=== PATIENT | male | born 1950 | race Hispanic/Latino ===

== ENCOUNTER 2018-05-07 12:07 | Inpatient (IN) | payer MEDICARE ==
[2018-05-07 13:37] LABS: Basophils % (Auto) 0.2 % (0.0-1.8); Hematocrit 50.9 % (35.5-45.6); Hemoglobin 17.1 gm/dl (11.8-15.2); Lymphocytes # (Auto) 0.5 K/mm3 (1.2-5.4); Lymphocytes % (Auto) 5.2 % (13.4-35.0); Mean Corpuscular HGB Conc 34 % (32-34); Mean Corpuscular Volume 85 fl (84-94); Monocytes # (Auto) 0.5 K/mm3 (0.0-0.8); Monocytes % (Auto) 6.1 % (0.0-7.3); Red Blood Count 5.98 M/mm3 (3.65-5.03)
[2018-05-07 14:53] LABS: Platelet Count 75 K/mm3 (140-440)
[2018-05-07 14:55] LABS: BUN/Creatinine Ratio 40; Blood Urea Nitrogen 32 mg/dL (9-20); Calcium 10.2 mg/dL (8.4-10.2); Hemolysis Index 120
[2018-05-07] MEDS ORDERED: NACL 0.9% 1000 ML 1,000 ML IV ONE ×2 (19:20→20:49)
[2018-05-07] MEDS ORDERED: ZOFRAN ODT PO ONE (19:27)
[2018-05-07] MEDS ORDERED: ZOFRAN ODT ONE (19:29)
[2018-05-07 19:41] LABS: Bilirubin,Urine NEG (Negative); Blood,Urine MOD (Negative); Color,Urine Amber (Yellow); Mucus,Urine FEW /HPF; Urobilinogen,Urine < 2.0 mg/dL (<2.0)
[2018-05-07 19:43] LABS: Amphetamine Screen,Urine PRESUMPTIVE NEGATIVE; Benzodiazepines Screen,Urine PRESUMPTIVE NEGATIVE; Cannabinoid Screen,Urine PRESUMPTIVE NEGATIVE; Cocaine Screen,Urine PRESUMPTIVE NEGATIVE; Methadone Screen,Urine PRESUMPTIVE NEGATIVE; Opiate Screen,Urine PRESUMPTIVE NEGATIVE
--- NOTE | 2018-05-07 20:47 | Emergency Department Report ---
ED N/V/D HPI - General Chief complaint: Nausea/Vomiting/Diarrhea Stated complaint: DETOX Time Seen by Provider: 05/07/18 19:19 Source: patient Mode of arrival: Wheelchair Limitations: No Limitations - History of Present Illness Initial comments: Patient is here because he said he has been on morphine for several years due to his chronic back pain. He said he has 5 doctors who have prescribed morphine tablets for him over the years. He came to the ED stating he needs a shot of IV morphine and then he can go home and continue taking his morphine tablets. He complained of nausea, vomiting and diarrhea which he stated he gets whenever he needs his IV morphine shot. Patient denies abdominal pain, fever, headache, chest pain or shortness of breath. MD complaint: nausea, vomiting, diarrhea -: days(s) (6) Description of Vomiting: bilious Description of Diarrhea: green Associated Abdominal Pain: No Radiation: none Severity: moderate Pain Scale: 7 Consistency: constant Improves with: medication (IV morphine shot) Worsens with: none Associated Symptoms: cough, loss of appetite, nausea/vomiting. denies: chest pain, shortness of breath - Related Data Previous Rx's Medication Instructions Recorded Last Taken Type Bisacodyl [Dulcolax suppos] 10 mg MT QDAY PRN #15 supp.rect 09/28/15 1 Day Ago Rx ~11/17/15 Famotidine [Pepcid] 20 mg PO BID #60 tablet 09/28/15 1 Day Ago Rx ~11/17/15 Thiamine [Vitamin B-1] 100 mg PO QDAY #30 tablet 09/28/15 1 Day Ago Rx ~11/17/15 Midodrine [Proamatine] 2.5 mg PO Q8HR tablet 11/20/15 Unknown Rx risperiDONE [RisperDAL] 0.25 mg PO BID #60 tablet 11/20/15 Unknown Rx Folic Acid [Folvite] 1 mg PO QDAY #30 tablet 04/07/16 Unknown Rx Lactulose [Cephulac] 20 gm PO QDAY PRN #30 oral.liqd 04/07/16 Unknown Rx Nitrofurantoin [place]/M-Cryst 100 mg PO Q12HR #13 capsule 04/15/16 Unknown Rx [Macrobid CAP] Allergies Allergy/AdvReac Type Severity Reaction Status Date / Time ciprofloxacin [From Cipro] Allergy Dizziness Verified 08/04/13 15:02 ciprofloxacin HCl Allergy Dizziness Verified 08/04/13 15:02 [From Cipro] ED Review of Systems ROS: Stated complaint: DETOX Other details as noted in HPI Comment: All other systems reviewed and negative Constitutional: denies: chills, fever Eyes: denies: eye pain, eye discharge, vision change ENT: denies: ear pain, throat pain Respiratory: cough. denies: shortness of breath, wheezing Cardiovascular: denies: chest pain, palpitations Endocrine: no symptoms reported Gastrointestinal: nausea, vomiting, diarrhea. denies: abdominal pain, hematemesis, melena, hematochezia Genitourinary: denies: urgency, dysuria Musculoskeletal: denies: back pain, joint swelling, arthralgia Skin: denies: rash, lesions Neurological: denies: headache, weakness, paresthesias Psychiatric: denies: anxiety, depression Hematological/Lymphatic: denies: easy bleeding, easy bruising ED Past Medical Hx - Past Medical History Hx Hypertension: Yes Hx Diabetes: Yes (Borderline) Hx Liver Disease: Yes (Hep. C) Hx Asthma: Yes Hx COPD: No Hx HIV: No Additional medical history: hepatitis C. "bad circulation" chronic bilateral lower extremity wounds. unbillical hernia. inguinial hernia - Surgical History Hx Cholecystectomy: Yes Additional Surgical History: tonsillectomy - Social History Smoking Status: Never Smoker Substance Use Type: Other - Medications Home Medications: Home Medications Medication Instructions Recorded Confirmed Last Taken Type Bisacodyl [Dulcolax suppos] 10 mg MT QDAY PRN #15 supp.rect 09/28/15 04/15/16 1 Day Ago Rx ~11/17/15 Famotidine [Pepcid] 20 mg PO BID #60 tablet 09/28/15 04/15/16 1 Day Ago Rx ~11/17/15 Thiamine [Vitamin B-1] 100 mg PO QDAY #30 tablet 09/28/15 04/15/16 1 Day Ago Rx ~11/17/15 Midodrine [Proamatine] 2.5 mg PO Q8HR tablet 11/20/15 04/15/16 Unknown Rx risperiDONE [RisperDAL] 0.25 mg PO BID #60 tablet 11/20/15 04/15/16 Unknown Rx Folic Acid [Folvite] 1 mg PO QDAY #30 tablet 04/07/16 04/15/16 Unknown Rx Lactulose [Cephulac] 20 gm PO QDAY PRN #30 oral.liqd 04/07/16 04/15/16 Unknown Rx Nitrofurantoin [place]/M-Cryst 100 mg PO Q12HR #13 capsule 04/15/16 Unknown Rx [Macrobid CAP] ED Physical Exam - General Limitations: No Limitations General appearance: alert, in no apparent distress, cachectic - Head Head exam: Present: atraumatic, normocephalic - Eye Eye exam: Present: normal appearance, PERRL, EOMI Pupils: Present: normal accommodation - ENT ENT exam: Present: normal exam, mucous membranes dry - Neck Neck exam: Present: normal inspection, full ROM. Absent: tenderness, meningismus - Respiratory Respiratory exam: Present: normal lung sounds bilaterally. Absent: respiratory distress, wheezes, rales, rhonchi - Cardiovascular Cardiovascular Exam: Present: regular rate, normal rhythm, normal heart sounds. Absent: systolic murmur, diastolic murmur, rubs, gallop - GI/Abdominal GI/Abdominal exam: Present: soft, normal bowel sounds. Absent: distended, tenderness, guarding, rebound, rigid - Rectal Rectal exam: Present: deferred - Extremities Exam Extremities exam: Present: normal inspection, full ROM, normal capillary refill. Absent: tenderness - Back Exam Back exam: Present: normal inspection, full ROM. Absent: tenderness - Neurological Exam Neurological exam: Present: alert, oriented X3, CN II-XII intact - Psychiatric Psychiatric exam: Present: normal affect, normal mood - Skin Skin exam: Present: warm, dry, intact, normal color. Absent: rash ED Course Vital Signs 05/07/18 05/07/18 05/07/18 12:17 19:45 21:37 Temperature 98.8 F 98.8 F Pulse Rate 94 H 73 Respiratory 16 18 16 Rate Blood Pressure 146/59 Blood Pressure 163/74 [Right] O2 Sat by Pulse 95 98 97 Oximetry - Consultations Consultation #1: 05/08/18 00:58 I consulted the General Surgeon customer sales consultant Dr Banks, he recommend NG tube placement and admission to the hospital by the hospitalist and he will evaluate patient in the morning. Consultation #2: 05/08/18 01:00 Dr Washington to admit patient. ED Medical Decision Making - Lab Data Result diagrams: 05/07/18 13:21 05/07/18 13:21 Lab Results 05/07/18 05/07/18 05/07/18 Range/Units 13:21 13:21 13:21 WBC (4.5-11.0) K/mm3 RBC (3.65-5.03) M/mm3 Hgb (11.8-15.2) gm/dl Hct (35.5-45.6) % MCV (84-94) fl MCH (28-32) pg MCHC (32-34) % RDW (13.2-15.2) % Plt Count (140-440) K/mm3 Lymph % (Auto) (13.4-35.0) % [place] % (Auto) (0.0-7.3) % Eos % (Auto) (0.0-4.3) % Baso % (Auto) (0.0-1.8) % Lymph # (1.2-5.4) K/mm3 [place] # (0.0-0.8) K/mm3 Eos # (0.0-0.4) K/mm3 Baso # (0.0-0.1) K/mm3 Seg Neutrophils % (40.0-70.0) % Seg Neutrophils # (1.8-7.7) K/mm3 Sodium 142 (137-145) mmol/L Potassium 4.3 (3.6-5.0) mmol/L Chloride 101.0 (98-107) mmol/L Carbon Dioxide 18 L (22-30) mmol/L Anion Gap 27 mmol/L BUN 32 H (9-20) mg/dL Creatinine 0.8 (0.8-1.5) mg/dL Estimated GFR > 60 ml/min BUN/Creatinine Ratio 40 % Glucose 159 H (75-100) mg/dL Calcium 10.2 (8.4-10.2) mg/dL Urine Color (Yellow) Urine Turbidity (Clear) Urine pH (5.0-7.0) Ur Specific Seney (1.003-1.030) Urine Protein (Negative) mg/dL Urine Glucose (UA) (Negative) mg/dL Urine Ketones (Negative) mg/dL Urine Blood (Negative) Urine Nitrite (Negative) Urine Bilirubin (Negative) Urine Urobilinogen (<2.0) mg/dL Ur Leukocyte Esterase (Negative) Urine WBC (Auto) (0.0-6.0) /HPF Urine RBC (Auto) (0.0-6.0) /HPF U Epithel Cells (Auto) (0-13.0) /HPF Urine Mucus /HPF Salicylates < 0.3 L (2.8-20.0) mg/dL Urine Opiates Screen Urine Methadone Screen Acetaminophen < 5.0 L (10.0-30.0) ug/mL Ur Barbiturates Screen Ur Phencyclidine Scrn Ur Amphetamines Screen U Benzodiazepines Scrn Urine Cocaine Screen U Marijuana (THC) Screen Drugs of Abuse Note Plasma/Serum Alcohol (0-0.07) % 05/07/18 05/07/18 05/07/18 Range/Units 13:21 13:21 19:19 WBC 8.8 (4.5-11.0) K/mm3 RBC 5.98 H (3.65-5.03) M/mm3 Hgb 17.1 H (11.8-15.2) gm/dl Hct 50.9 H (35.5-45.6) % MCV 85 (84-94) fl MCH 29 (28-32) pg MCHC 34 (32-34) % RDW 14.0 (13.2-15.2) % Plt Count 75 L (140-440) K/mm3 Lymph % (Auto) 5.2 L (13.4-35.0) % [place] % (Auto) 6.1 (0.0-7.3) % Eos % (Auto) 0.0 (0.0-4.3) % Baso % (Auto) 0.2 (0.0-1.8) % Lymph # 0.5 L (1.2-5.4) K/mm3 [place] # 0.5 (0.0-0.8) K/mm3 Eos # 0.0 (0.0-0.4) K/mm3 Baso # 0.0 (0.0-0.1) K/mm3 Seg Neutrophils % 88.5 H (40.0-70.0) % Seg Neutrophils # 7.8 H (1.8-7.7) K/mm3 Sodium (137-145) mmol/L Potassium (3.6-5.0) mmol/L Chloride (98-107) mmol/L Carbon Dioxide (22-30) mmol/L Anion Gap mmol/L BUN (9-20) mg/dL Creatinine (0.8-1.5) mg/dL Estimated GFR ml/min BUN/Creatinine Ratio % Glucose (75-100) mg/dL Calcium (8.4-10.2) mg/dL Urine Color [place] (Yellow) Urine Turbidity Clear (Clear) Urine pH 5.0 (5.0-7.0) Ur Specific Seney 1.027 (1.003-1.030) Urine Protein 100 mg/dl (Negative) mg/dL Urine Glucose (UA) 50 (Negative) mg/dL Urine Ketones 20 (Negative) mg/dL Urine Blood Mod (Negative) Urine Nitrite Neg (Negative) Urine Bilirubin Neg (Negative) Urine Urobilinogen < 2.0 (<2.0) mg/dL Ur Leukocyte Esterase Neg (Negative) Urine WBC (Auto) 2.0 (0.0-6.0) /HPF Urine RBC (Auto) 4.0 (0.0-6.0) /HPF U Epithel Cells (Auto) < 1.0 (0-13.0) /HPF Urine Mucus Few /HPF Salicylates (2.8-20.0) mg/dL Urine Opiates Screen Urine Methadone Screen Acetaminophen (10.0-30.0) ug/mL Ur Barbiturates Screen Ur Phencyclidine Scrn Ur Amphetamines Screen U Benzodiazepines Scrn Urine Cocaine Screen U Marijuana (THC) Screen Drugs of Abuse Note Plasma/Serum Alcohol < 0.01 (0-0.07) % 05/07/18 Range/Units 19:19 WBC (4.5-11.0) K/mm3 RBC (3.65-5.03) M/mm3 Hgb (11.8-15.2) gm/dl Hct (35.5-45.6) % MCV (84-94) fl MCH (28-32) pg MCHC (32-34) % RDW (13.2-15.2) % Plt Count (140-440) K/mm3 Lymph % (Auto) (13.4-35.0) % [place] % (Auto) (0.0-7.3) % Eos % (Auto) (0.0-4.3) % Baso % (Auto) (0.0-1.8) % Lymph # (1.2-5.4) K/mm3 [place] # (0.0-0.8) K/mm3 Eos # (0.0-0.4) K/mm3 Baso # (0.0-0.1) K/mm3 Seg Neutrophils % (40.0-70.0) % Seg Neutrophils # (1.8-7.7) K/mm3 Sodium (137-145) mmol/L Potassium (3.6-5.0) mmol/L Chloride (98-107) mmol/L Carbon Dioxide (22-30) mmol/L Anion Gap mmol/L BUN (9-20) mg/dL Creatinine (0.8-1.5) mg/dL Estimated GFR ml/min BUN/Creatinine Ratio % Glucose (75-100) mg/dL Calcium (8.4-10.2) mg/dL Urine Color (Yellow) Urine Turbidity (Clear) Urine pH (5.0-7.0) Ur Specific Seney (1.003-1.030) Urine Protein (Negative) mg/dL Urine Glucose (UA) (Negative) mg/dL Urine Ketones (Negative) mg/dL Urine Blood (Negative) Urine Nitrite (Negative) Urine Bilirubin (Negative) Urine Urobilinogen (<2.0) mg/dL Ur Leukocyte Esterase (Negative) Urine WBC (Auto) (0.0-6.0) /HPF Urine RBC (Auto) (0.0-6.0) /HPF U Epithel Cells (Auto) (0-13.0) /HPF Urine Mucus /HPF Salicylates (2.8-20.0) mg/dL Urine Opiates Screen Presumptive negative Urine Methadone Screen Presumptive negative Acetaminophen (10.0-30.0) ug/mL Ur Barbiturates Screen Presumptive negative Ur Phencyclidine Scrn Presumptive negative Ur Amphetamines Screen Presumptive negative U Benzodiazepines Scrn Presumptive negative Urine Cocaine Screen Presumptive negative U Marijuana (THC) Screen Presumptive negative Drugs of Abuse Note Disclamer Plasma/Serum Alcohol (0-0.07) % - Radiology Data Radiology results: report reviewed, image reviewed CXR is negative. Critical Care Time: Yes Critical care time in (mins) excluding proc time.: 45 Critical care attestation.: If time is entered above; I have spent that time in minutes in the direct care of this critically ill patient, excluding procedure time. ED Disposition Clinical Impression: Nausea and vomiting in adult, Opioid withdrawal, Narcotic abuse, continuous, Dehydration, mild, Liver mass Diarrhea Qualifiers: Diarrhea type: unspecified type Qualified Code(s): R19.7 - Diarrhea, unspecified Bowel obstruction Qualifiers: Intestinal obstruction type: unspecified Intestinal obstruction extent: unspecified extent Qualified Code(s): K56.609 - Unspecified intestinal obstruction, unspecified as to partial versus complete obstruction AAA (abdominal aortic aneurysm) Qualifiers: Presence of rupture: without rupture Qualified Code(s): I71.4 - Abdominal aortic aneurysm, without rupture Disposition: 09 OP ADMIT IP TO THIS HOSP Is pt being admited?: Yes Does the pt Need Aspirin: No Condition: Stable Referrals: PRIMARY CARE, [Primary Care Provider] - 3-5 Days Time of Disposition: 01:07
[2018-05-07] MEDS ORDERED: MORPHINE IV ONE (21:21)
--- NOTE | 2018-05-07 21:25 | XRay Report ---
FINAL REPORT EXAM: XR CHEST 1V AP HISTORY: cough TECHNIQUE: AP portable view of the chest. PRIORS: None. FINDINGS: The cardiomediastinal silhouette appears normal. The lungs are clear. The bones and soft tissues are unremarkable. IMPRESSION: No evidence of acute cardiopulmonary disease.
[2018-05-07 21:35] LABS: Albumin 4.8 g/dL (3.9-5); Bilirubin,Direct 0.2 mg/dL (0-0.2)
--- NOTE | 2018-05-08 00:18 | Cat Scan Report ---
FINAL REPORT EXAM: CT ABDOMEN PELVIS W CON HISTORY: vomiting TECHNIQUE: Dynamic helical CT scan through the abdomen and pelvis during and again after intravenous injection of iodinated contrast. Images are reconstructed in the sagittal and coronal planes. Oral c ontrast was not given. PRIORS: 04/15/2016 and 09/14/2015 FINDINGS: The lung bases are clear. There are multiple dilated loops of proximal to mid small bowel with air-fluid levels. There are nond ilated loops of distal small bowel. A point of transition is not identified. Also, there is a left in guinal hernia containing a loop of nonobstructed appearing distal left/proximal sigmoid colon. There is a 3.9 cm mass in the left lobe of the liver increased in size from 2.0 cm. It enhances durin g the arterial phase and appears to wash out on the delayed phase. There is splenomegaly without sign ificant interval change. Presently the spleen measures 10.7 x 14.8 x 15.5 Cm and previously it measur ed 12.0 x 15.3 x 17.8 cm. The pancreas and adrenal glands appear normal. There are surgical clips in the gallbladder fossa. The right kidney appears normal. There a 1.3 cm cyst in the upper pole of the left kidney and a 1.5 c m exophytic cyst arising from the lower pole of the left kidney. There is a left posterior bladder diverticulum. The stomach appears grossly within normal limits. There are no abnormally dilated loops of bowel or acute inflammatory changes. There is diffuse atherosclerotic calcification of the abdominal aorta and iliac and femoral arteries. There is an infrarenal abdominal aortic aneurysm measuring 3.2 cm increased from 2.8 cm. The bones are unremarkable for age. IMPRESSION: 1. A mid to distal small bowel obstruction is suspected 2. 3.9 cm left liver mass that has increased in size since the previous CT. Additional workup to excl ude malignancy is recommended. 3. Left inguinal hernia containing a nonobstructed appearing loop of distal left/proximal sigmoid col on. 4. Infrarenal abdominal aortic aneurysm has increased from 2.8-3.2 cm. I gave a verbal report by phone to Dr. Hernandez at 12:13 a.m. eastern standard time.
[2018-05-08] MEDS ORDERED: D50W (25GM) Syringe IV PRN (02:13)
--- NOTE | 2018-05-08 02:44 | XRay Report ---
FINAL REPORT EXAM: XR ABDOMEN 1V AP HISTORY: NGT placement. COMPARISON: CT abdomen pelvis from May 07, 2018. FINDINGS: AP view of the abdomen obtained. Distal tip of the NG tube projects over the mid stomach. Excreted co ntrast within renal pelves from earlier CT of the abdomen and pelvis. IMPRESSION: Distal tip of the NG tube projects over the mid stomach.
[2018-05-08] MEDS: NACL 0.9% 1000 ML 1,000 ML IV SCH ×2 (05:01→20:08)
[2018-05-08] MEDS: FLAGYL 500 MG/100 ML 500 MG/100 ML BAG IV SCH ×3 (06:24→21:47)
--- NOTE | 2018-05-08 07:05 | Progress Note ---
Assessment and Plan Full consult dictated 67 y/o male somewhat of a poor historian. c/o chronic back pain, +N & V + diarrhea. CT abd r/o partial sbo. liver mass? Abd soft, non tender at present. surgically stable at this time keep npo on ng suction x 24 hrs. f/u abd series in am stool cults x 3 GI eval, liver mass. Selected Entries 05/08/18 04:13 Temperature 98.2 F Pulse Rate 60 Respiratory 18 Rate Blood Pressure 151/57 Laboratory Tests 05/07/18 05/07/18 05/07/18 13:21 13:21 21:05 WBC 8.8 Hgb 17.1 H Hct 50.9 H Sodium 142 Potassium 4.3 Chloride 101.0 BUN 32 H Creatinine 0.8 Total Bilirubin 1.20 Direct Bilirubin 0.2 Indirect Bilirubin 1.0 AST 40 ALT 16 Alkaline Phosphatase 65 Objective Vital Signs - 12hr 05/07/18 05/07/18 05/08/18 19:45 21:37 02:47 Temperature 98.8 F Pulse Rate 73 74 Respiratory 18 16 16 Rate Blood Pressure Blood Pressure 163/74 123/78 [Right] O2 Sat by Pulse 98 97 98 Oximetry 05/08/18 05/08/18 04:13 05:37 Temperature 98.2 F Pulse Rate 60 Respiratory 18 Rate Blood Pressure 151/57 Blood Pressure [Right] O2 Sat by Pulse 94 97 Oximetry - Labs 05/07/18 13:21 05/07/18 13:21 Diabetes panel 05/07/18 05/07/18 Range/Units 13:21 21:05 Sodium 142 (137-145) mmol/L Potassium 4.3 (3.6-5.0) mmol/L Chloride 101.0 (98-107) mmol/L Carbon Dioxide 18 L (22-30) mmol/L BUN 32 H (9-20) mg/dL Creatinine 0.8 (0.8-1.5) mg/dL Glucose 159 H (75-100) mg/dL Calcium 10.2 (8.4-10.2) mg/dL AST 40 (5-40) units/L ALT 16 (7-56) units/L Alkaline Phosphatase 65 (35-129) units/L Total Protein 8.5 H (6.3-8.2) g/dL Albumin 4.8 (3.9-5) g/dL Calcium panel 05/07/18 05/07/18 Range/Units 13:21 21:05 Calcium 10.2 (8.4-10.2) mg/dL Albumin 4.8 (3.9-5) g/dL Pituitary panel 05/07/18 Range/Units 13:21 Sodium 142 (137-145) mmol/L Potassium 4.3 (3.6-5.0) mmol/L Chloride 101.0 (98-107) mmol/L Carbon Dioxide 18 L (22-30) mmol/L BUN 32 H (9-20) mg/dL Creatinine 0.8 (0.8-1.5) mg/dL Glucose 159 H (75-100) mg/dL Calcium 10.2 (8.4-10.2) mg/dL Adrenal panel 05/07/18 05/07/18 Range/Units 13:21 21:05 Sodium 142 (137-145) mmol/L Potassium 4.3 (3.6-5.0) mmol/L Chloride 101.0 (98-107) mmol/L Carbon Dioxide 18 L (22-30) mmol/L BUN 32 H (9-20) mg/dL Creatinine 0.8 (0.8-1.5) mg/dL Glucose 159 H (75-100) mg/dL Calcium 10.2 (8.4-10.2) mg/dL Total Bilirubin 1.20 (0.1-1.2) mg/dL AST 40 (5-40) units/L ALT 16 (7-56) units/L Alkaline Phosphatase 65 (35-129) units/L Total Protein 8.5 H (6.3-8.2) g/dL Albumin 4.8 (3.9-5) g/dL
[2018-05-08] MEDS ORDERED: CHLORASEPTIC MM PRN (07:08)
--- NOTE | 2018-05-08 07:28 | History and Physical Report ---
CHIEF COMPLAINT: Nausea, vomiting, and diarrhea. HISTORY OF PRESENT ILLNESS: The patient is a 67-year-old male who said that he has been having chronic back pain for a long time and had been prescribed morphine tablets for some years for the treatment of this chronic back pain and he came to the Emergency Room requesting for a shot of morphine. The patient said that he develops nausea, vomiting, and diarrhea, which he said happens whenever he gets a shot of morphine. There was no history of abdominal pain and there was also no history of fever, chest pain, or shortness of breath. The patient was evaluated and had a CAT scan of the abdomen and pelvis done that shows a partial small bowel obstruction and based on that, the patient was presented for admission. PAST MEDICAL HISTORY: Pertinent for hypertension, diabetes mellitus, hepatitis C infection, asthma. PAST SURGICAL HISTORY: Pertinent for cholecystectomy and tonsillectomy. FAMILY HISTORY: Noncontributory. SOCIAL HISTORY: The patient does not smoke cigarette, does not drink alcohol, and does not use illicit drugs. MEDICATIONS: The patient is on Dulcolax suppository 10 mg rectally daily, famotidine 20 mg by mouth twice daily, thiamine, vitamin B 100 mg by mouth daily, midodrine 2.5 mg by mouth every 8 hours, and Risperdal 0.25 mg by mouth twice daily, folic acid 1 mg by mouth daily, lactulose 20 mg by mouth daily, and also the patient is on Macrobid 100 mg by mouth every 12 hours. ALLERGIES: THE PATIENT IS ALLERGIC TO CIPROFLOXACIN. REVIEW OF SYSTEMS: CONSTITUTIONAL: There is no fever, no chills, no diaphoresis. HEENT: There is no headache or sore throat. CARDIOVASCULAR SYSTEM: There is no chest pain or orthopnea. RESPIRATORY SYSTEM: There is no shortness of breath or cough. GASTROINTESTINAL SYSTEM: There is no abdominal pain, but there is nausea, vomiting, and diarrhea. There is no constipation. NEUROLOGICAL SYSTEM: There is no numbness, no dizziness, no altered mental status. MUSCULOSKELETAL SYSTEM: There is a chronic back pain, but no joint swelling. DERMATOLOGICAL SYSTEM: There is no skin rash or itching. GENITOURINARY SYSTEM: There is no dysuria, hematuria, or flank pain. Rest of system review is normal. PHYSICAL EXAMINATION: GENERAL: At the time of exam, the patient was found to be alert, oriented x 3, and not in acute distress. VITAL SIGNS: At the initial time of presentation showed normal temperature of 98.8 degrees Fahrenheit, pulse of 94, respirations 16, blood pressure 146/59, O2 sat of 95% on room air. HEENT: Pupils to be equal, round, reactive to light and accommodating. Extraocular muscles are intact. NECK: Supple with no JVD or carotid bruit. CARDIOVASCULAR SYSTEM: Show normal first and second heart sounds with no gallop or murmur. RESPIRATORY SYSTEM: Show good air entry on both sides of the lungs with no abnormal breath sounds. GASTROINTESTINAL SYSTEM: Show abdomen to be full, soft, nontender with no organomegaly or rigidity elicited and bowel sound is normal. NEUROLOGIC SYSTEM: Show no focal deficits. MUSCULOSKELETAL SYSTEM: Show no joint swelling or tenderness. DERMATOLOGICAL SYSTEM: Show no skin rash. GENITOURINARY SYSTEM: Showing no costovertebral angle tenderness. PERTINENT LABORATORY DATA AND IMAGING STUDIES: The patient had CT of the abdomen and pelvis with contrast done that shows a mid to distal small bowel obstruction suspected. There is finding of 3.9 cm left liver mass that has increased in size since the previous CT according to the radiologist and he says the additional workup to exclude malignancy is recommended. There is also finding of left inguinal hernia containing a nonobstructing appearing loop of distal left proximal sigmoid colon. Also, there is finding of infrarenal abdominal aortic aneurysm, which size that increased from 2.8-3.2 cm. Lab results: The patient had CBC done with normal white count, elevated hemoglobin of 17.1 and elevated hematocrit of 50.9 with a low platelet count of 75 and with CBC differential showing elevated segmented neutrophil of 88.5%. The patient's chemistry show elevated BUN of 32 with normal creatinine and normal estimated GFR of greater than 60. The patient's rest of chemistry was unremarkable except for elevated lipase level of 66. The patient's urinalysis came back unremarkable and toxicology screen was also unremarkable. DIAGNOSIS: Small bowel obstruction. PLAN OF CARE: 1. The patient will be admitted to medical floor on remote telemetry. 2. The patient will continue nasogastric sanctioning through intermittent low wall application. 3. The patient will continue surgical consult with Dr. EDWARDS initiated by the Emergency Room physician. 4. The patient will be n.p.o. and will be on IV ceftriaxone 1 gram daily. Also, the patient will be on IV metronidazole 500 mg q. 8 hours as empiric treatment for small bowel obstruction. 5. The patient will be on IV Zofran 4 mg every 8 hours as needed for nausea and vomiting and will be on IV morphine 2 mg every 4 hours as needed for pain. 6. The patient will remain n.p.o. until evaluated by the surgeon. JOB# [id number] OCN/NTS MTDD
[2018-05-08 10:06] LABS: INR 1.07 (0.87-1.13)
--- NOTE | 2018-05-08 10:22 | Gastroenterology Consultation ---
History of Present Illness - Reason for Consult Consult date: 05/08/18 liver mass - History of Present Illness This is a 67 yo male with pmh of cirrhosis 2/2 HCV s/p treatment with Harvoni complicated with h/o varices admitted for abdominal pain, nausea/vomiting and found to have SBO. GI consulted for evaluation of liver mass seen on CT abdomen. Patient previously followed in GI clinic but last seen in 03/2017 and was lost to follow up with his brother passing away. He was previously on propanolol but has ran out as well. Patient noted to have enlarging lesion in the left liver with hyperenhancement. Since admission, he had NG tube placed with improvement in abdominal pain. Past History Past Medical History: hepatitis, liver disease Social history: no significant social history Family history: no significant family history Medications and Allergies Allergies Allergy/AdvReac Type Severity Reaction Status Date / Time ciprofloxacin [From Cipro] Allergy Dizziness Verified 08/04/13 15:02 ciprofloxacin HCl Allergy Dizziness Verified 08/04/13 15:02 [From Cipro] Home Medications Medication Instructions Recorded Confirmed Last Taken Type Bisacodyl [Dulcolax suppos] 10 mg WA QDAY PRN #15 supp.rect 09/28/15 04/15/16 1 Day Ago Rx ~11/17/15 Famotidine [Pepcid] 20 mg PO BID #60 tablet 09/28/15 04/15/16 1 Day Ago Rx ~11/17/15 Thiamine [Vitamin B-1] 100 mg PO QDAY #30 tablet 09/28/15 04/15/16 1 Day Ago Rx ~11/17/15 Midodrine [Proamatine] 2.5 mg PO Q8HR tablet 11/20/15 04/15/16 Unknown Rx risperiDONE [RisperDAL] 0.25 mg PO BID #60 tablet 11/20/15 04/15/16 Unknown Rx Folic Acid [Folvite] 1 mg PO QDAY #30 tablet 04/07/16 04/15/16 Unknown Rx Lactulose [Cephulac] 20 gm PO QDAY PRN #30 oral.liqd 04/07/16 04/15/16 Unknown Rx Nitrofurantoin [place]/M-Cryst 100 mg PO Q12HR #13 capsule 04/15/16 Unknown Rx [Macrobid CAP] Active Meds: Active Medications Dextrose (D50w (25gm) Syringe) 50 ml IV PRN PRN PRN Reason: Hypoglycemia Ceftriaxone Sodium (Rocephin/Ns 1 Gm/50 Ml) 1 gm in 50 mls @ 100 mls/hr IV Q24HR DANA; Protocol Metronidazole (Flagyl 500 Mg/100 Ml) 500 mg in 100 mls @ 100 mls/hr IV Q8HR DANA; Protocol Last Admin: 05/08/18 06:24 Dose: 100 mls/hr Documented by: Sodium Chloride (Nacl 0.9% 1000 Ml) 1,000 mls @ 75 mls/hr IV DIRECT DANA Last Admin: 05/08/18 05:01 Dose: 75 mls/hr Documented by: Insulin Human Regular (Humulin R) 0 units SUB-Q Q4H DANA; Protocol Morphine Sulfate (Morphine) 2 mg IV Q4H PRN PRN Reason: Pain, Moderate (4-6) Ondansetron HCl (Zofran) 4 mg IV Q8H PRN PRN Reason: Nausea And Vomiting Phenol (Chloraseptic) 1 spray MM PRN PRN PRN Reason: Sore Throat Review of Systems - Review of Systems Constitutional: weight loss Cardiovascular: no chest pain, no edema Gastrointestinal: abdominal pain, nausea, vomiting Neurological: weakness Psychiatric: anxiety Exam - Constitutional Vital Signs: Temp Pulse Resp BP Pulse Ox 98.2 F 60 18 151/57 97 05/08/18 04:13 05/08/18 04:13 05/08/18 04:13 05/08/18 04:13 05/08/18 05:37 General appearance: no acute distress - EENT ENT: hearing intact - Neck Neck: supple - Respiratory Respiratory effort: normal Respiratory: bilateral: CTA - Cardiovascular Rhythm: regular Heart Sounds: Present: S1 & S2 - Gastrointestinal General gastrointestinal: Present: soft, non-tender, non-distended - Integumentary Integumentary: Present: clear, warm - Neurologic Neurological: alert and oriented x3 - Psychiatric Psychiatric: appropriate mood/affect - Labs CBC & Chem 7: 05/07/18 13:21 05/07/18 13:21 Lab Results: Laboratory Results - last 24 hr 05/07/18 05/07/18 05/07/18 13:21 13:21 13:21 WBC RBC Hgb Hct MCV MCH MCHC RDW Plt Count Lymph % (Auto) [place] % (Auto) Eos % (Auto) Baso % (Auto) Lymph # [place] # Eos # Baso # Seg Neutrophils % Seg Neutrophils # PT INR Sodium 142 Potassium 4.3 Chloride 101.0 Carbon Dioxide 18 L Anion Gap 27 BUN 32 H Creatinine 0.8 Estimated GFR > 60 BUN/Creatinine Ratio 40 Glucose 159 H Calcium 10.2 Total Bilirubin Direct Bilirubin Indirect Bilirubin AST ALT Alkaline Phosphatase Total Protein Albumin Albumin/Globulin Ratio Lipase Urine Color Urine Turbidity Urine pH Ur Specific [place] Urine Protein Urine Glucose (UA) Urine Ketones Urine Blood Urine Nitrite Urine Bilirubin Urine Urobilinogen Ur Leukocyte Esterase Urine WBC (Auto) Urine RBC (Auto) U Epithel Cells (Auto) Urine Mucus Salicylates < 0.3 L Urine Opiates Screen Urine Methadone Screen Acetaminophen < 5.0 L Ur Barbiturates Screen Ur Phencyclidine Scrn Ur Amphetamines Screen U Benzodiazepines Scrn Urine Cocaine Screen U Marijuana (THC) Screen Drugs of Abuse Note Plasma/Serum Alcohol 05/07/18 05/07/18 05/07/18 13:21 13:21 19:19 WBC 8.8 RBC 5.98 H Hgb 17.1 H Hct 50.9 H MCV 85 MCH 29 MCHC 34 RDW 14.0 Plt Count 75 L Lymph % (Auto) 5.2 L [place] % (Auto) 6.1 Eos % (Auto) 0.0 Baso % (Auto) 0.2 Lymph # 0.5 L [place] # 0.5 Eos # 0.0 Baso # 0.0 Seg Neutrophils % 88.5 H Seg Neutrophils # 7.8 H PT INR Sodium Potassium Chloride Carbon Dioxide Anion Gap BUN Creatinine Estimated GFR BUN/Creatinine Ratio Glucose Calcium Total Bilirubin Direct Bilirubin Indirect Bilirubin AST ALT Alkaline Phosphatase Total Protein Albumin Albumin/Globulin Ratio Lipase Urine Color [place] Urine Turbidity Clear Urine pH 5.0 Ur Specific [place] 1.027 Urine Protein 100 mg/dl Urine Glucose (UA) 50 Urine Ketones 20 Urine Blood Mod Urine Nitrite Neg Urine Bilirubin Neg Urine Urobilinogen < 2.0 Ur Leukocyte Esterase Neg Urine WBC (Auto) 2.0 Urine RBC (Auto) 4.0 U Epithel Cells (Auto) < 1.0 Urine Mucus Few Salicylates Urine Opiates Screen Urine Methadone Screen Acetaminophen Ur Barbiturates Screen Ur Phencyclidine Scrn Ur Amphetamines Screen U Benzodiazepines Scrn Urine Cocaine Screen U Marijuana (THC) Screen Drugs of Abuse Note Plasma/Serum Alcohol < 0.01 05/07/18 05/07/18 05/08/18 19:19 21:05 09:16 WBC RBC Hgb Hct MCV MCH MCHC RDW Plt Count Lymph % (Auto) [place] % (Auto) Eos % (Auto) Baso % (Auto) Lymph # [place] # Eos # Baso # Seg Neutrophils % Seg Neutrophils # PT 14.3 INR 1.07 Sodium Potassium Chloride Carbon Dioxide Anion Gap BUN Creatinine Estimated GFR BUN/Creatinine Ratio Glucose Calcium Total Bilirubin 1.20 Direct Bilirubin 0.2 Indirect Bilirubin 1.0 AST 40 ALT 16 Alkaline Phosphatase 65 Total Protein 8.5 H Albumin 4.8 Albumin/Globulin Ratio 1.3 Lipase 66 H Urine Color Urine Turbidity Urine pH Ur Specific [place] Urine Protein Urine Glucose (UA) Urine Ketones Urine Blood Urine Nitrite Urine Bilirubin Urine Urobilinogen Ur Leukocyte Esterase Urine WBC (Auto) Urine RBC (Auto) U Epithel Cells (Auto) Urine Mucus Salicylates Urine Opiates Screen Presumptive negative Urine Methadone Screen Presumptive negative Acetaminophen Ur Barbiturates Screen Presumptive negative Ur Phencyclidine Scrn Presumptive negative Ur Amphetamines Screen Presumptive negative U Benzodiazepines Scrn Presumptive negative Urine Cocaine Screen Presumptive negative U Marijuana (THC) Screen Presumptive negative Drugs of Abuse Note Disclamer Plasma/Serum Alcohol - Imaging CT Scan: report reviewed Assessment and Plan This is a 67 yo male with pmh of cirrhosis 2/2 HCV s/p treatment with Harvoni complicated with h/o varices admitted for abdominal pain, nausea/vomiting and found to have SBO. GI consulted for evaluation of liver mass seen on CT abdomen. - Patient Problems (1) Bowel obstruction Current Visit: Yes Status: Acute Qualifiers: Intestinal obstruction type: unspecified Intestinal obstruction extent: unspecified extent Qualified Code(s): K56.609 - Unspecified intestinal obstruction, unspecified as to partial versus complete obstruction Plan to address problem: Currently with NG tube to suction Surgery on board Clinically improving (2) Liver mass Current Visit: Yes Status: Acute Plan to address problem: Left liver lobe mass - concerning for HCC given h/o cirrhosis, enlarging from previous imaging in 2016, and appearance on CT abdomen. - discussed with radiology and would be better to characterize with either [address] w/wo contrast liver protocol vs MRI wo/w contrast. Will obtain additional imaging tomorrow once SBO improving. - will check AFP in the meantime. (3) Cirrhosis Current Visit: No Status: Chronic Qualifiers: Ascites presence: with ascites
[2018-05-08] MEDS: ROCEPHIN/NS 1 GM/50 ML 1 GM/50 ML BAG IV SCH (10:33)
--- NOTE | 2018-05-08 17:23 | Consultation ---
REASON FOR CONSULTATION: Rule out partial small-bowel obstruction. HISTORY OF PRESENT ILLNESS: The patient is a 67-year-old gentleman, somewhat of a poor historian. States he has a history of chronic back pain and takes narcotics. States recently he has been " also complaining of some nausea and vomiting, and some nonspecific abdominal pain. Also, complaining of diarrhea. PAST MEDICAL HISTORY: Negative. PAST SURGICAL HISTORY: " approximately 2 years ago. ALLERGIES: No known allergies. MEDICATIONS: No medications. FAMILY HISTORY: Negative. SOCIAL HISTORY: Denies any smoking or drinking, but again does take a fair amount of narcotics. PHYSICAL EXAMINATION: GENERAL: At this time revealed the patient to be awake, alert, cooperative, in no acute distress. VITAL SIGNS: Shown to be afebrile with a temperature 98.2, blood pressure is 151/57, pulse is 60, respirations of 18. ABDOMEN: Examination of the abdomen reveals no obvious midline scar that would correlate with the patient's history of " The abdomen itself is soft and nontender at present. Bowel sounds are present. LABORATORY DATA: Lab work at present includes a CBC, which shows a white count of 8.8, H and H of 17 and 50. Electrolytes are essentially within normal limits including a sodium of 142, potassium 4.3, chloride 101, BUN is 37 and creatinine 0.8 consistent with mild dehydration. Glucose is 159. LFTs are normal with a total bilirubin of 1.2, AST is 40, ALT is 16, alkaline phosphatase is 65. Lipase is minimally elevated at 66. CT scan of the abdomen was performed and findings described what is suspected to be a mild partial small-bowel obstruction. 1. 0.9 cm left liver mass is also described that states it is size from previous CT. incarcerated obstructing. ASSESSMENT AND PLAN: At this time is that of a 67-year-old gentleman with complaints of nonspecific abdominal pain and diarrhea. Clinically, no evidence of bowel obstruction, but need to monitor, but do need to monitor clinically. Recommend keep the patient n.p.o. on NG suction for 24 hours. We will repeat abdominal series in the morning. Also, obtain GI evaluation for the renee diary as well as the left lobe of the liver mass. We will obtain stool cultures x 3. We will follow with you. Thank you very much for consultation. JOB# [id number] VIRGEN/LILA
[2018-05-08] MEDS: HumuLIN R SUB-Q SCH ×2 (17:52→17:53)
--- NOTE | 2018-05-08 20:02 | Event Note ---
Date: 05/08/18 67-year-old male patient was admitted with nausea and vomiting and diarrhea Small bowel obstruction, evaluated by surgery nothing by mouth status intermittent suction NG tube, Liver mass, evaluated by GI, workup in progress Medical records reviewed, agree with the current management Plan of care is reviewed with the patient and his nurse
[2018-05-08] MEDS: MORPHINE IV PRN (21:49)
[2018-05-09] MEDS: ZOFRAN IV PRN ×2 (01:25→16:38)
[2018-05-09] MEDS: HumuLIN R SUB-Q SCH ×7 (03:35→22:05)
[2018-05-09] MEDS: FLAGYL 500 MG/100 ML 500 MG/100 ML BAG IV SCH ×3 (05:06→21:26)
[2018-05-09 05:43] LABS: BUN/Creatinine Ratio 34; Blood Urea Nitrogen 24 mg/dL (9-20); Calcium 8.7 mg/dL (8.4-10.2); Hemolysis Index 10
--- NOTE | 2018-05-09 08:46 | XRay Report ---
ABDOMINAL SERIES INDICATION: Small bowel obstruction. COMPARISON: Prior imaging over last couple of days. FINDINGS: Abdominal series, 4 radiographs, demonstrate an air-containing small bowel loop in the right hemiabdomen, dilated up to 4.1 cm. Remainder imaged small bowel and colon appears nonobstructed. No focal suspicious calcifications, pneumatosis or pneumoperitoneum. Stable cholecystectomy clips and esophagogastric tube tip along the distal stomach, projecting over L1. Accompanying chest radiograph again demonstrates normal cardiomediastinal silhouette and clear lungs. Aortic atherosclerotic calcifications. EKG leads. Demineralized bones. CONCLUSION: 1. Focal prominence/dilated small bowel loop in the right hemiabdomen identified, nonspecific and possibly an ileus versus partial small bowel obstruction in an appropriate setting. 2. Few other findings, as described. Thank you for the opportunity to participate in this patient's care.
[2018-05-09] MEDS: ROCEPHIN/NS 1 GM/50 ML 1 GM/50 ML BAG IV SCH (10:53)
--- NOTE | 2018-05-09 12:47 | Progress Note ---
Assessment and Plan Pt status quo. feeling well. still c/o mild diarrhea but "better" Abd soft non tender reviewed abd series with radiologist - essentially "wnl" stable d/c ng attempt cl liq diet. GI eval appreciated liver mass w/u in progress Selected Entries 05/09/18 05:49 Temperature 98.3 F Pulse Rate 61 Respiratory 20 Rate Blood Pressure 151/60 Laboratory Tests 05/09/18 05:02 Sodium 143 Potassium 3.5 L Chloride 105.6 Carbon Dioxide 25 D BUN 24 H Creatinine 0.7 L Objective Vital Signs - 12hr 05/09/18 05:49 Temperature 98.3 F Pulse Rate 61 Respiratory 20 Rate Blood Pressure 151/60 O2 Sat by Pulse 94 Oximetry - Labs 05/07/18 13:21 05/09/18 05:02 Diabetes panel 05/09/18 Range/Units 05:02 Sodium 143 (137-145) mmol/L Potassium 3.5 L (3.6-5.0) mmol/L Chloride 105.6 (98-107) mmol/L Carbon Dioxide 25 D (22-30) mmol/L BUN 24 H (9-20) mg/dL Creatinine 0.7 L (0.8-1.5) mg/dL Glucose 104 H (75-100) mg/dL Calcium 8.7 (8.4-10.2) mg/dL Calcium panel 05/09/18 Range/Units 05:02 Calcium 8.7 (8.4-10.2) mg/dL Pituitary panel 05/09/18 Range/Units 05:02 Sodium 143 (137-145) mmol/L Potassium 3.5 L (3.6-5.0) mmol/L Chloride 105.6 (98-107) mmol/L Carbon Dioxide 25 D (22-30) mmol/L BUN 24 H (9-20) mg/dL Creatinine 0.7 L (0.8-1.5) mg/dL Glucose 104 H (75-100) mg/dL Calcium 8.7 (8.4-10.2) mg/dL Adrenal panel 05/09/18 Range/Units 05:02 Sodium 143 (137-145) mmol/L Potassium 3.5 L (3.6-5.0) mmol/L Chloride 105.6 (98-107) mmol/L Carbon Dioxide 25 D (22-30) mmol/L BUN 24 H (9-20) mg/dL Creatinine 0.7 L (0.8-1.5) mg/dL Glucose 104 H (75-100) mg/dL Calcium 8.7 (8.4-10.2) mg/dL
[2018-05-09] MEDS: NACL 0.9% 1000 ML 1,000 ML IV SCH (13:02)
--- NOTE | 2018-05-09 14:17 | Gastroenterology Progress Note ---
Addendum entered and electronically signed by LALO LARSON MD 05/09/18 18:16: Patient seen and examined on 05/09/2017. Agree with A/P and recommendations as stated. SBO: clinically improving and repeat KUB reviewed. No further output via NG. trial of clears with NG tube removal. Liver mass: AFP pending. will order MRI wo/w contrast for further eval. Original Note: Assessment and Plan This is a 67 yo male with pmh of cirrhosis 2/2 HCV s/p treatment with Harvoni complicated with h/o varices admitted for abdominal pain, nausea/vomiting and found to have SBO. GI consulted for evaluation of liver mass seen on CT abdomen. - Patient Problems (1) Bowel obstruction Current Visit: Yes Status: Acute Qualifiers: Intestinal obstruction type: unspecified Intestinal obstruction extent: unspecified extent Qualified Code(s): K56.609 - Unspecified intestinal obstruction, unspecified as to partial versus complete obstruction Plan to address problem: KUB with focal prominence/dilated small bowel in right hemiabdomen (ileus vs p artial SBO) clinically improving surgery following with recommendations for removal of NG and trial of clears continue supportive care (2) Liver mass Current Visit: Yes Status: Acute Plan to address problem: Left liver lobe mass - concerning for HCC given h/o cirrhosis, enlarging from previous imaging in 2016, and appearance on CT abdomen. - will order MRI for further evaluation - AFP pending (3) Cirrhosis Current Visit: No Status: Chronic Qualifiers: Ascites presence: with ascites Subjective Date of service: 05/09/18 Principal diagnosis: liver mass Interval history: No acute distress. Reports some continued mild generalized abd discomfort. No N/V. Multiple BMs today with liquid brown stool. Objective - Constitutional Vitals: Temp Pulse Resp BP Pulse Ox 99.5 F 62 18 155/64 96 05/09/18 12:38 05/09/18 12:38 05/09/18 12:38 05/09/18 12:38 05/09/18 12:38 General appearance: no acute distress - Respiratory Respiratory: bilateral: CTA (anterior) - Cardiovascular Rhythm: regular Heart Sounds: Present: S1 & S2 - Gastrointestinal General gastrointestinal: Present: soft, non-tender, non-distended, hypoactive bowel sounds - Labs CBC & Chem 7: 05/07/18 13:21 05/09/18 05:02 Labs: Laboratory Results - last 24 hr 05/08/18 05/08/18 05/08/18 09:03 16:45 21:58 Sodium Potassium Chloride Carbon Dioxide Anion Gap BUN Creatinine Estimated GFR BUN/Creatinine Ratio Glucose POC Glucose 119 H 113 H 111 H Calcium 05/09/18 05/09/18 05/09/18 04:11 05:02 11:17 Sodium 143 Potassium 3.5 L Chloride 105.6 Carbon Dioxide 25 D Anion Gap 16 BUN 24 H Creatinine 0.7 L Estimated GFR > 60 BUN/Creatinine Ratio 34 Glucose 104 H POC Glucose 116 H 93 Calcium 8.7
[2018-05-09] MEDS: MORPHINE IV PRN ×2 (16:41→21:26)
--- NOTE | 2018-05-09 16:47 | Progress Note ---
Assessment and Plan Assessment and plan: --Small bowel obstruction improved; NG tube discontinued, started on clear liquids Surgery following, patient complains of mild abdominal pain --Liver mass; GI following Possible hepatocellular carcinoma[patient has history of cirrhosis liver/ GI following, MRI and AFP --History of cirrhosis liver with ascites; continue current management Supportive care --Hypokalemia; replace per protocol and monitor levels --DVT prophylaxis; Lovenox Consults and recommendations noted Possible discharge in 1-2 days state Plan of care is reviewed with the patient and his nurse History Interval history: Patient seen and examined medical records reviewed Complaints of generalized weakness, mild abdominal pain Started on clear liquids tolerating well Vital signs noted Hospitalist Physical - Constitutional Vitals: Temp Pulse Resp BP Pulse Ox 99.5 F 62 18 155/64 96 05/09/18 12:38 05/09/18 12:38 05/09/18 12:38 05/09/18 12:38 05/09/18 12:38 General appearance: Present: no acute distress, well-nourished - EENT Eyes: Present: PERRL, EOM intact - Neck Neck: Present: supple, normal ROM - Respiratory Respiratory effort: normal Respiratory: bilateral: diminished, negative: rales, rhonchi, wheezing - Cardiovascular Rhythm: regular Heart Sounds: Present: S1 & S2 - Extremities Extremities: no ischemia, pulses intact - Abdominal General gastrointestinal: soft, non-distended, normal bowel sounds - Integumentary Integumentary: Present: clear, warm - Psychiatric Psychiatric: appropriate mood/affect, cooperative - Neurologic Neurologic: moves all extremities Results - Labs CBC & Chem 7: 05/07/18 13:21 05/09/18 05:02 Labs: Laboratory Last Values WBC 8.8 K/mm3 (4.5-11.0) 05/07/18 13:21 RBC 5.98 M/mm3 (3.65-5.03) H 05/07/18 13:21 Hgb 17.1 gm/dl (11.8-15.2) H 05/07/18 13:21 Hct 50.9 % (35.5-45.6) H 05/07/18 13:21 MCV 85 fl (84-94) 05/07/18 13:21 MCH 29 pg (28-32) 05/07/18 13:21 MCHC 34 % (32-34) 05/07/18 13:21 RDW 14.0 % (13.2-15.2) 05/07/18 13:21 Plt Count 75 K/mm3 (140-440) L 05/07/18 13:21 Lymph % (Auto) 5.2 % (13.4-35.0) L 05/07/18 13:21 [place] % (Auto) 6.1 % (0.0-7.3) 05/07/18 13:21 Eos % (Auto) 0.0 % (0.0-4.3) 05/07/18 13:21 Baso % (Auto) 0.2 % (0.0-1.8) 05/07/18 13:21 Lymph # 0.5 K/mm3 (1.2-5.4) L 05/07/18 13:21 [place] # 0.5 K/mm3 (0.0-0.8) 05/07/18 13:21 Eos # 0.0 K/mm3 (0.0-0.4) 05/07/18 13:21 Baso # 0.0 K/mm3 (0.0-0.1) 05/07/18 13:21 Seg Neutrophils % 88.5 % (40.0-70.0) H 05/07/18 13:21 Seg Neutrophils # 7.8 K/mm3 (1.8-7.7) H 05/07/18 13:21 PT 14.3 Sec. (12.2-14.9) 05/08/18 09:16 INR 1.07 (0.87-1.13) 05/08/18 09:16 Sodium 143 mmol/L (137-145) 05/09/18 05:02 Potassium 3.5 mmol/L (3.6-5.0) L 05/09/18 05:02 Chloride 105.6 mmol/L (98-107) 05/09/18 05:02 Carbon Dioxide 25 mmol/L (22-30) D 05/09/18 05:02 Anion Gap 16 mmol/L 05/09/18 05:02 BUN 24 mg/dL (9-20) H 05/09/18 05:02 Creatinine 0.7 mg/dL (0.8-1.5) L 05/09/18 05:02 Estimated GFR > 60 ml/min 05/09/18 05:02 BUN/Creatinine Ratio 34 % 05/09/18 05:02 Glucose 104 mg/dL (75-100) H 05/09/18 05:02 POC Glucose 93 (70-105) 05/09/18 11:17 Calcium 8.7 mg/dL (8.4-10.2) 05/09/18 05:02 Total Bilirubin 1.20 mg/dL (0.1-1.2) 05/07/18 21:05 Direct Bilirubin 0.2 mg/dL (0-0.2) 05/07/18 21:05 Indirect Bilirubin 1.0 mg/dL 05/07/18 21:05 AST 40 units/L (5-40) 05/07/18 21:05 ALT 16 units/L (7-56) 05/07/18 21:05 Alkaline Phosphatase 65 units/L (35-129) 05/07/18 21:05 Total Protein 8.5 g/dL (6.3-8.2) H 05/07/18 21:05 Albumin 4.8 g/dL (3.9-5) 05/07/18 21:05 Albumin/Globulin Ratio 1.3 % 05/07/18 21:05 Lipase 66 units/L (13-60) H 05/07/18 21:05 Urine Color [place] (Yellow) 05/07/18 19:19 Urine Turbidity Clear (Clear) 05/07/18 19:19 Urine pH 5.0 (5.0-7.0) 05/07/18 19:19 Ur Specific [place] 1.027 (1.003-1.030) 05/07/18 19:19 Urine Protein 100 mg/dl mg/dL (Negative) 05/07/18 19:19 Urine Glucose (UA) 50 mg/dL (Negative) 05/07/18 19:19 Urine Ketones 20 mg/dL (Negative) 05/07/18 19:19 Urine Blood Mod (Negative) 05/07/18 19:19 Urine Nitrite Neg (Negative) 05/07/18 19:19 Urine Bilirubin Neg (Negative) 05/07/18 19:19 Urine Urobilinogen < 2.0 mg/dL (<2.0) 05/07/18 19:19 Ur Leukocyte Esterase Neg (Negative) 05/07/18 19:19 Urine WBC (Auto) 2.0 /HPF (0.0-6.0) 05/07/18 19:19 Urine RBC (Auto) 4.0 /HPF (0.0-6.0) 05/07/18 19:19 U Epithel Cells (Auto) < 1.0 /HPF (0-13.0) 05/07/18 19:19 Urine Mucus Few /HPF 05/07/18 19:19 Salicylates < 0.3 mg/dL (2.8-20.0) L 05/07/18 13:21 Urine Opiates Screen Presumptive negative 05/07/18 19:19 Urine Methadone Screen Presumptive negative 05/07/18 19:19 Acetaminophen < 5.0 ug/mL (10.0-30.0) L 05/07/18 13:21 Ur Barbiturates Screen Presumptive negative 05/07/18 19:19 Ur Phencyclidine Scrn Presumptive negative 05/07/18 19:19 Ur Amphetamines Screen Presumptive negative 05/07/18 19:19 U Benzodiazepines Scrn Presumptive negative 05/07/18 19:19 Urine Cocaine Screen Presumptive negative 05/07/18 19:19 U Marijuana (THC) Screen Presumptive negative 05/07/18 19:19 Drugs of Abuse Note Disclamer 05/07/18 19:19 Plasma/Serum Alcohol < 0.01 % (0-0.07) 05/07/18 13:21
[2018-05-10] MEDS: MORPHINE IV PRN ×4 (01:28→21:46)
[2018-05-10] MEDS: NACL 0.9% 1000 ML 1,000 ML IV SCH (04:17)
[2018-05-10] MEDS: FLAGYL 500 MG/100 ML 500 MG/100 ML BAG IV SCH ×3 (06:25→21:45)
[2018-05-10 07:20] LABS: Basophils % (Auto) 0.2 % (0.0-1.8); Eosinophils % (Auto) 1.1 % (0.0-4.3); Hematocrit 41.4 % (35.5-45.6); Hemoglobin 14.1 gm/dl (11.8-15.2); Lymphocytes # (Auto) 0.4 K/mm3 (1.2-5.4); Lymphocytes % (Auto) 10.1 % (13.4-35.0); Mean Corpuscular HGB Conc 34 % (32-34); Mean Corpuscular Volume 84 fl (84-94); Monocytes # (Auto) 0.3 K/mm3 (0.0-0.8); Monocytes % (Auto) 6.5 % (0.0-7.3); Red Blood Count 4.95 M/mm3 (3.65-5.03); Red Cell Distribution Width 13.4 % (13.2-15.2)
[2018-05-10] MEDS: HumuLIN R SUB-Q SCH ×3 (07:30→21:53)
[2018-05-10 07:32] LABS: BUN/Creatinine Ratio 28; Blood Urea Nitrogen 14 mg/dL (9-20); Calcium 8.7 mg/dL (8.4-10.2); Hemolysis Index 6
[2018-05-10 07:37] LABS: Platelet Count 51 K/mm3 (140-440)
--- NOTE | 2018-05-10 09:36 | Progress Note ---
Assessment and Plan Assessment and plan: --Hypokalemia; replace per protocol and monitor levels Check magnesium --Small bowel obstruction improved; NG tube discontinued, started on clear liquids Surgery following, patient complains of mild abdominal pain --Liver mass; GI following Possible hepatocellular carcinoma[patient has history of cirrhosis liver/ GI following, MRI and AFP --History of cirrhosis liver with ascites; continue current management Supportive care --History of chronic hep C; follows with GI --Thrombocytopenia; secondary to cirrhosis liver Closely monitor --Hypokalemia; replace per protocol and monitor levels --DVT prophylaxis; Lovenox Consults and recommendations noted Possible discharge in 1-2 days state Plan of care is reviewed with the patient and his nurse History Interval history: Patient seen and examined medical records reviewed No new events reported by the nursing staff Patient underwent MRI of the abdomen, pending report small bowel obstruction mild improvement tolerating clear liquids, Vital signs noted Hospitalist Physical - Constitutional Vitals: Temp Pulse Resp BP Pulse Ox 99.1 F 59 L 20 158/67 94 05/10/18 05:05 05/10/18 08:20 05/10/18 08:20 05/10/18 05:05 05/10/18 05:05 General appearance: Present: no acute distress, well-nourished - EENT Eyes: Present: PERRL, EOM intact - Neck Neck: Present: supple, normal ROM - Respiratory Respiratory effort: normal Respiratory: bilateral: diminished, negative: rales, rhonchi, wheezing - Cardiovascular Rhythm: regular Heart Sounds: Present: S1 & S2 - Extremities Extremities: no ischemia, No edema - Abdominal General gastrointestinal: soft, non-tender, non-distended, normal bowel sounds - Integumentary Integumentary: Present: clear, warm - Psychiatric Psychiatric: appropriate mood/affect, cooperative - Neurologic Neurologic: CNII-XII intact, moves all extremities Results - Labs CBC & Chem 7: 05/10/18 06:58 05/10/18 06:58 Labs: Laboratory Last Values WBC 4.0 K/mm3 (4.5-11.0) L 05/10/18 06:58 RBC 4.95 M/mm3 (3.65-5.03) 05/10/18 06:58 Hgb 14.1 gm/dl (11.8-15.2) D 05/10/18 06:58 Hct 41.4 % (35.5-45.6) D 05/10/18 06:58 MCV 84 fl (84-94) 05/10/18 06:58 MCH 28 pg (28-32) 05/10/18 06:58 MCHC 34 % (32-34) 05/10/18 06:58 RDW 13.4 % (13.2-15.2) 05/10/18 06:58 Plt Count 51 K/mm3 (140-440) L 05/10/18 06:58 Lymph % (Auto) 10.1 % (13.4-35.0) L 05/10/18 06:58 [place] % (Auto) 6.5 % (0.0-7.3) 05/10/18 06:58 Eos % (Auto) 1.1 % (0.0-4.3) 05/10/18 06:58 Baso % (Auto) 0.2 % (0.0-1.8) 05/10/18 06:58 Lymph # 0.4 K/mm3 (1.2-5.4) L 05/10/18 06:58 [place] # 0.3 K/mm3 (0.0-0.8) 05/10/18 06:58 Eos # 0.0 K/mm3 (0.0-0.4) 05/10/18 06:58 Baso # 0.0 K/mm3 (0.0-0.1) 05/10/18 06:58 Seg Neutrophils % 82.1 % (40.0-70.0) H 05/10/18 06:58 Seg Neutrophils # 3.3 K/mm3 (1.8-7.7) 05/10/18 06:58 PT 14.3 Sec. (12.2-14.9) 05/08/18 09:16 INR 1.07 (0.87-1.13) 05/08/18 09:16 Sodium 140 mmol/L (137-145) 05/10/18 06:58 Potassium 3.1 mmol/L (3.6-5.0) L 05/10/18 06:58 Chloride 103.8 mmol/L (98-107) 05/10/18 06:58 Carbon Dioxide 25 mmol/L (22-30) 05/10/18 06:58 Anion Gap 14 mmol/L 05/10/18 06:58 BUN 14 mg/dL (9-20) 05/10/18 06:58 Creatinine 0.5 mg/dL (0.8-1.5) L 05/10/18 06:58 Estimated GFR > 60 ml/min 05/10/18 06:58 BUN/Creatinine Ratio 28 % 05/10/18 06:58 Glucose 108 mg/dL (75-100) H 05/10/18 06:58 POC Glucose 94 (70-105) 05/09/18 21:20 Calcium 8.7 mg/dL (8.4-10.2) 05/10/18 06:58 Total Bilirubin 1.20 mg/dL (0.1-1.2) 05/07/18 21:05 Direct Bilirubin 0.2 mg/dL (0-0.2) 05/07/18 21:05 Indirect Bilirubin 1.0 mg/dL 05/07/18 21:05 AST 40 units/L (5-40) 05/07/18 21:05 ALT 16 units/L (7-56) 05/07/18 21:05 Alkaline Phosphatase 65 units/L (35-129) 05/07/18 21:05 Total Protein 8.5 g/dL (6.3-8.2) H 05/07/18 21:05 Albumin 4.8 g/dL (3.9-5) 05/07/18 21:05 Albumin/Globulin Ratio 1.3 % 05/07/18 21:05 Lipase 66 units/L (13-60) H 05/07/18 21:05 Urine Color [place] (Yellow) 05/07/18 19:19 Urine Turbidity Clear (Clear) 05/07/18 19:19 Urine pH 5.0 (5.0-7.0) 05/07/18 19:19 Ur Specific [place] 1.027 (1.003-1.030) 05/07/18 19:19 Urine Protein 100 mg/dl mg/dL (Negative) 05/07/18 19:19 Urine Glucose (UA) 50 mg/dL (Negative) 05/07/18 19:19 Urine Ketones 20 mg/dL (Negative) 05/07/18 19:19 Urine Blood Mod (Negative) 05/07/18 19:19 Urine Nitrite Neg (Negative) 05/07/18 19:19 Urine Bilirubin Neg (Negative) 05/07/18 19:19 Urine Urobilinogen < 2.0 mg/dL (<2.0) 05/07/18 19:19 Ur Leukocyte Esterase Neg (Negative) 05/07/18 19:19 Urine WBC (Auto) 2.0 /HPF (0.0-6.0) 05/07/18 19:19 Urine RBC (Auto) 4.0 /HPF (0.0-6.0) 05/07/18 19:19 U Epithel Cells (Auto) < 1.0 /HPF (0-13.0) 05/07/18 19:19 Urine Mucus Few /HPF 05/07/18 19:19 Salicylates < 0.3 mg/dL (2.8-20.0) L 05/07/18 13:21 Urine Opiates Screen Presumptive negative 05/07/18 19:19 Urine Methadone Screen Presumptive negative 05/07/18 19:19 Acetaminophen < 5.0 ug/mL (10.0-30.0) L 05/07/18 13:21 Ur Barbiturates Screen Presumptive negative 05/07/18 19:19 Ur Phencyclidine Scrn Presumptive negative 05/07/18 19:19 Ur Amphetamines Screen Presumptive negative 05/07/18 19:19 U Benzodiazepines Scrn Presumptive negative 05/07/18 19:19 Urine Cocaine Screen Presumptive negative 05/07/18 19:19 U Marijuana (THC) Screen Presumptive negative 05/07/18 19:19 Drugs of Abuse Note Disclamer 05/07/18 19:19 Plasma/Serum Alcohol < 0.01 % (0-0.07) 05/07/18 13:21
[2018-05-10] MEDS ORDERED: K-DUR PO ONE (10:00)
[2018-05-10] MEDS: ROCEPHIN/NS 1 GM/50 ML 1 GM/50 ML BAG IV SCH (11:57)
[2018-05-10] MEDS: KCL 10MEQ/100ML 10 MEQ/100 ML BAG IV SCH ×2 (11:58→14:13)
[2018-05-10] MEDS: ZOFRAN IV PRN ×2 (12:12→17:20)
--- NOTE | 2018-05-10 12:29 | Progress Note ---
Assessment and Plan Pt just returned from MRI of liver c/o nausea Abd soft, non tender continue on liq diet hypokalemia stable await MRI findings K correction as per med repeat BMP in am Selected Entries 05/10/18 05/10/18 05/10/18 05:05 08:20 12:12 Temperature 99.1 F Pulse Rate [ 59 L Apical] Respiratory 20 Rate Blood Pressure 158/67 Laboratory Tests 05/10/18 05/10/18 06:58 06:58 WBC 4.0 L Hgb 14.1 D Hct 41.4 D Potassium 3.1 L Objective Vital Signs - 12hr 05/10/18 05/10/18 05/10/18 05:05 08:20 12:12 Temperature 99.1 F Pulse Rate 59 L Pulse Rate [ 59 L Apical] Respiratory 20 20 20 Rate Blood Pressure 158/67 O2 Sat by Pulse 94 Oximetry - Labs 05/10/18 06:58 05/10/18 06:58 Diabetes panel 05/10/18 Range/Units 06:58 Sodium 140 (137-145) mmol/L Potassium 3.1 L (3.6-5.0) mmol/L Chloride 103.8 (98-107) mmol/L Carbon Dioxide 25 (22-30) mmol/L BUN 14 (9-20) mg/dL Creatinine 0.5 L (0.8-1.5) mg/dL Glucose 108 H (75-100) mg/dL Calcium 8.7 (8.4-10.2) mg/dL Calcium panel 05/10/18 Range/Units 06:58 Calcium 8.7 (8.4-10.2) mg/dL Pituitary panel 05/10/18 Range/Units 06:58 Sodium 140 (137-145) mmol/L Potassium 3.1 L (3.6-5.0) mmol/L Chloride 103.8 (98-107) mmol/L Carbon Dioxide 25 (22-30) mmol/L BUN 14 (9-20) mg/dL Creatinine 0.5 L (0.8-1.5) mg/dL Glucose 108 H (75-100) mg/dL Calcium 8.7 (8.4-10.2) mg/dL Adrenal panel 05/10/18 Range/Units 06:58 Sodium 140 (137-145) mmol/L Potassium 3.1 L (3.6-5.0) mmol/L Chloride 103.8 (98-107) mmol/L Carbon Dioxide 25 (22-30) mmol/L BUN 14 (9-20) mg/dL Creatinine 0.5 L (0.8-1.5) mg/dL Glucose 108 H (75-100) mg/dL Calcium 8.7 (8.4-10.2) mg/dL
--- NOTE | 2018-05-10 14:41 | Gastroenterology Progress Note ---
Addendum entered and electronically signed by LALO LARSON MD 05/10/18 18:33: Patient seen and examined. Agree with A/P and recommendations as stated. Continues to have nausea/vomiting post MRI. Awaiting MRI read. Original Note: Assessment and Plan This is a 67 yo male with pmh of cirrhosis 2/2 HCV s/p treatment with Harvoni complicated with h/o varices admitted for abdominal pain, nausea/vomiting and found to have SBO. GI consulted for evaluation of liver mass seen on CT abdomen. - Patient Problems (1) Bowel obstruction Current Visit: Yes Status: Acute Qualifiers: Intestinal obstruction type: unspecified Intestinal obstruction extent: unspecified extent Qualified Code(s): K56.609 - Unspecified intestinal obstruction, unspecified as to partial versus complete obstruction Plan to address problem: ileus vs partial SBO further management per surgery (2) Liver mass Current Visit: Yes Status: Acute Plan to address problem: Left liver lobe mass - concerning for HCC given h/o cirrhosis, enlarging from previous imaging in 2016, and appearance on CT abdomen. -AFP pending -MRI completed today with results pending -oncology consult based on above (3) Cirrhosis Current Visit: No Status: Chronic Qualifiers: Ascites presence: with ascites Subjective Date of service: 05/10/18 Principal diagnosis: liver mass Interval history: No acute distress. Reports some continued mild generalized abd discomfort and nausea with 1 episode of vomiting so far today. Objective - Constitutional Vitals: Temp Pulse Resp BP Pulse Ox 98.1 F 60 18 149/67 95 05/10/18 12:58 05/10/18 12:58 05/10/18 12:58 05/10/18 12:58 05/10/18 12:58 General appearance: no acute distress - Respiratory Respiratory: bilateral: CTA - Cardiovascular Rhythm: regular Heart Sounds: Present: S1 & S2 - Gastrointestinal General gastrointestinal: Present: soft, non-distended, hypoactive bowel sounds - Labs CBC & Chem 7: 05/10/18 06:58 05/10/18 06:58 Labs: Laboratory Results - last 24 hr 05/09/18 05/09/18 05/10/18 18:17 21:20 06:58 WBC 4.0 L RBC 4.95 Hgb 14.1 D Hct 41.4 D MCV 84 MCH 28 MCHC 34 RDW 13.4 Plt Count 51 L Lymph % (Auto) 10.1 L [place] % (Auto) 6.5 Eos % (Auto) 1.1 Baso % (Auto) 0.2 Lymph # 0.4 L [place] # 0.3 Eos # 0.0 Baso # 0.0 Seg Neutrophils % 82.1 H Seg Neutrophils # 3.3 Sodium Potassium Chloride Carbon Dioxide Anion Gap BUN Creatinine Estimated GFR BUN/Creatinine Ratio Glucose POC Glucose 108 H 94 Calcium Magnesium 05/10/18 05/10/18 05/10/18 06:58 06:58 12:31 WBC RBC Hgb Hct MCV MCH MCHC RDW Plt Count Lymph % (Auto) [place] % (Auto) Eos % (Auto) Baso % (Auto) Lymph # [place] # Eos # Baso # Seg Neutrophils % Seg Neutrophils # Sodium 140 Potassium 3.1 L Chloride 103.8 Carbon Dioxide 25 Anion Gap 14 BUN 14 Creatinine 0.5 L Estimated GFR > 60 BUN/Creatinine Ratio 28 Glucose 108 H POC Glucose 106 H Calcium 8.7 Magnesium 2.10
[2018-05-10] MEDS ORDERED: BENADRYL IV ONE (20:50)
[2018-05-10] MEDS ORDERED: AMBIEN PO ONE (21:00)
[2018-05-10] MEDS: REGLAN IV PRN (21:46)
--- NOTE | 2018-05-10 23:47 | Magnetic Resonance Report ---
FINAL REPORT PROCEDURE: MR ABDOMEN WO/W CON TECHNIQUE: Magnetic resonance imaging of the abdomen was performed using standard pulse sequences wi thout contrast material, followed by the IV injection paramagnetic contrast and additional sequences. HISTORY: liver massinpatient COMPARISON: CT 05/07/2018, CT 04/15/2016. FINDINGS: Liver parenchyma: There is a mass in the left lobe of the liver measuring 4 centimeters in diameter. This demonstrates an enhancing capsule and heterogeneous internal enhancement. Lesion has enlarged si nce 2016. Appearance is atypical for hemangioma. Malignancy cannot be excluded. The liver is otherwis e prominent and heterogeneous in signal intensity. Underlying cirrhosis not excluded. Biliary system: There has been a cholecystectomy. The bile ducts are normal in caliber. Pancreas: Normal. Kidneys/Adrenal glands: Normal. Spleen: The spleen is enlarged. There is no discrete mass. Aorta/Lymph nodes: Normal. There are varices around the esophagus and stomach and in the splenic hilum indicating portal venous hypertension. The portal vein is patent. IMPRESSION: There is a mass in the left lobe of the liver measuring 4 centimeters in diameter. This demonstrates an enhancing capsule and heterogeneous internal enhancement. Lesion has enlarged since 2016. Appearan ce is atypical for hemangioma. Malignancy cannot be excluded. The liver is otherwise prominent and he terogeneous in signal intensity. Underlying cirrhosis not excluded. There has been a cholecystectomy. The bile ducts are normal in caliber. The spleen is enlarged. There is no discrete mass. There are varices around the esophagus and stomach and in the splenic hilum indicating portal venous hypertension. The portal vein is patent.
[2018-05-11] MEDS: NACL 0.9% 1000 ML 1,000 ML IV SCH (04:06)
[2018-05-11] MEDS: MORPHINE IV PRN (04:06)
[2018-05-11] MEDS: ZOFRAN IV PRN (04:06)
[2018-05-11] MEDS: APRESOLINE IV PRN (04:47)
[2018-05-11] MEDS: FLAGYL 500 MG/100 ML 500 MG/100 ML BAG IV SCH ×2 (05:05→17:47)
[2018-05-11 06:19] LABS: Basophils % (Auto) 0.4 % (0.0-1.8); Eosinophils % (Auto) 0.8 % (0.0-4.3); Hematocrit 44.1 % (35.5-45.6); Hemoglobin 15.1 gm/dl (11.8-15.2); Lymphocytes # (Auto) 0.4 K/mm3 (1.2-5.4); Lymphocytes % (Auto) 7.5 % (13.4-35.0); Mean Corpuscular HGB Conc 34 % (32-34); Mean Corpuscular Volume 83 fl (84-94); Monocytes # (Auto) 0.2 K/mm3 (0.0-0.8); Monocytes % (Auto) 4.4 % (0.0-7.3); Red Blood Count 5.32 M/mm3 (3.65-5.03); Red Cell Distribution Width 13.7 % (13.2-15.2)
[2018-05-11 06:22] LABS: Platelet Count 52 K/mm3 (140-440)
[2018-05-11 06:36] LABS: Alanine Aminotransferase 17 units/L (7-56); BUN/Creatinine Ratio 22; Blood Urea Nitrogen 11 mg/dL (9-20); Calcium 8.8 mg/dL (8.4-10.2); Hemolysis Index 6
[2018-05-11] MEDS: HumuLIN R SUB-Q SCH ×3 (07:30→16:30)
--- NOTE | 2018-05-11 08:59 | Progress Note ---
Assessment and Plan Assessment and plan: --Hypokalemia; replace per protocol and monitor levels Check magnesium --Small bowel obstruction improved; NG tube discontinued, started on clear liquids Surgery following, patient complains of mild abdominal pain --Liver mass; GI following Possible hepatocellular carcinoma[patient has history of cirrhosis liver/ GI following, MRI and AFP --History of cirrhosis liver with ascites; continue current management Supportive care --History of chronic hep C; follows with GI --Thrombocytopenia; secondary to cirrhosis liver Closely monitor --Hypokalemia; replace per protocol and monitor levels --DVT prophylaxis; Lovenox Consults and recommendations noted Possible discharge in 1-2 days state History Interval history: Patient seen and examined medical records reviewed Patient continues to have abdominal pain, tolerating clear liquids GI scheduled for MRI abdomen Alert awake Oriented Vital signs noted Hospitalist Physical - Constitutional Vitals: Temp Pulse Resp BP Pulse Ox 99.7 F H 71 18 152/70 94 05/11/18 05:03 05/11/18 06:27 05/11/18 05:03 05/11/18 06:27 05/11/18 05:03 General appearance: Present: no acute distress, well-nourished - EENT Eyes: Present: PERRL, EOM intact - Neck Neck: Present: supple, normal ROM - Respiratory Respiratory effort: normal Respiratory: bilateral: diminished, negative: rales, rhonchi, wheezing - Cardiovascular Rhythm: regular Heart Sounds: Present: S1 & S2 - Extremities Extremities: no ischemia Extremity abnormal: edema - Abdominal General gastrointestinal: soft, non-tender, non-distended, normal bowel sounds - Integumentary Integumentary: Present: clear, warm - Psychiatric Psychiatric: appropriate mood/affect, cooperative - Neurologic Neurologic: CNII-XII intact, moves all extremities Results - Labs CBC & Chem 7: 05/11/18 05:19 05/11/18 05:19 Labs: Laboratory Last Values WBC 5.1 K/mm3 (4.5-11.0) 05/11/18 05:19 RBC 5.32 M/mm3 (3.65-5.03) H 05/11/18 05:19 Hgb 15.1 gm/dl (11.8-15.2) 05/11/18 05:19 Hct 44.1 % (35.5-45.6) 05/11/18 05:19 MCV 83 fl (84-94) L 05/11/18 05:19 MCH 28 pg (28-32) 05/11/18 05:19 MCHC 34 % (32-34) 05/11/18 05:19 RDW 13.7 % (13.2-15.2) 05/11/18 05:19 Plt Count 52 K/mm3 (140-440) L 05/11/18 05:19 Lymph % (Auto) 7.5 % (13.4-35.0) L 05/11/18 05:19 [place] % (Auto) 4.4 % (0.0-7.3) 05/11/18 05:19 Eos % (Auto) 0.8 % (0.0-4.3) 05/11/18 05:19 Baso % (Auto) 0.4 % (0.0-1.8) 05/11/18 05:19 Lymph # 0.4 K/mm3 (1.2-5.4) L 05/11/18 05:19 [place] # 0.2 K/mm3 (0.0-0.8) 05/11/18 05:19 Eos # 0.0 K/mm3 (0.0-0.4) 05/11/18 05:19 Baso # 0.0 K/mm3 (0.0-0.1) 05/11/18 05:19 Seg Neutrophils % 86.9 % (40.0-70.0) H 05/11/18 05:19 Seg Neutrophils # 4.4 K/mm3 (1.8-7.7) 05/11/18 05:19 PT 14.3 Sec. (12.2-14.9) 05/08/18 09:16 INR 1.07 (0.87-1.13) 05/08/18 09:16 Sodium 135 mmol/L (137-145) L 05/11/18 05:19 Potassium 3.3 mmol/L (3.6-5.0) L 05/11/18 05:19 Chloride 98.6 mmol/L (98-107) 05/11/18 05:19 Carbon Dioxide 23 mmol/L (22-30) 05/11/18 05:19 Anion Gap 17 mmol/L 05/11/18 05:19 BUN 11 mg/dL (9-20) 05/11/18 05:19 Creatinine 0.5 mg/dL (0.8-1.5) L 05/11/18 05:19 Estimated GFR > 60 ml/min 05/11/18 05:19 BUN/Creatinine Ratio 22 % 05/11/18 05:19 Glucose 109 mg/dL (75-100) H 05/11/18 05:19 POC Glucose 106 (70-105) H 05/11/18 07:53 Calcium 8.8 mg/dL (8.4-10.2) 05/11/18 05:19 Magnesium 2.10 mg/dL (1.7-2.3) 05/11/18 05:19 Total Bilirubin 1.30 mg/dL (0.1-1.2) H 05/11/18 05:19 Direct Bilirubin 0.2 mg/dL (0-0.2) 05/07/18 21:05 Indirect Bilirubin 1.0 mg/dL 05/07/18 21:05 AST 26 units/L (5-40) 05/11/18 05:19 ALT 17 units/L (7-56) 05/11/18 05:19 Alkaline Phosphatase 53 units/L (35-129) 05/11/18 05:19 Total Protein 6.2 g/dL (6.3-8.2) L D 05/11/18 05:19 Albumin 4.0 g/dL (3.9-5) 05/11/18 05:19 Albumin/Globulin Ratio 1.8 % 05/11/18 05:19 Lipase 66 units/L (13-60) H 05/07/18 21:05 Tumor Marker AFP See scanned result 05/08/18 09:21 Urine Color [place] (Yellow) 05/07/18 19:19 Urine Turbidity Clear (Clear) 05/07/18 19:19 Urine pH 5.0 (5.0-7.0) 05/07/18 19:19 Ur Specific [place] 1.027 (1.003-1.030) 05/07/18 19:19 Urine Protein 100 mg/dl mg/dL (Negative) 05/07/18 19:19 Urine Glucose (UA) 50 mg/dL (Negative) 05/07/18 19:19 Urine Ketones 20 mg/dL (Negative) 05/07/18 19:19 Urine Blood Mod (Negative) 05/07/18 19:19 Urine Nitrite Neg (Negative) 05/07/18 19:19 Urine Bilirubin Neg (Negative) 05/07/18 19:19 Urine Urobilinogen < 2.0 mg/dL (<2.0) 05/07/18 19:19 Ur Leukocyte Esterase Neg (Negative) 05/07/18 19:19 Urine WBC (Auto) 2.0 /HPF (0.0-6.0) 05/07/18 19:19 Urine RBC (Auto) 4.0 /HPF (0.0-6.0) 05/07/18 19:19 U Epithel Cells (Auto) < 1.0 /HPF (0-13.0) 05/07/18 19:19 Urine Mucus Few /HPF 05/07/18 19:19 Salicylates < 0.3 mg/dL (2.8-20.0) L 05/07/18 13:21 Urine Opiates Screen Presumptive negative 05/07/18 19:19 Urine Methadone Screen Presumptive negative 05/07/18 19:19 Acetaminophen < 5.0 ug/mL (10.0-30.0) L 05/07/18 13:21 Ur Barbiturates Screen Presumptive negative 05/07/18 19:19 Ur Phencyclidine Scrn Presumptive negative 05/07/18 19:19 Ur Amphetamines Screen Presumptive negative 05/07/18 19:19 U Benzodiazepines Scrn Presumptive negative 05/07/18 19:19 Urine Cocaine Screen Presumptive negative 05/07/18 19:19 U Marijuana (THC) Screen Presumptive negative 05/07/18 19:19 Drugs of Abuse Note Disclamer 05/07/18 19:19 Plasma/Serum Alcohol < 0.01 % (0-0.07) 05/07/18 13:21
[2018-05-11] MEDS ORDERED: K-DUR PO ONE (09:30)
[2018-05-11] MEDS: ROCEPHIN/NS 1 GM/50 ML 1 GM/50 ML BAG IV SCH (09:53)
[2018-05-11] MEDS: REGLAN IV PRN (09:53)
--- NOTE | 2018-05-11 10:26 | Gastroenterology Progress Note ---
Addendum entered and electronically signed by LALO LARSON MD 05/11/18 17:09: Patient seen and examined on 05/11/2018. Agree with A/P and recommendations as stated. MRI with left liver mass about 4 cm and enlarged since 2016. concerning for HCC. Oncology consulted. Will need outpatient follow up. SBO resolving. Advance diet and further management per surgery. Will sign off. Please call with questions. Original Note: Assessment and Plan This is a 67 yo male with pmh of cirrhosis 2/2 HCV s/p treatment with Harvoni complicated with h/o varices admitted for abdominal pain, nausea/vomiting and found to have SBO. GI consulted for evaluation of liver mass seen on CT abdomen. - Patient Problems (1) Bowel obstruction Current Visit: Yes Status: Acute Qualifiers: Intestinal obstruction type: unspecified Intestinal obstruction extent: unspecified extent Qualified Code(s): K56.609 - Unspecified intestinal obstruction, unspecified as to partial versus complete obstruction Plan to address problem: ileus vs partial SBO further management per surgery (2) Liver mass Current Visit: Yes Status: Acute Plan to address problem: Left liver lobe mass - concerning for HCC given h/o cirrhosis, enlarging from previous imaging in 2016, and appearance on CT abdomen. -AFP pending -MRI yesterday confirmed mass in the left lobe of the liver (4cm; enlarged since 2016) which is atypical for hemangioma with malignancy unable to be excluded -recommend oncology consult -further management per oncology an as outpatient -will sign off, please call if needed (3) Cirrhosis Current Visit: No Status: Chronic Qualifiers: Ascites presence: with ascites Subjective Date of service: 05/11/18 Principal diagnosis: liver mass Interval history: No acute distress. Objective - Constitutional Vitals: Temp Pulse Resp BP Pulse Ox 99.7 F H 71 18 152/70 94 05/11/18 05:03 05/11/18 06:27 05/11/18 05:03 05/11/18 06:27 05/11/18 05:03 General appearance: no acute distress - Respiratory Respiratory: bilateral: CTA - Cardiovascular Rhythm: regular Heart Sounds: Present: S1 & S2 - Gastrointestinal General gastrointestinal: Present: soft, non-distended, normal bowel sounds - Labs CBC & Chem 7: 05/11/18 05:19 05/11/18 05:19 Labs: Laboratory Results - last 24 hr 05/08/18 05/10/18 05/10/18 09:21 06:58 12:31 WBC RBC Hgb Hct MCV MCH MCHC RDW Plt Count Lymph % (Auto) [place] % (Auto) Eos % (Auto) Baso % (Auto) Lymph # [place] # Eos # Baso # Seg Neutrophils % Seg Neutrophils # Sodium Potassium Chloride Carbon Dioxide Anion Gap BUN Creatinine Estimated GFR BUN/Creatinine Ratio Glucose POC Glucose 106 H Calcium Magnesium 2.10 Total Bilirubin AST ALT Alkaline Phosphatase Total Protein Albumin Albumin/Globulin Ratio Tumor Marker AFP See scanned result 05/10/18 05/10/18 05/11/18 16:35 21:51 05:19 WBC 5.1 RBC 5.32 H Hgb 15.1 Hct 44.1 MCV 83 L MCH 28 MCHC 34 RDW 13.7 Plt Count 52 L Lymph % (Auto) 7.5 L [place] % (Auto) 4.4 Eos % (Auto) 0.8 Baso % (Auto) 0.4 Lymph # 0.4 L [place] # 0.2 Eos # 0.0 Baso # 0.0 Seg Neutrophils % 86.9 H Seg Neutrophils # 4.4 Sodium Potassium Chloride Carbon Dioxide Anion Gap BUN Creatinine Estimated GFR BUN/Creatinine Ratio Glucose POC Glucose 87 113 H Calcium Magnesium Total Bilirubin AST ALT Alkaline Phosphatase Total Protein Albumin Albumin/Globulin Ratio Tumor Marker AFP 05/11/18 05/11/18 05:19 07:53 WBC RBC Hgb Hct MCV MCH MCHC RDW Plt Count Lymph % (Auto) [place] % (Auto) Eos % (Auto) Baso % (Auto) Lymph # [place] # Eos # Baso # Seg Neutrophils % Seg Neutrophils # Sodium 135 L Potassium 3.3 L Ch[place] 98.6 Carbon Dioxide 23 Anion Gap 17 BUN 11 Creatinine 0.5 L Estimated GFR > 60 BUN/Creatinine Ratio 22 Glucose 109 H POC Glucose 106 H Calcium 8.8 Magnesium 2.10 Total Bilirubin 1.30 H AST 26 ALT 17 Alkaline Phosphatase 53 Total Protein 6.2 L D Albumin 4.0 Albumin/Globulin Ratio 1.8 Tumor Marker AFP
--- NOTE | 2018-05-11 12:28 | Progress Note ---
Assessment and Plan Pt status quo. still c/o nausea. vomited once yesterday. but "wants more food?" Abd slighly full but not distended. non tender. ascitis? surgcially stable GI consult appreciated onc consult recommended will obtain SBFT today. advance diet as mary if study wnl Selected Entries 05/11/18 05/11/18 05:03 06:27 Temperature 99.7 F H Pulse Rate 71 Respiratory 18 Rate Blood Pressure 152/70 [Right] Laboratory Tests 05/11/18 05/11/18 05:19 05:19 WBC 5.1 Hgb 15.1 Hct 44.1 Sodium 135 L Potassium 3.3 L [place] 98.6 Carbon Dioxide 23 BUN 11 Creatinine 0.5 L Objective Vital Signs - 12hr 05/11/18 05/11/18 05/11/18 04:47 05:03 06:27 Temperature 99.7 F H Pulse Rate 64 77 71 Respiratory 18 Rate Blood Pressure 162/68 138/56 Blood Pressure 152/70 [Right] O2 Sat by Pulse 94 Oximetry - Labs 05/11/18 05:19 05/11/18 05:19 Diabetes panel 05/11/18 Range/Units 05:19 Sodium 135 L (137-145) mmol/L Potassium 3.3 L (3.6-5.0) mmol/L Chloride 98.6 (98-107) mmol/L Carbon Dioxide 23 (22-30) mmol/L BUN 11 (9-20) mg/dL Creatinine 0.5 L (0.8-1.5) mg/dL Glucose 109 H (75-100) mg/dL Calcium 8.8 (8.4-10.2) mg/dL AST 26 (5-40) units/L ALT 17 (7-56) units/L Alkaline Phosphatase 53 (35-129) units/L Total Protein 6.2 L D (6.3-8.2) g/dL Albumin 4.0 (3.9-5) g/dL Calcium panel 05/11/18 Range/Units 05:19 Calcium 8.8 (8.4-10.2) mg/dL Albumin 4.0 (3.9-5) g/dL Pituitary panel 05/11/18 Range/Units 05:19 Sodium 135 L (137-145) mmol/L Potassium 3.3 L (3.6-5.0) mmol/L Chloride 98.6 (98-107) mmol/L Carbon Dioxide 23 (22-30) mmol/L BUN 11 (9-20) mg/dL Creatinine 0.5 L (0.8-1.5) mg/dL Glucose 109 H (75-100) mg/dL Calcium 8.8 (8.4-10.2) mg/dL Adrenal panel 05/11/18 Range/Units 05:19 Sodium 135 L (137-145) mmol/L Potassium 3.3 L (3.6-5.0) mmol/L Chloride 98.6 (98-107) mmol/L Carbon Dioxide 23 (22-30) mmol/L BUN 11 (9-20) mg/dL Creatinine 0.5 L (0.8-1.5) mg/dL Glucose 109 H (75-100) mg/dL Calcium 8.8 (8.4-10.2) mg/dL Total Bilirubin 1.30 H (0.1-1.2) mg/dL AST 26 (5-40) units/L ALT 17 (7-56) units/L Alkaline Phosphatase 53 (35-129) units/L Total Protein 6.2 L D (6.3-8.2) g/dL Albumin 4.0 (3.9-5) g/dL
--- NOTE | 2018-05-11 18:17 | Progress Note ---
Assessment and Plan Assessment and plan: --Hypokalemia; replace per protocol and monitor levels Check magnesium --Small bowel obstruction slightly improved NG tube discontinued, started on clear liquids Surgery following, patient complains of mild abdominal pain --Liver mass; chronic hepatitis C/cirrhosis liver Possible hepatocellular carcinoma[patient has history of cirrhosis liver/ MRI abdomen; 4 cm left lobe of the liver mass, enhancing capsule, lesion enlarged since 2016, possible atypical hemangioma, malignancy cannot be excluded, Oncology consult --History of cirrhosis liver with ascites; continue current management Supportive care --Thrombocytopenia; secondary to cirrhosis liver Closely monitor --DVT prophylaxis; Lovenox Consults and recommendations noted Possible discharge in 1-2 days state Plan of care is reviewed with the patient and his nurse History Interval history: Patient seen and examined medical records reviewed. Feels slightly better normal complaints MRI of the abdomen findings reviewed Patient is alert awake oriented 3 Vital signs noted Hospitalist Physical - Constitutional Vitals: Temp Pulse Resp BP Pulse Ox 99.7 F H 71 18 152/70 94 05/11/18 05:03 05/11/18 06:27 05/11/18 05:03 05/11/18 06:27 05/11/18 05:03 General appearance: Present: no acute distress, well-nourished - EENT Eyes: Present: PERRL, EOM intact - Neck Neck: Present: supple, normal ROM - Respiratory Respiratory effort: normal Respiratory: bilateral: diminished, negative: rales, rhonchi, wheezing - Cardiovascular Rhythm: regular Heart Sounds: Present: S1 & S2 - Extremities Extremities: no ischemia, No edema - Abdominal General gastrointestinal: soft, non-tender, non-distended, normal bowel sounds - Integumentary Integumentary: Present: clear, warm - Psychiatric Psychiatric: appropriate mood/affect, cooperative - Neurologic Neurologic: CNII-XII intact, moves all extremities Results - Labs CBC & Chem 7: 05/11/18 05:19 05/11/18 05:19 Labs: Laboratory Last Values WBC 5.1 K/mm3 (4.5-11.0) 05/11/18 05:19 RBC 5.32 M/mm3 (3.65-5.03) H 05/11/18 05:19 Hgb 15.1 gm/dl (11.8-15.2) 05/11/18 05:19 Hct 44.1 % (35.5-45.6) 05/11/18 05:19 MCV 83 fl (84-94) L 05/11/18 05:19 MCH 28 pg (28-32) 05/11/18 05:19 MCHC 34 % (32-34) 05/11/18 05:19 RDW 13.7 % (13.2-15.2) 05/11/18 05:19 Plt Count 52 K/mm3 (140-440) L 05/11/18 05:19 Lymph % (Auto) 7.5 % (13.4-35.0) L 05/11/18 05:19 [place] % (Auto) 4.4 % (0.0-7.3) 05/11/18 05:19 Eos % (Auto) 0.8 % (0.0-4.3) 05/11/18 05:19 Baso % (Auto) 0.4 % (0.0-1.8) 05/11/18 05:19 Lymph # 0.4 K/mm3 (1.2-5.4) L 05/11/18 05:19 [place] # 0.2 K/mm3 (0.0-0.8) 05/11/18 05:19 Eos # 0.0 K/mm3 (0.0-0.4) 05/11/18 05:19 Baso # 0.0 K/mm3 (0.0-0.1) 05/11/18 05:19 Seg Neutrophils % 86.9 % (40.0-70.0) H 05/11/18 05:19 Seg Neutrophils # 4.4 K/mm3 (1.8-7.7) 05/11/18 05:19 PT 14.3 Sec. (12.2-14.9) 05/08/18 09:16 INR 1.07 (0.87-1.13) 05/08/18 09:16 Sodium 135 mmol/L (137-145) L 05/11/18 05:19 Potassium 3.3 mmol/L (3.6-5.0) L 05/11/18 05:19 Chloride 98.6 mmol/L (98-107) 05/11/18 05:19 Carbon Dioxide 23 mmol/L (22-30) 05/11/18 05:19 Anion Gap 17 mmol/L 05/11/18 05:19 BUN 11 mg/dL (9-20) 05/11/18 05:19 Creatinine 0.5 mg/dL (0.8-1.5) L 05/11/18 05:19 Estimated GFR > 60 ml/min 05/11/18 05:19 BUN/Creatinine Ratio 22 % 05/11/18 05:19 Glucose 109 mg/dL (75-100) H 05/11/18 05:19 POC Glucose 110 (70-105) H 05/11/18 17:05 Calcium 8.8 mg/dL (8.4-10.2) 05/11/18 05:19 Magnesium 2.10 mg/dL (1.7-2.3) 05/11/18 05:19 Total Bilirubin 1.30 mg/dL (0.1-1.2) H 05/11/18 05:19 Direct Bilirubin 0.2 mg/dL (0-0.2) 05/07/18 21:05 Indirect Bilirubin 1.0 mg/dL 05/07/18 21:05 AST 26 units/L (5-40) 05/11/18 05:19 ALT 17 units/L (7-56) 05/11/18 05:19 Alkaline Phosphatase 53 units/L (35-129) 05/11/18 05:19 Total Protein 6.2 g/dL (6.3-8.2) L D 05/11/18 05:19 Albumin 4.0 g/dL (3.9-5) 05/11/18 05:19 Albumin/Globulin Ratio 1.8 % 05/11/18 05:19 Lipase 66 units/L (13-60) H 05/07/18 21:05 Tumor Marker AFP See scanned result 05/08/18 09:21 Urine Color [place] (Yellow) 05/07/18 19:19 Urine Turbidity Clear (Clear) 05/07/18 19:19 Urine pH 5.0 (5.0-7.0) 05/07/18 19:19 Ur Specific [place] 1.027 (1.003-1.030) 05/07/18 19:19 Urine Protein 100 mg/dl mg/dL (Negative) 05/07/18 19:19 Urine Glucose (UA) 50 mg/dL (Negative) 05/07/18 19:19 Urine Ketones 20 mg/dL (Negative) 05/07/18 19:19 Urine Blood Mod (Negative) 05/07/18 19:19 Urine Nitrite Neg (Negative) 05/07/18 19:19 Urine Bilirubin Neg (Negative) 05/07/18 19:19 Urine Urobilinogen < 2.0 mg/dL (<2.0) 05/07/18 19:19 Ur Leukocyte Esterase Neg (Negative) 05/07/18 19:19 Urine WBC (Auto) 2.0 /HPF (0.0-6.0) 05/07/18 19:19 Urine RBC (Auto) 4.0 /HPF (0.0-6.0) 05/07/18 19:19 U Epithel Cells (Auto) < 1.0 /HPF (0-13.0) 05/07/18 19:19 Urine Mucus Few /HPF 05/07/18 19:19 Salicylates < 0.3 mg/dL (2.8-20.0) L 05/07/18 13:21 Urine Opiates Screen Presumptive negative 05/07/18 19:19 Urine Methadone Screen Presumptive negative 05/07/18 19:19 Acetaminophen < 5.0 ug/mL (10.0-30.0) L 05/07/18 13:21 Ur Barbiturates Screen Presumptive negative 05/07/18 19:19 Ur Phencyclidine Scrn Presumptive negative 05/07/18 19:19 Ur Amphetamines Screen Presumptive negative 05/07/18 19:19 U Benzodiazepines Scrn Presumptive negative 05/07/18 19:19 Urine Cocaine Screen Presumptive negative 05/07/18 19:19 U Marijuana (THC) Screen Presumptive negative 05/07/18 19:19 Drugs of Abuse Note Disclamer 05/07/18 19:19 Plasma/Serum Alcohol < 0.01 % (0-0.07) 05/07/18 13:21
--- NOTE | 2018-05-11 22:10 | Event Note ---
Date: 05/11/18 [id number]
[2018-05-12] MEDS ORDERED: BENADRYL IV NR ×2 (00:15→23:43)
[2018-05-12] MEDS: FLAGYL 500 MG/100 ML 500 MG/100 ML BAG IV SCH ×4 (00:35→22:04)
[2018-05-12] MEDS: ZOFRAN IV PRN (00:36)
[2018-05-12] MEDS: MORPHINE IV PRN ×3 (00:36→22:18)
--- NOTE | 2018-05-12 07:23 | Hem/Onc Progress Note ---
Assessment and Plan 1. Liver lesion in a patient with history of hepatitis C and cirrhosis. Clinically, this may be hepatocellular cancer. Alpha fetoprotein has been ordered. Most of the time, radiologically, they are able to make the diagnosis, but not at this time. 2. Thrombocytopenia secondary to liver disease. 3. Small-bowel obstruction. 4. Splenomegaly is present on CT. 5. For hepatitis C, he has undergone Harvoni-based treatment. 6. CEA and follow the alpha fetoprotein. Liver biopsy will help. radiology has seen pt - plan for bx ? monday - Patient Problems (1) Liver mass Current Visit: Yes Status: Acute Subjective Date of service: 05/12/18 Principal diagnosis: liver lesion Interval history: pt eating Objective - Constitutional Vitals: Last Vital Signs Temp 98.7 F 05/12/18 05:13 Pulse 72 05/12/18 05:13 Resp 18 05/12/18 05:13 BP 144/64 05/12/18 05:13 Pulse Ox 95 05/12/18 05:13 Pain Intensity (0-10): denies any pain General appearance: no acute distress Performance status: 3-limited selfcare - EENT Eyes: EOM intact ENT: clear oral mucosa Lymph node exam: negative cervical - Neck Neck: normal ROM - Respiratory Respiratory effort: Positive: normal Respiratory: bilateral: CTA - Cardiovascular Heart Sounds: Present: S1 & S2 Extremities: No edema - Gastrointestinal General gastrointestinal: Present: soft Rectal Exam: deferred - Genitourinary Male genitourinary: Present: deferred - Integumentary Integumentary: warm - Musculoskeletal Musculoskeletal: strength equal bilaterally - Neurologic Neurologic: moves all extremities - Labs Lab Results: Laboratory Results - last 24 hr 05/08/18 05/11/18 05/11/18 09:21 07:53 11:36 POC Glucose 106 H 104 Tumor Marker AFP See scanned result 05/11/18 05/11/18 17:05 22:32 POC Glucose 110 H 90 Tumor Marker AFP Medications & Allergies - Medications Allergies/Adverse Reactions: Allergies ciprofloxacin [From Cipro] Allergy (Verified 08/04/13 15:02) Dizziness ciprofloxacin HCl [From Cipro] Allergy (Verified 08/04/13 15:02) Dizziness Home Medications: Home Medications Medication Instructions Recorded Confirmed Last Taken Type Bisacodyl [Dulcolax suppos] 10 mg [place] QDAY PRN #15 supp.rect 09/28/15 04/15/16 1 Day Ago Rx ~11/17/15 Famotidine [Pepcid] 20 mg PO BID #60 tablet 09/28/15 04/15/16 1 Day Ago Rx ~11/17/15 Thiamine [Vitamin B-1] 100 mg PO QDAY #30 tablet 09/28/15 04/15/16 1 Day Ago Rx ~11/17/15 Midodrine [Proamatine] 2.5 mg PO Q8HR tablet 11/20/15 04/15/16 Unknown Rx risperiDONE [RisperDAL] 0.25 mg PO BID #60 tablet 11/20/15 04/15/16 Unknown Rx Folic Acid [Folvite] 1 mg PO QDAY #30 tablet 04/07/16 04/15/16 Unknown Rx Lactulose [Cephulac] 20 gm PO QDAY PRN #30 oral.liqd 04/07/16 04/15/16 Unknown Rx Nitrofurantoin [place]/M-Cryst 100 mg PO Q12HR #13 capsule 04/15/16 Unknown Rx [Macrobid CAP] Active Medications: Generic Name Dose Route Start Last Admin Trade Name Freq PRN Reason Stop Dose Admin Hydralazine HCl 10 mg 05/11/18 04:24 05/11/18 04:47 Apresoline IV 10 mg Q4H PRN Administration Hypertension Ceftriaxone Sodium 1 gm in 50 mls @ 100 mls/hr 05/08/18 10:00 05/11/18 09:53 Rocephin/Ns 1 Gm/50 Ml IV 100 mls/hr Q24HR DANA Administration Protocol Metronidazole 500 mg in 100 mls @ 100 mls/hr 05/08/18 06:00 05/12/18 05:46 Flagyl 500 Mg/100 Ml IV 100 mls/hr Q8HR DANA Administration Protocol Sodium Chloride 1,000 mls @ 75 mls/hr 05/08/18 03:00 05/11/18 04:06 Nacl 0.9% 1000 Ml IV 75 mls/hr DIRECT DANA Administration Insulin Human Regular 0 units 05/09/18 22:00 05/12/18 00:00 Humulin R SUB-Q Not Given ACHS DANA Protocol Metoclopramide HCl 10 mg 05/10/18 20:50 05/11/18 09:53 Reglan IV 10 mg Q6H PRN Administration Nausea And Vomiting Morphine Sulfate 2 mg 05/08/18 05:01 05/12/18 00:36 Morphine IV 2 mg Q4H PRN Administration Pain, Moderate (4-6) Ondansetron HCl 4 mg 05/10/18 20:53 05/12/18 00:36 Zofran IV 4 mg Q3HR PRN Administration Nausea And Vomiting Phenol 1 spray 05/08/18 07:08 Chloraseptic MM PRN PRN Sore Throat
--- NOTE | 2018-05-12 08:30 | Consultation ---
Referred by Dr. Vanessa Wheatley. REASON FOR CONSULTATION: Liver lesion, history of small bowel obstruction. HISTORY OF PRESENT ILLNESS: I saw the patient, a 67-year-old male, who came to the hospital because of nausea, vomiting, and diarrhea. He has past medical history of back pain for a few years for which he has been on pain medication. The patient says he has a history of cirrhosis and hepatitis C. During this admission, the patient underwent CT abdomen and pelvis, which showed a liver lesion and partial small-bowel obstruction. The patient was seen by the surgical team and Gastroenterology team. MRI of the liver was also done. However, radiologically, this is not being diagnosed. I have been asked to evaluate the patient. At this time, he is on diet restriction. No headache, no visual disturbances. No ear discharge, no chest pain. Has history of abdominal discomfort, back pain, nausea and vomiting. No hematemesis, no hematochezia, no fever. PAST MEDICAL HISTORY: Hypertension, diabetes, hepatitis C, asthma, cirrhosis. PAST SURGICAL HISTORY: Cholecystectomy and tonsillectomy. FAMILY HISTORY: Noncontributory. SOCIAL HISTORY: No history of tobacco usage. HOME MEDICATIONS: Include vitamin supplement, midodrine, Risperdal, folic acid, lactulose, and Pepcid. ALLERGIES: CIPRO. PHYSICAL EXAMINATION: VITAL SIGNS: Temperature 98, pulse 67, respirations 19, BP 144/65. HEENT: No pallor, no icterus. NECK: No neck lymph nodes. HEART: S1, S2. LUNGS: Clear to auscultation. ABDOMEN: Soft. EXTREMITIES: No calf tenderness. NEUROLOGIC: Alert, awake, oriented. LABORATORY DATA: White cell 5, hemoglobin 15, MCV 83, platelet 52. Potassium 3.3, creatinine 0.5, bilirubin 1.3. RADIOLOGY: CT abdomen and MRI abdomen were done. MRI shows mass in the left lobe of liver, 4 cm in diameter. Has enlarged since 2016. Malignancy cannot be excluded. Underlying cirrhosis not excluded. ASSESSMENT AND PLAN: 1. Liver lesion in a patient with history of hepatitis C and cirrhosis. Clinically, this may be hepatocellular cancer. Alpha fetoprotein has been ordered. Most of the time, radiologically, they are able to make the diagnosis, but not at this time. The question arises if we need to biopsy, which probably is prudent. 2. Thrombocytopenia secondary to liver disease. 3. Small-bowel obstruction. 4. Splenomegaly is present on CT. 5. For hepatitis C, he has undergone Harvoni-based treatment. 6. I will do CEA and follow the alpha fetoprotein. Liver biopsy will help. JOB# [id number] NM/NTS
[2018-05-12] MEDS: HumuLIN R SUB-Q SCH ×5 (08:43→22:03)
--- NOTE | 2018-05-12 09:28 | Fluoroscopy Report ---
FINAL REPORT EXAM: [place] SMALL BOWEL SERIES HISTORY: ABD PAIN, NAUSEA POSS sbo TECHNIQUE: 17 views of the abdomen. PRIORS: None currently available. FINDINGS: Bowel gas appearance is nonspecific and non-distended. There is no pneumoperitoneum. There is no air fluid level. There is no obstructive pattern. Contrast present within the stomach. Normal gastric emptying time. Contrast within the small bowel loops appear grossly unremarkable. No obvious filling defects. Normal small bowel transit time. Contrast within the large bowel loops appear grossly unremarkable. No obvious filling defects. There are no suspicious calcifications overlying the renal shadows. IMPRESSION: Nonspecific nonobstructive bowel gas pattern.
--- NOTE | 2018-05-12 09:45 | Progress Note ---
Assessment and Plan Pt feeling well today. hungry Abd soft Onc eval appreciated. liver biopsy recommended SBFT - wnl no evidence of obstruction surgically stable begin GI soft diet IR consult for liver biopsy Selected Entries 05/12/18 05:13 Temperature 98.7 F Pulse Rate 72 Respiratory 18 Rate Blood Pressure 144/64 Laboratory Tests 05/08/18 05/11/18 05/11/18 09:16 05:19 05:19 WBC 5.1 Hgb 15.1 Hct 44.1 PT 14.3 INR 1.07 Total Bilirubin 1.30 H AST 26 ALT 17 Alkaline Phosphatase 53 Objective Vital Signs - 12hr 05/11/18 05/12/18 05/12/18 22:00 00:07 05:13 Temperature 98.5 F 98.7 F Pulse Rate 72 72 Respiratory 16 20 18 Rate Blood Pressure 163/70 144/64 O2 Sat by Pulse 92 95 Oximetry - Labs 05/11/18 05:19 05/11/18 05:19
--- NOTE | 2018-05-12 09:59 | Consultation ---
History of Present Illness - Reason for Consult Consult date: 05/12/18 hepatic mass - History of Present Illness Patient with a history of hepatitis C and cirrhosis status Harvony treatment. He has been under the care of Dr. Uri Cavanaugh for GI. His initial presentation was for abdominal pain he was placed on bowel rest. His diet has slowly been restarted and advanced to clear liquid diet as of today. A CT scan was performed on admission followed by an MRI which demonstrates the enlargement of an atypical appearing mass in the left lobe of the liver. It now measures approximately 4 cm in diameter and is well circumscribed. Tumor markers have not yet returned. Patient complains of being hungry and weak. Additionally, the patient complains of diarrhea. Past History Past Medical History: hepatitis, liver disease Social history: no significant social history Family history: no significant family history Medications and Allergies Allergies Allergy/AdvReac Type Severity Reaction Status Date / Time ciprofloxacin [From Cipro] Allergy Dizziness Verified 08/04/13 15:02 ciprofloxacin HCl Allergy Dizziness Verified 08/04/13 15:02 [From Cipro] Home Medications Medication Instructions Recorded Confirmed Last Taken Type Bisacodyl [Dulcolax suppos] 10 mg [place] QDAY PRN #15 supp.rect 09/28/15 04/15/16 1 Day Ago Rx ~11/17/15 Famotidine [Pepcid] 20 mg PO BID #60 tablet 09/28/15 04/15/16 1 Day Ago Rx ~11/17/15 Thiamine [Vitamin B-1] 100 mg PO QDAY #30 tablet 09/28/15 04/15/16 1 Day Ago Rx ~11/17/15 Midodrine [Proamatine] 2.5 mg PO Q8HR tablet 11/20/15 04/15/16 Unknown Rx risperiDONE [RisperDAL] 0.25 mg PO BID #60 tablet 11/20/15 04/15/16 Unknown Rx Folic Acid [Folvite] 1 mg PO QDAY #30 tablet 04/07/16 04/15/16 Unknown Rx Lactulose [Cephulac] 20 gm PO QDAY PRN #30 oral.liqd 04/07/16 04/15/16 Unknown Rx Nitrofurantoin [place]/M-Cryst 100 mg PO Q12HR #13 capsule 04/15/16 Unknown Rx [Macrobid CAP] Active Meds: Active Medications Hydralazine HCl (Apresoline) 10 mg IV Q4H PRN PRN Reason: Hypertension Last Admin: 05/11/18 04:47 Dose: 10 mg Documented by: Ceftriaxone Sodium (Rocephin/Ns 1 Gm/50 Ml) 1 gm in 50 mls @ 100 mls/hr IV Q24HR DANA; Protocol Last Admin: 05/11/18 09:53 Dose: 100 mls/hr Documented by: Metronidazole (Flagyl 500 Mg/100 Ml) 500 mg in 100 mls @ 100 mls/hr IV Q8HR DANA; Protocol Last Admin: 05/12/18 05:46 Dose: 100 mls/hr Documented by: Sodium Chloride (Nacl 0.9% 1000 Ml) 1,000 mls @ 75 mls/hr IV DIRECT DANA Last Admin: 05/11/18 04:06 Dose: 75 mls/hr Documented by: Insulin Human Regular (Humulin R) 0 units SUB-Q ACHS DANA; Protocol Last Admin: 05/12/18 08:43 Dose: Not Given Documented by: Metoclopramide HCl (Reglan) 10 mg IV Q6H PRN PRN Reason: Nausea And Vomiting Last Admin: 05/11/18 09:53 Dose: 10 mg Documented by: Morphine Sulfate (Morphine) 2 mg IV Q4H PRN PRN Reason: Pain, Moderate (4-6) Last Admin: 05/12/18 00:36 Dose: 2 mg Documented by: Ondansetron HCl (Zofran) 4 mg IV Q3HR PRN PRN Reason: Nausea And Vomiting Last Admin: 05/12/18 00:36 Dose: 4 mg Documented by: Phenol (Chloraseptic) 1 spray MM PRN PRN PRN Reason: Sore Throat Review of Systems All systems: negative Exam - Constitutional Vitals: Temp Pulse Resp BP Pulse Ox 98.7 F 72 18 144/64 95 05/12/18 05:13 05/12/18 05:13 05/12/18 05:13 05/12/18 05:13 05/12/18 05:13 General appearance: Present: no acute distress - EENT Eyes: Present: EOM intact ENT: hearing intact - Neck Neck: Present: supple, normal ROM - Respiratory Respiratory effort: normal - Abdominal General gastrointestinal: Present: soft Male genitourinary: Present: deferred - Rectal Rectal Exam: deferred - Psychiatric Psychiatric: appropriate mood/affect, cooperative Results - Labs CBC & Chem 7: 05/11/18 05:19 05/11/18 05:19 Labs: Abnormal lab results 05/11/18 Range/Units 17:05 POC Glucose 110 H (70-105) - Imaging and Cardiology CT scan - abdomen: image reviewed MRI - abdomen: image reviewed Assessment and Plan Patient with an atypical appearing mass in the left lobe of the liver. He can undergo biopsy with either interventional or diagnostic radiology on Monday schedule permitting. The patient complains of hunger, his diet is being advanced per primary.
[2018-05-12] MEDS: ROCEPHIN/NS 1 GM/50 ML 1 GM/50 ML BAG IV SCH (11:14)
[2018-05-12] MEDS: NACL 0.9% 1000 ML 1,000 ML IV SCH (14:24)
--- NOTE | 2018-05-12 16:19 | Progress Note ---
Assessment and Plan Assessment and plan: --Liver mass; chronic hepatitis C/cirrhosis liver Possible hepatocellular carcinoma, MRI abdomen; 4 cm left lobe of the liver mass, enhancing capsule, lesion enlarged since 2016,possible atypical hemangioma, malignancy cannot be excluded, Oncology and IR evaluation and recommendations noted and appreciated --Hypokalemia; replace per protocol and monitor levels,Check magnesium --Small bowel obstruction slightly improved NG tube discontinued, started on clear liquids Surgery following, patient complains of mild abdominal pain --History of cirrhosis liver with ascites; continue current management Supportive care, GI following --Thrombocytopenia; secondary to cirrhosis liver, no evidence of bleeding --DVT prophylaxis; Lovenox Consults and recommendations noted Follow biopsy on Monday Plan of care reviewed with the patient and his nurse History Interval history: Patient seen and examined medical records reviewed No new events reported by the nursing IR evaluated the patient for possible liver biopsy on Monday Patient has no new complaints Vital signs noted Hospitalist Physical - Constitutional Vitals: Temp Pulse Resp BP Pulse Ox 97.9 F 74 20 152/66 96 05/12/18 12:46 05/12/18 12:46 05/12/18 12:46 05/12/18 12:46 05/12/18 12:46 General appearance: Present: no acute distress, well-nourished - EENT Eyes: Present: PERRL, EOM intact - Neck Neck: Present: supple, normal ROM - Respiratory Respiratory effort: normal Respiratory: bilateral: diminished, negative: rales, rhonchi, wheezing - Cardiovascular Rhythm: regular Heart Sounds: Present: S1 & S2 - Extremities Extremities: no ischemia, No edema - Abdominal General gastrointestinal: soft, non-tender, non-distended, normal bowel sounds - Integumentary Integumentary: Present: clear, warm - Psychiatric Psychiatric: appropriate mood/affect, cooperative - Neurologic Neurologic: CNII-XII intact, moves all extremities Results - Labs CBC & Chem 7: 05/11/18 05:19 05/11/18 05:19 Labs: Laboratory Last Values WBC 5.1 K/mm3 (4.5-11.0) 05/11/18 05:19 RBC 5.32 M/mm3 (3.65-5.03) H 05/11/18 05:19 Hgb 15.1 gm/dl (11.8-15.2) 05/11/18 05:19 Hct 44.1 % (35.5-45.6) 05/11/18 05:19 MCV 83 fl (84-94) L 05/11/18 05:19 MCH 28 pg (28-32) 05/11/18 05:19 MCHC 34 % (32-34) 05/11/18 05:19 RDW 13.7 % (13.2-15.2) 05/11/18 05:19 Plt Count 52 K/mm3 (140-440) L 05/11/18 05:19 Lymph % (Auto) 7.5 % (13.4-35.0) L 05/11/18 05:19 [place] % (Auto) 4.4 % (0.0-7.3) 05/11/18 05:19 Eos % (Auto) 0.8 % (0.0-4.3) 05/11/18 05:19 Baso % (Auto) 0.4 % (0.0-1.8) 05/11/18 05:19 Lymph # 0.4 K/mm3 (1.2-5.4) L 05/11/18 05:19 [place] # 0.2 K/mm3 (0.0-0.8) 05/11/18 05:19 Eos # 0.0 K/mm3 (0.0-0.4) 05/11/18 05:19 Baso # 0.0 K/mm3 (0.0-0.1) 05/11/18 05:19 Seg Neutrophils % 86.9 % (40.0-70.0) H 05/11/18 05:19 Seg Neutrophils # 4.4 K/mm3 (1.8-7.7) 05/11/18 05:19 PT 14.3 Sec. (12.2-14.9) 05/08/18 09:16 INR 1.07 (0.87-1.13) 05/08/18 09:16 Sodium 135 mmol/L (137-145) L 05/11/18 05:19 Potassium 3.3 mmol/L (3.6-5.0) L 05/11/18 05:19 Chloride 98.6 mmol/L (98-107) 05/11/18 05:19 Carbon Dioxide 23 mmol/L (22-30) 05/11/18 05:19 Anion Gap 17 mmol/L 05/11/18 05:19 BUN 11 mg/dL (9-20) 05/11/18 05:19 Creatinine 0.5 mg/dL (0.8-1.5) L 05/11/18 05:19 Estimated GFR > 60 ml/min 05/11/18 05:19 BUN/Creatinine Ratio 22 % 05/11/18 05:19 Glucose 109 mg/dL (75-100) H 05/11/18 05:19 POC Glucose 103 (70-105) 05/12/18 12:51 Calcium 8.8 mg/dL (8.4-10.2) 05/11/18 05:19 Magnesium 2.10 mg/dL (1.7-2.3) 05/11/18 05:19 Total Bilirubin 1.30 mg/dL (0.1-1.2) H 05/11/18 05:19 Direct Bilirubin 0.2 mg/dL (0-0.2) 05/07/18 21:05 Indirect Bilirubin 1.0 mg/dL 05/07/18 21:05 AST 26 units/L (5-40) 05/11/18 05:19 ALT 17 units/L (7-56) 05/11/18 05:19 Alkaline Phosphatase 53 units/L (35-129) 05/11/18 05:19 Total Protein 6.2 g/dL (6.3-8.2) L D 05/11/18 05:19 Albumin 4.0 g/dL (3.9-5) 05/11/18 05:19 Albumin/Globulin Ratio 1.8 % 05/11/18 05:19 Lipase 66 units/L (13-60) H 05/07/18 21:05 Tumor Marker AFP See scanned result 05/08/18 09:21 Urine Color [place] (Yellow) 05/07/18 19:19 Urine Turbidity Clear (Clear) 05/07/18 19:19 Urine pH 5.0 (5.0-7.0) 05/07/18 19:19 Ur Specific [place] 1.027 (1.003-1.030) 05/07/18 19:19 Urine Protein 100 mg/dl mg/dL (Negative) 05/07/18 19:19 Urine Glucose (UA) 50 mg/dL (Negative) 05/07/18 19:19 Urine Ketones 20 mg/dL (Negative) 05/07/18 19:19 Urine Blood Mod (Negative) 05/07/18 19:19 Urine Nitrite Neg (Negative) 05/07/18 19:19 Urine Bilirubin Neg (Negative) 05/07/18 19:19 Urine Urobilinogen < 2.0 mg/dL (<2.0) 05/07/18 19:19 Ur Leukocyte Esterase Neg (Negative) 05/07/18 19:19 Urine WBC (Auto) 2.0 /HPF (0.0-6.0) 05/07/18 19:19 Urine RBC (Auto) 4.0 /HPF (0.0-6.0) 05/07/18 19:19 U Epithel Cells (Auto) < 1.0 /HPF (0-13.0) 05/07/18 19:19 Urine Mucus Few /HPF 05/07/18 19:19 Salicylates < 0.3 mg/dL (2.8-20.0) L 05/07/18 13:21 Urine Opiates Screen Presumptive negative 05/07/18 19:19 Urine Methadone Screen Presumptive negative 05/07/18 19:19 Acetaminophen < 5.0 ug/mL (10.0-30.0) L 05/07/18 13:21 Ur Barbiturates Screen Presumptive negative 05/07/18 19:19 Ur Phencyclidine Scrn Presumptive negative 05/07/18 19:19 Ur Amphetamines Screen Presumptive negative 05/07/18 19:19 U Benzodiazepines Scrn Presumptive negative 05/07/18 19:19 Urine Cocaine Screen Presumptive negative 05/07/18 19:19 U Marijuana (THC) Screen Presumptive negative 05/07/18 19:19 Drugs of Abuse Note Disclamer 05/07/18 19:19 Plasma/Serum Alcohol < 0.01 % (0-0.07) 05/07/18 13:21
[2018-05-12] MEDS: REGLAN IV PRN (22:17)
[2018-05-13] MEDS: NACL 0.9% 1000 ML 1,000 ML IV SCH ×2 (06:09→21:11)
[2018-05-13] MEDS: FLAGYL 500 MG/100 ML 500 MG/100 ML BAG IV SCH ×3 (06:10→21:11)
[2018-05-13 07:16] LABS: Basophils % (Auto) 0.3 % (0.0-1.8); Eosinophils # (Auto) 0.2 K/mm3 (0.0-0.4); Hematocrit 44.3 % (35.5-45.6); Hemoglobin 15.1 gm/dl (11.8-15.2); Lymphocytes # (Auto) 0.4 K/mm3 (1.2-5.4); Lymphocytes % (Auto) 7.2 % (13.4-35.0); Mean Corpuscular HGB Conc 34 % (32-34); Mean Corpuscular Volume 83 fl (84-94); Monocytes # (Auto) 0.4 K/mm3 (0.0-0.8); Monocytes % (Auto) 6.2 % (0.0-7.3); Red Blood Count 5.32 M/mm3 (3.65-5.03); Red Cell Distribution Width 13.6 % (13.2-15.2)
[2018-05-13 07:19] LABS: Alanine Aminotransferase 14 units/L (7-56); Albumin 3.6 g/dL (3.9-5); BUN/Creatinine Ratio 22; Blood Urea Nitrogen 13 mg/dL (9-20); Calcium 8.5 mg/dL (8.4-10.2); Hemolysis Index 2
[2018-05-13 07:29] LABS: Platelet Count 60 K/mm3 (140-440)
[2018-05-13] MEDS: HumuLIN R SUB-Q SCH ×3 (07:54→16:27)
[2018-05-13] MEDS: ROCEPHIN/NS 1 GM/50 ML 1 GM/50 ML BAG IV SCH (09:56)
[2018-05-13] MEDS ORDERED: K-DUR PO ONE (10:33)
--- NOTE | 2018-05-13 10:41 | Progress Note ---
Assessment and Plan Pt feeling much better. mary diet Abd soft stable for liver biopsy in am Selected Entries 05/13/18 05:57 Temperature 97.8 F Pulse Rate 74 Respiratory 20 Rate Blood Pressure 140/57 Laboratory Tests 05/13/18 05/13/18 06:40 06:40 WBC 6.0 Hgb 15.1 Hct 44.3 Potassium 3.0 L Objective Vital Signs - 12hr 05/13/18 05:57 Temperature 97.8 F Pulse Rate 74 Respiratory 20 Rate Blood Pressure 140/57 O2 Sat by Pulse 94 Oximetry - Labs 05/13/18 06:40 05/13/18 06:40 Diabetes panel 05/13/18 Range/Units 06:40 Sodium 139 (137-145) mmol/L Potassium 3.0 L (3.6-5.0) mmol/L Chloride 100.0 (98-107) mmol/L Carbon Dioxide 26 (22-30) mmol/L BUN 13 (9-20) mg/dL Creatinine 0.6 L (0.8-1.5) mg/dL Glucose 108 H (75-100) mg/dL Calcium 8.5 (8.4-10.2) mg/dL AST 17 (5-40) units/L ALT 14 (7-56) units/L Alkaline Phosphatase 54 (35-129) units/L Total Protein 6.3 (6.3-8.2) g/dL Albumin 3.6 L (3.9-5) g/dL Calcium panel 05/13/18 Range/Units 06:40 Calcium 8.5 (8.4-10.2) mg/dL Albumin 3.6 L (3.9-5) g/dL Pituitary panel 05/13/18 Range/Units 06:40 Sodium 139 (137-145) mmol/L Potassium 3.0 L (3.6-5.0) mmol/L Chloride 100.0 (98-107) mmol/L Carbon Dioxide 26 (22-30) mmol/L BUN 13 (9-20) mg/dL Creatinine 0.6 L (0.8-1.5) mg/dL Glucose 108 H (75-100) mg/dL Calcium 8.5 (8.4-10.2) mg/dL Adrenal panel 05/13/18 Range/Units 06:40 Sodium 139 (137-145) mmol/L Potassium 3.0 L (3.6-5.0) mmol/L Chloride 100.0 (98-107) mmol/L Carbon Dioxide 26 (22-30) mmol/L BUN 13 (9-20) mg/dL Creatinine 0.6 L (0.8-1.5) mg/dL Glucose 108 H (75-100) mg/dL Calcium 8.5 (8.4-10.2) mg/dL Total Bilirubin 0.90 (0.1-1.2) mg/dL AST 17 (5-40) units/L ALT 14 (7-56) units/L Alkaline Phosphatase 54 (35-129) units/L Total Protein 6.3 (6.3-8.2) g/dL Albumin 3.6 L (3.9-5) g/dL
--- NOTE | 2018-05-13 12:43 | Progress Note ---
Assessment and Plan Assessment and plan: --Liver mass; chronic hepatitis C/cirrhosis liver Possible hepatocellular carcinoma, MRI abdomen; 4 cm left lobe of the liver mass, enhancing capsule, lesion enlarged since 2016,possible atypical hemangioma, malignancy cannot be excluded, Oncology and IR evaluation and recommendations noted and appreciated Possible liver biopsy tomorrow --Hypokalemia; replace per protocol and monitor levels,Check magnesium --Small bowel obstruction slightly improved NG tube discontinued, started on clear liquids Surgery following, patient complains of mild abdominal pain --History of cirrhosis liver with ascites; continue current management Supportive care, GI following --Thrombocytopenia; secondary to cirrhosis liver, no evidence of bleeding --DVT prophylaxis; Lovenox Consults and recommendations noted Follow biopsy tomorrow, possible discharge in 1-2 days if stable Plan of care reviewed with the patient and his nurse History Interval history: Patient seen and examined medical records reviewed Complaints of generalized weakness Vital signs noted Alert awake oriented 3 not in acute distress Hospitalist Physical - Constitutional Vitals: Temp Pulse Resp BP Pulse Ox 97.8 F 74 20 140/57 94 05/13/18 05:57 05/13/18 05:57 05/13/18 05:57 05/13/18 05:57 05/13/18 05:57 General appearance: Present: no acute distress, well-nourished - EENT Eyes: Present: PERRL, EOM intact - Respiratory Respiratory effort: normal Respiratory: bilateral: diminished, negative: rales, rhonchi, wheezing - Cardiovascular Rhythm: regular Heart Sounds: Present: S1 & S2 - Extremities Extremities: no ischemia, No edema - Abdominal General gastrointestinal: soft, non-tender, non-distended, normal bowel sounds - Integumentary Integumentary: Present: clear, warm - Psychiatric Psychiatric: appropriate mood/affect, cooperative - Neurologic Neurologic: CNII-XII intact, moves all extremities Results - Labs CBC & Chem 7: 05/13/18 06:40 05/13/18 06:40 Labs: Laboratory Last Values WBC 6.0 K/mm3 (4.5-11.0) 05/13/18 06:40 RBC 5.32 M/mm3 (3.65-5.03) H 05/13/18 06:40 Hgb 15.1 gm/dl (11.8-15.2) 05/13/18 06:40 Hct 44.3 % (35.5-45.6) 05/13/18 06:40 MCV 83 fl (84-94) L 05/13/18 06:40 MCH 28 pg (28-32) 05/13/18 06:40 MCHC 34 % (32-34) 05/13/18 06:40 RDW 13.6 % (13.2-15.2) 05/13/18 06:40 Plt Count 60 K/mm3 (140-440) L 05/13/18 06:40 Lymph % (Auto) 7.2 % (13.4-35.0) L 05/13/18 06:40 [place] % (Auto) 6.2 % (0.0-7.3) 05/13/18 06:40 Eos % (Auto) 3.0 % (0.0-4.3) 05/13/18 06:40 Baso % (Auto) 0.3 % (0.0-1.8) 05/13/18 06:40 Lymph # 0.4 K/mm3 (1.2-5.4) L 05/13/18 06:40 [place] # 0.4 K/mm3 (0.0-0.8) 05/13/18 06:40 Eos # 0.2 K/mm3 (0.0-0.4) 05/13/18 06:40 Baso # 0.0 K/mm3 (0.0-0.1) 05/13/18 06:40 Seg Neutrophils % 83.3 % (40.0-70.0) H 05/13/18 06:40 Seg Neutrophils # 5.0 K/mm3 (1.8-7.7) 05/13/18 06:40 PT 14.3 Sec. (12.2-14.9) 05/08/18 09:16 INR 1.07 (0.87-1.13) 05/08/18 09:16 Sodium 139 mmol/L (137-145) 05/13/18 06:40 Potassium 3.0 mmol/L (3.6-5.0) L 05/13/18 06:40 Chloride 100.0 mmol/L (98-107) 05/13/18 06:40 Carbon Dioxide 26 mmol/L (22-30) 05/13/18 06:40 Anion Gap 16 mmol/L 05/13/18 06:40 BUN 13 mg/dL (9-20) 05/13/18 06:40 Creatinine 0.6 mg/dL (0.8-1.5) L 05/13/18 06:40 Estimated GFR > 60 ml/min 05/13/18 06:40 BUN/Creatinine Ratio 22 % 05/13/18 06:40 Glucose 108 mg/dL (75-100) H 05/13/18 06:40 POC Glucose 102 (70-105) 05/13/18 11:29 Calcium 8.5 mg/dL (8.4-10.2) 05/13/18 06:40 Magnesium 2.10 mg/dL (1.7-2.3) 05/11/18 05:19 Total Bilirubin 0.90 mg/dL (0.1-1.2) 05/13/18 06:40 Direct Bilirubin 0.2 mg/dL (0-0.2) 05/07/18 21:05 Indirect Bilirubin 1.0 mg/dL 05/07/18 21:05 AST 17 units/L (5-40) 05/13/18 06:40 ALT 14 units/L (7-56) 05/13/18 06:40 Alkaline Phosphatase 54 units/L (35-129) 05/13/18 06:40 Total Protein 6.3 g/dL (6.3-8.2) 05/13/18 06:40 Albumin 3.6 g/dL (3.9-5) L 05/13/18 06:40 Albumin/Globulin Ratio 1.3 % 05/13/18 06:40 Lipase 66 units/L (13-60) H 05/07/18 21:05 Tumor Marker AFP See scanned result 05/08/18 09:21 Urine Color [place] (Yellow) 05/07/18 19:19 Urine Turbidity Clear (Clear) 05/07/18 19:19 Urine pH 5.0 (5.0-7.0) 05/07/18 19:19 Ur Specific [place] 1.027 (1.003-1.030) 05/07/18 19:19 Urine Protein 100 mg/dl mg/dL (Negative) 05/07/18 19:19 Urine Glucose (UA) 50 mg/dL (Negative) 05/07/18 19:19 Urine Ketones 20 mg/dL (Negative) 05/07/18 19:19 Urine Blood Mod (Negative) 05/07/18 19:19 Urine Nitrite Neg (Negative) 05/07/18 19:19 Urine Bilirubin Neg (Negative) 05/07/18 19:19 Urine Urobilinogen < 2.0 mg/dL (<2.0) 05/07/18 19:19 Ur Leukocyte Esterase Neg (Negative) 05/07/18 19:19 Urine WBC (Auto) 2.0 /HPF (0.0-6.0) 05/07/18 19:19 Urine RBC (Auto) 4.0 /HPF (0.0-6.0) 05/07/18 19:19 U Epithel Cells (Auto) < 1.0 /HPF (0-13.0) 05/07/18 19:19 Urine Mucus Few /HPF 05/07/18 19:19 Salicylates < 0.3 mg/dL (2.8-20.0) L 05/07/18 13:21 Urine Opiates Screen Presumptive negative 05/07/18 19:19 Urine Methadone Screen Presumptive negative 05/07/18 19:19 Acetaminophen < 5.0 ug/mL (10.0-30.0) L 05/07/18 13:21 Ur Barbiturates Screen Presumptive negative 05/07/18 19:19 Ur Phencyclidine Scrn Presumptive negative 05/07/18 19:19 Ur Amphetamines Screen Presumptive negative 05/07/18 19:19 U Benzodiazepines Scrn Presumptive negative 05/07/18 19:19 Urine Cocaine Screen Presumptive negative 05/07/18 19:19 U Marijuana (THC) Screen Presumptive negative 05/07/18 19:19 Drugs of Abuse Note Disclamer 05/07/18 19:19 Plasma/Serum Alcohol < 0.01 % (0-0.07) 05/07/18 13:21
[2018-05-13] MEDS: MORPHINE IV PRN (21:18)
--- NOTE | 2018-05-14 08:05 | Hem/Onc Progress Note ---
Assessment and Plan 1. Liver lesion in a patient with history of hepatitis C and cirrhosis. Clinically, this may be hepatocellular cancer. Alpha fetoprotein has been ordered. Most of the time, radiologically, they are able to make the diagnosis, but not at this time. 2. Thrombocytopenia secondary to liver disease. 3. Small-bowel obstruction. 4. Splenomegaly is present on CT. 5. For hepatitis C, he has undergone Harvoni-based treatment. 6. CEA and follow the alpha fetoprotein. Liver biopsy will help. radiology has seen pt - plan for bx ? monday05/14/2018 - dr Wheatley called to say tumor vascular - low plt - bx postponed with plan to have same at [place] or tertiary center d/w dr Lovett - GI AFP not hgih - Patient Problems (1) Liver mass Current Visit: Yes Status: Acute Subjective Date of service: 05/14/18 Principal diagnosis: liver mass Interval history: due liver bx Objective - Constitutional Vitals: Last Vital Signs Temp 98.6 F 05/14/18 06:00 Pulse 68 05/14/18 06:00 Resp 18 05/14/18 06:00 BP 149/69 05/14/18 06:00 Pulse Ox 94 05/14/18 06:00 Pain Intensity (0-10): denies any pain General appearance: no acute distress Performance status: 3-limited selfcare - EENT Eyes: EOM intact ENT: clear oral mucosa Lymph node exam: negative cervical, negative supraclavicular - Neck Neck: normal ROM - Respiratory Respiratory effort: Positive: normal Respiratory: negative: CTA - Cardiovascular Heart Sounds: Present: S1 & S2 Extremities: No edema - Gastrointestinal General gastrointestinal: Present: soft, non-tender Rectal Exam: deferred - Genitourinary Male genitourinary: Present: deferred - Integumentary Integumentary: warm - Musculoskeletal Musculoskeletal: generalized weakness - Neurologic Neurologic: moves all extremities - Labs Lab Results: Laboratory Results - last 24 hr 05/13/18 05/13/18 05/13/18 11:29 16:10 21:48 POC Glucose 102 94 109 H Medications & Allergies - Medications Allergies/Adverse Reactions: Allergies ciprofloxacin [From Cipro] Allergy (Verified 08/04/13 15:02) Dizziness ciprofloxacin HCl [From Cipro] Allergy (Verified 08/04/13 15:02) Dizziness Home Medications: Home Medications Medication Instructions Recorded Confirmed Last Taken Type Bisacodyl [Dulcolax suppos] 10 mg [place] QDAY PRN #15 supp.rect 09/28/15 04/15/16 1 Day Ago Rx ~11/17/15 Famotidine [Pepcid] 20 mg PO BID #60 tablet 09/28/15 04/15/16 1 Day Ago Rx ~11/17/15 Thiamine [Vitamin B-1] 100 mg PO QDAY #30 tablet 09/28/15 04/15/16 1 Day Ago Rx ~11/17/15 Midodrine [Proamatine] 2.5 mg PO Q8HR tablet 11/20/15 04/15/16 Unknown Rx risperiDONE [RisperDAL] 0.25 mg PO BID #60 tablet 11/20/15 04/15/16 Unknown Rx Folic Acid [Folvite] 1 mg PO QDAY #30 tablet 04/07/16 04/15/16 Unknown Rx Lactulose [Cephulac] 20 gm PO QDAY PRN #30 oral.liqd 04/07/16 04/15/16 Unknown Rx Nitrofurantoin [place]/M-[place] 100 mg PO Q12HR #13 capsule 04/15/16 Unknown Rx [Macrobid CAP] Active Medications: Generic Name Dose Route Start Last Admin Trade Name Freq PRN Reason Stop Dose Admin Hydralazine HCl 10 mg 05/11/18 04:24 05/11/18 04:47 Apresoline IV 10 mg Q4H PRN Administration Hypertension Ceftriaxone Sodium 1 gm in 50 mls @ 100 mls/hr 05/08/18 10:00 05/13/18 09:56 Rocephin/Ns 1 Gm/50 Ml IV 100 mls/hr Q24HR DANA Administration Protocol Sodium Chloride 1,000 mls @ 75 mls/hr 05/08/18 03:00 05/13/18 21:11 Nacl 0.9% 1000 Ml IV 75 mls/hr DIRECT DANA Administration Insulin Human Regular 0 units 05/09/18 22:00 05/13/18 16:27 Humulin R SUB-Q Not Given ACHS DANA Protocol Metoclopramide HCl 10 mg 05/10/18 20:50 05/12/18 22:17 Reglan IV 10 mg Q6H PRN Administration Nausea And Vomiting Morphine Sulfate 2 mg 05/08/18 05:01 05/13/18 21:18 Morphine IV 2 mg Q4H PRN Administration Pain, Moderate (4-6) Ondansetron HCl 4 mg 05/10/18 20:53 05/12/18 00:36 Zofran IV 4 mg Q3HR PRN Administration Nausea And Vomiting Phenol 1 spray 05/08/18 07:08 Chloraseptic MM PRN PRN Sore Throat Potassium Chloride 20 meq 05/14/18 10:00 K-Dur PO QDAY DANA
[2018-05-14] MEDS: HumuLIN R SUB-Q SCH ×3 (08:25→21:39)
--- NOTE | 2018-05-14 09:45 | Progress Note ---
Assessment and Plan Assessment and plan: --Liver mass; chronic hepatitis C/cirrhosis liver; liver biopsy today Possible hepatocellular carcinoma, MRI abdomen; 4 cm left lobe of the liver mass, enhancing capsule, lesion enlarged since 2016,possible atypical hemangioma, malignancy cannot be excluded, Liver biopsy canceled as patient has thrombocytopenia and increased risk of bleeding --Hypokalemia; replace per protocol and monitor levels,Check magnesium --Small bowel obstruction improved Advance diet as tolerated, Surgery following, --History of cirrhosis liver with ascites; continue current management Supportive care, GI following --Thrombocytopenia; secondary to cirrhosis liver, no evidence of bleeding --DVT prophylaxis; Lovenox Consults and recommendations noted Discussed the case with GI, oncology, and surgeon Possible discharge home in 1-2 days if stable History Interval history: Patient seen and examined medical records reviewed No new events reported by nursing staff Scheduled liver biopsy was canceled because of thrombocytopenia And risk of bleeding Patient feels better no new complaints Vital signs noted Hospitalist Physical - Constitutional Vitals: Temp Pulse Resp BP Pulse Ox 98.6 F 68 18 149/69 94 05/14/18 06:00 05/14/18 06:00 05/14/18 06:00 05/14/18 06:00 05/14/18 06:00 General appearance: Present: no acute distress, well-nourished - EENT Eyes: Present: PERRL, EOM intact - Neck Neck: Present: supple, normal ROM - Respiratory Respiratory effort: normal Respiratory: bilateral: diminished, negative: rales, rhonchi, wheezing - Cardiovascular Rhythm: regular Heart Sounds: Present: S1 & S2 - Extremities Extremities: no ischemia, No edema - Abdominal General gastrointestinal: soft, non-tender, non-distended, normal bowel sounds - Integumentary Integumentary: Present: clear, warm - Psychiatric Psychiatric: appropriate mood/affect, cooperative - Neurologic Neurologic: CNII-XII intact, moves all extremities Results - Labs CBC & Chem 7: 05/13/18 06:40 05/14/18 10:33 Labs: Laboratory Last Values WBC 6.0 K/mm3 (4.5-11.0) 05/13/18 06:40 RBC 5.32 M/mm3 (3.65-5.03) H 05/13/18 06:40 Hgb 15.1 gm/dl (11.8-15.2) 05/13/18 06:40 Hct 44.3 % (35.5-45.6) 05/13/18 06:40 MCV 83 fl (84-94) L 05/13/18 06:40 MCH 28 pg (28-32) 05/13/18 06:40 MCHC 34 % (32-34) 05/13/18 06:40 RDW 13.6 % (13.2-15.2) 05/13/18 06:40 Plt Count 60 K/mm3 (140-440) L 05/13/18 06:40 Lymph % (Auto) 7.2 % (13.4-35.0) L 05/13/18 06:40 [place] % (Auto) 6.2 % (0.0-7.3) 05/13/18 06:40 Eos % (Auto) 3.0 % (0.0-4.3) 05/13/18 06:40 Baso % (Auto) 0.3 % (0.0-1.8) 05/13/18 06:40 Lymph # 0.4 K/mm3 (1.2-5.4) L 05/13/18 06:40 [place] # 0.4 K/mm3 (0.0-0.8) 05/13/18 06:40 Eos # 0.2 K/mm3 (0.0-0.4) 05/13/18 06:40 Baso # 0.0 K/mm3 (0.0-0.1) 05/13/18 06:40 Seg Neutrophils % 83.3 % (40.0-70.0) H 05/13/18 06:40 Seg Neutrophils # 5.0 K/mm3 (1.8-7.7) 05/13/18 06:40 PT 14.3 Sec. (12.2-14.9) 05/08/18 09:16 INR 1.07 (0.87-1.13) 05/08/18 09:16 Sodium 139 mmol/L (137-145) 05/13/18 06:40 Potassium 3.0 mmol/L (3.6-5.0) L 05/13/18 06:40 Chloride 100.0 mmol/L (98-107) 05/13/18 06:40 Carbon Dioxide 26 mmol/L (22-30) 05/13/18 06:40 Anion Gap 16 mmol/L 05/13/18 06:40 BUN 13 mg/dL (9-20) 05/13/18 06:40 Creatinine 0.6 mg/dL (0.8-1.5) L 05/13/18 06:40 Estimated GFR > 60 ml/min 05/13/18 06:40 BUN/Creatinine Ratio 22 % 05/13/18 06:40 Glucose 108 mg/dL (75-100) H 05/13/18 06:40 POC Glucose 98 (70-105) 05/14/18 07:52 Calcium 8.5 mg/dL (8.4-10.2) 05/13/18 06:40 Magnesium 2.10 mg/dL (1.7-2.3) 05/11/18 05:19 Total Bilirubin 0.90 mg/dL (0.1-1.2) 05/13/18 06:40 Direct Bilirubin 0.2 mg/dL (0-0.2) 05/07/18 21:05 Indirect Bilirubin 1.0 mg/dL 05/07/18 21:05 AST 17 units/L (5-40) 05/13/18 06:40 ALT 14 units/L (7-56) 05/13/18 06:40 Alkaline Phosphatase 54 units/L (35-129) 05/13/18 06:40 Total Protein 6.3 g/dL (6.3-8.2) 05/13/18 06:40 Albumin 3.6 g/dL (3.9-5) L 05/13/18 06:40 Albumin/Globulin Ratio 1.3 % 05/13/18 06:40 Lipase 66 units/L (13-60) H 05/07/18 21:05 Tumor Marker AFP See scanned result 05/08/18 09:21 Urine Color [place] (Yellow) 05/07/18 19:19 Urine Turbidity Clear (Clear) 05/07/18 19:19 Urine pH 5.0 (5.0-7.0) 05/07/18 19:19 Ur Specific [place] 1.027 (1.003-1.030) 05/07/18 19:19 Urine Protein 100 mg/dl mg/dL (Negative) 05/07/18 19:19 Urine Glucose (UA) 50 mg/dL (Negative) 05/07/18 19:19 Urine Ketones 20 mg/dL (Negative) 05/07/18 19:19 Urine Blood Mod (Negative) 05/07/18 19:19 Urine Nitrite Neg (Negative) 05/07/18 19:19 Urine Bilirubin Neg (Negative) 05/07/18 19:19 Urine Urobilinogen < 2.0 mg/dL (<2.0) 05/07/18 19:19 Ur Leukocyte Esterase Neg (Negative) 05/07/18 19:19 Urine WBC (Auto) 2.0 /HPF (0.0-6.0) 05/07/18 19:19 Urine RBC (Auto) 4.0 /HPF (0.0-6.0) 05/07/18 19:19 U Epithel Cells (Auto) < 1.0 /HPF (0-13.0) 05/07/18 19:19 Urine Mucus Few /HPF 05/07/18 19:19 Salicylates < 0.3 mg/dL (2.8-20.0) L 05/07/18 13:21 Urine Opiates Screen Presumptive negative 05/07/18 19:19 Urine Methadone Screen Presumptive negative 05/07/18 19:19 Acetaminophen < 5.0 ug/mL (10.0-30.0) L 05/07/18 13:21 Ur Barbiturates Screen Presumptive negative 05/07/18 19:19 Ur Phencyclidine Scrn Presumptive negative 05/07/18 19:19 Ur Amphetamines Screen Presumptive negative 05/07/18 19:19 U Benzodiazepines Scrn Presumptive negative 05/07/18 19:19 Urine Cocaine Screen Presumptive negative 05/07/18 19:19 U Marijuana (THC) Screen Presumptive negative 05/07/18 19:19 Drugs of Abuse Note Disclamer 05/07/18 19:19 Plasma/Serum Alcohol < 0.01 % (0-0.07) 05/07/18 13:21
--- NOTE | 2018-05-14 11:05 | Progress Note ---
Assessment and Plan Pt status quo. Reviewed films with Dr. Briggs (radiologist). pt has low plt ct thus would need to delay liver biopsy. also pt has cirrhosis and varices. tumor also noted to be quite vascular. Thus high risk for post biopsy bleeding and other complications. Pt mary diet. abd soft and surgically stable would recommend to consider to transfer or refer to [facility] where they can do the biopsy in an institution that is prepared to proceed with major hepatic surg if necessary. Discussed with PCP. Objective Vital Signs - 12hr 05/13/18 05/14/18 23:17 06:00 Temperature 98.5 F 98.6 F Pulse Rate 75 68 Respiratory 18 18 Rate Blood Pressure 135/72 149/69 O2 Sat by Pulse 96 94 Oximetry - Labs 05/13/18 06:40 05/13/18 06:40
[2018-05-14] MEDS ORDERED: K-DUR PO ONE (12:00)
[2018-05-14] MEDS: NACL 0.9% 1000 ML 1,000 ML IV SCH (12:49)
[2018-05-14] MEDS: K-DUR PO SCH (12:51)
[2018-05-14] MEDS ORDERED: LOMOTIL PO ONE (14:40)
[2018-05-14] MEDS: MORPHINE IV PRN ×2 (17:33→23:15)
[2018-05-15] MEDS: NACL 0.9% 1000 ML 1,000 ML IV SCH (02:46)
[2018-05-15] MEDS: APRESOLINE IV PRN (05:39)
[2018-05-15 06:13] LABS: Basophils % (Auto) 0.9 % (0.0-1.8); Eosinophils # (Auto) 0.3 K/mm3 (0.0-0.4); Eosinophils % (Auto) 6.3 % (0.0-4.3); Lymphocytes # (Auto) 0.5 K/mm3 (1.2-5.4); Lymphocytes % (Auto) 11.3 % (13.4-35.0); Mean Corpuscular HGB Conc 35 % (32-34); Mean Corpuscular Volume 82 fl (84-94); Monocytes # (Auto) 0.4 K/mm3 (0.0-0.8); Monocytes % (Auto) 8.1 % (0.0-7.3); Red Blood Count 4.86 M/mm3 (3.65-5.03); Red Cell Distribution Width 13.6 % (13.2-15.2)
[2018-05-15 06:24] LABS: Platelet Count 61 K/mm3 (140-440)
[2018-05-15 06:49] LABS: Alanine Aminotransferase 13 units/L (7-56); Albumin 3.3 g/dL (3.9-5); BUN/Creatinine Ratio 22; Blood Urea Nitrogen 11 mg/dL (9-20); Calcium 8.5 mg/dL (8.4-10.2); Hemolysis Index 5
--- NOTE | 2018-05-15 07:58 | Hem/Onc Progress Note ---
Assessment and Plan 1. Liver lesion in a patient with history of hepatitis C and cirrhosis. Clinically, this may be hepatocellular cancer. Alpha fetoprotein has been ordered. Most of the time, radiologically, they are able to make the diagnosis, but not at this time. 2. Thrombocytopenia secondary to liver disease. 3. Small-bowel obstruction. 4. Splenomegaly is present on CT. 5. For hepatitis C, he has undergone Harvoni-based treatment. 6. CEA and follow the alpha fetoprotein. Liver biopsy will help. radiology has seen pt - plan for bx ? monday05/14/2018 - dr Wheatley called to say tumor vascular - low plt - bx postponed with plan to have same at [place] or tertiary center d/w dr Lovett - GI AFP not hgih bx not done due to low plt - Patient Problems (1) Liver mass Status: Acute Subjective Date of service: 05/15/18 Principal diagnosis: liver lesion Interval history: bx not done Objective - Constitutional Vitals: Last Vital Signs Temp 97.9 F 05/15/18 05:29 Pulse 69 05/15/18 05:29 Resp 20 05/15/18 05:29 BP 169/68 05/15/18 05:39 Pulse Ox 95 05/15/18 05:29 Pain Intensity (0-10): denies any pain General appearance: no acute distress Performance status: 3-limited selfcare - EENT Eyes: EOM intact ENT: clear oral mucosa Lymph node exam: negative cervical - Neck Neck: normal ROM - Respiratory Respiratory effort: Positive: normal Respiratory: bilateral: CTA - Cardiovascular Heart Sounds: Present: S1 & S2 Extremities: No edema - Gastrointestinal General gastrointestinal: Present: soft, non-tender Rectal Exam: deferred - Genitourinary Male genitourinary: Present: deferred - Integumentary Integumentary: warm - Musculoskeletal Musculoskeletal: strength equal bilaterally - Neurologic Neurologic: moves all extremities - Labs Lab Results: Laboratory Results - last 24 hr 05/14/18 05/14/18 05/14/18 07:52 10:33 13:07 WBC RBC Hgb Hct MCV MCH MCHC RDW Plt Count Lymph % (Auto) [place] % (Auto) Eos % (Auto) Baso % (Auto) Lymph # [place] # Eos # Baso # Seg Neutrophils % Seg Neutrophils # Sodium Potassium 3.2 L Chloride Carbon Dioxide Anion Gap BUN Creatinine Estimated GFR BUN/Creatinine Ratio Glucose POC Glucose 98 96 Calcium Magnesium 2.00 Total Bilirubin AST ALT Alkaline Phosphatase Total Protein Albumin Albumin/Globulin Ratio 05/14/18 05/14/18 05/15/18 16:38 21:34 04:56 WBC 4.4 L RBC 4.86 Hgb 14.0 Hct 40.0 MCV 82 L MCH 29 MCHC 35 H RDW 13.6 Plt Count 61 L Lymph % (Auto) 11.3 L [place] % (Auto) 8.1 H Eos % (Auto) 6.3 H Baso % (Auto) 0.9 Lymph # 0.5 L [place] # 0.4 Eos # 0.3 Baso # 0.0 Seg Neutrophils % 73.4 H Seg Neutrophils # 3.3 Sodium Potassium Chloride Carbon Dioxide Anion Gap BUN Creatinine Estimated GFR BUN/Creatinine Ratio Glucose POC Glucose 119 H 97 Calcium Magnesium Total Bilirubin AST ALT Alkaline Phosphatase Total Protein Albumin Albumin/Globulin Ratio 05/15/18 04:56 WBC RBC Hgb Hct MCV MCH MCHC RDW Plt Count Lymph % (Auto) [place] % (Auto) Eos % (Auto) Baso % (Auto) Lymph # [place] # Eos # Baso # Seg Neutrophils % Seg Neutrophils # Sodium 136 L Potassium 3.1 L Chloride 101.8 Carbon Dioxide 24 Anion Gap 13 BUN 11 Creatinine 0.5 L Estimated GFR > 60 BUN/Creatinine Ratio 22 Glucose 94 POC Glucose Calcium 8.5 Magnesium Total Bilirubin 0.60 AST 18 ALT 13 Alkaline Phosphatase 47 Total Protein 5.6 L Albumin 3.3 L Albumin/Globulin Ratio 1.4 Medications & Allergies - Medications Allergies/Adverse Reactions: Allergies ciprofloxacin [From Cipro] Allergy (Verified 08/04/13 15:02) Dizziness ciprofloxacin HCl [From Cipro] Allergy (Verified 08/04/13 15:02) Dizziness Home Medications: Home Medications Medication Instructions Recorded Confirmed Last Taken Type RX: Bisacodyl [Dulcolax suppos] 10 mg [place] QDAY PRN #15 supp.rect 09/28/15 04/15/16 1 Day Ago Rx ~11/17/15 RX: Thiamine [Vitamin B-1] 100 mg PO QDAY #30 tablet 09/28/15 04/15/16 1 Day Ago Rx ~11/17/15 RX: Midodrine [Proamatine] 2.5 mg PO Q8HR tablet 11/20/15 04/15/16 Unknown Rx RX: risperiDONE [RisperDAL] 0.25 mg PO BID #60 tablet 11/20/15 04/15/16 Unknown Rx RX: Folic Acid [Folvite] 1 mg PO QDAY #30 tablet 04/07/16 04/15/16 Unknown Rx RX: Lactulose [Cephulac] 20 gm PO QDAY PRN #30 oral.liqd 04/07/16 04/15/16 Unknown Rx Loperamide [Imodium] 2 mg PO Q2HR PRN #30 capsule 05/15/18 Unknown Rx RX: Famotidine [Pepcid] 20 mg PO BID #60 tablet 05/15/18 Unknown Rx RX: Potassium Chloride 20 meq PO QDAY #10 packet 05/15/18 Unknown Rx Active Medications: Generic Name Dose Route Start Last Admin Trade Name Freq PRN Reason Stop Dose Admin Hydralazine HCl 10 mg 05/11/18 04:24 05/15/18 05:39 Apresoline IV 10 mg Q4H PRN Administration Hypertension Sodium Chloride 1,000 mls @ 75 mls/hr 05/08/18 03:00 05/15/18 02:46 Nacl 0.9% 1000 Ml IV 75 mls/hr DIRECT DANA Administration Insulin Human Regular 0 units 05/09/18 22:00 05/14/18 21:39 Humulin R SUB-Q Not Given ACHS DANA Protocol Metoclopramide HCl 10 mg 05/10/18 20:50 05/12/18 22:17 Reglan IV 10 mg Q6H PRN Administration Nausea And Vomiting Morphine Sulfate 2 mg 05/08/18 05:01 05/14/18 23:15 Morphine IV 2 mg Q4H PRN Administration Pain, Moderate (4-6) Ondansetron HCl 4 mg 05/10/18 20:53 05/12/18 00:36 Zofran IV 4 mg Q3HR PRN Administration Nausea And Vomiting Phenol 1 spray 05/08/18 07:08 Chloraseptic MM PRN PRN Sore Throat Potassium Chloride 20 meq 05/14/18 10:00 05/14/18 12:51 K-Dur PO 20 meq QDAY DANA Administration
[2018-05-15] MEDS: HumuLIN R SUB-Q SCH ×2 (08:30→12:29)
[2018-05-15 11:34] VITALS: BP 136/55
[2018-05-15] MEDS: K-DUR PO SCH (11:46)
[2018-05-15] MEDS ORDERED: K-DUR PO ONE (12:00)
[2018-05-15] MEDS ORDERED: LOMOTIL PO PRN (12:26)
--- NOTE | 2018-05-15 13:07 | Progress Note ---
Assessment and Plan Pt status quo but does c/o diarrhea. mary diet Abd soft surgically stable diarrhea hypokalemia rec stool cults when d/c'ed, needs to f/u with PCP or GI for continued w/u of diarrhea as well as arrangements for liver biposy as per GI or onc correction of low K Selected Entries 05/14/18 05/15/18 06:00 11:27 Temperature 98.6 F 98.2 F Pulse Rate 68 83 Respiratory 18 16 Rate Blood Pressure 149/69 136/55 Laboratory Tests 05/13/18 05/13/18 05/15/18 06:40 06:40 04:56 WBC 6.0 4.4 L Hgb 15.1 14.0 Hct 44.3 40.0 Plt Count 60 L Potassium 3.0 L 05/15/18 04:56 WBC Hgb Hct Plt Count Potassium 3.1 L Objective Vital Signs - 12hr 05/15/18 05/15/18 05/15/18 05:29 05:39 11:27 Temperature 97.9 F 98.2 F Pulse Rate 69 83 Respiratory 20 16 Rate Blood Pressure 169/68 169/68 136/55 O2 Sat by Pulse 95 96 Oximetry - Labs 05/15/18 04:56 05/15/18 04:56 Diabetes panel 05/15/18 Range/Units 04:56 Sodium 136 L (137-145) mmol/L Potassium 3.1 L (3.6-5.0) mmol/L Chloride 101.8 (98-107) mmol/L Carbon Dioxide 24 (22-30) mmol/L BUN 11 (9-20) mg/dL Creatinine 0.5 L (0.8-1.5) mg/dL Glucose 94 (75-100) mg/dL Calcium 8.5 (8.4-10.2) mg/dL AST 18 (5-40) units/L ALT 13 (7-56) units/L Alkaline Phosphatase 47 (35-129) units/L Total Protein 5.6 L (6.3-8.2) g/dL Albumin 3.3 L (3.9-5) g/dL Calcium panel 05/15/18 Range/Units 04:56 Calcium 8.5 (8.4-10.2) mg/dL Albumin 3.3 L (3.9-5) g/dL Pituitary panel 05/15/18 Range/Units 04:56 Sodium 136 L (137-145) mmol/L Potassium 3.1 L (3.6-5.0) mmol/L Chloride 101.8 (98-107) mmol/L Carbon Dioxide 24 (22-30) mmol/L BUN 11 (9-20) mg/dL Creatinine 0.5 L (0.8-1.5) mg/dL Glucose 94 (75-100) mg/dL Calcium 8.5 (8.4-10.2) mg/dL Adrenal panel 05/15/18 Range/Units 04:56 Sodium 136 L (137-145) mmol/L Potassium 3.1 L (3.6-5.0) mmol/L Chloride 101.8 (98-107) mmol/L Carbon Dioxide 24 (22-30) mmol/L BUN 11 (9-20) mg/dL Creatinine 0.5 L (0.8-1.5) mg/dL Glucose 94 (75-100) mg/dL Calcium 8.5 (8.4-10.2) mg/dL Total Bilirubin 0.60 (0.1-1.2) mg/dL AST 18 (5-40) units/L ALT 13 (7-56) units/L Alkaline Phosphatase 47 (35-129) units/L Total Protein 5.6 L (6.3-8.2) g/dL Albumin 3.3 L (3.9-5) g/dL
--- NOTE | 2018-05-15 14:09 | Discharge Summary ---
Providers - Providers Date of Admission: 05/08/18 01:08 Date of discharge: 05/15/18 Attending physician: MIRELLA SYLVESTER 05/08/18 01:00 Consult to Physician [CONS] Routine Comment: Dr. Hernandez spoke with Dr. Banks @ 0034 Consulting Provider: PAMELLA BANKS Physician Instructions: Reason For Exam: Bowel obstruction. 05/08/18 07:05 Consult to Physician [CONS] Routine Comment: Consulting Provider: SUREKHA BARNES Physician Instructions: Reason For Exam: 1-liver mass. 2- diarrhea 05/11/18 Consult to Physician [CONS] Routine Comment: Consulting Provider: BASILIO GONZALEZ Physician Instructions: Reason For Exam: Liver mass/possible HCC 05/12/18 09:14 Consult to Physician [CONS] Routine Comment: Consulting Provider: CHLOE COKER Physician Instructions: Reason For Exam: possible liver biopsy 05/15/18 11:55 Physical Therapy Evaluation and Treat [CONS] Routine Comment: unsteady gait Reason For Exam: weakness Primary care physician: [employer] Hospitalization Reason for admission: Abdominal pain/small bowel obstruction/liver mass Condition: Stable Pertinent studies: MRI abdomen; 4 cm left lobe of the liver mass, enhancing capsule, lesion enlarged since 2015,possible atypical hemangioma, malignancy cannot be excluded, Liver biopsy canceled as patient has thrombocytopenia and increased risk of bleeding. 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 Liver mass was seen on abd CT and GI was consulted for evaluation of liver mass seen on CT abdomen. , Oncology was consulted to evaluate and manage possible HCC [hepato cellular carcinoma],advisred Biopsy,however unable to , do due to severe thrombocytopenia and blleding risk and advised to follow acid regenerator at a tertiary center. Patient will be discharged and GI will refer to acid regenerator for further evaln and management. Patient is stable at discharge: Discharge Diagnosis: --Liver mass; chronic hepatitis C/cirrhosis liver; liver biopsy today Possible hepatocellular carcinoma, MRI abdomen; 4 cm left lobe of the liver mass, enhancing capsule, lesion enlarged since 2015,possible atypical hemangioma, malignancy cannot be excluded, Liver biopsy canceled as patient has thrombocytopenia and increased risk of bleeding. Advised to see acid regenerator in a tertiary center for further evaluation and possible biopsy --Hypokalemia; corrected --Small bowel obstruction improved Advance diet as tolerated, Surgery following, --History of cirrhosis liver with ascites; continue current management Supportive care, GI following --Thrombocytopenia; secondary to cirrhosis liver, no evidence of bleeding Disposition: DC/TX-06 HOME UNDER HOME [facility] Time spent for discharge: 32 min Core Measure Documentation - Palliative Care Palliative Care/ Comfort Measures: Not Applicable - Core Measures Any of the following diagnoses?: none Exam - Constitutional Vitals: Temp Pulse Resp BP Pulse Ox 98.2 F 83 16 136/55 96 05/15/18 11:27 05/15/18 11:27 05/15/18 11:27 05/15/18 11:27 05/15/18 11:27 General appearance: Present: no acute distress, well-nourished - EENT Eyes: Present: PERRL, EOM intact - Neck Neck: Present: supple, normal ROM - Respiratory Respiratory effort: normal Respiratory: bilateral: diminished, negative: rales, rhonchi, wheezing - Cardiovascular Rhythm: regular Heart Sounds: Present: S1 & S2 - Extremities Extremities: no ischemia, No edema - Abdominal General gastrointestinal: Present: soft, non-tender, non-distended, normal bowel sounds - Integumentary Integumentary: Present: clear, warm - Musculoskeletal Musculoskeletal: generalized weakness - Psychiatric Psychiatric: appropriate mood/affect, cooperative - Neurologic Neurologic: CNII-XII intact, moves all extremities Plan Activity: advance as tolerated, fall precautions Diet: advance as tolerated, other (mechanical soft diet) Special Instructions: physical therapy Additional Instructions: Patient needs to go to tertiary care center [facility] or [place]. for Possible liver biopsy as per GI and oncology Follow up with: SOFIA MASSEY MD [Staff Physician] - 3 Days BASILIO GONZALEZ MD [Staff Physician] - 7 Days PRIMARY MD JUMANA [Primary Care Provider] - 3-5 Days PAMELLA BANKS MD [Staff Physician] - 7 Days Prescriptions: Famotidine [Pepcid] 20 mg PO BID #60 tablet Loperamide [Imodium] 2 mg PO Q2HR PRN #30 capsule PRN Reason: Diarrhea Potassium Chloride 20 meq PO QDAY #10 packet
== END 2018-05-15 17:29 | disposition home health service (06) | DRG 389 ==
LOC: ED 12:07 → 3A 05-08 01:08
PROVIDERS: ADMIT Internal Medicine; ATTEND Internal Medicine
PROC: 0D9670Z Drainage of Stomach with Drainage Device, Via Natural or Artificial Opening (ICD-10-PCS; principal; 2018-05-08)
DX: K56.600 Partial intestinal obstruction, unspecified as to cause (principal); R18.8 Other ascites; F11.23 Opioid dependence with withdrawal; I71.4 Abdominal aortic aneurysm, without rupture; R19.7 Diarrhea, unspecified; K74.60 Unspecified cirrhosis of liver; E87.6 Hypokalemia; G89.29 Other chronic pain; M54.9 Dorsalgia, unspecified; D69.59 Other secondary thrombocytopenia; R16.2 Hepatomegaly with splenomegaly, not elsewhere classified; B18.2 Chronic viral hepatitis C; R16.1 Splenomegaly, not elsewhere classified; J45.909 Unspecified asthma, uncomplicated; E11.9 Type 2 diabetes mellitus without complications; T40.2X5A Adverse effect of other opioids, initial encounter; Z90.49 Acquired absence of other specified parts of digestive tract; Z88.1 Allergy status to other antibiotic agents; Z90.89 Acquired absence of other organs; Y92.89 Other specified places as the place of occurrence of the external cause; Z79.84 Long term (current) use of oral hypoglycemic drugs
CPT/HCPCS: 36415; 71045; 74018; 74022; 74177; 74183; 74250; 80048; 80053; 80076; 80307; 80320; 81001; 82106; 82378; 82962; 83690; 83735; 84132; 85025; 85610; 87045; 96361; 96365; 96366; 96375; 99291; G0378; A9577; G0480; J0360; J0696; J1200; J2270; J2405; J2765; J3480; J7030; Q0162; Q9967

== ENCOUNTER 2020-02-10 20:44 | Inpatient (IN) | payer MEDICARE ==
[2020-02-10] MEDS ORDERED: SODIUM CHLORIDE 0.9% 1000 ML 1,000 ML IV ONE (20:59)
[2020-02-10] MEDS ORDERED: ONDANSETRON 4 MG/2 ML INJ IV ONE (21:00)
--- NOTE | 2020-02-10 21:04 | Emergency Department Report ---
HPI - General Time Seen by Provider: 02/10/20 20:49 - HPI HPI: This is a 69-year-old male presents to the emergency department from home via EMS with the complaint of nausea, vomiting, abdominal pain and some intermittent decreased responsiveness. EMS says that one of the patient's neighbors went to check on him, found the door to be open, and found him appearing unresponsive on the couch. There was some vomit/emesis around him it appeared very yellow, like bile. Initially when the fire track arrived, prior to EMS, the patient was unresponsive. However he was more responsive by the time EMS. At the time of my examination the patient is ill-appearing, fatigued, but is easily arousable. He admits to generalized abdominal pain, nausea and vomiting since this morning. He has a past medical history of hepatitis C, diabetes, seizure disorder, CHF, previous opiate abuse, portal hypertension, esophageal varices. No known aggravating or alleviating factors. Patient did not take anything, nor receive anything, for his symptoms prior to arrival today. No recent travel or sick contacts at home. ED Past Medical Hx - Past Medical History Hx Hypertension: Yes Hx Diabetes: Yes Hx Liver Disease: Yes Hx Asthma: Yes Hx COPD: No Hx HIV: No Additional medical history: hepatitis C. "bad circulation" chronic bilateral lower extremity wounds. unbillical hernia. inguinial hernia - Surgical History Hx Cholecystectomy: Yes Additional Surgical History: tonsillectomy - Social History Smoking Status: Never Smoker - Medications Home Medications: Home Medications Medication Instructions Recorded Confirmed Last Taken Type Thiamine [Vitamin B-1] 100 mg PO QDAY #30 tablet 09/28/15 04/15/16 1 Day Ago Rx ~11/17/15 bisacodyL [Dulcolax suppos] 10 mg MT QDAY PRN #15 supp.rect 09/28/15 04/15/16 1 Day Ago Rx ~11/17/15 Midodrine [Proamatine] 2.5 mg PO Q8HR tablet 11/20/15 04/15/16 Unknown Rx risperiDONE [RisperDAL] 0.25 mg PO BID #60 tablet 11/20/15 04/15/16 Unknown Rx Folic Acid [Folvite] 1 mg PO QDAY #30 tablet 04/07/16 04/15/16 Unknown Rx Lactulose [Cephulac] 20 gm PO QDAY PRN #30 oral.liqd 04/07/16 04/15/16 Unknown Rx Famotidine [Pepcid] 20 mg PO BID #60 tablet 05/15/18 Unknown Rx Loperamide [Imodium] 2 mg PO Q2HR PRN #30 capsule 05/15/18 Unknown Rx Potassium Chloride 20 meq PO QDAY #10 packet 05/15/18 Unknown Rx ED Review of Systems ROS: Stated complaint: WEAKNESS,N/V Other details as noted in HPI Comment: All other systems reviewed and negative Constitutional: weakness. denies: chills, fever Eyes: denies: eye pain, vision change ENT: denies: ear pain, throat pain Respiratory: denies: cough, shortness of breath Cardiovascular: denies: chest pain, palpitations Gastrointestinal: abdominal pain, nausea, vomiting Genitourinary: denies: dysuria, discharge Musculoskeletal: denies: back pain, arthralgia Skin: denies: rash, lesions Neurological: denies: headache, numbness Physical Exam - Physical Exam Physical Exam: GENERAL: Patient is ill-appearing. He appears malnourished and disheveled.. HENT: Normocephalic. Atraumatic. Patient has moist mucous membranes. EYES: Extraocular motions are intact. Pupils equal reactive to light bilaterally. NECK: Supple. Trachea is midline. CHEST/LUNGS: Clear to auscultation. There is no respiratory distress noted. HEART/CARDIOVASCULAR: Regular. There is no tachycardia. There is no murmur. ABDOMEN: Abdomen is soft. Generalized abdominal tenderness to palpation. No guarding. Patient has normal bowel sounds. There is no abdominal distention. SKIN: Skin is warm and dry. NEURO: The patient is very sleepy but is arousable to verbal and tactile stimuli. He will go right back to sleep if not continuously stimulated. Follows some commands. Withdraws from painful stimuli. MUSCULOSKELETAL: There is no tenderness or deformity. ED Medical Decision Making - Lab Data Result diagrams: 02/10/20 21:07 02/10/20 21:07 - EKG Data -: EKG Interpreted by Me EKG shows normal: sinus rhythm (PACs), axis, intervals, QRS complexes, ST-T waves Rate: normal - EKG Data When compared to previous EKG there are: previous EKG unavailable Interpretation: normal EKG - Radiology Data Radiology results: report reviewed, image reviewed interpreted by me: Abdominal x-ray shows nonspecific nonobstructive bowel gas NONENHANCED CT SCAN OF THE HEAD: INDICATION / CLINICAL INFORMATION: 69 years Male; Altered Mental Status. TECHNIQUE: Routine CT head without contrast. All CT scans at this location are performed using CT dose reduction for ALARA by means of automated exposure control. COMPARISON: CT scan from 04/15/2016 FINDINGS: BRAIN / INTRACRANIAL CONTENTS: No acute hemorrhage, mass effect, midline shift, hydrocephalus, or acute, large territorial infarct. No chronic infarct or focal atrophy. Mild cortical involution. Periventricular low attenuation areas due to chronic small vessel disease; chronic ischemic changes are seen in the right corpus stratum. Generalized increased attenuation is seen in the [place]. I do not see any other CT/x-ray examination done with intravenous contrast. recent cardiac catheterization ORBITS: No significant abnormality of visualized orbits. SINUSES / MASTOIDS: No significant abnormality of the visualized paranasal sinuses or mastoid air cells. ADDITIONAL FINDINGS: None. IMPRESSION: No acute focal parenchymal lesion in the brain - Medical Decision Making This patient presents to the emergency department after he was found altered and/or unresponsive, surrounded by some vomitus. Patient is very sleepy but he is easily arousable. Once awake he is AAO x3 but he is slow to respond and still does appear confused. Also, the patient will go right back to sleep if not continuously stimulated. CT scan of the head without contrast does not show any bleed, shift, mass, ischemia, or any other acute process. Patient had complained of some abdominal discomfort, so an x-ray of the abdomen was completed that shows some nonspecific nonobstructive bowel gas. Vital signs are mostly unremarkable except for signs of dehydration with 80 ketones in the urine. There is also thrombocytopenia, mild elevation in his bilirubin, and a urine drug screen positive for marijuana and opiates. Patient was given some IV analgesia, IV antiemetics, IV fluid resuscitation, and a dose of antihypertensive medication. The patient will be admitted to the hospital for further evaluation and treatment was accepted for admission by the hospitalist, Dr. [place]. Critical Care Time: No Critical care attestation.: If time is entered above; I have spent that time in minutes in the direct care of this critically ill patient, excluding procedure time. ED Disposition Clinical Impression: Hypertensive urgency, Dehydration, Physical deconditioning, Cachexia, Thrombocytopenia Altered mental status Qualifiers: Altered mental status type: unspecified Qualified Code(s): R41.82 - Altered mental status, unspecified Disposition: DC-09 OP ADMIT IP TO THIS HOSP Is pt being admited?: Yes Condition: Poor Time of Disposition: 00:59
[2020-02-10 21:41] LABS: Hematocrit 53.5 % (35.5-45.6); Hemoglobin 17.8 gm/dl (11.8-15.2); INR 1.12 (0.87-1.13); Mean Corpuscular HGB Conc 33 % (32-34); Mean Corpuscular Volume 89 fl (84-94); Red Blood Count 6.02 M/mm3 (3.65-5.03); Red Cell Distribution Width 14.2 % (13.2-15.2)
[2020-02-10 21:43] LABS: Platelet Count 72 K/mm3 (140-440)
[2020-02-10 21:51] LABS: Alanine Aminotransferase 8 units/L (7-56); BUN/Creatinine Ratio 18; Blood Urea Nitrogen 14 mg/dL (9-20); Calcium 10.5 mg/dL (8.4-10.2); Hemolysis Index 81
--- NOTE | 2020-02-10 21:57 | XRay Report ---
ABDOMEN 3 VIEW(S) INDICATION / CLINICAL INFORMATION: Abdominal pain; altered mental status with nausea and vomiting and weakness. COMPARISON: Small bowel series 05/11/2018 FINDINGS: TUBES / LINES: None. BOWEL GAS PATTERN: No significant abnormality. FREE AIR / EXTRALUMINAL GAS: None seen. ADDITIONAL FINDINGS: No significant additional findings. CHEST: Visualized chest shows no significant abnormality. IMPRESSION: 1. No significant abnormality. Signer Name: Demetrio Martinez MD Signed: 02/10/2020 9:52 PM Workstation Name: [id number]
--- NOTE | 2020-02-10 22:22 | Cat Scan Report ---
NONENHANCED CT SCAN OF THE HEAD: INDICATION / CLINICAL INFORMATION: 69 years Male; Altered Mental Status. TECHNIQUE: Routine CT head without contrast. All CT scans at this location are performed using CT dos e reduction for ALARA by means of automated exposure control. COMPARISON: CT scan from 04/15/2016 FINDINGS: BRAIN / INTRACRANIAL CONTENTS: No acute hemorrhage, mass effect, midline shift, hydrocephalus, or acu te, large territorial infarct. No chronic infarct or focal atrophy. Mild cortical involution. Periven tricular low attenuation areas due to chronic small vessel disease; chronic ischemic changes are seen in the right corpus stratum. Generalized increased attenuation is seen in the [place]. I do not see any other CT/x-ray ex amination done with intravenous contrast. recent cardiac catheterization ORBITS: No significant abnormality of visualized orbits. SINUSES / MASTOIDS: No significant abnormality of the visualized paranasal sinuses or mastoid air kevin ls. ADDITIONAL FINDINGS: None. IMPRESSION: No acute focal parenchymal lesion in the brain Signer Name: Sharyn Clayton MD Signed: 02/10/2020 10:18 PM Workstation Name: [id number]
[2020-02-10 22:24] LABS: Basophils % (Manual) 0 % (0.0-1.8); Eosinophils % (Manual) 0 % (0.0-4.3); RBC Morphology Normal; Total Cells Counted 100
[2020-02-10 22:44] LABS: Amphetamine Screen,Urine PRESUMPTIVE NEGATIVE; Benzodiazepines Screen,Urine PRESUMPTIVE NEGATIVE; Cannabinoid Screen,Urine PRESUMPTIVE POSITIVE; Cocaine Screen,Urine PRESUMPTIVE NEGATIVE; Methadone Screen,Urine PRESUMPTIVE NEGATIVE; Opiate Screen,Urine PRESUMPTIVE POSITIVE
[2020-02-10 22:50] LABS: Bilirubin,Urine NEG (Negative); Blood,Urine MOD (Negative); Color,Urine Yellow (Yellow); Mucus,Urine FEW /HPF; Urobilinogen,Urine < 2.0 mg/dL (<2.0)
[2020-02-10] MEDS ORDERED: KETOROLAC 30 MG/1 ML INJ IV ONE (23:06)
[2020-02-11] MEDS ORDERED: cloNIDine 0.1 MG TAB PO ONE (00:13)
[2020-02-11] MEDS ORDERED: ACETAMINOPHEN 325 MG TAB PO PRN (02:24)
[2020-02-11] MEDS ORDERED: ONDANSETRON 4 MG/2 ML INJ IV PRN (02:25)
[2020-02-11] MEDS ORDERED: DEXTROSE 50% IN WATER (25GM) 50 ML SYRINGE IV PRN (02:35)
[2020-02-11] MEDS: HEPARIN 5,000 UNIT/1 ML VIAL SUB-Q SCH ×3 (05:49→21:50)
--- NOTE | 2020-02-11 07:19 | History and Physical Report ---
History of Present Illness Date of examination: 02/11/20 Date of admission: 02/11/20 00:59 Chief complaint: Chief complaint is change in mental status and unresponsiveness History of present illness: History of presenting illness, patient is a 69-year-old male found in his house to be unresponsive initially later on EMS was called and patient was subse quently found to be confused looking unkept and was brought to the emergency room. There was history of nausea vomiting but no history of fever or chills and no history of shortness of breath or chest pain Past History Past Medical History: diabetes, heart failure, hepatitis, seizures, other (INGUINAL HERNIA) Past Surgical History: cholecystectomy, tonsillectomy Social history: smoking Medications and Allergies Allergies Allergy/AdvReac Type Severity Reaction Status Date / Time ciprofloxacin [From Cipro] Allergy Dizziness Verified 08/04/13 15:02 ciprofloxacin HCl Allergy Dizziness Verified 08/04/13 15:02 [From Cipro] Home Medications Medication Instructions Recorded Confirmed Last Taken Type Thiamine [Vitamin B-1] 100 mg PO QDAY #30 tablet 09/28/15 04/15/16 1 Day Ago Rx ~11/17/15 bisacodyL [Dulcolax suppos] 10 mg NE QDAY PRN #15 supp.rect 09/28/15 04/15/16 1 Day Ago Rx ~11/17/15 Midodrine [Proamatine] 2.5 mg PO Q8HR tablet 11/20/15 04/15/16 Unknown Rx risperiDONE [RisperDAL] 0.25 mg PO BID #60 tablet 11/20/15 04/15/16 Unknown Rx Folic Acid [Folvite] 1 mg PO QDAY #30 tablet 04/07/16 04/15/16 Unknown Rx Lactulose [Cephulac] 20 gm PO QDAY PRN #30 oral.liqd 04/07/16 04/15/16 Unknown Rx Famotidine [Pepcid] 20 mg PO BID #60 tablet 05/15/18 Unknown Rx Loperamide [Imodium] 2 mg PO Q2HR PRN #30 capsule 05/15/18 Unknown Rx Potassium Chloride 20 meq PO QDAY #10 packet 05/15/18 Unknown Rx Active Meds: Active Medications Acetaminophen (Tylenol) 650 mg PO Q4H PRN PRN Reason: Fever >101 Dextrose (D50w (25gm) Syringe) 50 ml IV Q30MIN PRN; Protocol PRN Reason: Hypoglycemia Heparin Sodium (Porcine) (Heparin) 5,000 unit SUB-Q Q12HR DANA Last Admin: 02/11/20 05:49 Dose: 5,000 unit Documented by: Sodium Chloride (Nacl 0.9% 1000 Ml) 1,000 mls @ 75 mls/hr IV DIRECT DANA Insulin Human Regular (Humulin R) 0 unit SUB-Q AC DANA; Protocol Insulin Human Regular (Humulin R) 0 unit SUB-Q QHS DANA; Protocol Ondansetron HCl (Zofran) 4 mg IV Q8H PRN PRN Reason: Nausea And Vomiting Review of Systems Constitutional: weakness, malaise, no weight loss, no weight gain, no fever, no chills, no sweats Eyes: bilateral: other (NO BILATERAL EYE SYMPTOMS) Ears, nose, mouth and throat: no ear pain, no ear discharge, no tinnitis, no dysphagia, no sore throat, no headache, no vertigo Cardiovascular: no chest pain, no palpitations, no rapid/irregular heart beat, no lightheadedness, no shortness of breath Respiratory: no cough, no excessive sputum, no hemoptysis, no shortness of breath, no congestion, no wheezing, no pleurisy Gastrointestinal: nausea, vomiting, no abdominal pain, no diarrhea, no constipation, no change in bowel habits, no hematemesis, no melena, no hematochezia, no loss of appetite Genitourinary Male: no dysuria, no hematuria, no flank pain, no nocturia Rectal: no pain Musculoskeletal: no neck stiffness, no neck pain, no low back pain, no morning stiffness Integumentary: no rash, no pruritis, no redness, no sores, no wounds, no jaundice, no boils, no bullae, no lesions, no darkening of skin, no depigmentation, no acne, no brittle nails, no striae, no hirsutism Neurological: weakness, no paralysis, no tingling, no seizures, no syncope, no vertigo, no headaches, no convulsions Psychiatric: no anxiety, no memory loss, no change in sleep habits, no sleep disturbances, no insomnia, no hypersomnia, no change in libido, no suicidal ideation, no hopelessness Endocrine: no cold intolerance, no heat intolerance, no polyphagia, no excessive thirst, no polydipsia, no polyuria, no nocturia, no proptosis, no thyroid mass, no palpatations Hematologic/Lymphatic: no easy bruising, no easy bleeding Exam - Constitutional Vitals: Temp Pulse Resp BP Pulse Ox 100 F H 64 16 148/69 98 02/10/20 23:05 02/11/20 02:15 02/11/20 02:15 02/11/20 02:15 02/11/20 02:15 General appearance: Present: no acute distress - EENT Eyes: Present: PERRL, EOM intact. Absent: scleral icterus ENT: hearing intact, clear oral mucosa - Neck Neck: Present: supple, normal ROM - Respiratory Respiratory effort: normal - Cardiovascular Rhythm: regular Heart Sounds: Present: S1 & S2. Absent: gallop, systolic murmur, diastolic murmur, click - Extremities Extremities: no ischemia, No edema Peripheral Pulses: within normal limits - Abdominal General gastrointestinal: Present: soft, non-tender. Absent: tender, non- distended, distended, rigid, hepatomegaly, splenomegaly, mass Localized gastrointestinal: tender: suprapubic Male genitourinary: Present: deferred - Rectal Rectal Exam: deferred - Integumentary Integumentary: Present: clear, warm, dry. Absent: jaundice, rash - Musculoskeletal Musculoskeletal: generalized weakness HEART Score - HEART Score Age: > 65 Risk factors: 1-2 risk factors Troponin: Troponin T < 0.010 ng/mL (0.00-0.029) 02/10/20 21:07 Troponin: < normal limit - Critical Actions Critical Actions: 0-3 pts:0.9-1.7%risk of adverse cardiac event.Candidate for discharge Results - Labs CBC & Chem 7: 02/10/20 21:07 02/10/20 21:07 Labs: Laboratory Last Values WBC 8.4 K/mm3 (4.5-11.0) 02/10/20 21:07 RBC 6.02 M/mm3 (3.65-5.03) H 02/10/20 21:07 Hgb 17.8 gm/dl (11.8-15.2) H 02/10/20 21:07 Hct 53.5 % (35.5-45.6) H 02/10/20 21:07 MCV 89 fl (84-94) 02/10/20 21:07 MCH 30 pg (28-32) 02/10/20 21:07 MCHC 33 % (32-34) 02/10/20 21:07 RDW 14.2 % (13.2-15.2) 02/10/20 21:07 Plt Count 72 K/mm3 (140-440) L 02/10/20 21:07 Lymph % (Auto) Spindraw Operator 02/10/20 21:07 [place] % (Auto) Spindraw Operator 02/10/20 21:07 Eos % (Auto) Spindraw Operator 02/10/20 21:07 Baso % (Auto) Spindraw Operator 02/10/20 21:07 Lymph # (Auto) Spindraw Operator 02/10/20 21:07 [place] # (Auto) Spindraw Operator 02/10/20 21:07 Eos # (Auto) Spindraw Operator 02/10/20 21:07 Baso # (Auto) Spindraw Operator 02/10/20 21:07 Add Manual Diff Complete 02/10/20 21:07 Total Counted 100 02/10/20 21:07 Seg Neutrophils % Spindraw Operator 02/10/20 21:07 Seg Neuts % (Manual) 91.0 % (40.0-70.0) H 02/10/20 21:07 Band Neutrophils % 0 % 02/10/20 21:07 Lymphocytes % (Manual) 5.0 % (13.4-35.0) L 02/10/20 21:07 Reactive Lymphs % (Man) 0 % 02/10/20 21:07 Monocytes % (Manual) 4.0 % (0.0-7.3) 02/10/20 21:07 Eosinophils % (Manual) 0 % (0.0-4.3) 02/10/20 21:07 Basophils % (Manual) 0 % (0.0-1.8) 02/10/20 21:07 Metamyelocytes % 0 % 02/10/20 21:07 Myelocytes % 0 % 02/10/20 21:07 Promyelocytes % 0 % 02/10/20 21:07 Blast Cells % 0 % 02/10/20 21:07 Nucleated RBC % Not Reportable 02/10/20 21:07 Seg Neutrophils # Spindraw Operator 02/10/20 21:07 Seg Neutrophils # Man 7.6 K/mm3 (1.8-7.7) 02/10/20 21:07 Band Neutrophils # 0.0 K/mm3 02/10/20 21:07 Lymphocytes # (Manual) 0.4 K/mm3 (1.2-5.4) L 02/10/20 21:07 Abs React Lymphs (Man) 0.0 K/mm3 02/10/20 21:07 Monocytes # (Manual) 0.3 K/mm3 (0.0-0.8) 02/10/20 21:07 Eosinophils # (Manual) 0.0 K/mm3 (0.0-0.4) 02/10/20 21:07 Basophils # (Manual) 0.0 K/mm3 (0.0-0.1) 02/10/20 21:07 Metamyelocytes # 0.0 K/mm3 02/10/20 21:07 Myelocytes # 0.0 K/mm3 02/10/20 21:07 Promyelocytes # 0.0 K/mm3 02/10/20 21:07 Blast Cells # 0.0 K/mm3 02/10/20 21:07 WBC Morphology Not Reportable 02/10/20 21:07 Hypersegmented Neuts Not Reportable 02/10/20 21:07 Hyposegmented Neuts Not Reportable 02/10/20 21:07 Hypogranular Neuts Not Reportable 02/10/20 21:07 Smudge Cells Not Reportable 02/10/20 21:07 Toxic Granulation Not Reportable 02/10/20 21:07 Toxic Vacuolation Not Reportable 02/10/20 21:07 Dohle Bodies Not Reportable 02/10/20 21:07 Pelger-Huet Anomaly Not Reportable 02/10/20 21:07 Jennifer Rods Not Reportable 02/10/20 21:07 Platelet Estimate Not Reportable 02/10/20 21:07 Clumped Platelets Not Reportable 02/10/20 21:07 Plt Clumps, EDTA Not Reportable 02/10/20 21:07 Large Platelets Not Reportable 02/10/20 21:07 Giant Platelets Not Reportable 02/10/20 21:07 Platelet Satelliting Not Reportable 02/10/20 21:07 Plt Morphology Comment Not Reportable 02/10/20 21:07 RBC Morphology Normal 02/10/20 21:07 Dimorphic RBCs Not Reportable 02/10/20 21:07 Polychromasia Not Reportable 02/10/20 21:07 Hypochromasia Not Reportable 02/10/20 21:07 Poikilocytosis Not Reportable 02/10/20 21:07 Anisocytosis Not Reportable 02/10/20 21:07 Microcytosis Not Reportable 02/10/20 21:07 Macrocytosis Not Reportable 02/10/20 21:07 Spherocytes Not Reportable 02/10/20 21:07 Pappenheimer Bodies Not Reportable 02/10/20 21:07 Sickle Cells Not Reportable 02/10/20 21:07 Target Cells Not Reportable 02/10/20 21:07 Tear Drop Cells Not Reportable 02/10/20 21:07 Ovalocytes Not Reportable 02/10/20 21:07 Helmet Cells Not Reportable 02/10/20 21:07 Lambert-Iantha Bodies Not Reportable 02/10/20 21:07 Holland Rings Not Reportable 02/10/20 21:07 Kristy Cells Not Reportable 02/10/20 21:07 Bite Cells Not Reportable 02/10/20 21:07 Crenated Cell Not Reportable 02/10/20 21:07 Elliptocytes Not Reportable 02/10/20 21:07 Acanthocytes (Spur) Not Reportable 02/10/20 21:07 Rouleaux Not Reportable 02/10/20 21:07 Hemoglobin C Crystals Not Reportable 02/10/20 21:07 Schistocytes Not Reportable 02/10/20 21:07 Malaria parasites Not Reportable 02/10/20 21:07 Edu Bodies Not Reportable 02/10/20 21:07 Hem Pathologist Commnt No 02/10/20 21:07 PT 14.6 Sec. (12.2-14.9) 02/10/20 21:07 INR 1.12 (0.87-1.13) 02/10/20 21:07 Sodium 142 mmol/L (137-145) 02/10/20 21:07 Potassium 3.8 mmol/L (3.6-5.0) 02/10/20 21:07 Chloride 101.0 mmol/L (98-107) 02/10/20 21:07 Carbon Dioxide 19 mmol/L (22-30) L 02/10/20 21:07 Anion Gap 26 mmol/L 02/10/20 21:07 BUN 14 mg/dL (9-20) 02/10/20 21:07 Creatinine 0.8 mg/dL (0.8-1.3) 02/10/20 21:07 Estimated GFR > 60 ml/min 02/10/20 21:07 BUN/Creatinine Ratio 18 % 02/10/20 21:07 Glucose 155 mg/dL (75-100) H 02/10/20 21:07 Calcium 10.5 mg/dL (8.4-10.2) H 02/10/20 21:07 Total Bilirubin 1.50 mg/dL (0.1-1.2) H 02/10/20 21:07 AST 25 units/L (5-40) 02/10/20 21:07 ALT 8 units/L (7-56) 02/10/20 21:07 Alkaline Phosphatase 58 units/L (35-129) 02/10/20 21:07 Ammonia 18.0 umol/L (25-60) L 02/10/20 21:07 Total Creatine Kinase 65 units/L (55-170) 02/10/20 21:07 Troponin T < 0.010 ng/mL (0.00-0.029) 02/10/20 21:07 Total Protein 8.9 g/dL (6.3-8.2) H 02/10/20 21:07 Albumin 5.0 g/dL (3.9-5) 02/10/20 21:07 Albumin/Globulin Ratio 1.3 % 02/10/20 21:07 Lipase 67 units/L (13-60) H 02/10/20 21:17 TSH 0.742 mlU/mL (0.270-4.200) 02/10/20 21:07 Urine Color Yellow (Yellow) 02/10/20 21:44 Urine Turbidity Clear (Clear) 02/10/20 21:44 Urine pH 6.0 (5.0-7.0) 02/10/20 21:44 Ur Specific [place] 1.020 (1.003-1.030) 02/10/20 21:44 Urine Protein 100 mg/dl mg/dL (Negative) 02/10/20 21:44 Urine Glucose (UA) 50 mg/dL (Negative) 02/10/20 21:44 Urine Ketones 80 mg/dL (Negative) 02/10/20 21:44 Urine Blood Mod (Negative) 02/10/20 21:44 Urine Nitrite Neg (Negative) 02/10/20 21:44 Urine Bilirubin Neg (Negative) 02/10/20 21:44 Urine Urobilinogen < 2.0 mg/dL (<2.0) 02/10/20 21:44 Ur Leukocyte Esterase Neg (Negative) 02/10/20 21:44 Urine WBC (Auto) 1.0 /HPF (0.0-6.0) 02/10/20 21:44 Urine RBC (Auto) 13.0 /HPF (0.0-6.0) 02/10/20 21:44 U Epithel Cells (Auto) < 1.0 /HPF (0-13.0) 02/10/20 21:44 Urine Mucus Few /HPF 02/10/20 21:44 Urine Opiates Screen Presumptive positive 02/10/20 21:44 Urine Methadone Screen Presumptive negative 02/10/20 21:44 Ur Barbiturates Screen Presumptive negative 02/10/20 21:44 Ur Phencyclidine Scrn Presumptive negative 02/10/20 21:44 Ur Amphetamines Screen Presumptive negative 02/10/20 21:44 U Benzodiazepines Scrn Presumptive negative 02/10/20 21:44 Urine Cocaine Screen Presumptive negative 02/10/20 21:44 U Marijuana (THC) Screen Presumptive positive 02/10/20 21:44 Drugs of Abuse Note Disclamer 02/10/20 21:44 Plasma/Serum Alcohol < 0.01 % (0-0.07) 02/10/20 21:07 Aquino/IV: IV Catheter Type [Left Forearm Peripheral IV ] Assessment and Plan - Patient Problems (1) Altered mental status, unspecified Current Visit: Yes Status: Acute Qualifiers: Altered mental status type: unspecified Qualified Code(s): R41.82 - Altered mental status, unspecified Plan to address problem: OXYGEN BY NASAL CANNULA (2) Dehydration Current Visit: Yes Status: Acute Plan to address problem: 1. I.V NORMAL SALINE
[2020-02-11] MEDS: INSULIN REGULAR, HUMAN 100 UNIT/ML 3ML VIAL SUB-Q SCH ×3 (07:30→16:14)
--- NOTE | 2020-02-11 14:50 | Event Note ---
Date: 02/11/20 69-year-old male found in his house to be unresponsive initially later on EMS was called and patient was subsequently found to be confused looking unkept and was brought to the emergency room. He is alert and awake and c/o generalized weaknedd cont supportive care, follow PT eval
[2020-02-11] MEDS ORDERED: INSULIN REGULAR, HUMAN 100 UNIT/ML 3ML VIAL SUB-Q SCH (22:00)
[2020-02-12] MEDS: INSULIN REGULAR, HUMAN 100 UNIT/ML 3ML VIAL SUB-Q SCH ×3 (08:33→17:59)
[2020-02-12] MEDS: HEPARIN 5,000 UNIT/1 ML VIAL SUB-Q SCH (10:29)
--- NOTE | 2020-02-12 17:24 | Progress Note ---
Assessment and Plan 69-year-old male found in his house to be unresponsive initially later on EMS was called and patient was subsequently found to be confused looking unkept and was brought to the emergency room. He is alert and awake and c/o generalized weakness. cont supportive care, follow PT eval. Syncope vs seizure - CT head unremarkable - follow 2d echo, orthostatic vitals - start AED - keppra, order EEG, neuro eval Acute metabolic encephalopathy vs post ictal stage - cont supportive care, follow clinically diabetes, cont SSI Congestive heart failure, appears compensated - EF unknown, 2d echo ordered hepatitis, follow LFT Seizure disorder, - not on AED at home - start on keppra DVT Px, on heparin Subjective Date of service: 02/12/20 Interval history: Patient seen and examined c/o generalized weakness refused PT eval today Objective - Exam Narrative Exam: General appearance: Present: no acute distress - EENT Eyes: Present: PERRL, EOM intact. Absent: scleral icterus ENT: hearing intact, clear oral mucosa - Neck Neck: Present: supple, normal ROM - Respiratory Respiratory effort: normal - Cardiovascular Rhythm: regular Heart Sounds: Present: S1 & S2. Absent: gallop, systolic murmur, diastolic murmur, click - Extremities Extremities: no ischemia, No edema Peripheral Pulses: within normal limits - Abdominal General gastrointestinal: Present: soft, non-tender. Absent: tender, non- distended, distended, rigid, hepatomegaly, splenomegaly, mass Localized gastrointestinal: tender: suprapubic Male genitourinary: Present: deferred - Rectal Rectal Exam: deferred - Integumentary Integumentary: Present: clear, warm, dry. Absent: jaundice, rash - Musculoskeletal Musculoskeletal: generalized weakness - Labs CBC & Chem 7: 02/10/20 21:07 02/10/20 21:07 HEART Score - HEART Score Age: > 65 Risk factors: 1-2 risk factors Troponin: Troponin T < 0.010 ng/mL (0.00-0.029) 02/10/20 21:07 Troponin: < normal limit - Critical Actions Critical Actions: 0-3 pts:0.9-1.7%risk of adverse cardiac event.Candidate for discharge
[2020-02-12] MEDS: FOLIC ACID 1 MG TAB PO SCH (18:10)
[2020-02-12] MEDS: SODIUM CHLORIDE 0.9% 1000 ML 1,000 ML IV SCH (18:11)
[2020-02-12] MEDS: THIAMINE 100 MG TAB PO SCH (18:11)
[2020-02-12] MEDS: risperiDONE 0.25 MG TAB PO SCH (21:27)
[2020-02-12] MEDS: FAMOTIDINE 20 MG TAB PO SCH (21:27)
[2020-02-13] MEDS: HEPARIN 5,000 UNIT/1 ML VIAL SUB-Q SCH ×3 (00:08→21:34)
[2020-02-13] MEDS: INSULIN REGULAR, HUMAN 100 UNIT/ML 3ML VIAL SUB-Q SCH ×3 (08:12→17:55)
[2020-02-13] MEDS: FAMOTIDINE 20 MG TAB PO SCH ×2 (09:24→21:35)
[2020-02-13] MEDS: FOLIC ACID 1 MG TAB PO SCH (09:24)
[2020-02-13] MEDS: THIAMINE 100 MG TAB PO SCH (09:24)
[2020-02-13] MEDS: levETIRAcetam 500 MG TAB PO SCH ×2 (09:25→21:35)
[2020-02-13] MEDS: risperiDONE 0.25 MG TAB PO SCH ×2 (09:25→21:36)
[2020-02-13 12:20] LABS: Albumin 3.9 g/dL (3.9-5); Bilirubin,Direct 0.5 mg/dL (0-0.2)
--- NOTE | 2020-02-13 15:03 | Consultation ---
History of Present Illness Consult date: 02/13/20 Requesting physician: LUISA SHELBY Reason for Consult: syncope and encephalopathy Chief complaint: I got weak and passed out. History of present illness: 69 yo male with seizure d/o, dm, chf, hepatitis who presents with an epsiode of loss of consciousness w/ confusion afterwards. Patient denies a hx of seizures. Notes that he feels fine right now. Past History Past Medical History: diabetes, heart failure, hepatitis, seizures, other (INGUINAL HERNIA) Past Surgical History: cholecystectomy, tonsillectomy Social history: smoking Medications and Allergies Allergies Allergy/AdvReac Type Severity Reaction Status Date / Time ciprofloxacin [From Cipro] Allergy Dizziness Verified 08/04/13 15:02 ciprofloxacin HCl Allergy Dizziness Verified 08/04/13 15:02 [From Cipro] Home Medications Medication Instructions Recorded Confirmed Last Taken Type Thiamine [Vitamin B-1] 100 mg PO QDAY #30 tablet 09/28/15 02/11/20 1 Day Ago Rx ~11/17/15 bisacodyL [Dulcolax suppos] 10 mg SC QDAY PRN #15 supp.rect 09/28/15 02/11/20 1 Day Ago Rx ~11/17/15 Midodrine [Proamatine] 2.5 mg PO Q8HR tablet 11/20/15 02/11/20 Unknown Rx risperiDONE [RisperDAL] 0.25 mg PO BID #60 tablet 11/20/15 02/11/20 Unknown Rx Folic Acid [Folvite] 1 mg PO QDAY #30 tablet 04/07/16 02/11/20 Unknown Rx Lactulose [Cephulac] 20 gm PO QDAY PRN #30 oral.liqd 04/07/16 02/11/20 Unknown Rx Famotidine [Pepcid] 20 mg PO BID #60 tablet 05/15/18 02/11/20 Unknown Rx Loperamide [Imodium] 2 mg PO Q2HR PRN #30 capsule 05/15/18 02/11/20 Unknown Rx Potassium Chloride 20 meq PO QDAY #10 packet 05/15/18 02/11/20 Unknown Rx Active Meds: Active Medications Acetaminophen (Tylenol) 650 mg PO Q4H PRN PRN Reason: Fever >101 Dextrose (D50w (25gm) Syringe) 50 ml IV Q30MIN PRN; Protocol PRN Reason: Hypoglycemia Famotidine (Pepcid) 20 mg PO BID [facility] Last Admin: 02/13/20 09:24 Dose: 20 mg Documented by: Folic Acid (Folvite) 1 mg PO QDAY [facility] Last Admin: 02/13/20 09:24 Dose: 1 mg Documented by: Heparin Sodium (Porcine) (Heparin) 5,000 unit SUB-Q Q12HR [facility] Last Admin: 02/13/20 09:25 Dose: 5,000 unit Documented by: Sodium Chloride (Nacl 0.9% 1000 Ml) 1,000 mls @ 75 mls/hr IV DIRECT [facility] Last Admin: 02/12/20 18:11 Dose: 75 mls/hr Documented by: Insulin Human Regular (Humulin R) 0 unit SUB-Q AC [facility]; Protocol Last Admin: 02/13/20 12:18 Dose: Not Given Documented by: Levetiracetam (Keppra) 500 mg PO BID [facility] Last Admin: 02/13/20 09:25 Dose: 500 mg Documented by: Ondansetron HCl (Zofran) 4 mg IV Q8H PRN PRN Reason: Nausea And Vomiting Risperidone (Risperdal) 0.25 mg PO BID [facility] Last Admin: 02/13/20 09:25 Dose: 0.25 mg Documented by: Thiamine HCl (Vitamin B-1) 100 mg PO QDAY [facility] Last Admin: 02/13/20 09:24 Dose: 100 mg Documented by: Review of Systems ROS unobtainable: due to endotracheal tube All systems: negative (except as per HPI;) Physical Examination - Vital Signs Vital Signs: Vital Signs Pulse Resp Pulse Ox 64 14 100 02/10/20 21:17 02/10/20 21:17 02/10/20 21:17 - Additional Exam Additional Exam: Gen: nad, well-nourished; Head: normocephalic; Eyes: no gaze deviation; no ptosis; ENT: normal vocalization; CVS: warm and well-perfused; Pulm: no respiratory distress;; GI: non-distended, protuberant; Ext: no cyanosis or edema at distal extremities; Skin: no acute rash or hives at distal extremities; Heme: no pathologic ecchymosis at distal extremities; Neuro: alert, oriented to name, age, year, not month, not hospital, mild dysarthria, no aphasia, +psychomotor slowing; CN 2 - PERRL, visual gutierrez intact, CN 3, 4, 6 - EOMI, CN 5 - facial sensation decreased on the right to light touch, CN 7 - facial movement symmetric, CN 8 - hearing grossly intact, CN 9, 10 - uvula midline, CN 11 - shrug symmetric, CN 12 - tongue midline; Motor - at least 4/5 in all exts except RLE 4-/5; Sensory - light touch symmetric, Cerebellar - fnf /hts intact except right hts deficit, Gait - deferred secondary to fall risk; NIHSS (1a.) Level of Consciousness:0 (1b.) LOC Questions:1 (1c.) LOC Commands:0 (2.) Best Gaze:0 (3.) Visual:0 (4.) Facial Palsy:0 (5a.) Motor Arm, Left:0 (5b.) Motor Arm, Right:0 (6a.) Motor Leg, Left: (6b.) Motor Leg, Right:0 (7.) Limb Ataxia:1 (8.) Sensory:0 (9.) Best Language:0 (10.) Dysarthria:1 (11.) Extinction and Inattention:1 NIHSS Total Score: 4 Results - Laboratory Findings CBC and BMP: 02/10/20 21:07 02/10/20 21:07 Abnormal Lab Findings: Abnormal Labs 02/10/20 02/10/20 02/10/20 21:07 21:07 21:07 RBC 6.02 H Hgb 17.8 H Hct 53.5 H Plt Count 72 L Seg Neuts % (Manual) 91.0 H Lymphocytes % (Manual) 5.0 L Lymphocytes # (Manual) 0.4 L Carbon Dioxide 19 L Glucose 155 H POC Glucose Calcium 10.5 H Total Bilirubin 1.50 H Direct Bilirubin Ammonia 18.0 L Total Protein 8.9 H Lipase 02/10/20 02/11/20 02/11/20 21:17 08:14 11:37 RBC Hgb Hct Plt Count Seg Neuts % (Manual) Lymphocytes % (Manual) Lymphocytes # (Manual) Carbon Dioxide Glucose POC Glucose 121 H 107 H Calcium Total Bilirubin Direct Bilirubin Ammonia Total Protein Lipase 67 H 02/12/20 02/13/20 11:57 11:36 RBC Hgb Hct Plt Count Seg Neuts % (Manual) Lymphocytes % (Manual) Lymphocytes # (Manual) Carbon Dioxide Glucose POC Glucose 111 H Calcium Total Bilirubin 2.30 H Direct Bilirubin 0.5 H Ammonia Total Protein Lipase Assessment and Plan 69 yo male with seizure d/o, dm, chf, hepatitis who presents with an epsiode of loss of consciousness w/ confusion afterwards. 1. Seizure d/o - recommend mri brain w/ wo contrast. EEG pending. Keppra 500 mg po bid. 2. Right Hemiparesis - MRI Brain w/ wo contrast; aspirin 81 mg po qday; further studies if MRI is positive for infarction; pt/ot evaluation/monitoring. 3. Follow-up with a neurologist in one month. No driving x 6 months, no swimming/bathing/babysitting/monitoring alone, no operation of heavy machinery, no supervisory position, until cleared by a neurologist. Patient acknowledges understanding of these restrictions prior to discharge from the hospital. If MRI/EEG are unremarkable, the patient is cleared by Neurology. Moises Ramos MD Neurology
--- NOTE | 2020-02-13 22:36 | Progress Note ---
Assessment and Plan Acute encephalopathy Multifactorial, secondary to opiates/THC and possible seizures --Syncope vs seizure polysubstance abuse --Patient counseled about THC is using opiate use -- echo cardiogram Estimated ejection fraction is 50 to 55% Mild trace mitral regurgitation Global left ventricular systolic function at the lower limits of normal --Right Hemiparesis - MRI Brain w/ wo contrast; aspirin 81 mg po qday; further studies if MRI is positive for infarction; pt/ot evaluation/monitoring. --Acute metabolic encephalopathy vs post ictal stage - cont supportive care, follow clinically diabetes, cont SSI Congestive heart failure, appears compensated -Ejection fraction 50 to 55% On the lower limits of the normal --hepatitis, follow LFT Seizure disorder, - not on AED at home - started on keppra --EEG pending --MRI pending - CT head unremarkable - follow 2d echo, orthostatic vitals - start AED - keppra, order EEG, neuro eval --Follow-up with a neurologist in one month. No driving x 6 months, no swimming/bathing/babysitting/monitoring alone, no operation of heavy machinery, no supervisory position, until cleared by a neurologist. Patient acknowledges understanding of these restrictions prior to discharge from the hospital. If MRI/EEG are unremarkable, the patient is cleared by Neurology. DVT Px, on heparin 2029 Subjective Date of service: 02/13/20 Principal diagnosis: Acute encephalopathy Interval history: Subjective Date of service: 02/13/20 Interval history: Patient seen and examined c/o generalized weakness refused PT eval today 69-year-old male found in his house to be unresponsive initially later on EMS was called and patient was subsequently found to be confused looking unkept and was brought to the emergency room. He is alert and awake and c/o generalized weakness. cont supportive care, follow PT eval. Objective - Constitutional Vitals: Vital Signs - 12hr 02/13/20 02/13/20 11:19 17:14 Temperature 98.9 F 99.4 F Pulse Rate 91 H 92 H Respiratory 22 18 Rate Blood Pressure 137/93 170/91 O2 Sat by Pulse 96 95 Oximetry General appearance: Present: no acute distress, well-nourished - EENT Eyes: PERRL, EOM intact ENT: hearing intact, clear oral mucosa Ears: bilateral: normal - Neck Neck: supple, normal ROM - Respiratory Respiratory effort: normal Respiratory: bilateral: CTA - Breasts Breasts: normal - Cardiovascular Rhythm: regular Heart Sounds: Present: S1 & S2. Absent: gallop, rub Extremities: pulses intact, No edema, normal color, Full ROM - Gastrointestinal General gastrointestinal: Present: soft, non-tender, non-distended, normal bowel sounds - Genitourinary Male genitourinary: normal - Integumentary Integumentary: clear, warm, dry - Musculoskeletal Musculoskeletal: 1, strength equal bilaterally - Neurologic Neurologic: moves all extremities - Psychiatric Psychiatric: memory intact, appropriate mood/affect, intact judgment & insight - Labs CBC & Chem 7: 02/10/20 21:07 02/10/20 21:07 Labs: Abnormal lab results 02/13/20 Range/Units 11:36 Total Bilirubin 2.30 H (0.1-1.2) mg/dL Direct Bilirubin 0.5 H (0-0.2) mg/dL HEART Score - HEART Score Age: > 65 Risk factors: 1-2 risk factors Troponin: Troponin T < 0.010 ng/mL (0.00-0.029) 02/10/20 21:07 Troponin: < normal limit - Critical Actions Critical Actions: 0-3 pts:0.9-1.7%risk of adverse cardiac event.Candidate for discharge
[2020-02-14] MEDS: FOLIC ACID 1 MG TAB PO SCH (11:16)
[2020-02-14] MEDS: HEPARIN 5,000 UNIT/1 ML VIAL SUB-Q SCH ×2 (11:17→21:31)
[2020-02-14] MEDS: THIAMINE 100 MG TAB PO SCH (11:18)
[2020-02-14] MEDS: FAMOTIDINE 20 MG TAB PO SCH ×2 (11:18→21:34)
[2020-02-14] MEDS: levETIRAcetam 500 MG TAB PO SCH ×2 (11:18→21:31)
[2020-02-14] MEDS: risperiDONE 0.25 MG TAB PO SCH ×2 (11:18→21:31)
[2020-02-14] MEDS: INSULIN REGULAR, HUMAN 100 UNIT/ML 3ML VIAL SUB-Q SCH ×3 (11:24→17:14)
--- NOTE | 2020-02-14 11:57 | Magnetic Resonance Report ---
NONENHANCED MR SCAN OF THE BRAIN: INDICATION / CLINICAL INFORMATION: Seizures, syncope. TECHNIQUE: Multiplanar, multisequence MR images of the brain obtained. COMPARISON: CT scan of the head from 02/10/2020 FINDINGS: BRAIN / INTRACRANIAL CONTENTS: No acute ischemia, acute hemorrhage, mass effect, midline shift, or hy drocephalus. No chronic infarct or encephalomalacia. Mild to moderate cortical involution; mild to m oderate volume loss in the hippocampi; confluent periventricular and deep hemispheric white matter le sions (Fazekas 2) CRANIOCERVICAL JUNCTION: No significant abnormality. VASCULAR FLOW-VOIDS: No significant abnormality. ORBITS: No significant abnormality of visualized orbits. SINUSES / MASTOIDS: No significant abnormality of visualized sinuses and mastoid air cells. ADDITIONAL FINDINGS: None. IMPRESSION: 1. No acute focal parenchymal lesion in the brain Signer Name: Sharyn Clayton MD Signed: 02/14/2020 11:53 AM Workstation Name: [id number]
--- NOTE | 2020-02-14 18:14 | Discharge Summary ---
Providers - Providers Date of Admission: 02/13/20 08:00 Date of discharge: 02/14/20 Attending physician: DEMIAN CONNER 02/11/20 11:50 Physical Therapy Evaluation and Treat [CONS] Routine Comment: Reason For Exam: placement 02/12/20 14:37 Consult to Case Management [CONS] Routine Services Needed at Discharge: Other Notified:: cm notified Additional Physician Instructions: placement 02/13/20 05:38 Consult to Physician [CONS] Routine Comment: Consulting Provider: TAMMY ORTEGA Physician Instructions: Reason For Exam: AMS with syncope 02/13/20 10:55 Occupational Therapy Evaluate and Treat [CONS] Routine Comment: Reason For Exam: ADL's Primary care physician: PETROGRAPHER Hospitalization Condition: Fair Pertinent studies: MRI head unremarkable. No acute event no stroke. CT scan head unremarkable. Hospital course: 69-year-old male found in his house to be unresponsive initially later on EMS was called and patient was subsequently found to be confused looking unkept and was brought to the emergency room. He is alert and awake and c/o generalized weakness. cont supportive care, follow PT eval. Syncope vs seizure - CT head unremarkable MRI unremarkable. - follow 2d echo stable normal ejection fraction., orthostatic vitals patient was ruled out for orthostatics. - start AED - keppra, order EEG, neuro eval follow-up with neuro as outpatient. No driving no swimming no heavy machinery. Acute metabolic encephalopathy vs post ictal stage - cont supportive care, most likely secondary to postictal has resolved. diabetes, cont SSI Congestive heart failure, appears compensated - EF unknown, 2d echo ordered hepatitis, follow LFT Seizure disorder, - not on AED at home - start on keppra discharged home with Keppra. Disposition: DC-01 TO HOME OR SELFCARE - Discharge Diagnoses (1) Altered mental status, unspecified Status: Acute Qualifiers: Altered mental status type: unspecified Qualified Code(s): R41.82 - Altered mental status, unspecified (2) Hypertensive urgency Status: Acute (3) Seizure disorder Status: Acute Comment: Continue Keppra follow-up with neurology outpatient. MRI negative head CT negative. Most likely etiology seizure. Core Measure Documentation - Palliative Care Palliative Care/ Comfort Measures: Not Applicable - Core Measures Any of the following diagnoses?: none Exam - Constitutional Vitals: Temp Pulse Resp BP Pulse Ox 98.6 F 87 18 143/86 96 02/14/20 04:23 02/14/20 04:23 02/14/20 04:23 02/14/20 04:23 02/14/20 04:23 General appearance: Present: no acute distress, well-nourished - EENT Eyes: Present: PERRL ENT: hearing intact, clear oral mucosa - Neck Neck: Present: supple, normal ROM - Respiratory Respiratory effort: normal Respiratory: bilateral: CTA - Cardiovascular Heart Sounds: Present: S1 & S2. Absent: rub, click - Extremities Extremities: pulses symmetrical, No edema Peripheral Pulses: within normal limits - Abdominal General gastrointestinal: Present: soft, non-tender, non-distended, normal bowel sounds Male genitourinary: Present: normal - Integumentary Integumentary: Present: clear, warm, dry - Musculoskeletal Musculoskeletal: gait normal, strength equal bilaterally - Psychiatric Psychiatric: appropriate mood/affect, intact judgment & insight - Neurologic Neurologic: CNII-XII intact, moves all extremities Plan Activity: fall precautions Weight Bearing Status: Weight Bear as Tolerated Diet: low salt Special Instructions: physical therapy, home health RN Follow up with: PRIMARY CARE, [Primary Care Provider] - 7 Days Prescriptions: Folic Acid [Folvite] 1 mg PO QDAY #30 tablet levETIRAcetam [Keppra TAB] 500 mg PO BID #60 tablet risperiDONE [RisperDAL] 0.25 mg PO BID #60 tablet Thiamine [Vitamin B-1] 100 mg PO QDAY #30 tablet
[2020-02-15] MEDS: SODIUM CHLORIDE 0.9% 1000 ML 1,000 ML IV SCH (05:13)
[2020-02-15] MEDS: INSULIN REGULAR, HUMAN 100 UNIT/ML 3ML VIAL SUB-Q SCH ×3 (08:26→18:00)
[2020-02-15] MEDS: THIAMINE 100 MG TAB PO SCH (10:23)
[2020-02-15] MEDS: levETIRAcetam 500 MG TAB PO SCH ×2 (10:23→22:13)
[2020-02-15] MEDS: FOLIC ACID 1 MG TAB PO SCH (10:23)
[2020-02-15] MEDS: risperiDONE 0.25 MG TAB PO SCH ×2 (10:23→22:13)
[2020-02-15] MEDS: HEPARIN 5,000 UNIT/1 ML VIAL SUB-Q SCH ×2 (10:23→22:13)
[2020-02-15] MEDS: FAMOTIDINE 20 MG TAB PO SCH ×2 (10:23→22:13)
--- NOTE | 2020-02-15 16:05 | Progress Note ---
Assessment and Plan - Patient Problems (1) Altered mental status, unspecified Current Visit: Yes Status: Acute Qualifiers: Altered mental status type: unspecified Qualified Code(s): R41.82 - Altered mental status, unspecified Plan to address problem: Patient has underlying minimal cognitive impairment. Has seizure disorder now stable MRI unremarkable. Patient started on Keppra. (2) Hypertensive urgency Current Visit: Yes Status: Acute Plan to address problem: Patient is normotensive despite no medications. We will remove this from the diagnosis. (3) Seizure disorder Current Visit: Yes Status: Acute Plan to address problem: Patient no further seizure activity continue antielliptic medication Keppra. Subjective Date of service: 02/15/20 Principal diagnosis: Acute encephalopathy Interval history: Patient not discharged yesterday secondary to family wishes for jail facility. Physical therapy also suggests jail facility. Patient awaiting placement. Objective - Constitutional Vitals: Vital Signs - 12hr 02/15/20 02/15/20 06:54 11:33 Temperature 98.0 F 98.1 F Pulse Rate 83 77 Respiratory 18 20 Rate Blood Pressure 130/80 131/77 O2 Sat by Pulse 97 97 Oximetry General appearance: Present: no acute distress, well-nourished - EENT Eyes: PERRL, EOM intact ENT: hearing intact, clear oral mucosa Ears: bilateral: normal - Neck Neck: supple, normal ROM - Respiratory Respiratory effort: normal Respiratory: bilateral: CTA - Breasts Breasts: normal - Cardiovascular Rhythm: regular Heart Sounds: Present: S1 & S2. Absent: gallop, rub Extremities: pulses intact, No edema, normal color, Full ROM - Gastrointestinal General gastrointestinal: Present: soft, non-tender, non-distended, normal bowel sounds - Genitourinary Male genitourinary: normal - Integumentary Integumentary: clear, warm, dry - Musculoskeletal Musculoskeletal: 1, strength equal bilaterally - Neurologic Neurologic: moves all extremities - Psychiatric Psychiatric: memory intact, appropriate mood/affect, intact judgment & insight - Labs CBC & Chem 7: 02/10/20 21:07 02/10/20 21:07 Labs: Abnormal lab results 02/14/20 Range/Units 16:39 POC Glucose 106 H (70-105) mg/dL HEART Score - HEART Score Age: > 65 Risk factors: 1-2 risk factors Troponin: Troponin T < 0.010 ng/mL (0.00-0.029) 02/10/20 21:07 Troponin: < normal limit - Critical Actions Critical Actions: 0-3 pts:0.9-1.7%risk of adverse cardiac event.Candidate for discharge
[2020-02-16] MEDS: SODIUM CHLORIDE 0.9% 1000 ML 1,000 ML IV SCH ×2 (06:43→21:55)
[2020-02-16] MEDS: INSULIN REGULAR, HUMAN 100 UNIT/ML 3ML VIAL SUB-Q SCH ×3 (09:31→18:52)
[2020-02-16] MEDS: THIAMINE 100 MG TAB PO SCH (09:47)
[2020-02-16] MEDS: risperiDONE 0.25 MG TAB PO SCH ×2 (09:47→21:56)
[2020-02-16] MEDS: FAMOTIDINE 20 MG TAB PO SCH ×2 (09:47→21:56)
[2020-02-16] MEDS: levETIRAcetam 500 MG TAB PO SCH ×2 (09:47→21:56)
[2020-02-16] MEDS: FOLIC ACID 1 MG TAB PO SCH (09:47)
[2020-02-16] MEDS: HEPARIN 5,000 UNIT/1 ML VIAL SUB-Q SCH ×2 (09:47→21:57)
--- NOTE | 2020-02-16 12:03 | Progress Note ---
Assessment and Plan - Patient Problems (1) Altered mental status, unspecified Current Visit: Yes Status: Acute Qualifiers: Altered mental status type: unspecified Qualified Code(s): R41.82 - Altered mental status, unspecified Plan to address problem: Patient has underlying minimal cognitive impairment. Has seizure disorder now stable MRI unremarkable. Patient started on Keppra. (2) Hypertensive urgency Current Visit: Yes Status: Acute Plan to address problem: Patient is normotensive despite no medications. Patient optimal control on current medication. 5 mg amlodipine. (3) Seizure disorder Current Visit: Yes Status: Acute Plan to address problem: Patient no further seizure activity continue antielliptic medication Keppra. Subjective Date of service: 02/15/20 Principal diagnosis: Acute encephalopathy Interval history: Patient not discharged yesterday secondary to family wishes for senior living facility. Physical therapy also suggests senior living facility. Patient awaiting placement. Hospital course complicated by diarrhea. Patient remains baseline Objective - Constitutional Vitals: Vital Signs - 12hr 02/16/20 04:56 Temperature 98.2 F Pulse Rate 69 Respiratory 18 Rate Blood Pressure 154/76 O2 Sat by Pulse 96 Oximetry General appearance: Present: no acute distress, well-nourished - EENT Eyes: PERRL, EOM intact ENT: hearing intact, clear oral mucosa Ears: bilateral: normal - Neck Neck: supple, normal ROM - Respiratory Respiratory effort: normal Respiratory: bilateral: CTA - Breasts Breasts: normal - Cardiovascular Rhythm: regular Heart Sounds: Present: S1 & S2. Absent: gallop, rub Extremities: pulses intact, No edema, normal color, Full ROM - Gastrointestinal General gastrointestinal: Present: soft, non-tender, non-distended, normal bowel sounds - Genitourinary Male genitourinary: normal - Integumentary Integumentary: clear, warm, dry - Musculoskeletal Musculoskeletal: 1, strength equal bilaterally - Neurologic Neurologic: moves all extremities - Psychiatric Psychiatric: memory intact, appropriate mood/affect, intact judgment & insight - Labs CBC & Chem 7: 02/10/20 21:07 02/10/20 21:07 HEART Score - HEART Score Age: > 65 Risk factors: 1-2 risk factors Troponin: Troponin T < 0.010 ng/mL (0.00-0.029) 02/10/20 21:07 Troponin: < normal limit - Critical Actions Critical Actions: 0-3 pts:0.9-1.7%risk of adverse cardiac event.Candidate for discharge
--- NOTE | 2020-02-16 14:38 | Progress Note ---
Assessment and Plan - Patient Problems (1) Altered mental status, unspecified Current Visit: Yes Status: Acute Qualifiers: Altered mental status type: unspecified Qualified Code(s): R41.82 - Altered mental status, unspecified Plan to address problem: Patient has underlying minimal cognitive impairment. Has seizure disorder now stable MRI unremarkable. Patient started on Keppra. (2) Hypertensive urgency Current Visit: Yes Status: Acute Plan to address problem: Patient is normotensive despite no medications. Patient optimal control on current medication. 5 mg amlodipine. (3) Seizure disorder Current Visit: Yes Status: Acute Plan to address problem: Patient no further seizure activity continue antielliptic medication Keppra. (4) Diarrhea Current Visit: Yes Status: Acute Plan to address problem: Patient with loose stool. Await culture data. Treat with Lomotil. (5) Physical deconditioning Current Visit: Yes Status: Chronic Plan to address problem: [facility]. Subjective Date of service: 02/16/20 Principal diagnosis: Acute encephalopathy Interval history: 69-year-old male found in his house to be unresponsive initially later on EMS was called and patient was subsequently found to be confused looking unkept and was brought to the emergency room. He is alert and awake and c/o generalized weakness. cont supportive care, follow PT eval. Syncope vs seizure - CT head unremarkable MRI unremarkable. - follow 2d echo stable normal ejection fraction., orthostatic vitals patient was ruled out for orthostatics. - start AED - keppra, order EEG, neuro eval follow-up with neuro as outpatient. No driving no swimming no heavy machinery. Acute metabolic encephalopathy vs post ictal stage - cont supportive care, most likely secondary to postictal has resolved. diabetes, cont SSI Congestive heart failure, appears compensated - EF unknown, 2d echo ordered hepatitis, follow LFT Seizure disorder, - not on AED at home - start on keppra discharged home with Keppra. 02/15/2020-patient is scheduled be discharged. However family wants patient to go to [facility] facility and physical therapy recommended penitentiary facility. Awaiting placement. 02/16/2020 patient hospital course complicated by 2 episodes of diarrhea with loose stool. Stool specimens obtained. To rule out C. difficile stool culture as well. Otherwise no new concerns. Still awaiting placement. Objective - Constitutional Vitals: Vital Signs - 12hr 02/16/20 04:56 Temperature 98.2 F Pulse Rate 69 Respiratory 18 Rate Blood Pressure 154/76 O2 Sat by Pulse 96 Oximetry General appearance: Present: no acute distress, well-nourished - EENT Eyes: PERRL, EOM intact ENT: hearing intact, clear oral mucosa Ears: bilateral: normal - Neck Neck: supple, normal ROM - Respiratory Respiratory effort: normal Respiratory: bilateral: CTA - Breasts Breasts: normal - Cardiovascular Rhythm: regular Heart Sounds: Present: S1 & S2. Absent: gallop, rub Extremities: pulses intact, No edema, normal color, Full ROM - Gastrointestinal General gastrointestinal: Present: soft, non-tender, non-distended, normal bowel sounds - Genitourinary Male genitourinary: normal - Integumentary Integumentary: clear, warm, dry - Musculoskeletal Musculoskeletal: 1, strength equal bilaterally - Neurologic Neurologic: moves all extremities - Psychiatric Psychiatric: memory intact, appropriate mood/affect, intact judgment & insight - Labs CBC & Chem 7: 02/10/20 21:07 02/10/20 21:07 HEART Score - HEART Score Age: > 65 Risk factors: 1-2 risk factors Troponin: Troponin T < 0.010 ng/mL (0.00-0.029) 02/10/20 21:07 Troponin: < normal limit - Critical Actions Critical Actions: 0-3 pts:0.9-1.7%risk of adverse cardiac event.Candidate for discharge
[2020-02-16] MEDS ORDERED: LOPERAMIDE 2 MG CAP PO PRN (14:42)
[2020-02-16] MEDS ORDERED: amLODIPine 5 MG TAB PO ONE (14:42)
--- NOTE | 2020-02-17 07:45 | Progress Note ---
Assessment and Plan - Patient Problems (1) Altered mental status, unspecified Current Visit: Yes Status: Acute Qualifiers: Altered mental status type: unspecified Qualified Code(s): R41.82 - Altered mental status, unspecified Plan to address problem: Patient has underlying minimal cognitive impairment. Underlying encephalopathy exacerbated by seizure disorder. Appears back at baseline now. MRI head unremarkable. (2) Hypertensive urgency Current Visit: Yes Status: Acute Plan to address problem: Hypertensive emergency has resolved. Patient remains suboptimally controlled. Will advance present oral antihypertensives. Amlodipine 5 mg 1 tab p.o. daily. (3) Seizure disorder Current Visit: Yes Status: Acute Plan to address problem: Patient no further seizure activity continue antielliptic medication Keppra. Continue Keppra. (4) Chronic diastolic heart failure Current Visit: Yes Status: Acute Plan to address problem: No further evidence of volume overload. And afterload reducing diuretic if necessary. (5) Diarrhea Current Visit: Yes Status: Acute Plan to address problem: Patient with loose stool. Await culture data. Treat with Lomotil. (6) Hypokalemia Current Visit: Yes Status: Acute Plan to address problem: Correct with 20 mEq of KCl IV and also 30 mg p.o. Subjective Date of service: 02/17/20 Principal diagnosis: Acute encephalopathy Interval history: No more episodes of diarrhea over the p.m. C. difficile studies are pending. Awaiting placement. No new events overnight hospital course complicated by hypokalemia Objective - Constitutional Vitals: Vital Signs - 12hr 02/16/20 02/16/20 21:21 22:00 Temperature 98.8 F Pulse Rate 74 74 Respiratory 20 Rate Blood Pressure 159/71 159/71 O2 Sat by Pulse 95 95 Oximetry General appearance: Present: no acute distress, well-nourished - EENT Eyes: PERRL, EOM intact ENT: hearing intact, clear oral mucosa Ears: bilateral: normal - Neck Neck: supple, normal ROM - Respiratory Respiratory effort: normal Respiratory: bilateral: CTA - Breasts Breasts: normal - Cardiovascular Rhythm: regular Heart Sounds: Present: S1 & S2. Absent: gallop, rub Extremities: pulses intact, No edema, normal color, Full ROM - Gastrointestinal General gastrointestinal: Present: soft, non-tender, non-distended, normal bowel sounds - Genitourinary Male genitourinary: normal - Integumentary Integumentary: clear, warm, dry - Musculoskeletal Musculoskeletal: 1, strength equal bilaterally - Neurologic Neurologic: moves all extremities - Psychiatric Psychiatric: memory intact, other (Poor insight minimal cognitive impairment.) - Labs CBC & Chem 7: 02/17/20 07:43 02/17/20 07:51 HEART Score - HEART Score Age: > 65 Risk factors: 1-2 risk factors Troponin: Troponin T < 0.010 ng/mL (0.00-0.029) 02/10/20 21:07 Troponin: < normal limit - Critical Actions Critical Actions: 0-3 pts:0.9-1.7%risk of adverse cardiac event.Candidate for discharge
[2020-02-17 09:05] LABS: Basophils % (Auto) 0.5 % (0.0-1.8); Eosinophils # (Auto) 0.1 K/mm3 (0.0-0.4); Eosinophils % (Auto) 3.3 % (0.0-4.3); Hematocrit 39.1 % (35.5-45.6); Hemoglobin 13.7 gm/dl (11.8-15.2); Lymphocytes # (Auto) 0.2 K/mm3 (1.2-5.4); Lymphocytes % (Auto) 9.3 % (13.4-35.0); Mean Corpuscular HGB Conc 35 % (32-34); Mean Corpuscular Volume 83 fl (84-94); Monocytes # (Auto) 0.2 K/mm3 (0.0-0.8); Monocytes % (Auto) 6.5 % (0.0-7.3); Red Cell Distribution Width 13.2 % (13.2-15.2)
[2020-02-17 09:18] LABS: Platelet Count 42 K/mm3 (140-440)
[2020-02-17] MEDS: risperiDONE 0.25 MG TAB PO SCH ×2 (09:30→21:16)
[2020-02-17] MEDS: levETIRAcetam 500 MG TAB PO SCH ×2 (09:30→21:15)
[2020-02-17] MEDS: THIAMINE 100 MG TAB PO SCH (09:30)
[2020-02-17] MEDS: FOLIC ACID 1 MG TAB PO SCH (09:30)
[2020-02-17] MEDS: FAMOTIDINE 20 MG TAB PO SCH ×2 (09:30→21:15)
[2020-02-17] MEDS: INSULIN REGULAR, HUMAN 100 UNIT/ML 3ML VIAL SUB-Q SCH ×2 (09:31→14:03)
[2020-02-17] MEDS: HEPARIN 5,000 UNIT/1 ML VIAL SUB-Q SCH ×2 (09:32→21:15)
[2020-02-17 09:38] LABS: Alanine Aminotransferase 27 units/L (7-56); Albumin 3.5 g/dL (3.9-5); Blood Urea Nitrogen 6 mg/dL (9-20); Calcium 8.7 mg/dL (8.4-10.2); Hemolysis Index 6
[2020-02-17 09:39] LABS: BUN/Creatinine Ratio 10
[2020-02-17] MEDS ORDERED: POTASSIUM CHLORIDE ER 20 MEQ TAB PO NR (10:15)
[2020-02-17] MEDS: POTASSIUM CHLORIDE 10 MEQ 10 MEQ/100 ML BAG IV SCH ×2 (12:30→13:18)
[2020-02-17] MEDS: SODIUM CHLORIDE 0.9% 1000 ML 1,000 ML IV SCH (14:06)
[2020-02-18] MEDS ORDERED: FOLIC ACID 1 MG TAB ONE (01:16)
[2020-02-18] MEDS ORDERED: SODIUM CHLORIDE 0.9% 1000 ML IV SOLN ONE ×2 (01:16→17:30)
[2020-02-18] MEDS ORDERED: amLODIPine 5 MG TAB ONE (01:16)
[2020-02-18] MEDS ORDERED: HEPARIN 5,000 UNIT/1 ML VIAL ONE (01:16)
[2020-02-18] MEDS ORDERED: THIAMINE 100 MG TAB ONE (01:16)
[2020-02-18] MEDS ORDERED: FAMOTIDINE 20 MG TAB ONE (01:16)
[2020-02-18] MEDS ORDERED: risperiDONE 0.25 MG TAB ONE (01:16)
[2020-02-18] MEDS ORDERED: levETIRAcetam 500 MG TAB PO ONE (01:16)
[2020-02-18] MEDS: SODIUM CHLORIDE 0.9% 1000 ML 1,000 ML IV SCH (18:59)
[2020-02-18] MEDS: INSULIN REGULAR, HUMAN 100 UNIT/ML 3ML VIAL SUB-Q SCH ×2 (19:00→19:01)
[2020-02-18] MEDS: amLODIPine 5 MG TAB PO SCH (19:02)
[2020-02-18] MEDS: FOLIC ACID 1 MG TAB PO SCH (19:02)
[2020-02-18] MEDS: levETIRAcetam 500 MG TAB PO SCH ×2 (19:02→21:28)
[2020-02-18] MEDS: HEPARIN 5,000 UNIT/1 ML VIAL SUB-Q SCH ×2 (19:02→21:28)
[2020-02-18] MEDS: FAMOTIDINE 20 MG TAB PO SCH ×2 (19:03→21:28)
[2020-02-18] MEDS: risperiDONE 0.25 MG TAB PO SCH ×2 (19:03→21:28)
[2020-02-18] MEDS: THIAMINE 100 MG TAB PO SCH (19:03)
[2020-02-19 07:28] LABS: Blood Urea Nitrogen 8 mg/dL (9-20); Hemolysis Index 28
[2020-02-19 07:53] LABS: BUN/Creatinine Ratio 13
[2020-02-19 08:11] LABS: Hematocrit 39.9 % (35.5-45.6); Hemoglobin 13.8 gm/dl (11.8-15.2); Mean Corpuscular HGB Conc 35 % (32-34); Mean Corpuscular Volume 84 fl (84-94); Red Blood Count 4.75 M/mm3 (3.65-5.03); Red Cell Distribution Width 13.2 % (13.2-15.2)
[2020-02-19 08:12] LABS: Platelet Count 52 K/mm3 (140-440)
[2020-02-19] MEDS: POTASSIUM CHLORIDE 10 MEQ 10 MEQ/100 ML BAG IV SCH ×4 (09:30→19:31)
[2020-02-19] MEDS: FAMOTIDINE 20 MG TAB PO SCH ×2 (09:30→21:53)
[2020-02-19] MEDS: THIAMINE 100 MG TAB PO SCH (09:30)
[2020-02-19] MEDS: FOLIC ACID 1 MG TAB PO SCH (09:30)
[2020-02-19] MEDS: levETIRAcetam 500 MG TAB PO SCH ×2 (09:30→21:53)
[2020-02-19] MEDS: risperiDONE 0.25 MG TAB PO SCH ×2 (09:30→21:54)
[2020-02-19] MEDS: HEPARIN 5,000 UNIT/1 ML VIAL SUB-Q SCH ×2 (09:31→21:54)
--- NOTE | 2020-02-19 10:21 | Progress Note ---
Assessment and Plan Assessment and plan: Patient Problems (1) Altered mental status, unspecified Current Visit: Yes Status: Acute Qualifiers: Altered mental status type: unspecified Qualified Code(s): R41.82 - Altered mental status, unspecified Plan to address problem: Patient has underlying minimal cognitive impairment. Underlying encephalopathy exacerbated by seizure disorder. Appears back at baseline now. MRI head unremarkable. (2) Hypertensive urgency Current Visit: Yes Status: Acute Plan to address problem: Hypertensive emergency has resolved. Patient remains suboptimally controlled. Will advance present oral antihypertensives. Amlodipine 5 mg 1 tab p.o. daily. (3) Seizure disorder Current Visit: Yes Status: Acute Plan to address problem: Patient no further seizure activity continue antielliptic medication Keppra. Continue Keppra. (4) Chronic diastolic heart failure Current Visit: Yes Status: Acute Plan to address problem: No further evidence of volume overload. And afterload reducing diuretic if necessary. (5) Diarrhea Current Visit: Yes Status: Acute Plan to address problem: Patient with loose stool. Await culture data. Treat with Lomotil. (6) Hypokalemia Current Visit: Yes Status: Acute Plan to address problem: Correct with 20 mEq of KCl IV and also 30 mg p.o. (7) advance placement. History Interval history: Patient seen and examined in no acute distress. Discussed with the nurse that is assigned to him today talking about [place] and not quite which of [facility]. Still lethargic. Hospitalist Physical - Physical exam Narrative exam: General appearance: Present: no acute distress, well-nourished - EENT Eyes: PERRL, EOM intact ENT: hearing intact, clear oral mucosa Ears: bilateral: normal - Neck Neck: supple, normal ROM - Respiratory Respiratory effort: normal Respiratory: bilateral: CTA - Breasts Breasts: normal - Cardiovascular Rhythm: regular Heart Sounds: Present: S1 & S2. Absent: gallop, rub Extremities: pulses intact, No edema, normal color, Full ROM - Gastrointestinal General gastrointestinal: Present: soft, non-tender, non-distended, normal bowel sounds - Genitourinary Male genitourinary: normal - Integumentary Integumentary: clear, warm, dry - Musculoskeletal Musculoskeletal: 1, strength equal bilaterally, chronic venous changes bilateral lower extremity - Neurologic Neurologic: moves all extremities - Psychiatric Psychiatric: memory intact, other (Poor insight minimal cognitive impairment.) - Constitutional Vitals: Temp Pulse Resp BP Pulse Ox 99.5 F 79 20 138/78 97 02/19/20 00:31 02/19/20 00:31 02/19/20 00:31 02/19/20 00:31 02/19/20 00:31 General appearance: Present: no acute distress, well-nourished HEART Score - HEART Score Age: > 65 Risk factors: 1-2 risk factors Troponin: Troponin T < 0.010 ng/mL (0.00-0.029) 02/10/20 21:07 Troponin: < normal limit - Critical Actions Critical Actions: 0-3 pts:0.9-1.7%risk of adverse cardiac event.Candidate for discharge Results - Labs CBC & Chem 7: 02/19/20 06:20 02/19/20 06:20 Labs: Laboratory Last Values WBC 2.8 K/mm3 (4.5-11.0) L 02/19/20 06:20 RBC 4.75 M/mm3 (3.65-5.03) 02/19/20 06:20 Hgb 13.8 gm/dl (11.8-15.2) 02/19/20 06:20 Hct 39.9 % (35.5-45.6) 02/19/20 06:20 MCV 84 fl (84-94) 02/19/20 06:20 MCH 29 pg (28-32) 02/19/20 06:20 MCHC 35 % (32-34) H 02/19/20 06:20 RDW 13.2 % (13.2-15.2) 02/19/20 06:20 Plt Count 52 K/mm3 (140-440) L 02/19/20 06:20 Lymph % (Auto) 9.3 % (13.4-35.0) L 02/17/20 07:43 [place] % (Auto) 6.5 % (0.0-7.3) 02/17/20 07:43 Eos % (Auto) 3.3 % (0.0-4.3) 02/17/20 07:43 Baso % (Auto) 0.5 % (0.0-1.8) 02/17/20 07:43 Lymph # (Auto) 0.2 K/mm3 (1.2-5.4) L 02/17/20 07:43 [place] # (Auto) 0.2 K/mm3 (0.0-0.8) 02/17/20 07:43 Eos # (Auto) 0.1 K/mm3 (0.0-0.4) 02/17/20 07:43 Baso # (Auto) 0.0 K/mm3 (0.0-0.1) 02/17/20 07:43 Add Manual Diff Complete 02/10/20 21:07 Total Counted 100 02/10/20 21:07 Seg Neutrophils % 80.4 % (40.0-70.0) H 02/17/20 07:43 Seg Neuts % (Manual) 91.0 % (40.0-70.0) H 02/10/20 21:07 Band Neutrophils % 0 % 02/10/20 21:07 Lymphocytes % (Manual) 5.0 % (13.4-35.0) L 02/10/20 21:07 Reactive Lymphs % (Man) 0 % 02/10/20 21:07 Monocytes % (Manual) 4.0 % (0.0-7.3) 02/10/20 21:07 Eosinophils % (Manual) 0 % (0.0-4.3) 02/10/20 21:07 Basophils % (Manual) 0 % (0.0-1.8) 02/10/20 21:07 Metamyelocytes % 0 % 02/10/20 21:07 Myelocytes % 0 % 02/10/20 21:07 Promyelocytes % 0 % 02/10/20 21:07 Blast Cells % 0 % 02/10/20 21:07 Nucleated RBC % Not Reportable 02/10/20 21:07 Seg Neutrophils # 2.1 K/mm3 (1.8-7.7) 02/17/20 07:43 Seg Neutrophils # Man 7.6 K/mm3 (1.8-7.7) 02/10/20 21:07 Band Neutrophils # 0.0 K/mm3 02/10/20 21:07 Lymphocytes # (Manual) 0.4 K/mm3 (1.2-5.4) L 02/10/20 21:07 Abs React Lymphs (Man) 0.0 K/mm3 02/10/20 21:07 Monocytes # (Manual) 0.3 K/mm3 (0.0-0.8) 02/10/20 21:07 Eosinophils # (Manual) 0.0 K/mm3 (0.0-0.4) 02/10/20 21:07 Basophils # (Manual) 0.0 K/mm3 (0.0-0.1) 02/10/20 21:07 Metamyelocytes # 0.0 K/mm3 02/10/20 21:07 Myelocytes # 0.0 K/mm3 02/10/20 21:07 Promyelocytes # 0.0 K/mm3 02/10/20 21:07 Blast Cells # 0.0 K/mm3 02/10/20 21:07 WBC Morphology Not Reportable 02/10/20 21:07 Hypersegmented Neuts Not Reportable 02/10/20 21:07 Hyposegmented Neuts Not Reportable 02/10/20 21:07 Hypogranular Neuts Not Reportable 02/10/20 21:07 Smudge Cells Not Reportable 02/10/20 21:07 Toxic Granulation Not Reportable 02/10/20 21:07 Toxic Vacuolation Not Reportable 02/10/20 21:07 Dohle Bodies Not Reportable 02/10/20 21:07 Pelger-Huet Anomaly Not Reportable 02/10/20 21:07 Jennifer Rods Not Reportable 02/10/20 21:07 Platelet Estimate Not Reportable 02/10/20 21:07 Clumped Platelets Not Reportable 02/10/20 21:07 Plt Clumps, EDTA Not Reportable 02/10/20 21:07 Large Platelets Not Reportable 02/10/20 21:07 Giant Platelets Not Reportable 02/10/20 21:07 Platelet Satelliting Not Reportable 02/10/20 21:07 Plt Morphology Comment Not Reportable 02/10/20 21:07 RBC Morphology Normal 02/10/20 21:07 Dimorphic RBCs Not Reportable 02/10/20 21:07 Polychromasia Not Reportable 02/10/20 21:07 Hypochromasia Not Reportable 02/10/20 21:07 Poikilocytosis Not Reportable 02/10/20 21:07 Anisocytosis Not Reportable 02/10/20 21:07 Microcytosis Not Reportable 02/10/20 21:07 Macrocytosis Not Reportable 02/10/20 21:07 Spherocytes Not Reportable 02/10/20 21:07 Pappenheimer Bodies Not Reportable 02/10/20 21:07 Sickle Cells Not Reportable 02/10/20 21:07 Target Cells Not Reportable 02/10/20 21:07 Tear Drop Cells Not Reportable 02/10/20 21:07 Ovalocytes Not Reportable 02/10/20 21:07 Helmet Cells Not Reportable 02/10/20 21:07 [place] Bodies Not Reportable 02/10/20 21:07 [place] Rings Not Reportable 02/10/20 21:07 Kristy Cells Not Reportable 02/10/20 21:07 Bite Cells Not Reportable 02/10/20 21:07 Crenated Cell Not Reportable 02/10/20 21:07 Elliptocytes Not Reportable 02/10/20 21:07 Acanthocytes (Spur) Not Reportable 02/10/20 21:07 Rouleaux Not Reportable 02/10/20 21:07 Hemoglobin C Crystals Not Reportable 02/10/20 21:07 Schistocytes Not Reportable 02/10/20 21:07 Malaria parasites Not Reportable 02/10/20 21:07 Edu Bodies Not Reportable 02/10/20 21:07 Hem Pathologist Commnt No 02/10/20 21:07 PT 14.6 Sec. (12.2-14.9) 02/10/20 21:07 INR 1.12 (0.87-1.13) 02/10/20 21:07 Sodium 142 mmol/L (137-145) 02/19/20 06:20 Potassium 2.5 mmol/L (3.6-5.0) L* 02/19/20 06:20 Chloride 100.8 mmol/L (98-107) 02/19/20 06:20 Carbon Dioxide 29 mmol/L (22-30) 02/19/20 06:20 Anion Gap 15 mmol/L 02/19/20 06:20 BUN 8 mg/dL (9-20) L 02/19/20 06:20 Creatinine 0.6 mg/dL (0.8-1.3) L 02/19/20 06:20 Estimated GFR > 60 ml/min 02/19/20 06:20 BUN/Creatinine Ratio 13 % 02/19/20 06:20 Glucose 106 mg/dL (75-100) H 02/19/20 06:20 POC Glucose 92 mg/dL (70-105) 02/19/20 08:21 Calcium 9.0 mg/dL (8.4-10.2) 02/19/20 06:20 Magnesium 2.00 mg/dL (1.7-2.3) 02/19/20 07:54 Total Bilirubin 1.00 mg/dL (0.1-1.2) 02/17/20 07:51 Direct Bilirubin 0.5 mg/dL (0-0.2) H 02/13/20 11:36 Indirect Bilirubin 1.8 mg/dL 02/13/20 11:36 AST 26 units/L (5-40) 02/17/20 07:51 ALT 27 units/L (7-56) 02/17/20 07:51 Alkaline Phosphatase 47 units/L (35-129) 02/17/20 07:51 Ammonia 18.0 umol/L (25-60) L 02/10/20 21:07 Total Creatine Kinase 65 units/L (55-170) 02/10/20 21:07 Troponin T < 0.010 ng/mL (0.00-0.029) 02/10/20 21:07 Total Protein 5.8 g/dL (6.3-8.2) L 02/17/20 07:51 Albumin 3.5 g/dL (3.9-5) L 02/17/20 07:51 Albumin/Globulin Ratio 1.5 % 02/17/20 07:51 Lipase 67 units/L (13-60) H 02/10/20 21:17 TSH 0.742 mlU/mL (0.270-4.200) 02/10/20 21:07 Urine Color Yellow (Yellow) 02/10/20 21:44 Urine Turbidity Clear (Clear) 02/10/20 21:44 Urine pH 6.0 (5.0-7.0) 02/10/20 21:44 Ur Specific [place] 1.020 (1.003-1.030) 02/10/20 21:44 Urine Protein 100 mg/dl mg/dL (Negative) 02/10/20 21:44 Urine Glucose (UA) 50 mg/dL (Negative) 02/10/20 21:44 Urine Ketones 80 mg/dL (Negative) 02/10/20 21:44 Urine Blood Mod (Negative) 02/10/20 21:44 Urine Nitrite Neg (Negative) 02/10/20 21:44 Urine Bilirubin Neg (Negative) 02/10/20 21:44 Urine Urobilinogen < 2.0 mg/dL (<2.0) 02/10/20 21:44 Ur Leukocyte Esterase Neg (Negative) 02/10/20 21:44 Urine WBC (Auto) 1.0 /HPF (0.0-6.0) 02/10/20 21:44 Urine RBC (Auto) 13.0 /HPF (0.0-6.0) 02/10/20 21:44 U Epithel Cells (Auto) < 1.0 /HPF (0-13.0) 02/10/20 21:44 Urine Mucus Few /HPF 02/10/20 21:44 Urine Opiates Screen Presumptive positive 02/10/20 21:44 Urine Methadone Screen Presumptive negative 02/10/20 21:44 Ur Barbiturates Screen Presumptive negative 02/10/20 21:44 Ur Phencyclidine Scrn Presumptive negative 02/10/20 21:44 Ur Amphetamines Screen Presumptive negative 02/10/20 21:44 U Benzodiazepines Scrn Presumptive negative 02/10/20 21:44 Urine Cocaine Screen Presumptive negative 02/10/20 21:44 U Marijuana (THC) Screen Presumptive positive 02/10/20 21:44 Drugs of Abuse Note Disclamer 02/10/20 21:44 Plasma/Serum Alcohol < 0.01 % (0-0.07) 02/10/20 21:07 C. difficile Tox (PCR) Negative (Negative) 02/15/20 15:30 - Diagnostic Impressions Diagnostic Impressions: Echocardiogram 02/13/20 05:42 Transthoracic Echocardiogram Indication: Syncope BP: 172/93 HR: 96 Conclusions *The study quality is technically difficult. *Global left ventricular systolic function is at the lower limits of normal. *The estimated ejection fraction is 50-55%. *There is trace of mitral regurgitation. *There is trace tricuspid regurgitation. Findings Procedure Info: The study quality is technically difficult. The study is technically limited due to poor acoustic windows. Left Ventricle: The left ventricular chamber size is normal. There is no left ventricular hypertrophy. Global left ventricular systolic function is at the lower limits of normal. The estimated ejection fraction is 50-55%. Left Atrium: The left atrial chamber size is normal. Right Ventricle: The right ventricular cavity size is normal. Right Atrium: The right atrial cavity size is normal. Aortic Valve: The aortic valve leaflets are mildly thickened. There is no evidence of aortic regurgitation. There is no evidence of aortic stenosis. Mitral Valve: The mitral valve leaflets are mildly thickened. There is trace of mitral regurgitation. There is no evidence of mitral stenosis. Tricuspid Valve: There is trace tricuspid regurgitation. No pulmonary hypertension is noted. Pulmonic Valve: There is trace pulmonic regurgitation. Pericardium: There is no pericardial effusion. Aorta: There is no dilatation of the aortic root. Venous: The inferior vena cava appears normal in size. Measurements Chambers 2D Name Value Normal Range IVSd (2D) 1.06 cm (0.6 - 1.1) LVPWd (2D) 1.02 cm (0.6 - 1.1) LVIDd (2D) 4.11 cm (3.7 - 5.6) LVIDs (2D) 3.26 cm (2 - 3.8) LV FS (2D) 20.59 % - EF Teichholz (2D) 42.45 % - Ao root diameter (2D) 2.94 cm (2 - 3.7) Volumes/Mass Name Value Normal Range LA ESV SP 4CH (A/L) 35.28 ml - LA ESV SP 2CH (A/L) 33.37 ml - LA ESV BP (A/L) 34.49 ml - LA ESV BP (A/L) index 18.85 ml/m2 - LA ESV SP 4CH (MOD) 31.93 ml - LA ESV SP 2CH (MOD) 33.24 ml - LA ESV BP (MOD) 32.65 ml - LA ESV BP (MOD) index 17.84 ml/m2 - Diastolic/Systolic Function Name Value Normal Range MV E-wave Vmax 0.44 m/sec - MV deceleration time 211.42 msec - MV A-wave Vmax 0.69 m/sec - MV E:A ratio 0.64 ratio - Aortic Valve Name Value Normal Range AV Vmax 1.15 m/sec - AV VTI 18.8 cm - AV peak gradient 5.32 mmHg - AV mean gradient 3.34 mmHg - LVOT diameter 2.19 cm - LVOT Vmax 0.77 m/sec - LVOT VTI 14.15 cm - LVOT peak gradient 2.36 mmHg - LVOT mean gradient 1.52 mmHg - SV LVOT 53.37 ml - KATERIN (continuity Vmax) 2.51 cm2 - KATERIN (continuity VTI) 2.84 cm2 - [place]/IV: Voiding Method Urinal IV Catheter Type [Left Hand] Peripheral IV IV Catheter Type [Left Forearm Peripheral IV ] Active Medications - Current Medications Current Medications: Generic Name Dose Route Start Last Admin Trade Name Freq PRN Reason Stop Dose Admin Acetaminophen 650 mg 02/11/20 02:24 02/13/20 21:38 Tylenol PO 650 mg Q4H PRN Administration Fever >101 Amlodipine Besylate 5 mg 02/17/20 17:00 02/18/20 19:02 Amlodipine PO Not Given QDAY DANA Dextrose 50 ml 02/11/20 02:35 D50w (25gm) Syringe IV Q30MIN PRN Hypoglycemia Protocol Famotidine 20 mg 02/12/20 22:00 02/19/20 09:30 Pepcid PO 20 mg BID DANA Administration Folic Acid 1 mg 02/12/20 15:00 02/19/20 09:30 Folvite PO 1 mg QDAY DANA Administration Heparin Sodium (Porcine) 5,000 unit 02/11/20 02:30 02/19/20 09:31 Heparin SUB-Q 5,000 unit Q12HR DANA Administration Sodium Chloride 1,000 mls @ 75 mls/hr 02/11/20 02:30 02/18/20 18:59 Nacl 0.9% 1000 Ml IV 75 mls/hr DIRECT DANA Administration Potassium Chloride 10 meq in 100 mls @ 100 mls/hr 02/19/20 09:00 02/19/20 09:30 Kcl 10meq/100ml IV 02/19/20 12:59 100 mls/hr Q1H DANA Administration Insulin Human Regular 0 unit 02/11/20 07:30 02/18/20 19:01 Humulin R SUB-Q Not Given AC DANA Protocol Levetiracetam 500 mg 02/13/20 10:00 02/19/20 09:30 Keppra PO 500 mg BID DANA Administration Loperamide HCl 2 mg 02/16/20 14:42 Imodium PO Q2H PRN Diarrhea Ondansetron HCl 4 mg 02/11/20 02:25 02/17/20 02:04 Zofran IV 4 mg Q8H PRN Administration Nausea And Vomiting Risperidone 0.25 mg 02/12/20 22:00 02/19/20 09:30 Risperdal PO 0.25 mg BID DANA Administration Thiamine HCl 100 mg 02/12/20 15:00 02/19/20 09:30 Vitamin B-1 PO 100 mg QDAY DANA Administration Nutrition/Malnutrition Assess - Dietary Evaluation Nutrition/Malnutrition Findings: Nutrition Notes Start: 02/11/20 14:34 Freq: Status: Active Protocol: Document 02/17/20 13:41 LM (Rec: 02/17/20 14:00 LM [email or web address]) Nutrition Notes Initial or Follow up Reassessment Current Diagnosis Diabetes,Heart Failure Other Pertinent Diagnosis AMS Current Diet Consistent Carb/Cardiac Labs/Tests K 2.2 BUN 6 Cr 0.6 Pertinent Medications Zofran Height 5 ft 8 in Weight 72.2 kg [place] Body Weight (kg) 70.00 BMI 24.2 Weight change and time frame Incorrect wt in chart. Used previous wt for correction. Weight Status Appropriate Subjective/Other Information RN stated pt is eating 25-50% of meals and is drinking Glucerna. RN unsure if pt is drinking all 3 Glucerna shakes . Percent of energy/protein needs met: 53%/55% Burn Absent Trauma Absent Current % PO Fair (50-74%) Minimum of two criteria Yes Body Fat Depletion Mild depletion (non-severe) Muscle Mass Mild Depletion (non-severe) #2 Nutrition Diagnosis Inadequate oral intake Diagnosis Progress(for reassessment Continues documentation) #1 Nutrition Diagnosis Malnutrition Diagnosis Progress(for reassessment Continues documentation) Is patient on ventilator? No Is Patient Ambulatory and/or Out of Bed Yes REE-([facility]-ambulatory/OOB) [ [id number] [id number]] Calculation Used for Recommendations [facility] Additional Notes Pro: 80-100 g Pro/day (1.25-1. 5 g/kg) Fluids: 1 ml/kcal Nutrition Intervention Change Diet Order: Continue Consistent CHO/ Cardiac Nutrition Support: Chocolate Glucerna TID Kcal 660 Protein (gm) 30 Goal #1 Meet 75% of total energy and protein needs via PO and ONS Follow-Up By: 02/19/20 Additional Comments F/U for PO/ONS intakes
--- NOTE | 2020-02-19 10:32 | Progress Note ---
Assessment and Plan Assessment and plan: 69-year-old male found in his house to be unresponsive initially later on EMS was called and patient was subsequently found to be confused looking unkept and was brought to the emergency room. He is alert and awake and c/o generalized weakness. cont supportive care, follow PT eval. Work-up so far in the hospital has been negative except for encephalopathy. EEG was negative for seizure disorder at this time. Due to significant debility placement is recommended. Patient has had recurrent hypokalemia which is being replaced. No edema is noted will hold off on fluids at this time. As he has been adequately hydrated. He is unable to care for himself at home unable to go home if acute rehab is rejected SNF should be considered. (1) Altered mental status, unspecified Current Visit: Yes Status: Acute Qualifiers: Altered mental status type: unspecified Qualified Code(s): R41.82 - Altered mental status, unspecified Plan to address problem: Patient has underlying minimal cognitive impairment. Underlying encephalopathy exacerbated by seizure disorder. Appears back at baseline now. MRI head unremarkable. (2) Hypertensive urgency Current Visit: Yes Status: Acute Plan to address problem: Hypertensive emergency has resolved. Patient remains suboptimally controlled. Will advance present oral antihypertensives. Amlodipine 5 mg 1 tab p.o. daily. (3) Seizure disorder Current Visit: Yes Status: Acute Plan to address problem: Patient no further seizure activity continue antielliptic medication Keppra. Continue Keppra. (4) Chronic diastolic heart failure Current Visit: Yes Status: Acute Plan to address problem: No further evidence of volume overload. And afterload reducing diuretic if necessary. (5) Diarrhea Current Visit: Yes Status: Acute Plan to address problem: Patient with loose stool. Await culture data. Treat with Lomotil. (6) Hypokalemia Current Visit: Yes Status: Acute Plan to address problem: Correct with 20 mEq of KCl IV and also 30 mg p.o. (7) advance placement. History Interval history: Patient seen and examined in no acute distress. Complains of penile pain Hospitalist Physical - Physical exam Narrative exam: General appearance: Present: no acute distress, well-nourished - EENT Eyes: PERRL, EOM intact ENT: hearing intact, clear oral mucosa Ears: bilateral: normal - Neck Neck: supple, normal ROM - Respiratory Respiratory effort: normal Respiratory: bilateral: CTA - Breasts Breasts: normal - Cardiovascular Rhythm: regular Heart Sounds: Present: S1 & S2. Absent: gallop, rub Extremities: pulses intact, No edema, normal color, Full ROM - Gastrointestinal General gastrointestinal: Present: soft, non-tender, non-distended, normal bowel sounds - Genitourinary Male genitourinary: normal - Integumentary Integumentary: clear, warm, dry - Musculoskeletal Musculoskeletal: 1, strength equal bilaterally, chronic venous changes bilateral lower extremity - Neurologic Neurologic: moves all extremities - Psychiatric Psychiatric: memory intact, other (Poor insight minimal cognitive impairment.) - Constitutional Vitals: Temp Pulse Resp BP Pulse Ox 99.5 F 79 20 138/78 97 02/19/20 00:31 02/19/20 00:31 02/19/20 00:31 02/19/20 00:31 02/19/20 00:31 General appearance: Present: no acute distress, well-nourished HEART Score - HEART Score Age: > 65 Risk factors: 1-2 risk factors Troponin: Troponin T < 0.010 ng/mL (0.00-0.029) 02/10/20 21:07 Troponin: < normal limit - Critical Actions Critical Actions: 0-3 pts:0.9-1.7%risk of adverse cardiac event.Candidate for discharge Results - Labs CBC & Chem 7: 02/19/20 06:20 02/19/20 06:20 Labs: Laboratory Last Values WBC 2.8 K/mm3 (4.5-11.0) L 02/19/20 06:20 RBC 4.75 M/mm3 (3.65-5.03) 02/19/20 06:20 Hgb 13.8 gm/dl (11.8-15.2) 02/19/20 06:20 Hct 39.9 % (35.5-45.6) 02/19/20 06:20 MCV 84 fl (84-94) 02/19/20 06:20 MCH 29 pg (28-32) 02/19/20 06:20 MCHC 35 % (32-34) H 02/19/20 06:20 RDW 13.2 % (13.2-15.2) 02/19/20 06:20 Plt Count 52 K/mm3 (140-440) L 02/19/20 06:20 Lymph % (Auto) 9.3 % (13.4-35.0) L 02/17/20 07:43 Moore % (Auto) 6.5 % (0.0-7.3) 02/17/20 07:43 Eos % (Auto) 3.3 % (0.0-4.3) 02/17/20 07:43 Baso % (Auto) 0.5 % (0.0-1.8) 02/17/20 07:43 Lymph # (Auto) 0.2 K/mm3 (1.2-5.4) L 02/17/20 07:43 Moore # (Auto) 0.2 K/mm3 (0.0-0.8) 02/17/20 07:43 Eos # (Auto) 0.1 K/mm3 (0.0-0.4) 02/17/20 07:43 Baso # (Auto) 0.0 K/mm3 (0.0-0.1) 02/17/20 07:43 Add Manual Diff Complete 02/10/20 21:07 Total Counted 100 02/10/20 21:07 Seg Neutrophils % 80.4 % (40.0-70.0) H 02/17/20 07:43 Seg Neuts % (Manual) 91.0 % (40.0-70.0) H 02/10/20 21:07 Band Neutrophils % 0 % 02/10/20 21:07 Lymphocytes % (Manual) 5.0 % (13.4-35.0) L 02/10/20 21:07 Reactive Lymphs % (Man) 0 % 02/10/20 21:07 Monocytes % (Manual) 4.0 % (0.0-7.3) 02/10/20 21:07 Eosinophils % (Manual) 0 % (0.0-4.3) 02/10/20 21:07 Basophils % (Manual) 0 % (0.0-1.8) 02/10/20 21:07 Metamyelocytes % 0 % 02/10/20 21:07 Myelocytes % 0 % 02/10/20 21:07 Promyelocytes % 0 % 02/10/20 21:07 Blast Cells % 0 % 02/10/20 21:07 Nucleated RBC % Not Reportable 02/10/20 21:07 Seg Neutrophils # 2.1 K/mm3 (1.8-7.7) 02/17/20 07:43 Seg Neutrophils # Man 7.6 K/mm3 (1.8-7.7) 02/10/20 21:07 Band Neutrophils # 0.0 K/mm3 02/10/20 21:07 Lymphocytes # (Manual) 0.4 K/mm3 (1.2-5.4) L 02/10/20 21:07 Abs React Lymphs (Man) 0.0 K/mm3 02/10/20 21:07 Monocytes # (Manual) 0.3 K/mm3 (0.0-0.8) 02/10/20 21:07 Eosinophils # (Manual) 0.0 K/mm3 (0.0-0.4) 02/10/20 21:07 Basophils # (Manual) 0.0 K/mm3 (0.0-0.1) 02/10/20 21:07 Metamyelocytes # 0.0 K/mm3 02/10/20 21:07 Myelocytes # 0.0 K/mm3 02/10/20 21:07 Promyelocytes # 0.0 K/mm3 02/10/20 21:07 Blast Cells # 0.0 K/mm3 02/10/20 21:07 WBC Morphology Not Reportable 02/10/20 21:07 Hypersegmented Neuts Not Reportable 02/10/20 21:07 Hyposegmented Neuts Not Reportable 02/10/20 21:07 Hypogranular Neuts Not Reportable 02/10/20 21:07 Smudge Cells Not Reportable 02/10/20 21:07 Toxic Granulation Not Reportable 02/10/20 21:07 Toxic Vacuolation Not Reportable 02/10/20 21:07 Dohle Bodies Not Reportable 02/10/20 21:07 Pelger-Huet Anomaly Not Reportable 02/10/20 21:07 Jennifer Rods Not Reportable 02/10/20 21:07 Platelet Estimate Not Reportable 02/10/20 21:07 Clumped Platelets Not Reportable 02/10/20 21:07 Plt Clumps, EDTA Not Reportable 02/10/20 21:07 Large Platelets Not Reportable 02/10/20 21:07 Giant Platelets Not Reportable 02/10/20 21:07 Platelet Satelliting Not Reportable 02/10/20 21:07 Plt Morphology Comment Not Reportable 02/10/20 21:07 RBC Morphology Normal 02/10/20 21:07 Dimorphic RBCs Not Reportable 02/10/20 21:07 Polychromasia Not Reportable 02/10/20 21:07 Hypochromasia Not Reportable 02/10/20 21:07 Poikilocytosis Not Reportable 02/10/20 21:07 Anisocytosis Not Reportable 02/10/20 21:07 Microcytosis Not Reportable 02/10/20 21:07 Macrocytosis Not Reportable 02/10/20 21:07 Spherocytes Not Reportable 02/10/20 21:07 Pappenheimer Bodies Not Reportable 02/10/20 21:07 Sickle Cells Not Reportable 02/10/20 21:07 Target Cells Not Reportable 02/10/20 21:07 Tear Drop Cells Not Reportable 02/10/20 21:07 Ovalocytes Not Reportable 02/10/20 21:07 Helmet Cells Not Reportable 02/10/20 21:07 Lambert-Col[place]dale Bodies Not Reportable 02/10/20 21:07 Converse Rings Not Reportable 02/10/20 21:07 Kristy Cells Not Reportable 02/10/20 21:07 Bite Cells Not Reportable 02/10/20 21:07 Crenated Cell Not Reportable 02/10/20 21:07 Elliptocytes Not Reportable 02/10/20 21:07 Acanthocytes (Spur) Not Reportable 02/10/20 21:07 Rouleaux Not Reportable 02/10/20 21:07 Hemoglobin C Crystals Not Reportable 02/10/20 21:07 Schistocytes Not Reportable 02/10/20 21:07 Malaria parasites Not Reportable 02/10/20 21:07 Edu Bodies Not Reportable 02/10/20 21:07 Hem Pathologist Commnt No 02/10/20 21:07 PT 14.6 Sec. (12.2-14.9) 02/10/20 21:07 INR 1.12 (0.87-1.13) 02/10/20 21:07 Sodium 142 mmol/L (137-145) 02/19/20 06:20 Potassium 2.5 mmol/L (3.6-5.0) L* 02/19/20 06:20 Chloride 100.8 mmol/L (98-107) 02/19/20 06:20 Carbon Dioxide 29 mmol/L (22-30) 02/19/20 06:20 Anion Gap 15 mmol/L 02/19/20 06:20 BUN 8 mg/dL (9-20) L 02/19/20 06:20 Creatinine 0.6 mg/dL (0.8-1.3) L 02/19/20 06:20 Estimated GFR > 60 ml/min 02/19/20 06:20 BUN/Creatinine Ratio 13 % 02/19/20 06:20 Glucose 106 mg/dL (75-100) H 02/19/20 06:20 POC Glucose 92 mg/dL (70-105) 02/19/20 08:21 Calcium 9.0 mg/dL (8.4-10.2) 02/19/20 06:20 Magnesium 2.00 mg/dL (1.7-2.3) 02/19/20 07:54 Total Bilirubin 1.00 mg/dL (0.1-1.2) 02/17/20 07:51 Direct Bilirubin 0.5 mg/dL (0-0.2) H 02/13/20 11:36 Indirect Bilirubin 1.8 mg/dL 02/13/20 11:36 AST 26 units/L (5-40) 02/17/20 07:51 ALT 27 units/L (7-56) 02/17/20 07:51 Alkaline Phosphatase 47 units/L (35-129) 02/17/20 07:51 Ammonia 18.0 umol/L (25-60) L 02/10/20 21:07 Total Creatine Kinase 65 units/L (55-170) 02/10/20 21:07 Troponin T < 0.010 ng/mL (0.00-0.029) 02/10/20 21:07 Total Protein 5.8 g/dL (6.3-8.2) L 02/17/20 07:51 Albumin 3.5 g/dL (3.9-5) L 02/17/20 07:51 Albumin/Globulin Ratio 1.5 % 02/17/20 07:51 Lipase 67 units/L (13-60) H 02/10/20 21:17 TSH 0.742 mlU/mL (0.270-4.200) 02/10/20 21:07 Urine Color Yellow (Yellow) 02/10/20 21:44 Urine Turbidity Clear (Clear) 02/10/20 21:44 Urine pH 6.0 (5.0-7.0) 02/10/20 21:44 Ur Specific [place] 1.020 (1.003-1.030) 02/10/20 21:44 Urine Protein 100 mg/dl mg/dL (Negative) 02/10/20 21:44 Urine Glucose (UA) 50 mg/dL (Negative) 02/10/20 21:44 Urine Ketones 80 mg/dL (Negative) 02/10/20 21:44 Urine Blood Mod (Negative) 02/10/20 21:44 Urine Nitrite Neg (Negative) 02/10/20 21:44 Urine Bilirubin Neg (Negative) 02/10/20 21:44 Urine Urobilinogen < 2.0 mg/dL (<2.0) 02/10/20 21:44 Ur Leukocyte Esterase Neg (Negative) 02/10/20 21:44 Urine WBC (Auto) 1.0 /HPF (0.0-6.0) 02/10/20 21:44 Urine RBC (Auto) 13.0 /HPF (0.0-6.0) 02/10/20 21:44 U Epithel Cells (Auto) < 1.0 /HPF (0-13.0) 02/10/20 21:44 Urine Mucus Few /HPF 02/10/20 21:44 Urine Opiates Screen Presumptive positive 02/10/20 21:44 Urine Methadone Screen Presumptive negative 02/10/20 21:44 Ur Barbiturates Screen Presumptive negative 02/10/20 21:44 Ur Phencyclidine Scrn Presumptive negative 02/10/20 21:44 Ur Amphetamines Screen Presumptive negative 02/10/20 21:44 U Benzodiazepines Scrn Presumptive negative 02/10/20 21:44 Urine Cocaine Screen Presumptive negative 02/10/20 21:44 U Marijuana (THC) Screen Presumptive positive 02/10/20 21:44 Drugs of Abuse Note Disclamer 02/10/20 21:44 Plasma/Serum Alcohol < 0.01 % (0-0.07) 02/10/20 21:07 C. difficile Tox (PCR) Negative (Negative) 02/15/20 15:30 - Diagnostic Impressions Diagnostic Impressions: Echocardiogram 02/13/20 05:42 Transthoracic Echocardiogram Indication: Syncope BP: 172/93 HR: 96 Conclusions *The study quality is technically difficult. *Global left ventricular systolic function is at the lower limits of normal. *The estimated ejection fraction is 50-55%. *There is trace of mitral regurgitation. *There is trace tricuspid regurgitation. Findings Procedure Info: The study quality is technically difficult. The study is technically limited due to poor acoustic windows. Left Ventricle: The left ventricular chamber size is normal. There is no left ventricular hypertrophy. Global left ventricular systolic function is at the lower limits of normal. The estimated ejection fraction is 50-55%. Left Atrium: The left atrial chamber size is normal. Right Ventricle: The right ventricular cavity size is normal. Right Atrium: The right atrial cavity size is normal. Aortic Valve: The aortic valve leaflets are mildly thickened. There is no evidence of aortic regurgitation. There is no evidence of aortic stenosis. Mitral Valve: The mitral valve leaflets are mildly thickened. There is trace of mitral regurgitation. There is no evidence of mitral stenosis. Tricuspid Valve: There is trace tricuspid regurgitation. No pulmonary hypertension is noted. Pulmonic Valve: There is trace pulmonic regurgitation. Pericardium: There is no pericardial effusion. Aorta: There is no dilatation of the aortic root. Venous: The inferior vena cava appears normal in size. Measurements Chambers 2D Name Value Normal Range IVSd (2D) 1.06 cm (0.6 - 1.1) LVPWd (2D) 1.02 cm (0.6 - 1.1) LVIDd (2D) 4.11 cm (3.7 - 5.6) LVIDs (2D) 3.26 cm (2 - 3.8) LV FS (2D) 20.59 % - EF Teichholz (2D) 42.45 % - Ao root diameter (2D) 2.94 cm (2 - 3.7) Volumes/Mass Name Value Normal Range LA ESV SP 4CH (A/L) 35.28 ml - LA ESV SP 2CH (A/L) 33.37 ml - LA ESV BP (A/L) 34.49 ml - LA ESV BP (A/L) index 18.85 ml/m2 - LA ESV SP 4CH (MOD) 31.93 ml - LA ESV SP 2CH (MOD) 33.24 ml - LA ESV BP (MOD) 32.65 ml - LA ESV BP (MOD) index 17.84 ml/m2 - Diastolic/Systolic Function Name Value Normal Range MV E-wave Vmax 0.44 m/sec - MV deceleration time 211.42 msec - MV A-wave Vmax 0.69 m/sec - MV E:A ratio 0.64 ratio - Aortic Valve Name Value Normal Range AV Vmax 1.15 m/sec - AV VTI 18.8 cm - AV peak gradient 5.32 mmHg - AV mean gradient 3.34 mmHg - LVOT diameter 2.19 cm - LVOT Vmax 0.77 m/sec - LVOT VTI 14.15 cm - LVOT peak gradient 2.36 mmHg - LVOT mean gradient 1.52 mmHg - SV LVOT 53.37 ml - KATERIN (continuity Vmax) 2.51 cm2 - KATERIN (continuity VTI) 2.84 cm2 - Aquino/IV: Voiding Method Urinal IV Catheter Type [Left Hand] Peripheral IV IV Catheter Type [Left Forearm Peripheral IV ] Active Medications - Current Medications Current Medications: Generic Name Dose Route Start Last Admin Trade Name Freq PRN Reason Stop Dose Admin Acetaminophen 650 mg 02/11/20 02:24 02/13/20 21:38 Tylenol PO 650 mg Q4H PRN Administration Fever >101 Amlodipine Besylate 5 mg 02/17/20 17:00 02/18/20 19:02 Amlodipine PO Not Given QDAY DANA Dextrose 50 ml 02/11/20 02:35 D50w (25gm) Syringe IV Q30MIN PRN Hypoglycemia Protocol Famotidine 20 mg 02/12/20 22:00 02/19/20 09:30 Pepcid PO 20 mg BID DANA Administration Folic Acid 1 mg 02/12/20 15:00 02/19/20 09:30 Folvite PO 1 mg QDAY DANA Administration Heparin Sodium (Porcine) 5,000 unit 02/11/20 02:30 02/19/20 09:31 Heparin SUB-Q 5,000 unit Q12HR DANA Administration Potassium Chloride 10 meq in 100 mls @ 100 mls/hr 02/19/20 09:00 02/19/20 09:30 Kcl 10meq/100ml IV 02/19/20 12:59 100 mls/hr Q1H DANA Administration Insulin Human Regular 0 unit 02/11/20 07:30 02/18/20 19:01 Humulin R SUB-Q Not Given AC [facility] Protocol Levetiracetam 500 mg 02/13/20 10:00 02/19/20 09:30 Keppra PO 500 mg BID DANA Administration Loperamide HCl 2 mg 02/16/20 14:42 Imodium PO Q2H PRN Diarrhea Nystatin 1 applic 02/19/20 11:00 Mycostatin TP BID DANA Ondansetron HCl 4 mg 02/11/20 02:25 02/17/20 02:04 Zofran IV 4 mg Q8H PRN Administration Nausea And Vomiting Risperidone 0.25 mg 02/12/20 22:00 02/19/20 09:30 Risperdal PO 0.25 mg BID DANA Administration Thiamine HCl 100 mg 02/12/20 15:00 02/19/20 09:30 Vitamin B-1 PO 100 mg QDAY DANA Administration Nutrition/Malnutrition Assess - Dietary Evaluation Nutrition/Malnutrition Findings: Nutrition Notes Start: 02/11/20 14:34 Freq: Status: Active Protocol: Document 02/17/20 13:41 LM (Rec: 02/17/20 14:00 LM [id number]) Nutrition Notes Initial or Follow up Reassessment Current Diagnosis Diabetes,Heart Failure Other Pertinent Diagnosis AMS Current Diet Consistent Carb/Cardiac Labs/Tests K 2.2 BUN 6 Cr 0.6 Pertinent Medications Zofran Height 5 ft 8 in Weight 72.2 kg [place] Body Weight (kg) 70.00 BMI 24.2 Weight change and time frame Incorrect wt in chart. Used previous wt for correction. Weight Status Appropriate Subjective/Other Information RN stated pt is eating 25-50% of meals and is drinking Glucerna. RN unsure if pt is drinking all 3 Glucerna shakes . Percent of energy/protein needs met: 53%/55% Burn Absent Trauma Absent Current % PO Fair (50-74%) Minimum of two criteria Yes Body Fat Depletion Mild depletion (non-severe) Muscle Mass Mild Depletion (non-severe) #2 Nutrition Diagnosis Inadequate oral intake Diagnosis Progress(for reassessment Continues documentation) #1 Nutrition Diagnosis Malnutrition Diagnosis Progress(for reassessment Continues documentation) Is patient on ventilator? No Is Patient Ambulatory and/or Out of Bed Yes REE-(Bee-St. Jeor-ambulatory/OOB) [ [id number] [id number]] Calculation Used for Recommendations [facility] Additional Notes Pro: 80-100 g Pro/day (1.25-1. 5 g/kg) Fluids: 1 ml/kcal Nutrition Intervention Change Diet Order: Continue Consistent CHO/ Cardiac Nutrition Support: Chocolate Glucerna TID Kcal 660 Protein (gm) 30 Goal #1 Meet 75% of total energy and protein needs via PO and ONS Follow-Up By: 02/19/20 Additional Comments F/U for PO/ONS intakes
[2020-02-19] MEDS: INSULIN REGULAR, HUMAN 100 UNIT/ML 3ML VIAL SUB-Q SCH ×2 (11:50→12:32)
[2020-02-19] MEDS: NYSTATIN CREAM 15 GM TUBE TP SCH ×2 (12:09→21:55)
[2020-02-20] MEDS: INSULIN REGULAR, HUMAN 100 UNIT/ML 3ML VIAL SUB-Q SCH ×3 (07:57→17:12)
[2020-02-20] MEDS: THIAMINE 100 MG TAB PO SCH (09:27)
[2020-02-20] MEDS: levETIRAcetam 500 MG TAB PO SCH ×2 (09:27→21:21)
[2020-02-20] MEDS: FOLIC ACID 1 MG TAB PO SCH (09:27)
[2020-02-20] MEDS: FAMOTIDINE 20 MG TAB PO SCH ×2 (09:27→21:21)
[2020-02-20] MEDS: risperiDONE 0.25 MG TAB PO SCH ×2 (09:27→21:21)
[2020-02-20] MEDS: HEPARIN 5,000 UNIT/1 ML VIAL SUB-Q SCH ×2 (09:27→21:21)
[2020-02-20] MEDS: amLODIPine 5 MG TAB PO SCH (09:28)
[2020-02-20] MEDS: NYSTATIN CREAM 15 GM TUBE TP SCH ×2 (09:28→21:30)
[2020-02-20] MEDS: POTASSIUM CHLORIDE 10 MEQ 10 MEQ/100 ML BAG IV SCH ×4 (13:54→17:07)
--- NOTE | 2020-02-20 17:03 | Progress Note ---
Assessment and Plan Assessment and plan: 69-year-old male found in his house to be unresponsive initially later on EMS was called and patient was subsequently found to be confused looking unkept and was brought to the emergency room. He is alert and awake and c/o generalized weakness. cont supportive care, follow PT eval. Work-up so far in the hospital has been negative except for encephalopathy. EEG was negative for seizure disorder at this time. Due to significant debility placement is recommended. Patient has had recurrent hypokalemia which is being replaced. No edema is noted will hold off on fluids at this time. As he has been adequately hydrated. He is unable to care for himself at home unable to go home if acute rehab is rejected SNF should be considered. 02/19: Continue current placement, awaiting placement. Replace Potassoum and recheck Magnesium (1)Acute metabolic Encephalopathy Current Visit: Yes Status: Acute Qualifiers: Altered mental status type: unspecified Qualified Code(s): R41.82 - Altered mental status, unspecified Plan to address problem: Patient has underlying minimal cognitive impairment. Underlying encephalopathy exacerbated by seizure disorder. Appears back at baseline now. MRI head unremarkable. (2) Hypertensive urgency Current Visit: Yes Status: Acute Plan to address problem: Hypertensive emergency has resolved. Patient remains suboptimally controlled. Will advance present oral antihypertensives. Amlodipine 5 mg 1 tab p.o. daily. (3) Seizure disorder Current Visit: Yes Status: Acute Plan to address problem: Patient no further seizure activity continue antielliptic medication Keppra. Continue Keppra. (4) Chronic diastolic heart failure Current Visit: Yes Status: Acute Plan to address problem: No further evidence of volume overload. And afterload reducing diuretic if necessary. (5) Diarrhea Current Visit: Yes Status: Acute Plan to address problem: Patient with loose stool. Await culture data. Treat with Lomotil. (6) Hypokalemia Current Visit: Yes Status: Acute Plan to address problem: Correct with 20 mEq of KCl IV and also 30 mg p.o. (7) advance placement. History Interval history: Patient seen and examined in no acute distress. ambulated with Nurse today, no new complaints Hospitalist Physical - Physical exam Narrative exam: General appearance: Present: no acute distress, well-nourished - EENT Eyes: PERRL, EOM intact ENT: hearing intact, clear oral mucosa Ears: bilateral: normal - Neck Neck: supple, normal ROM - Respiratory Respiratory effort: normal Respiratory: bilateral: CTA - Breasts Breasts: normal - Cardiovascular Rhythm: regular Heart Sounds: Present: S1 & S2. Absent: gallop, rub Extremities: pulses intact, No edema, normal color, Full ROM - Gastrointestinal General gastrointestinal: Present: soft, non-tender, non-distended, normal bowel sounds - Genitourinary Male genitourinary: normal - Integumentary Integumentary: clear, warm, dry - Musculoskeletal Musculoskeletal: 1, strength equal bilaterally, chronic venous changes bilateral lower extremity - Neurologic Neurologic: moves all extremities - Psychiatric Psychiatric: memory intact, other (Poor insight minimal cognitive impairment.) - Constitutional Vitals: Temp Pulse Resp BP Pulse Ox 99.1 F 100 H 18 142/100 96 02/20/20 16:29 02/20/20 16:29 02/20/20 16:29 02/20/20 16:29 02/20/20 16:29 General appearance: Present: no acute distress, well-nourished HEART Score - HEART Score Age: > 65 Risk factors: 1-2 risk factors Troponin: Troponin T < 0.010 ng/mL (0.00-0.029) 02/10/20 21:07 Troponin: < normal limit - Critical Actions Critical Actions: 0-3 pts:0.9-1.7%risk of adverse cardiac event.Candidate for discharge Results - Labs CBC & Chem 7: 02/19/20 06:20 02/20/20 09:29 Labs: Laboratory Last Values WBC 2.8 K/mm3 (4.5-11.0) L 02/19/20 06:20 RBC 4.75 M/mm3 (3.65-5.03) 02/19/20 06:20 Hgb 13.8 gm/dl (11.8-15.2) 02/19/20 06:20 Hct 39.9 % (35.5-45.6) 02/19/20 06:20 MCV 84 fl (84-94) 02/19/20 06:20 MCH 29 pg (28-32) 02/19/20 06:20 MCHC 35 % (32-34) H 02/19/20 06:20 RDW 13.2 % (13.2-15.2) 02/19/20 06:20 Plt Count 52 K/mm3 (140-440) L 02/19/20 06:20 Lymph % (Auto) 9.3 % (13.4-35.0) L 02/17/20 07:43 [place] % (Auto) 6.5 % (0.0-7.3) 02/17/20 07:43 Eos % (Auto) 3.3 % (0.0-4.3) 02/17/20 07:43 Baso % (Auto) 0.5 % (0.0-1.8) 02/17/20 07:43 Lymph # (Auto) 0.2 K/mm3 (1.2-5.4) L 02/17/20 07:43 [place] # (Auto) 0.2 K/mm3 (0.0-0.8) 02/17/20 07:43 Eos # (Auto) 0.1 K/mm3 (0.0-0.4) 02/17/20 07:43 Baso # (Auto) 0.0 K/mm3 (0.0-0.1) 02/17/20 07:43 Add Manual Diff Complete 02/10/20 21:07 Total Counted 100 02/10/20 21:07 Seg Neutrophils % 80.4 % (40.0-70.0) H 02/17/20 07:43 Seg Neuts % (Manual) 91.0 % (40.0-70.0) H 02/10/20 21:07 Band Neutrophils % 0 % 02/10/20 21:07 Lymphocytes % (Manual) 5.0 % (13.4-35.0) L 02/10/20 21:07 Reactive Lymphs % (Man) 0 % 02/10/20 21:07 Monocytes % (Manual) 4.0 % (0.0-7.3) 02/10/20 21:07 Eosinophils % (Manual) 0 % (0.0-4.3) 02/10/20 21:07 Basophils % (Manual) 0 % (0.0-1.8) 02/10/20 21:07 Metamyelocytes % 0 % 02/10/20 21:07 Myelocytes % 0 % 02/10/20 21:07 Promyelocytes % 0 % 02/10/20 21:07 Blast Cells % 0 % 02/10/20 21:07 Nucleated RBC % Not Reportable 02/10/20 21:07 Seg Neutrophils # 2.1 K/mm3 (1.8-7.7) 02/17/20 07:43 Seg Neutrophils # Man 7.6 K/mm3 (1.8-7.7) 02/10/20 21:07 Band Neutrophils # 0.0 K/mm3 02/10/20 21:07 Lymphocytes # (Manual) 0.4 K/mm3 (1.2-5.4) L 02/10/20 21:07 Abs React Lymphs (Man) 0.0 K/mm3 02/10/20 21:07 Monocytes # (Manual) 0.3 K/mm3 (0.0-0.8) 02/10/20 21:07 Eosinophils # (Manual) 0.0 K/mm3 (0.0-0.4) 02/10/20 21:07 Basophils # (Manual) 0.0 K/mm3 (0.0-0.1) 02/10/20 21:07 Metamyelocytes # 0.0 K/mm3 02/10/20 21:07 Myelocytes # 0.0 K/mm3 02/10/20 21:07 Promyelocytes # 0.0 K/mm3 02/10/20 21:07 Blast Cells # 0.0 K/mm3 02/10/20 21:07 WBC Morphology Not Reportable 02/10/20 21:07 Hypersegmented Neuts Not Reportable 02/10/20 21:07 Hyposegmented Neuts Not Reportable 02/10/20 21:07 Hypogranular Neuts Not Reportable 02/10/20 21:07 Smudge Cells Not Reportable 02/10/20 21:07 Toxic Granulation Not Reportable 02/10/20 21:07 Toxic Vacuolation Not Reportable 02/10/20 21:07 Dohle Bodies Not Reportable 02/10/20 21:07 Pelger-Huet Anomaly Not Reportable 02/10/20 21:07 Jennifer Rods Not Reportable 02/10/20 21:07 Platelet Estimate Not Reportable 02/10/20 21:07 Clumped Platelets Not Reportable 02/10/20 21:07 Plt Clumps, EDTA Not Reportable 02/10/20 21:07 Large Platelets Not Reportable 02/10/20 21:07 Giant Platelets Not Reportable 02/10/20 21:07 Platelet Satelliting Not Reportable 02/10/20 21:07 Plt Morphology Comment Not Reportable 02/10/20 21:07 RBC Morphology Normal 02/10/20 21:07 Dimorphic RBCs Not Reportable 02/10/20 21:07 Polychromasia Not Reportable 02/10/20 21:07 Hypochromasia Not Reportable 02/10/20 21:07 Poikilocytosis Not Reportable 02/10/20 21:07 Anisocytosis Not Reportable 02/10/20 21:07 Microcytosis Not Reportable 02/10/20 21:07 Macrocytosis Not Reportable 02/10/20 21:07 Spherocytes Not Reportable 02/10/20 21:07 Pappenheimer Bodies Not Reportable 02/10/20 21:07 Sickle Cells Not Reportable 02/10/20 21:07 Target Cells Not Reportable 02/10/20 21:07 Tear Drop Cells Not Reportable 02/10/20 21:07 Ovalocytes Not Reportable 02/10/20 21:07 Helmet Cells Not Reportable 02/10/20 21:07 [place] Bodies Not Reportable 02/10/20 21:07 [place] Rings Not Reportable 02/10/20 21:07 [place] Cells Not Reportable 02/10/20 21:07 Bite Cells Not Reportable 02/10/20 21:07 Crenated Cell Not Reportable 02/10/20 21:07 Elliptocytes Not Reportable 02/10/20 21:07 Acanthocytes (Spur) Not Reportable 02/10/20 21:07 Rouleaux Not Reportable 02/10/20 21:07 Hemoglobin C Crystals Not Reportable 02/10/20 21:07 Schistocytes Not Reportable 02/10/20 21:07 Malaria parasites Not Reportable 02/10/20 21:07 Edu Bodies Not Reportable 02/10/20 21:07 Hem Pathologist Commnt No 02/10/20 21:07 PT 14.6 Sec. (12.2-14.9) 02/10/20 21:07 INR 1.12 (0.87-1.13) 02/10/20 21:07 Sodium 142 mmol/L (137-145) 02/19/20 06:20 Potassium 2.7 mmol/L (3.6-5.0) L* 02/20/20 09:29 Chloride 100.8 mmol/L (98-107) 02/19/20 06:20 Carbon Dioxide 29 mmol/L (22-30) 02/19/20 06:20 Anion Gap 15 mmol/L 02/19/20 06:20 BUN 8 mg/dL (9-20) L 02/19/20 06:20 Creatinine 0.6 mg/dL (0.8-1.3) L 02/19/20 06:20 Estimated GFR > 60 ml/min 02/19/20 06:20 BUN/Creatinine Ratio 13 % 02/19/20 06:20 Glucose 106 mg/dL (75-100) H 02/19/20 06:20 POC Glucose 109 mg/dL (70-105) H 02/20/20 11:15 Calcium 9.0 mg/dL (8.4-10.2) 02/19/20 06:20 Magnesium 2.00 mg/dL (1.7-2.3) 02/19/20 07:54 Total Bilirubin 1.00 mg/dL (0.1-1.2) 02/17/20 07:51 Direct Bilirubin 0.5 mg/dL (0-0.2) H 02/13/20 11:36 Indirect Bilirubin 1.8 mg/dL 02/13/20 11:36 AST 26 units/L (5-40) 02/17/20 07:51 ALT 27 units/L (7-56) 02/17/20 07:51 Alkaline Phosphatase 47 units/L (35-129) 02/17/20 07:51 Ammonia 18.0 umol/L (25-60) L 02/10/20 21:07 Total Creatine Kinase 65 units/L (55-170) 02/10/20 21:07 Troponin T < 0.010 ng/mL (0.00-0.029) 02/10/20 21:07 Total Protein 5.8 g/dL (6.3-8.2) L 02/17/20 07:51 Albumin 3.5 g/dL (3.9-5) L 02/17/20 07:51 Albumin/Globulin Ratio 1.5 % 02/17/20 07:51 Lipase 67 units/L (13-60) H 02/10/20 21:17 TSH 0.742 mlU/mL (0.270-4.200) 02/10/20 21:07 Urine Color Yellow (Yellow) 02/10/20 21:44 Urine Turbidity Clear (Clear) 02/10/20 21:44 Urine pH 6.0 (5.0-7.0) 02/10/20 21:44 Ur Specific [place] 1.020 (1.003-1.030) 02/10/20 21:44 Urine Protein 100 mg/dl mg/dL (Negative) 02/10/20 21:44 Urine Glucose (UA) 50 mg/dL (Negative) 02/10/20 21:44 Urine Ketones 80 mg/dL (Negative) 02/10/20 21:44 Urine Blood Mod (Negative) 02/10/20 21:44 Urine Nitrite Neg (Negative) 02/10/20 21:44 Urine Bilirubin Neg (Negative) 02/10/20 21:44 Urine Urobilinogen < 2.0 mg/dL (<2.0) 02/10/20 21:44 Ur Leukocyte Esterase Neg (Negative) 02/10/20 21:44 Urine WBC (Auto) 1.0 /HPF (0.0-6.0) 02/10/20 21:44 Urine RBC (Auto) 13.0 /HPF (0.0-6.0) 02/10/20 21:44 U Epithel Cells (Auto) < 1.0 /HPF (0-13.0) 02/10/20 21:44 Urine Mucus Few /HPF 02/10/20 21:44 Urine Opiates Screen Presumptive positive 02/10/20 21:44 Urine Methadone Screen Presumptive negative 02/10/20 21:44 Ur Barbiturates Screen Presumptive negative 02/10/20 21:44 Ur Phencyclidine Scrn Presumptive negative 02/10/20 21:44 Ur Amphetamines Screen Presumptive negative 02/10/20 21:44 U Benzodiazepines Scrn Presumptive negative 02/10/20 21:44 Urine Cocaine Screen Presumptive negative 02/10/20 21:44 U Marijuana (THC) Screen Presumptive positive 02/10/20 21:44 Drugs of Abuse Note Disclamer 02/10/20 21:44 Plasma/Serum Alcohol < 0.01 % (0-0.07) 02/10/20 21:07 C. difficile Tox (PCR) Negative (Negative) 02/15/20 15:30 - Diagnostic Impressions Diagnostic Impressions: Echocardiogram 02/13/20 05:42 Transthoracic Echocardiogram Indication: Syncope BP: 172/93 HR: 96 Conclusions *The study quality is technically difficult. *Global left ventricular systolic function is at the lower limits of normal. *The estimated ejection fraction is 50-55%. *There is trace of mitral regurgitation. *There is trace tricuspid regurgitation. Findings Procedure Info: The study quality is technically difficult. The study is technically limited due to poor acoustic windows. Left Ventricle: The left ventricular chamber size is normal. There is no left ventricular hypertrophy. Global left ventricular systolic function is at the lower limits of normal. The estimated ejection fraction is 50-55%. Left Atrium: The left atrial chamber size is normal. Right Ventricle: The right ventricular cavity size is normal. Right Atrium: The right atrial cavity size is normal. Aortic Valve: The aortic valve leaflets are mildly thickened. There is no evidence of aortic regurgitation. There is no evidence of aortic stenosis. Mitral Valve: The mitral valve leaflets are mildly thickened. There is trace of mitral regurgitation. There is no evidence of mitral stenosis. Tricuspid Valve: There is trace tricuspid regurgitation. No pulmonary hypertension is noted. Pulmonic Valve: There is trace pulmonic regurgitation. Pericardium: There is no pericardial effusion. Aorta: There is no dilatation of the aortic root. Venous: The inferior vena cava appears normal in size. Measurements Chambers 2D Name Value Normal Range IVSd (2D) 1.06 cm (0.6 - 1.1) LVPWd (2D) 1.02 cm (0.6 - 1.1) LVIDd (2D) 4.11 cm (3.7 - 5.6) LVIDs (2D) 3.26 cm (2 - 3.8) LV FS (2D) 20.59 % - EF Teichholz (2D) 42.45 % - Ao root diameter (2D) 2.94 cm (2 - 3.7) Volumes/Mass Name Value Normal Range LA ESV SP 4CH (A/L) 35.28 ml - LA ESV SP 2CH (A/L) 33.37 ml - LA ESV BP (A/L) 34.49 ml - LA ESV BP (A/L) index 18.85 ml/m2 - LA ESV SP 4CH (MOD) 31.93 ml - LA ESV SP 2CH (MOD) 33.24 ml - LA ESV BP (MOD) 32.65 ml - LA ESV BP (MOD) index 17.84 ml/m2 - Diastolic/Systolic Function Name Value Normal Range MV E-wave Vmax 0.44 m/sec - MV deceleration time 211.42 msec - MV A-wave Vmax 0.69 m/sec - MV E:A ratio 0.64 ratio - Aortic Valve Name Value Normal Range AV Vmax 1.15 m/sec - AV VTI 18.8 cm - AV peak gradient 5.32 mmHg - AV mean gradient 3.34 mmHg - LVOT diameter 2.19 cm - LVOT Vmax 0.77 m/sec - LVOT VTI 14.15 cm - LVOT peak gradient 2.36 mmHg - LVOT mean gradient 1.52 mmHg - SV LVOT 53.37 ml - KATERIN (continuity Vmax) 2.51 cm2 - KATERIN (continuity VTI) 2.84 cm2 - Aquino/IV: Voiding Method Urinal IV Catheter Type [Right Peripheral IV Forearm] IV Catheter Type [Left Hand] Peripheral IV IV Catheter Type [Left Forearm Peripheral IV ] Active Medications - Current Medications Current Medications: Generic Name Dose Route Start Last Admin Trade Name Freq PRN Reason Stop Dose Admin Acetaminophen 650 mg 02/11/20 02:24 02/13/20 21:38 Tylenol PO 650 mg Q4H PRN Administration Fever >101 Amlodipine Besylate 5 mg 02/17/20 17:00 02/20/20 09:28 Amlodipine PO 5 mg QDAY DANA Administration Dextrose 50 ml 02/11/20 02:35 D50w (25gm) Syringe IV Q30MIN PRN Hypoglycemia Protocol Famotidine 20 mg 02/12/20 22:00 02/20/20 09:27 Pepcid PO 20 mg BID DANA Administration Folic Acid 1 mg 02/12/20 15:00 02/20/20 09:27 Folvite PO 1 mg QDAY DANA Administration Heparin Sodium (Porcine) 5,000 unit 02/11/20 02:30 02/20/20 09:27 Heparin SUB-Q 5,000 unit Q12HR DANA Administration Insulin Human Regular 0 unit 02/11/20 07:30 02/20/20 11:49 Humulin R SUB-Q Not Given AC [facility] Protocol Levetiracetam 500 mg 02/13/20 10:00 02/20/20 09:27 Keppra PO 500 mg BID DANA Administration Loperamide HCl 2 mg 02/16/20 14:42 Imodium PO Q2H PRN Diarrhea Nystatin 1 applic 02/19/20 12:00 02/20/20 09:28 Mycostatin TP 1 applic BID DANA Administration Ondansetron HCl 4 mg 02/11/20 02:25 02/17/20 02:04 Zofran IV 4 mg Q8H PRN Administration Nausea And Vomiting Risperidone 0.25 mg 02/12/20 22:00 02/20/20 09:27 Risperdal PO 0.25 mg BID DANA Administration Thiamine HCl 100 mg 02/12/20 15:00 02/20/20 09:27 Vitamin B-1 PO 100 mg QDAY DANA Administration Nutrition/Malnutrition Assess - Dietary Evaluation Nutrition/Malnutrition Findings: Nutrition Notes Start: 02/11/20 14:34 Freq: Status: Active Protocol: Document 02/19/20 12:42 TADEO (Rec: 02/19/20 12:49 TADEO [id number]) Co-Sign 02/19/20 12:42 LM Nutrition Notes Initial or Follow up Reassessment Current Diagnosis Diabetes,Heart Failure Other Pertinent Diagnosis AMS Current Diet Consistent Carb/Cardiac Labs/Tests K 2.5 BUN 8 Cr 0.6 Pertinent Medications 1/2NS 100ml/hr Height 5 ft 8 in Weight 72.2 kg [place] Body Weight (kg) 70.00 BMI 24.2 Weight Status Appropriate Subjective/Other Information F/u intakes. Per RN, pt ate 50 % of breakfast and is unsure about ONS intakes. Will try burgers and sandwiches. Recommended Vitamin A levels be checked due to scaly skin on lower extremities. Percent of energy/protein needs met: 52%/54% (without ONS) Burn Absent Trauma Absent GI Symptoms None Current % PO Fair (50-74%) Minimum of two criteria Yes Body Fat Depletion Mild depletion (non-severe) Muscle Mass Mild Depletion (non-severe) #2 Nutrition Diagnosis Inadequate oral intake As Evidenced by Signs and Symptoms pt consuming 50% meals Diagnosis Progress(for reassessment Continues documentation) #1 Nutrition Diagnosis Malnutrition Diagnosis Progress(for reassessment Continues documentation) Is patient on ventilator? No Is Patient Ambulatory and/or Out of Bed Yes REE-([facility]-ambulatory/OOB) [ [id number] [id number]] Calculation Used for Recommendations [facility] Additional Notes Pro: 80-100 g Pro/day (1.25-1. 5 g/kg) Fluids: 1 ml/kcal Nutrition Intervention Change Diet Order: Continue Consistent CHO/ Cardiac Add Supplement/Snack (indicate name/kcal Chocolate Glucerna TID /protein ) Provides kCal: 660 Provides Protein (gm) 30 Goal #1 Meet 75% of total energy and protein needs via PO and ONS Anticipated Discharge Needs: Cardiac/Consistent Carb. ONS PRN Follow-Up By: 02/21/20 Additional Comments F/U for PO/ONS intakes
[2020-02-21 06:18] LABS: Hematocrit 38.8 % (35.5-45.6); Hemoglobin 13.4 gm/dl (11.8-15.2); Mean Corpuscular HGB Conc 35 % (32-34); Mean Corpuscular Volume 85 fl (84-94); Red Blood Count 4.57 M/mm3 (3.65-5.03); Red Cell Distribution Width 13.2 % (13.2-15.2)
[2020-02-21 06:19] LABS: Platelet Count 54 K/mm3 (140-440)
[2020-02-21 06:40] LABS: Blood Urea Nitrogen 9 mg/dL (9-20); Calcium 9.2 mg/dL (8.4-10.2); Hemolysis Index 7
[2020-02-21 06:41] LABS: BUN/Creatinine Ratio 15
[2020-02-21] MEDS ORDERED: POTASSIUM CHLORIDE 10 MEQ 10 MEQ/100 ML BAG IV SCH (08:00)
[2020-02-21] MEDS ORDERED: POTASSIUM CHLORIDE ER 20 MEQ TAB PO ONE (08:00)
[2020-02-21] MEDS ORDERED: POTASSIUM CHLORIDE ER 20 MEQ TAB PO NR ×3 (08:00→10:00)
[2020-02-21] MEDS: INSULIN REGULAR, HUMAN 100 UNIT/ML 3ML VIAL SUB-Q SCH ×2 (10:27→11:58)
[2020-02-21] MEDS: levETIRAcetam 500 MG TAB PO SCH ×2 (10:28→21:59)
[2020-02-21] MEDS: HEPARIN 5,000 UNIT/1 ML VIAL SUB-Q SCH ×2 (10:28→21:59)
[2020-02-21] MEDS: amLODIPine 5 MG TAB PO SCH (10:28)
[2020-02-21] MEDS: FAMOTIDINE 20 MG TAB PO SCH ×2 (10:28→21:59)
[2020-02-21] MEDS: POTASSIUM CHLORIDE 10 MEQ 10 MEQ/100 ML BAG IV SCH ×2 (10:29→11:58)
[2020-02-21] MEDS: THIAMINE 100 MG TAB PO SCH (10:29)
[2020-02-21] MEDS: FOLIC ACID 1 MG TAB PO SCH (10:29)
[2020-02-21] MEDS: risperiDONE 0.25 MG TAB PO SCH ×2 (10:29→21:59)
[2020-02-21] MEDS: NYSTATIN CREAM 15 GM TUBE TP SCH ×2 (10:29→21:59)
--- NOTE | 2020-02-21 13:14 | Discharge Summary ---
Providers - Providers Date of Admission: 02/13/20 08:00 Attending physician: CORINA VELASQUEZ MD 02/11/20 11:50 Physical Therapy Evaluation and Treat [CONS] Routine Comment: Reason For Exam: placement 02/12/20 14:37 Consult to Case Management [CONS] Routine Services Needed at Discharge: Other Notified:: cm notified Additional Physician Instructions: placement 02/13/20 05:38 Consult to Physician [CONS] Routine Comment: Consulting Provider: TAMMY ORTEGA Physician Instructions: Reason For Exam: AMS with syncope 02/13/20 10:55 Occupational Therapy Evaluate and Treat [CONS] Routine Comment: Reason For Exam: ADL's 02/16/20 19:10 Consult to Wound/ET Nurse [CONS] Routine Reason For Exam: wound eval Primary care physician: [employer] Hospitalization Reason for admission: Diarrhea Condition: Fair Hospital course: 69-year-old male found in his house to be unresponsive initially later on EMS was called and patient was subsequently found to be confused looking unkept and was brought to the emergency room. He is alert and awake and c/o generalized weakness. cont supportive care, follow PT eval. Work-up so far in the hospital has been negative except for encephalopathy. EEG was negative for seizure disorder at this time. Due to significant debility placement is recommended. Patient has had recurrent hypokalemia which is being replaced. No edema is noted will hold off on fluids at this time. As he has been adequately hydrated. He is unable to care for himself at home unable to go home if acute rehab is rejected SNF should be considered. 02/19: Continue current placement, awaiting placement. Replace Potassoum and recheck Magnesium 02/20: Patient was adamant about being discharged home, he refused to go to SNF despite against all advise. Patient understands that he has high risk of fall. He will also be discharged on Potassium supplementation and I have advised need to have recheck on MondayFeb. He also refused physical therapy and Occupational Therapy at home health (1)Acute metabolic Encephalopathy Current Visit: Yes Status: Acute Qualifiers: Altered mental status type: unspecified Qualified Code(s): R41.82 - Altered mental status, unspecified Plan to address problem: Patient has underlying minimal cognitive impairment. Underlying encephalopathy exacerbated by seizure disorder. Appears back at baseline now. MRI head unremarkable. (2) Hypertensive urgency Current Visit: Yes Status: Acute Plan to address problem: Hypertensive emergency has resolved. Patient remains suboptimally controlled. Will advance present oral antihypertensives. Amlodipine 5 mg 1 tab p.o. daily. (3) Seizure disorder Current Visit: Yes Status: Acute Plan to address problem: Patient no further seizure activity continue antielliptic medication Keppra. Continue Keppra. (4) Chronic diastolic heart failure Current Visit: Yes Status: Acute Plan to address problem: No further evidence of volume overload. And afterload reducing diuretic if necessary. (5) Diarrhea Current Visit: Yes Status: Acute Plan to address problem: Patient with loose stool. Await culture data. Treat with Lomotil. (6) Hypokalemia Current Visit: Yes Status: Acute Plan to address problem: Correct with 20 mEq of KCl IV and also 30 mg p.o. (7) advance placement. Disposition: DC- TO HOME OR SELFCARE Time spent for discharge: 35 mins Core Measure Documentation - Palliative Care Palliative Care/ Comfort Measures: Not Applicable - Core Measures Any of the following diagnoses?: none Exam - Physical Exam Narrative exam: General appearance: Present: no acute distress, well-nourished - EENT Eyes: PERRL, EOM intact ENT: hearing intact, clear oral mucosa Ears: bilateral: normal - Neck Neck: supple, normal ROM - Respiratory Respiratory effort: normal Respiratory: bilateral: CTA - Breasts Breasts: normal - Cardiovascular Rhythm: regular Heart Sounds: Present: S1 & S2. Absent: gallop, rub Extremities: pulses intact, No edema, normal color, Full ROM - Gastrointestinal General gastrointestinal: Present: soft, non-tender, non-distended, normal bowel sounds - Genitourinary Male genitourinary: normal - Integumentary Integumentary: clear, warm, dry - Musculoskeletal Musculoskeletal: 1, strength equal bilaterally, chronic venous changes bilateral lower extremity - Neurologic Neurologic: moves all extremities - Psychiatric Psychiatric: memory intact, other (Poor insight minimal cognitive impairment.) - Constitutional Vitals: Temp Pulse Resp BP Pulse Ox 98.2 F 105 H 18 152/87 95 02/20/20 21:20 02/20/20 21:20 02/20/20 21:20 02/20/20 21:20 02/20/20 21:20 Plan Activity: advance as tolerated, no driving until cleared by PCP, fall precautions Diet: low fat Special Instructions: record daily BP diary, physical therapy, occupational therapy Follow up with: PRIMARY CARE,MD [Primary Care Provider] - 7 Days Prescriptions: amLODIPine 5 mg PO QDAY #30 tablet Folic Acid [Folvite] 1 mg PO QDAY #30 tablet levETIRAcetam [Keppra TAB] 500 mg PO BID #60 tablet Nystatin Cream [Mycostatin Cream] 1 applic TP BID #1 tube Potassium Chloride 20 meq PO QDAY #30 packet risperiDONE [RisperDAL] 0.25 mg PO BID #60 tablet Thiamine [Vitamin B-1] 100 mg PO QDAY #30 tablet
[2020-02-22] MEDS: INSULIN REGULAR, HUMAN 100 UNIT/ML 3ML VIAL SUB-Q SCH ×2 (08:21→16:59)
[2020-02-22] MEDS: levETIRAcetam 500 MG TAB PO SCH (09:10)
[2020-02-22] MEDS: FAMOTIDINE 20 MG TAB PO SCH (09:10)
[2020-02-22] MEDS: risperiDONE 0.25 MG TAB PO SCH (09:11)
[2020-02-22] MEDS: amLODIPine 5 MG TAB PO SCH ×2 (09:11→16:59)
[2020-02-22] MEDS: THIAMINE 100 MG TAB PO SCH (09:11)
[2020-02-22] MEDS: HEPARIN 5,000 UNIT/1 ML VIAL SUB-Q SCH (09:12)
[2020-02-22] MEDS: FOLIC ACID 1 MG TAB PO SCH (09:12)
--- NOTE | 2020-02-22 13:11 | Progress Note ---
Assessment and Plan Assessment and plan: 69-year-old male found in his house to be unresponsive initially later on EMS was called and patient was subsequently found to be confused looking unkept and was brought to the emergency room. He is alert and awake and c/o generalized weakness. cont supportive care, follow PT eval. Work-up so far in the hospital has been negative except for encephalopathy. EEG was negative for seizure disorder at this time. Due to significant debility placement is recommended. Patient has had recurrent hypokalemia which is being replaced. No edema is noted will hold off on fluids at this time. As he has been adequately hydrated. He is unable to care for himself at home unable to go home if acute rehab is rejected SNF should be considered. 02/19: Continue current placement, awaiting placement. Replace Potassoum and recheck Magnesium 02/21: Patient was discharged yesterday but unable to get to his house this is now more of a social issue awaiting to find friend. We will continue to replace electrolytes and monitor closely. (1)Acute metabolic Encephalopathy Current Visit: Yes Status: Acute Qualifiers: Altered mental status type: unspecified Qualified Code(s): R41.82 - Altered mental status, unspecified Plan to address problem: Patient has underlying minimal cognitive impairment. Underlying encephalopathy exacerbated by seizure disorder. Appears back at baseline now. MRI head unremarkable. (2) Hypertensive urgency Current Visit: Yes Status: Acute Plan to address problem: Hypertensive emergency has resolved. Patient remains suboptimally controlled. Will advance present oral antihypertensives. Amlodipine 5 mg 1 tab p.o. daily. (3) Seizure disorder Current Visit: Yes Status: Acute Plan to address problem: Patient no further seizure activity continue antielliptic medication Keppra. Continue Keppra. (4) Chronic diastolic heart failure Current Visit: Yes Status: Acute Plan to address problem: No further evidence of volume overload. And afterload reducing diuretic if necessary. (5) Diarrhea Current Visit: Yes Status: Acute Plan to address problem: Patient with loose stool. Await culture data. Treat with Lomotil. (6) Hypokalemia Current Visit: Yes Status: Acute Plan to address problem: Correct with 20 mEq of KCl IV and also 30 mg p.o. (7) advance placement. History Interval history: Patient seen and examined in no acute distress. ambulated with Nurse today, no new complaints. Unfortunately we have not been able to locate the patient's friend. Hospitalist Physical - Physical exam Narrative exam: General appearance: Present: no acute distress, well-nourished - EENT Eyes: PERRL, EOM intact ENT: hearing intact, clear oral mucosa Ears: bilateral: normal - Neck Neck: supple, normal ROM - Respiratory Respiratory effort: normal Respiratory: bilateral: CTA - Breasts Breasts: normal - Cardiovascular Rhythm: regular Heart Sounds: Present: S1 & S2. Absent: gallop, rub Extremities: pulses intact, No edema, normal color, Full ROM - Gastrointestinal General gastrointestinal: Present: soft, non-tender, non-distended, normal bowel sounds - Genitourinary Male genitourinary: normal - Integumentary Integumentary: clear, warm, dry - Musculoskeletal Musculoskeletal: 1, strength equal bilaterally, chronic venous changes bilateral lower extremity - Neurologic Neurologic: moves all extremities - Psychiatric Psychiatric: memory intact, other (Poor insight minimal cognitive impairment.) - Constitutional Vitals: Temp Pulse Resp BP Pulse Ox 97.7 F 100 H 18 151/91 94 02/22/20 04:41 02/22/20 09:11 02/22/20 04:41 02/22/20 09:11 02/22/20 04:41 General appearance: Present: no acute distress, well-nourished HEART Score - HEART Score Age: > 65 Risk factors: 1-2 risk factors Troponin: Troponin T < 0.010 ng/mL (0.00-0.029) 02/10/20 21:07 Troponin: < normal limit - Critical Actions Critical Actions: 0-3 pts:0.9-1.7%risk of adverse cardiac event.Candidate for discharge Results - Labs CBC & Chem 7: 02/21/20 04:45 02/21/20 17:00 Labs: Laboratory Last Values WBC 2.7 K/mm3 (4.5-11.0) L 02/21/20 04:45 RBC 4.57 M/mm3 (3.65-5.03) 02/21/20 04:45 Hgb 13.4 gm/dl (11.8-15.2) 02/21/20 04:45 Hct 38.8 % (35.5-45.6) 02/21/20 04:45 MCV 85 fl (84-94) 02/21/20 04:45 MCH 29 pg (28-32) 02/21/20 04:45 MCHC 35 % (32-34) H 02/21/20 04:45 RDW 13.2 % (13.2-15.2) 02/21/20 04:45 Plt Count 54 K/mm3 (140-440) L 02/21/20 04:45 Lymph % (Auto) 9.3 % (13.4-35.0) L 02/17/20 07:43 [place] % (Auto) 6.5 % (0.0-7.3) 02/17/20 07:43 Eos % (Auto) 3.3 % (0.0-4.3) 02/17/20 07:43 Baso % (Auto) 0.5 % (0.0-1.8) 02/17/20 07:43 Lymph # (Auto) 0.2 K/mm3 (1.2-5.4) L 02/17/20 07:43 [place] # (Auto) 0.2 K/mm3 (0.0-0.8) 02/17/20 07:43 Eos # (Auto) 0.1 K/mm3 (0.0-0.4) 02/17/20 07:43 Baso # (Auto) 0.0 K/mm3 (0.0-0.1) 02/17/20 07:43 Add Manual Diff Complete 02/10/20 21:07 Total Counted 100 02/10/20 21:07 Seg Neutrophils % 80.4 % (40.0-70.0) H 02/17/20 07:43 Seg Neuts % (Manual) 91.0 % (40.0-70.0) H 02/10/20 21:07 Band Neutrophils % 0 % 02/10/20 21:07 Lymphocytes % (Manual) 5.0 % (13.4-35.0) L 02/10/20 21:07 Reactive Lymphs % (Man) 0 % 02/10/20 21:07 Monocytes % (Manual) 4.0 % (0.0-7.3) 02/10/20 21:07 Eosinophils % (Manual) 0 % (0.0-4.3) 02/10/20 21:07 Basophils % (Manual) 0 % (0.0-1.8) 02/10/20 21:07 Metamyelocytes % 0 % 02/10/20 21:07 Myelocytes % 0 % 02/10/20 21:07 Promyelocytes % 0 % 02/10/20 21:07 Blast Cells % 0 % 02/10/20 21:07 Nucleated RBC % Not Reportable 02/10/20 21:07 Seg Neutrophils # 2.1 K/mm3 (1.8-7.7) 02/17/20 07:43 Seg Neutrophils # Man 7.6 K/mm3 (1.8-7.7) 02/10/20 21:07 Band Neutrophils # 0.0 K/mm3 02/10/20 21:07 Lymphocytes # (Manual) 0.4 K/mm3 (1.2-5.4) L 02/10/20 21:07 Abs React Lymphs (Man) 0.0 K/mm3 02/10/20 21:07 Monocytes # (Manual) 0.3 K/mm3 (0.0-0.8) 02/10/20 21:07 Eosinophils # (Manual) 0.0 K/mm3 (0.0-0.4) 02/10/20 21:07 Basophils # (Manual) 0.0 K/mm3 (0.0-0.1) 02/10/20 21:07 Metamyelocytes # 0.0 K/mm3 02/10/20 21:07 Myelocytes # 0.0 K/mm3 02/10/20 21:07 Promyelocytes # 0.0 K/mm3 02/10/20 21:07 Blast Cells # 0.0 K/mm3 02/10/20 21:07 WBC Morphology Not Reportable 02/10/20 21:07 Hypersegmented Neuts Not Reportable 02/10/20 21:07 Hyposegmented Neuts Not Reportable 02/10/20 21:07 Hypogranular Neuts Not Reportable 02/10/20 21:07 Smudge Cells Not Reportable 02/10/20 21:07 Toxic Granulation Not Reportable 02/10/20 21:07 Toxic Vacuolation Not Reportable 02/10/20 21:07 Dohle Bodies Not Reportable 02/10/20 21:07 Pelger-Huet Anomaly Not Reportable 02/10/20 21:07 Jennifer Rods Not Reportable 02/10/20 21:07 Platelet Estimate Not Reportable 02/10/20 21:07 Clumped Platelets Not Reportable 02/10/20 21:07 Plt Clumps, EDTA Not Reportable 02/10/20 21:07 Large Platelets Not Reportable 02/10/20 21:07 Giant Platelets Not Reportable 02/10/20 21:07 Platelet Satelliting Not Reportable 02/10/20 21:07 Plt Morphology Comment Not Reportable 02/10/20 21:07 RBC Morphology Normal 02/10/20 21:07 Dimorphic RBCs Not Reportable 02/10/20 21:07 Polychromasia Not Reportable 02/10/20 21:07 Hypochromasia Not Reportable 02/10/20 21:07 Poikilocytosis Not Reportable 02/10/20 21:07 Anisocytosis Not Reportable 02/10/20 21:07 Microcytosis Not Reportable 02/10/20 21:07 Macrocytosis Not Reportable 02/10/20 21:07 Spherocytes Not Reportable 02/10/20 21:07 Pappenheimer Bodies Not Reportable 02/10/20 21:07 Sickle Cells Not Reportable 02/10/20 21:07 Target Cells Not Reportable 02/10/20 21:07 Tear Drop Cells Not Reportable 02/10/20 21:07 Ovalocytes Not Reportable 02/10/20 21:07 Helmet Cells Not Reportable 02/10/20 21:07 Lambert-Mcrae-Helena Bodies Not Reportable 02/10/20 21:07 Crowder Rings Not Reportable 02/10/20 21:07 Kristy Cells Not Reportable 02/10/20 21:07 Bite Cells Not Reportable 02/10/20 21:07 Crenated Cell Not Reportable 02/10/20 21:07 Elliptocytes Not Reportable 02/10/20 21:07 Acanthocytes (Spur) Not Reportable 02/10/20 21:07 Rouleaux Not Reportable 02/10/20 21:07 Hemoglobin C Crystals Not Reportable 02/10/20 21:07 Schistocytes Not Reportable 02/10/20 21:07 Malaria parasites Not Reportable 02/10/20 21:07 Edu Bodies Not Reportable 02/10/20 21:07 Hem Pathologist Commnt No 02/10/20 21:07 PT 14.6 Sec. (12.2-14.9) 02/10/20 21:07 INR 1.12 (0.87-1.13) 02/10/20 21:07 Sodium 142 mmol/L (137-145) 02/21/20 04:45 Potassium 3.7 mmol/L (3.6-5.0) D 02/21/20 17:00 Chloride 101.9 mmol/L (98-107) 02/21/20 04:45 Carbon Dioxide 27 mmol/L (22-30) 02/21/20 04:45 Anion Gap 16 mmol/L 02/21/20 04:45 BUN 9 mg/dL (9-20) 02/21/20 04:45 Creatinine 0.6 mg/dL (0.8-1.3) L 02/21/20 04:45 Estimated GFR > 60 ml/min 02/21/20 04:45 BUN/Creatinine Ratio 15 % 02/21/20 04:45 Glucose 95 mg/dL (75-100) 02/21/20 04:45 POC Glucose 84 mg/dL (70-105) 02/22/20 12:30 Calcium 9.2 mg/dL (8.4-10.2) 02/21/20 04:45 Magnesium 1.90 mg/dL (1.7-2.3) 02/20/20 19:04 Total Bilirubin 1.00 mg/dL (0.1-1.2) 02/17/20 07:51 Direct Bilirubin 0.5 mg/dL (0-0.2) H 02/13/20 11:36 Indirect Bilirubin 1.8 mg/dL 02/13/20 11:36 AST 26 units/L (5-40) 02/17/20 07:51 ALT 27 units/L (7-56) 02/17/20 07:51 Alkaline Phosphatase 47 units/L (35-129) 02/17/20 07:51 Ammonia 18.0 umol/L (25-60) L 02/10/20 21:07 Total Creatine Kinase 65 units/L (55-170) 02/10/20 21:07 Troponin T < 0.010 ng/mL (0.00-0.029) 02/10/20 21:07 Total Protein 5.8 g/dL (6.3-8.2) L 02/17/20 07:51 Albumin 3.5 g/dL (3.9-5) L 02/17/20 07:51 Albumin/Globulin Ratio 1.5 % 02/17/20 07:51 Lipase 67 units/L (13-60) H 02/10/20 21:17 TSH 0.742 mlU/mL (0.270-4.200) 02/10/20 21:07 Urine Color Yellow (Yellow) 02/10/20 21:44 Urine Turbidity Clear (Clear) 02/10/20 21:44 Urine pH 6.0 (5.0-7.0) 02/10/20 21:44 Ur Specific [place] 1.020 (1.003-1.030) 02/10/20 21:44 Urine Protein 100 mg/dl mg/dL (Negative) 02/10/20 21:44 Urine Glucose (UA) 50 mg/dL (Negative) 02/10/20 21:44 Urine Ketones 80 mg/dL (Negative) 02/10/20 21:44 Urine Blood Mod (Negative) 02/10/20 21:44 Urine Nitrite Neg (Negative) 02/10/20 21:44 Urine Bilirubin Neg (Negative) 02/10/20 21:44 Urine Urobilinogen < 2.0 mg/dL (<2.0) 02/10/20 21:44 Ur Leukocyte Esterase Neg (Negative) 02/10/20 21:44 Urine WBC (Auto) 1.0 /HPF (0.0-6.0) 02/10/20 21:44 Urine RBC (Auto) 13.0 /HPF (0.0-6.0) 02/10/20 21:44 U Epithel Cells (Auto) < 1.0 /HPF (0-13.0) 02/10/20 21:44 Urine Mucus Few /HPF 02/10/20 21:44 Urine Opiates Screen Presumptive positive 02/10/20 21:44 Urine Methadone Screen Presumptive negative 02/10/20 21:44 Ur Barbiturates Screen Presumptive negative 02/10/20 21:44 Ur Phencyclidine Scrn Presumptive negative 02/10/20 21:44 Ur Amphetamines Screen Presumptive negative 02/10/20 21:44 U Benzodiazepines Scrn Presumptive negative 02/10/20 21:44 Urine Cocaine Screen Presumptive negative 02/10/20 21:44 U Marijuana (THC) Screen Presumptive positive 02/10/20 21:44 Drugs of Abuse Note Disclamer 02/10/20 21:44 Plasma/Serum Alcohol < 0.01 % (0-0.07) 02/10/20 21:07 C. difficile Tox (PCR) Negative (Negative) 02/15/20 15:30 - Diagnostic Impressions Diagnostic Impressions: Echocardiogram 02/13/20 05:42 Transthoracic Echocardiogram Indication: Syncope BP: 172/93 HR: 96 Conclusions *The study quality is technically difficult. *Global left ventricular systolic function is at the lower limits of normal. *The estimated ejection fraction is 50-55%. *There is trace of mitral regurgitation. *There is trace tricuspid regurgitation. Findings Procedure Info: The study quality is technically difficult. The study is technically limited due to poor acoustic windows. Left Ventricle: The left ventricular chamber size is normal. There is no left ventricular hypertrophy. Global left ventricular systolic function is at the lower limits of normal. The estimated ejection fraction is 50-55%. Left Atrium: The left atrial chamber size is normal. Right Ventricle: The right ventricular cavity size is normal. Right Atrium: The right atrial cavity size is normal. Aortic Valve: The aortic valve leaflets are mildly thickened. There is no evidence of aortic regurgitation. There is no evidence of aortic stenosis. Mitral Valve: The mitral valve leaflets are mildly thickened. There is trace of mitral regurgitation. There is no evidence of mitral stenosis. Tricuspid Valve: There is trace tricuspid regurgitation. No pulmonary hypertension is noted. Pulmonic Valve: There is trace pulmonic regurgitation. Pericardium: There is no pericardial effusion. Aorta: There is no dilatation of the aortic root. Venous: The inferior vena cava appears normal in size. Measurements Chambers 2D Name Value Normal Range IVSd (2D) 1.06 cm (0.6 - 1.1) LVPWd (2D) 1.02 cm (0.6 - 1.1) LVIDd (2D) 4.11 cm (3.7 - 5.6) LVIDs (2D) 3.26 cm (2 - 3.8) LV FS (2D) 20.59 % - EF Teichholz (2D) 42.45 % - Ao root diameter (2D) 2.94 cm (2 - 3.7) Volumes/Mass Name Value Normal Range LA ESV SP 4CH (A/L) 35.28 ml - LA ESV SP 2CH (A/L) 33.37 ml - LA ESV BP (A/L) 34.49 ml - LA ESV BP (A/L) index 18.85 ml/m2 - LA ESV SP 4CH (MOD) 31.93 ml - LA ESV SP 2CH (MOD) 33.24 ml - LA ESV BP (MOD) 32.65 ml - LA ESV BP (MOD) index 17.84 ml/m2 - Diastolic/Systolic Function Name Value Normal Range MV E-wave Vmax 0.44 m/sec - MV deceleration time 211.42 msec - MV A-wave Vmax 0.69 m/sec - MV E:A ratio 0.64 ratio - Aortic Valve Name Value Normal Range AV Vmax 1.15 m/sec - AV VTI 18.8 cm - AV peak gradient 5.32 mmHg - AV mean gradient 3.34 mmHg - LVOT diameter 2.19 cm - LVOT Vmax 0.77 m/sec - LVOT VTI 14.15 cm - LVOT peak gradient 2.36 mmHg - LVOT mean gradient 1.52 mmHg - SV LVOT 53.37 ml - KATERIN (continuity Vmax) 2.51 cm2 - KATERIN (continuity VTI) 2.84 cm2 - Aquino/IV: Voiding Method Indwelling Catheter IV Catheter Type [Right Peripheral IV Forearm] IV Catheter Type [Left Hand] Peripheral IV IV Catheter Type [Left Forearm Peripheral IV ] Active Medications - Current Medications Current Medications: Generic Name Dose Route Start Last Admin Trade Name Hemanthq PRN Reason Stop Dose Admin Acetaminophen 650 mg 02/11/20 02:24 02/13/20 21:38 Tylenol PO 650 mg Q4H PRN Administration Fever >101 Amlodipine Besylate 5 mg 02/17/20 17:00 02/22/20 09:11 Amlodipine PO 5 mg QDAY DANA Administration Dextrose 50 ml 02/11/20 02:35 D50w (25gm) Syringe IV Q30MIN PRN Hypoglycemia Protocol Famotidine 20 mg 02/12/20 22:00 02/22/20 09:10 Pepcid PO 20 mg BID DANA Administration Folic Acid 1 mg 02/12/20 15:00 02/22/20 09:12 Folvite PO 1 mg QDAY DANA Administration Heparin Sodium (Porcine) 5,000 unit 02/11/20 02:30 02/22/20 09:12 Heparin SUB-Q 5,000 unit Q12HR DANA Administration Insulin Human Regular 0 unit 02/11/20 07:30 02/22/20 08:21 Humulin R SUB-Q Not Given [facility] Protocol Levetiracetam 500 mg 02/13/20 10:00 02/22/20 09:10 Keppra PO 500 mg BID DANA Administration Loperamide HCl 2 mg 02/16/20 14:42 Imodium PO Q2H PRN Diarrhea Nystatin 1 applic 02/19/20 12:00 02/21/20 21:59 Mycostatin TP 1 applic BID DANA Administration Ondansetron HCl 4 mg 02/11/20 02:25 02/17/20 02:04 Zofran IV 4 mg Q8H PRN Administration Nausea And Vomiting Potassium Chloride 40 meq 02/22/20 14:00 K-Dur PO 02/22/20 16:00 ONCE DANA Risperidone 0.25 mg 02/12/20 22:00 02/22/20 09:11 Risperdal PO 0.25 mg BID DANA Administration Thiamine HCl 100 mg 02/12/20 15:00 02/22/20 09:11 Vitamin B-1 PO 100 mg QDAY DANA Administration Nutrition/Malnutrition Assess - Dietary Evaluation Nutrition/Malnutrition Findings: Nutrition Notes Start: 02/11/20 14:34 Freq: Status: Active Protocol: Document 02/21/20 13:58 AL (Rec: 02/21/20 14:04 AL [email or web address]) Co-Sign 02/21/20 13:58 LP Nutrition Notes Initial or Follow up Reassessment Current Diagnosis Diabetes,Heart Failure Other Pertinent Diagnosis AMS Current Diet Consistent Carb/Cardiac Labs/Tests K 2.8 Cr 0.6 Pertinent Medications Reviewed Height 5 ft 8 in Weight 69.8 kg [place] Body Weight (kg) 70.00 BMI 23.3 Weight Status Appropriate Subjective/Other Information Pt reports "I don't eat much. About half." Pt also denies wanting to try any ONS. RD noticed 3 unopened Chocolate Glucernas on tray. Percent of energy/protein needs met: 52%/54% (without ONS) Burn Absent Trauma Absent Current % PO Fair (50-74%) Minimum of two criteria Yes Body Fat Depletion Mild depletion (non-severe) Muscle Mass Mild Depletion (non-severe) #2 Nutrition Diagnosis Inadequate oral intake Diagnosis Progress(for reassessment Continues documentation) #1 Nutrition Diagnosis Malnutrition Diagnosis Progress(for reassessment Continues documentation) Is patient on ventilator? No Is Patient Ambulatory and/or Out of Bed Yes REE-([facility]-ambulatory/OOB) [ [id number] [id number]] Calculation Used for Recommendations [facility] Additional Notes Pro: 80-100 g Pro/day (1.25-1. 5 g/kg) Fluids: 1 ml/kcal Nutrition Intervention Change Diet Order: Continue Consistent CHO/ Cardiac Add Supplement/Snack (indicate name/kcal D/C Chocolate Glucerna TID /protein ) Goal #1 Meet 75% of total energy and protein needs via PO Anticipated Discharge Needs: Cardiac/Consistent Carb. ONS PRN Follow-Up By: 02/25/20 Additional Comments F/U for PO/ONS intakes
[2020-02-22 13:59] VITALS: BP 138/85
[2020-02-22] MEDS ORDERED: POTASSIUM CHLORIDE ER 20 MEQ TAB PO SCH (14:00)
[2020-02-22] MEDS: NYSTATIN CREAM 15 GM TUBE TP SCH (16:59)
== END 2020-02-22 17:11 | disposition home or self-care (01) | DRG 101 ==
LOC: ED 20:44 → 3A 02-11 00:59 → OBSVTOIN 02-13 08:00
PROVIDERS: ADMIT Internal Medicine; ATTEND Internal Medicine
DX: G40.909 Epilepsy, unspecified, not intractable, without status epilepticus (principal); E44.1 Mild protein-calorie malnutrition; I50.32 Chronic diastolic (congestive) heart failure; I69.351 Hemiplegia and hemiparesis following cerebral infarction affecting right dominant side; I16.0 Hypertensive urgency; D69.6 Thrombocytopenia, unspecified; E86.0 Dehydration; E87.6 Hypokalemia; E11.9 Type 2 diabetes mellitus without complications; R19.7 Diarrhea, unspecified; Z90.49 Acquired absence of other specified parts of digestive tract; Z88.1 Allergy status to other antibiotic agents; F17.200 Nicotine dependence, unspecified, uncomplicated; Z79.82 Long term (current) use of aspirin; F11.10 Opioid abuse, uncomplicated; F19.10 Other psychoactive substance abuse, uncomplicated; Z68.23 Body mass index [BMI] 23.0-23.9, adult
CPT/HCPCS: 36415; 70450; 70551; 74019; 80048; 80053; 80076; 80307; 80320; 81001; 82140; 82550; 82962; 83690; 83735; 84132; 84443; 84484; 85007; 85025; 85027; 85610; 87324; 87493; 93005; 93306; 95819; 96361; 96374; 96375; G0378; G0480; J1644; J1885; J2405; J3480; J7030

== ENCOUNTER 2020-03-26 15:07 | Emergency (ER) | payer MEDICARE ==
--- NOTE | 2020-03-26 15:25 | Event Note ---
Date: 03/26/20 The patient was evaluated in the emergency department for symptoms described in the history of present illness. He/she was evaluated in the context of the global COVID-19 pandemic, which necessitated consideration that the patient might be at risk for infection with the virus that causes COVID-19. Institutional protocols and algorithms that pertain to the evaluation of patients at risk for COVID-19 are in a state of rapid change based on information released by regulatory bodies including the CDC and federal and state organizations. These policies and algorithms were followed during the patient's care in the emergency department. Please note that these policies, procedures and recommendations changed on a rapid basis. Patient is a 69-year-old gentleman. He was discharged from this hospital earlier on today. He was sent to the emergency room by his receiving facility because of a complaint of fall. Patient is awake, protecting his airway, and moving 4 extremities. He had laboratory studies performed earlier on today which were fairly unremarkable with the exception of a glucose of 70. EMS reports vital signs were unremarkable. Place patient on fall precautions, obtain CT scan of the brain, cervical spine, x-ray of the chest, pelvis. Check Accu-Chek.
--- NOTE | 2020-03-26 16:38 | XRay Report ---
PELVIS 2 VIEW(S) INDICATION / CLINICAL INFORMATION: fall weakness COMPARISON: None available. FINDINGS: BONES / JOINT(S): No acute fracture or subluxation. Mild bilateral hip arthrosis. Moderate spondylosi s of the lumbar spine. SOFT TISSUES: Vascular calcifications. ADDITIONAL FINDINGS: Cholecystectomy clips. Signer Name: Rosas Castillo MD Signed: 03/26/2020 4:34 PM Workstation Name: [id number]
--- NOTE | 2020-03-26 16:39 | XRay Report ---
CHEST 1 VIEW INDICATION / CLINICAL INFORMATION: fall weakness. COMPARISON: 03/03/2020 FINDINGS: SUPPORT DEVICES: None. HEART / MEDIASTINUM: Stable. LUNGS / PLEURA: Persistent coarsened interstitial lung markings are likely chronic. No acute infiltra soledad or pleural effusion. No pneumothorax. ADDITIONAL FINDINGS: No significant additional findings. IMPRESSION: 1. No acute findings. No significant interval change since 03/03/2020. Signer Name: Rosas Castillo MD Signed: 03/26/2020 4:35 PM Workstation Name: [id number]
[2020-03-26 17:52] VITALS: BP 138/73
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
--- NOTE | 2020-03-26 18:10 | Cat Scan Report ---
CT HEAD WITHOUT CONTRAST INDICATION / CLINICAL INFORMATION: fall closed head injury. TECHNIQUE: All CT scans at this location are performed using CT dose reduction for ALARA by means of automated e xposure control. COMPARISON: Head CT 03/03/2020 and MRI brain 02/14/2020. FINDINGS: HEMORRHAGE: No evidence of intracranial hemorrhage or extra-axial fluid collection. EXTRA-AXIAL SPACES: Cortical sulci and sylvian fissures are enlarged reflecting a degree of parenchym al volume loss which is greater than expected for the patient's age of 69 years. Basilar cisterns hav e an unremarkable appearance. VENTRICULAR SYSTEM: The third and lateral ventricles are enlarged reflecting presence of age related parenchymal volume loss. CEREBRAL PARENCHYMA: Extensive periventricular and deep white matter lucency is observed. This is pro bably secondary to advanced microvascular ischemic change. There is no indication of recent infarctio n. Several remote small deep infarctions are identified in the gangliocapsular regions bilaterally. T hese are better demonstrated on recent MRI brain 02/14/2020. MIDLINE SHIFT OR HERNIATION: There is no mass effect. CEREBELLUM / BRAINSTEM: Brainstem has an unremarkable appearance. Age related cerebellar atrophy is n oted. MIDLINE STRUCTURES:Pituitary gland has an unremarkable appearance. No abnormalities are seen in the p ineal region. INTRACRANIAL VESSELS:Calcified atherosclerotic plaque is present along the course of the cavernous se gments of both internal carotid arteries. Similar findings are seen at the distal vertebral arteries. ORBITS: Bilateral enophthalmos is noted. Visualized portions of the orbits have an otherwise unremark able appearance. SOFT TISSUES of HEAD: No significant abnormality. CALVARIUM: Evaluation of bone windows reveals no abnormalities. PARANASAL SINUSES / MASTOID AIR CELLS: Paranasal sinuses are free from inflammatory mucosal disease. Mastoid air cells are normally pneumatized. IMPRESSION: 1. Moderate parenchymal volume loss and extensive microvascular ischemic changes are greater than exp ected for age 69 years. 2. No acute intracranial abnormality. Findings are stable in comparison to head CT 03/03/2020 and MRI brain 02/14/2020. Signer Name: Subhash Ruvalcaba MD Signed: 03/26/2020 6:06 PM Workstation Name: [id number]
--- NOTE | 2020-03-26 18:14 | Cat Scan Report ---
CT CERVICAL SPINE WITHOUT CONTRAST INDICATION / CLINICAL INFORMATION: Patient fell sustaining neck and head injuries. TECHNIQUE: Axial CT images were obtained through the cervical spine. Sagittal and coronal reformatted images wer e produced. All CT scans at this location are performed using CT dose reduction for ALARA by means of automated exposure control. COMPARISON: None available. FINDINGS: ALIGNMENT: Normal alignment is maintained throughout cervical region. There is no indication of traum atic subluxation. VERTEBRAE: No indication of fracture. DISC SPACES: Loss of disc height is noted at the C4-5 and C5-6 levels. DEGENERATIVE CHANGES: Prominent posterior osteophyte formation is noted at inferior endplate C4 and s uperior endplate C5. This is associated with moderate central canal stenosis. Bilateral uncovertebral arthropathy is present at multiple levels contributing to mild/moderate neuroforaminal narrowing at multiple levels. CRANIOCERVICAL JUNCTION:No significant abnormality. SPINAL CANAL: Moderate central canal stenosis at C4-5. Central spinal canal is otherwise normally verónica ntained. PARASPINAL SOFT TISSUES: No significant abnormality. ADDITIONAL FINDINGS: None. LUNG APICES: No significant abnormality of visualized lungs. IMPRESSION: 1. Moderate central canal stenosis C4-5 secondary to prominent posterior osteophyte formation. 2. No indication of fracture or traumatic subluxation. Signer Name: Subhash Ruvalcaba MD Signed: 03/26/2020 6:10 PM Workstation Name: [email or web address]
== END 2020-03-26 19:21 | disposition home or self-care (01) ==
LOC: ED 15:07
DX: S09.90XA Unspecified injury of head, initial encounter (principal); I50.9 Heart failure, unspecified; I11.0 Hypertensive heart disease with heart failure; E11.9 Type 2 diabetes mellitus without complications; J45.909 Unspecified asthma, uncomplicated; Z90.89 Acquired absence of other organs; Z90.49 Acquired absence of other specified parts of digestive tract; Z79.899 Other long term (current) drug therapy; Z88.8 Allergy status to other drugs, medicaments and biological substances; W01.0XXA Fall on same level from slipping, tripping and stumbling without subsequent striking against object, initial encounter; Y93.89 Activity, other specified; Y92.89 Other specified places as the place of occurrence of the external cause; Y99.8 Other external cause status
CPT/HCPCS: 70450; 71045; 72125; 72170

== ENCOUNTER 2020-05-26 14:11 | Emergency (ER) | payer MEDICARE ==
--- NOTE | 2020-05-26 14:23 | Event Note ---
ED Screening Note ED Screening Note: Patient presents for generalized abdominal pain Has intermittent nausea, vomiting, diarrhea Patient is from [place] Denies constipation Denies hematochezia, hematemesis, melena pt has multiple medical problems This initial assessment/diagnostic orders/clinical plan/treatment(s) is/are subject to change based on patients health status, clinical progression and re- assessment by fellow clinical providers in the ED. Further treatment and workup at subsequent clinical providers discretion. Patient/guardian urged not to elope from the ED as their condition may be serious if not clinically assessed and managed. Initial orders include: labs, UA, XR
[2020-05-26 15:08] LABS: Basophils % (Auto) 1.1 % (0.0-1.8); Eosinophils # (Auto) 0.1 K/mm3 (0.0-0.4); Eosinophils % (Auto) 3.5 % (0.0-4.3); Hematocrit 40.9 % (35.5-45.6); Hemoglobin 13.8 gm/dl (11.8-15.2); Lymphocytes # (Auto) 0.5 K/mm3 (1.2-5.4); Lymphocytes % (Auto) 13.1 % (13.4-35.0); Mean Corpuscular HGB Conc 34 % (32-34); Mean Corpuscular Volume 91 fl (84-94); Monocytes # (Auto) 0.2 K/mm3 (0.0-0.8); Monocytes % (Auto) 5.8 % (0.0-7.3); Red Blood Count 4.48 M/mm3 (3.65-5.03); Red Cell Distribution Width 14.7 % (13.2-15.2)
[2020-05-26 15:18] LABS: Platelet Count 69 K/mm3 (140-440)
--- NOTE | 2020-05-26 15:19 | XRay Report ---
ABDOMEN 2 VIEW(S) INDICATION / CLINICAL INFORMATION: abd pain. COMPARISON: 02/10/2020 FINDINGS: TUBES / LINES: None. BOWEL GAS PATTERN: No significant abnormality. FREE AIR / EXTRALUMINAL GAS: None seen. ADDITIONAL FINDINGS: Cholecystectomy changes IMPRESSION: No significant abnormality. Signer Name: Easton Briggs Jr, MD Signed: 05/26/2020 3:14 PM Workstation Name: [id number]
[2020-05-26 15:25] LABS: Alanine Aminotransferase 13 units/L (7-56); Albumin 4.2 g/dL (3.9-5); BUN/Creatinine Ratio 14; Blood Urea Nitrogen 13 mg/dL (9-20); Calcium 9.1 mg/dL (8.4-10.2); Hemolysis Index 29
[2020-05-26 17:24] LABS: Bilirubin,Urine NEG (Negative); Blood,Urine NEG (Negative); Color,Urine Yellow (Yellow); Mucus,Urine FEW /HPF; Protein,Urine <15 mg/dL mg/dL (Negative); RBC,Urine < 1.0 /HPF (0.0-6.0); Urobilinogen,Urine < 2.0 mg/dL (<2.0)
--- NOTE | 2020-05-26 18:40 | Emergency Department Report ---
ED Abdominal Pain HPI - General Chief Complaint: Abdominal Pain Stated Complaint: ABD PAIN Time Seen by Provider: 05/26/20 14:21 Source: patient, EMS Mode of arrival: Wheelchair Limitations: No Limitations - History of Present Illness Initial Comments: 69-year-old male, history of hep C, diabetes, paroxysmal A. fib, seizure disorder, presents to ED with abdominal pain. Patient states pain is located in diffuse abdomen. He states he has been having this abdominal pain for over 1 year. Patient reports concurrent chronic diarrhea. He denies any fever, hematuria, urinary frequency, dysuria. Patient reports occasional vomiting after eating. 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 Patient states GI does not know what is causing his abdominal pain. Patient states at some point he was prescribed p.o. morphine, but states he weaned himself off approximately 3 months ago. MD Complaint: abdominal pain -: year(s) (1) Location: diffuse Radiation: none Migration to: no migration Severity: moderate Quality: cramping, burning Consistency: intermittent Improves With: nothing Worsens With: nothing Associated Symptoms: nausea, vomiting, diarrhea. denies: fever, constipation, dysuria, hematemesis, melena, hematuria - Related Data Previous Rx's Medication Instructions Recorded Last Taken Type Aspirin EC [Ecotrin] 325 mg PO QDAY #30 tablet 04/22/20 Unknown Rx AtorvaSTATin [Lipitor] 40 mg PO QHS #30 tablet 04/22/20 Unknown Rx Folic Acid 1 mg PO DAILY #30 tablet 05/08/20 Unknown Rx Thiamine [Vitamin B-1] 100 mg PO QDAY #30 tablet 05/08/20 Unknown Rx Famotidine [Pepcid] 20 mg PO BID #30 tablet 05/15/20 Unknown Rx Metoprolol [Lopressor TAB] 12.5 mg PO BID #60 tablet 05/15/20 Unknown Rx levETIRAcetam [Keppra TAB] 500 mg PO BID #60 tablet 05/15/20 Unknown Rx Dicyclomine [Bentyl] 20 mg PO QID PRN #20 tablet 05/26/20 Unknown Rx Ondansetron [Zofran Odt] 4 mg PO Q8HR PRN #20 tab.rapdis 05/26/20 Unknown Rx Allergies Allergy/AdvReac Type Severity Reaction Status Date / Time ciprofloxacin [From Cipro] Allergy Dizziness Verified 05/26/20 14:15 ciprofloxacin HCl Allergy Dizziness Verified 05/26/20 14:15 [From Cipro] ED Review of Systems ROS: Stated complaint: ABD PAIN Other details as noted in HPI Comment: All other systems reviewed and negative Constitutional: denies: chills, fever Gastrointestinal: abdominal pain, vomiting, diarrhea. denies: constipation, hematemesis, melena, hematochezia Genitourinary: denies: dysuria, frequency, hematuria ED Past Medical Hx - Past Medical History Hx Hypertension: Yes Hx Heart Attack/AMI: No Hx Congestive Heart Failure: Yes Hx Diabetes: Yes Hx Deep Vein Thrombosis: No Hx Pulmonary Embolism: No Hx Liver Disease: No Hx Renal Disease: No Hx Sickle Cell Disease: No Hx Arthritis: No Hx Seizures: No Hx Kidney Stones: No Hx Asthma: Yes Hx COPD: No Hx Tuberculosis: No Hx Dementia: No Hx HIV: No Additional medical history: hepatitis C. "bad circulation" chronic bilateral lower extremity wounds. unbillical hernia. inguinial hernia - Surgical History Hx Coronary Stent: No Hx Pacemaker: No Hx Internal Defibrillator: No Hx Cholecystectomy: Yes Additional Surgical History: tonsillectomy - Social History Smoking Status: Never Smoker Substance Use Type: None - Medications Home Medications: Home Medications Medication Instructions Recorded Confirmed Last Taken Type Aspirin EC [Ecotrin] 325 mg PO QDAY #30 tablet 04/22/20 Unknown Rx AtorvaSTATin [Lipitor] 40 mg PO QHS #30 tablet 04/22/20 Unknown Rx Folic Acid 1 mg PO DAILY #30 tablet 05/08/20 Unknown Rx Thiamine [Vitamin B-1] 100 mg PO QDAY #30 tablet 05/08/20 Unknown Rx Famotidine [Pepcid] 20 mg PO BID #30 tablet 05/15/20 Unknown Rx Metoprolol [Lopressor TAB] 12.5 mg PO BID #60 tablet 05/15/20 Unknown Rx levETIRAcetam [Keppra TAB] 500 mg PO BID #60 tablet 05/15/20 Unknown Rx Dicyclomine [Bentyl] 20 mg PO QID PRN #20 tablet 05/26/20 Unknown Rx Ondansetron [Zofran Odt] 4 mg PO Q8HR PRN #20 tab.rapdis 05/26/20 Unknown Rx ED Physical Exam - General Limitations: No Limitations General appearance: alert, in no apparent distress - Head Head exam: Present: atraumatic, normocephalic - Eye Eye exam: Present: normal appearance, EOMI - ENT ENT exam: Present: mucous membranes moist - Neck Neck exam: Present: normal inspection - Respiratory Respiratory exam: Present: normal lung sounds bilaterally. Absent: respiratory distress - Cardiovascular Cardiovascular Exam: Present: regular rate, normal rhythm - GI/Abdominal GI/Abdominal exam: Present: soft, tenderness (mild diffuse). Absent: distended - Extremities Exam Extremities exam: Present: normal inspection - Neurological Exam Neurological exam: Present: alert, oriented X3 - Psychiatric Psychiatric exam: Present: normal affect, normal mood - Skin Skin exam: Present: warm, dry, intact, normal color ED Course Vital Signs 05/26/20 05/26/20 14:20 18:56 Temperature 97.5 F L Pulse Rate 64 64 Respiratory 18 22 Rate Blood Pressure 108/64 Blood Pressure 150/79 [Left] O2 Sat by Pulse 97 98 Oximetry ED Medical Decision Making - Lab Data Result diagrams: 05/26/20 14:57 05/26/20 14:57 - Radiology Data Radiology results: report reviewed, image reviewed - Medical Decision Making Patient presents to ED with complaint of abdominal pain x1 year. He also r eports some chronic diarrhea as well. Labs unremarkable. CT scan shows no acute findings. Patient advised to follow-up with GI on an outpatient basis. Patient will be discharged at this time, return precautions given. - Differential Diagnosis Bowel obstruction, diverticulitis, gastritis Critical care attestation.: If time is entered above; I have spent that time in minutes in the direct care of this critically ill patient, excluding procedure time. ED Disposition Clinical Impression: Abdominal pain Disposition: DC-01 TO HOME OR SELFCARE Is pt being admited?: No Condition: Stable Instructions: Abdominal Pain, Adult, [id number] Prescriptions: Dicyclomine [Bentyl] 20 mg PO QID PRN #20 tablet PRN Reason: abdominal pain Ondansetron [Zofran Odt] 4 mg PO Q8HR PRN #20 tab.rapdis PRN Reason: Vomiting Referrals: PRIMARY CARE,MD [Primary Care Provider] - 3-5 Days [facility] [Provider Group] - 3-5 Days Time of Disposition: 18:48
--- NOTE | 2020-05-26 18:41 | Cat Scan Report ---
CT abdomen pelvis wo con INDICATION: abd pain. COMPARISON: MRI abdomen 05/10/2018, CT abdomen 05/07/2018, CT abdomen 04/20/2020. TECHNIQUE: Abdominal and pelvic CT exam performed. All CT scans at this location are performed using CT dose reduction for ALARA by means of automated exposure control. FINDINGS: CT ABDOMEN and PELVIS: Lung Bases: No significant abnormality. Liver: Hypoattenuating known large left hepatic lesion is similar to prior exam. Biliary: Gallbladder is surgically absent. Spleen: Spleen is significantly enlarged which is unchanged. Pancreas: No significant abnormality. Adrenals: No significant abnormality. Kidneys: No significant abnormality. Lymphatics: No lymphadenopathy. Vasculature: Atherosclerotic but nonaneurysmal abdominal aorta. Bowel: Moderate sized left inguinal hernia containing the sigmoid colon. No proximal obstruction. Pelvis: 2.5 cm left bladder diverticulum. 1. Osseous Structures: No aggressive osseous lesion. Additional Findings: Remote left ninth healed rib fracture. IMPRESSION: 1. No acute abnormality of the abdomen or pelvis. 2. Unchanged large left hepatic lesion. 3. Unchanged splenomegaly. 4. Unchanged large bowel containing moderate-sized left inguinal hernia without complicating features . Signer Name: Michael Choudhury MD Signed: 05/26/2020 6:37 PM Workstation Name: [id number]
[2020-05-26] MEDS ORDERED: ALUM-MAG HYDROXIDE-SIMETHICONE 200-200-20MG/5ML ORAL LIQD 30 ML PO ONE (18:47)
[2020-05-26] MEDS ORDERED: LIDOCAINE VISCOUS 2% 15 ML ORAL LIQD PO ONE (18:47)
[2020-05-26 18:57] VITALS: BP 150/79
== END 2020-05-26 19:12 | disposition home or self-care (01) ==
LOC: ED 14:11
DX: R10.84 Generalized abdominal pain (principal); R11.2 Nausea with vomiting, unspecified; R19.7 Diarrhea, unspecified; I50.9 Heart failure, unspecified; I11.0 Hypertensive heart disease with heart failure; E11.9 Type 2 diabetes mellitus without complications; J45.909 Unspecified asthma, uncomplicated; Z90.49 Acquired absence of other specified parts of digestive tract; Z90.89 Acquired absence of other organs; Z79.899 Other long term (current) drug therapy; Z88.1 Allergy status to other antibiotic agents
CPT/HCPCS: 36415; 74019; 74176; 80053; 81001; 83690; 85025

== ENCOUNTER 2020-08-06 02:29 | Emergency (ER) | payer MEDICARE ==
[2020-08-06 03:14] LABS: Basophils % (Auto) 0.7 % (0.0-1.8); Eosinophils # (Auto) 0.3 K/mm3 (0.0-0.4); Eosinophils % (Auto) 5.2 % (0.0-4.3); Hematocrit 41.1 % (35.5-45.6); Hemoglobin 13.7 gm/dl (11.8-15.2); Lymphocytes # (Auto) 0.8 K/mm3 (1.2-5.4); Lymphocytes % (Auto) 16.4 % (13.4-35.0); Mean Corpuscular HGB Conc 33 % (32-34); Mean Corpuscular Volume 89 fl (84-94); Monocytes # (Auto) 0.3 K/mm3 (0.0-0.8); Monocytes % (Auto) 6.7 % (0.0-7.3); Red Blood Count 4.65 M/mm3 (3.65-5.03); Red Cell Distribution Width 14.1 % (13.2-15.2)
[2020-08-06 03:29] LABS: Platelet Count 88 K/mm3 (140-440)
[2020-08-06 03:34] LABS: Alanine Aminotransferase 16 units/L (7-56); Albumin 4.3 g/dL (3.9-5); BUN/Creatinine Ratio 22; Blood Urea Nitrogen 24 mg/dL (9-20); Calcium 9.3 mg/dL (8.4-10.2); Hemolysis Index 8
--- NOTE | 2020-08-06 08:52 | Emergency Department Report ---
HPI - General Chief Complaint: Nausea/Vomiting/Diarrhea Time Seen by Provider: 08/06/20 08:18 - HPI HPI: Room 3 The patient is a 70-year-old male present with a chief complaint of abdominal pain and diarrhea. The patient states for several months he has had diarrhea. The patient states when he eats food it "goes straight through" and he has diarrhea. Patient states his symptoms worsen today. Patient complains of diffuse abdominal pain which he states he has had for years. Patient denies any recent antibiotic use. Patient admits to nausea and vomiting in addition to the diarrhea ED Past Medical Hx - Past Medical History Previous Medical History?: Yes Hx Hypertension: Yes Hx Congestive Heart Failure: Yes Hx Diabetes: Yes Hx Asthma: Yes Additional medical history: hepatitis C. "bad circulation" chronic bilateral lower extremity wounds. unbillical hernia. inguinial hernia - Surgical History Past Surgical History?: Yes Hx Cholecystectomy: Yes Additional Surgical History: tonsillectomy - Family History Family history: no significant - Social History Smoking Status: Never Smoker Substance Use Type: None (Denies illicit drug use) - Medications Home Medications: Home Medications Medication Instructions Recorded Confirmed Last Taken Type Aspirin EC [Ecotrin] 325 mg PO QDAY #30 tablet 04/22/20 Unknown Rx AtorvaSTATin [Lipitor] 40 mg PO QHS #30 tablet 04/22/20 Unknown Rx Folic Acid 1 mg PO DAILY #30 tablet 05/08/20 Unknown Rx Thiamine [Vitamin B-1] 100 mg PO QDAY #30 tablet 05/08/20 Unknown Rx Famotidine [Pepcid] 20 mg PO BID #30 tablet 05/15/20 Unknown Rx Metoprolol [Lopressor TAB] 12.5 mg PO BID #60 tablet 05/15/20 Unknown Rx levETIRAcetam [Keppra TAB] 500 mg PO BID #60 tablet 05/15/20 Unknown Rx Dicyclomine [Bentyl] 20 mg PO QID PRN #20 tablet 05/26/20 Unknown Rx Ondansetron [Zofran Odt] 4 mg PO Q8HR PRN #20 tab.rapdis 05/26/20 Unknown Rx Diphenoxylate/Atropine [Lomotil] 2 tab PO QID PRN #20 tablet 08/06/20 Unknown Rx HYDROcodone/APAP 5-325 [Sanders 1 - 2 each PO Q6HR PRN #10 tablet 08/06/20 Unknown Rx 5/325] metroNIDAZOLE [Flagyl] 500 mg PO Q8HR #21 tablet 08/06/20 Unknown Rx ED Review of Systems ROS: Stated complaint: DIARHEA Other details as noted in HPI Constitutional: no symptoms reported Eyes: denies: eye pain ENT: denies: throat pain Respiratory: no symptoms reported Endocrine: no symptoms reported Gastrointestinal: abdominal pain, nausea, vomiting, diarrhea Musculoskeletal: denies: back pain Neurological: denies: headache Physical Exam - Physical Exam Vital Signs: Vital Signs 08/06/20 02:37 Temperature 97.5 F L Pulse Rate 61 Respiratory 18 Rate Blood Pressure 133/103 O2 Sat by Pulse 100 Oximetry ED Course Vital Signs 08/06/20 02:37 Temperature 97.5 F L Pulse Rate 61 Respiratory 18 Rate Blood Pressure 133/103 O2 Sat by Pulse 100 Oximetry ED Medical Decision Making - Lab Data Result diagrams: 08/06/20 02:56 08/06/20 02:56 Laboratory Tests 08/06/20 08/06/20 08/06/20 02:56 02:56 Unknown WBC 4.9 RBC 4.65 Hgb 13.7 Hct 41.1 MCV 89 MCH 29 MCHC 33 RDW 14.1 Plt Count 88 L Lymph % (Auto) 16.4 [place] % (Auto) 6.7 Eos % (Auto) 5.2 H Baso % (Auto) 0.7 Lymph # (Auto) 0.8 L [place] # (Auto) 0.3 Eos # (Auto) 0.3 Baso # (Auto) 0.0 Seg Neutrophils % 71.0 H Seg Neutrophils # 3.5 Sodium 142 Potassium 4.3 Chloride 104.8 Carbon Dioxide 28 Anion Gap 14 BUN 24 H Creatinine 1.1 Estimated GFR > 60 BUN/Creatinine Ratio 22 Glucose 85 Calcium 9.3 Total Bilirubin 0.60 AST 23 ALT 16 Alkaline Phosphatase 74 Total Protein 6.9 Albumin 4.3 Albumin/Globulin Ratio 1.7 Lipase 38 Urine Color Yellow Urine Turbidity Clear Urine pH 5.0 Ur Specific [place] 1.021 Urine Protein <15 mg/dl Urine Glucose (UA) Neg Urine Ketones Neg Urine Blood Neg Urine Nitrite Neg Urine Bilirubin Neg Urine Urobilinogen < 2.0 Ur Leukocyte Esterase Neg Urine WBC (Auto) 1.0 Urine RBC (Auto) 1.0 Urine Mucus Few - Radiology Data Radiology results: report reviewed (CT abdomen pelvis), image reviewed (CT abdomen pelvis) [facility] [address] [place] [address] Cat Scan Report Signed Patient: NATHANIEL CASTANEDA MR#: [id number] : 1950 Acct:[id number] Age/Sex: 70 / M ADM Date: 08/06/20 Loc: ED Attending Dr: Ordering Physician: NEETU JEFF MD Date of Service: 08/06/20 Procedure(s): CT abdomen pelvis w con Accession Number(s): [id number] cc: NEETU JEFF MD CT ABDOMEN AND PELVIS WITH CONTRAST INDICATION / CLINICAL INFORMATION: MAIN. TECHNIQUE: Axial CT images were obtained through the abdomen and pelvis after IV contrast. All CT scans at this location are performed using CT dose reduction for ALARA by means of automated exposure control. COMPARISON: CT abdomen pelvis dated 05/26/2020. FINDINGS: LOWER CHEST: No significant abnormality. Coronary artery calcifications are present LIVER: Complex lesion involving left lower liver again noted with heterogeneous enhancement measuring 4.5 x 4.1 cm GALLBLADDER: Removed. BILE DUCTS: No significant abnormality. PANCREAS: No significant abnormality. SPLEEN: Persistent splenomegaly ADRENALS: No significant abnormality. RIGHT KIDNEY and URETER: No significant abnormality. LEFT KIDNEY and URETER: No significant abnormality. STOMACH and SMALL BOWEL: Extensive gastric and esophageal varices are present. COLON: Left inguinal hernia with gastrointestinal contents present.. APPENDIX: No significant abnormality. PERITONEUM: No free fluid. No free air. No fluid collection. LYMPH NODES: No significant adenopathy. AORTA and ARTERIES: Calcified atherosclerotic plaque abdominal aorta with ectatic changes IVC and VEINS: No significant abnormality. URINARY BLADDER: No significant abnormality. REPRODUCTIVE ORGANS: No significant abnormality. ADDITIONAL FINDINGS: None. SKELETAL SYSTEM: No significant abnormality. IMPRESSION: 1. Persistent hepatic lesion most consistent with cavernous hemangioma unchanged from previous exam 2. Extensive gastric and esophageal varices 3. Splenomegaly 4. Left inguinal hernia with herniation of colon 5. Ectatic abdominal aorta Signer Name: Ramon Fernandez MD Signed: 08/06/2020 10:08 AM Workstation Name: [id number] Transcribed By: WG Dictated By: Ramon Fernandez MD Electronically Authenticated By: Ramon Fernandez MD Signed Date/Time: 08/06/20 1008 DD/ [id number] TD/TT: Print Cancel - Differential Diagnosis Enteritis, colitis, obstruction Critical care attestation.: If time is entered above; I have spent that time in minutes in the direct care of this critically ill patient, excluding procedure time. ED Disposition Clinical Impression: Diarrhea, Reducible left inguinal hernia, Abdominal pain Disposition: TO HOME OR SELFCARE Is pt being admited?: No Does the pt Need Aspirin: No Condition: Stable Additional Instructions: Return to the emergency department should you develop worsening symptoms, inability to tolerate food or liquids, high fever or any other concerns Prescriptions: metroNIDAZOLE [Flagyl] 500 mg PO Q8HR #21 tablet Diphenoxylate/Atropine [Lomotil] 2 tab PO QID PRN #20 tablet PRN Reason: Diarrhea HYDROcodone/APAP 5-325 [Sanders 5/325] 1 - 2 each PO Q6HR PRN #10 tablet PRN Reason: Pain Referrals: PRIMARY CARE, [Primary Care Provider] - 3-5 Days LETHA CASTANEDA MD [Staff Physician] - 3-5 Days (Dr. Castaneda is a sausage cooker. Please follow-up with him for further evaluation) MARSHALL KIDD MD [Staff Physician] - 3-5 Days (Dr. Kidd is a surgeon. Please follow-up with him for further evaluation of your left inguinal hernia) Time of Disposition: 11:53
--- NOTE | 2020-08-06 10:12 | Cat Scan Report ---
CT ABDOMEN AND PELVIS WITH CONTRAST INDICATION / CLINICAL INFORMATION: MAIN. TECHNIQUE: Axial CT images were obtained through the abdomen and pelvis after IV contrast. All CT scans at this location are performed using CT dose reduction for ALARA by means of automated exposure control. COMPARISON: CT abdomen pelvis dated 05/26/2020. FINDINGS: LOWER CHEST: No significant abnormality. Coronary artery calcifications are present LIVER: Complex lesion involving left lower liver again noted with heterogeneous enhancement measuring 4.5 x 4.1 cm GALLBLADDER: Removed. BILE DUCTS: No significant abnormality. PANCREAS: No significant abnormality. SPLEEN: Persistent splenomegaly ADRENALS: No significant abnormality. RIGHT KIDNEY and URETER: No significant abnormality. LEFT KIDNEY and URETER: No significant abnormality. STOMACH and SMALL BOWEL: Extensive gastric and esophageal varices are present. COLON: Left inguinal hernia with gastrointestinal contents present.. APPENDIX: No significant abnormality. PERITONEUM: No free fluid. No free air. No fluid collection. LYMPH NODES: No significant adenopathy. AORTA and ARTERIES: Calcified atherosclerotic plaque abdominal aorta with ectatic changes IVC and VEINS: No significant abnormality. URINARY BLADDER: No significant abnormality. REPRODUCTIVE ORGANS: No significant abnormality. ADDITIONAL FINDINGS: None. SKELETAL SYSTEM: No significant abnormality. IMPRESSION: 1. Persistent hepatic lesion most consistent with cavernous hemangioma unchanged from previous exam 2. Extensive gastric and esophageal varices 3. Splenomegaly 4. Left inguinal hernia with herniation of colon 5. Ectatic abdominal aorta Signer Name: Ramon Fernandez MD Signed: 08/06/2020 10:08 AM Workstation Name: [id number]
[2020-08-06 10:41] LABS: Bilirubin,Urine NEG (Negative); Blood,Urine NEG (Negative); Color,Urine Yellow (Yellow); Mucus,Urine FEW /HPF; Protein,Urine <15 mg/dL mg/dL (Negative); Urobilinogen,Urine < 2.0 mg/dL (<2.0)
[2020-08-06 12:29] VITALS: BP 105/44
== END 2020-08-06 13:15 | disposition home or self-care (01) ==
LOC: ED 02:29
DX: K40.90 Unilateral inguinal hernia, without obstruction or gangrene, not specified as recurrent (principal); R10.84 Generalized abdominal pain; R19.7 Diarrhea, unspecified; I11.0 Hypertensive heart disease with heart failure; I50.9 Heart failure, unspecified; E11.9 Type 2 diabetes mellitus without complications; J45.909 Unspecified asthma, uncomplicated; Z90.49 Acquired absence of other specified parts of digestive tract; Z90.89 Acquired absence of other organs; Z79.899 Other long term (current) drug therapy; Z88.8 Allergy status to other drugs, medicaments and biological substances
CPT/HCPCS: 36415; 74177; 80053; 81001; 83690; 85007; 85025; 87045; 99285; Q9967

== ENCOUNTER 2020-09-09 17:09 | Emergency (ER) | payer MEDICARE ==
--- NOTE | 2020-09-09 21:38 | XRay Report ---
CHEST 1 VIEW 09/09/2020 8:30 PM INDICATION / CLINICAL INFORMATION: WEAKNESS. COMPARISON: 05/08/2020. FINDINGS: SUPPORT DEVICES: None. HEART / MEDIASTINUM: Stable. LUNGS / PLEURA: Chronic interstitial changes are again seen. No focal airspace opacification is ident ified. No pneumothorax. ADDITIONAL FINDINGS: No significant additional findings. IMPRESSION: No acute cardiopulmonary abnormality. Chronic interstitial changes. Signer Name: Sharif Mosqueda MD Signed: 09/09/2020 9:34 PM Workstation Name: [id number]
--- NOTE | 2020-09-09 21:57 | Emergency Department Report ---
ED Psych HPI - General Chief Complaint: Abdominal Pain Stated Complaint: ABD PAIN Time Seen by Provider: 09/09/20 21:35 Source: patient, EMS Mode of arrival: Stretcher Limitations: Altered Mental Status - History of Present Illness Initial Comments: Patient is a 70-year-old male who presents emergency room for abdominal pain and unable to walk. Patient ambulatory in the hallways in the fast track area. Patient states that he is chasing after a dog. Patient states that he would like to go to his apartment in [place]. Patient states that he is down the street from [place]. Patient moved from the close psychiatric area. Patient states that he is seeing people trying to shoot him. Patient states is not having any abdominal pain. Patient states that he cannot walk but the patient is walking down the hallway. Patient denies recent travel. Patient denies recent international travel. Patient denies exposure to the novel coronavirus. Patient denies sick contacts. Patient denies fever and chills. Patient denies cough. Patient denies diarrhea. Patient denies coming in contact with anybody with symptoms of the novel coronavirus. MD Complaint: altered mental status -: Sudden History of same: No - Related Data Previous Rx's Medication Instructions Recorded Last Taken Type Aspirin EC [Ecotrin] 325 mg PO QDAY #30 tablet 04/22/20 Unknown Rx Aspirin EC [Ecotrin] 325 mg PO QDAY #30 tablet 09/22/20 Unknown Rx AtorvaSTATin [Lipitor] 40 mg PO QHS #30 tablet 09/22/20 Unknown Rx Dicyclomine [Bentyl] 20 mg PO QID PRN #20 tablet 09/22/20 Unknown Rx Diphenoxylate/Atropine [Lomotil] 2 tab PO QID PRN #20 tablet 09/22/20 Unknown Rx Famotidine [Pepcid] 20 mg PO BID #30 tablet 09/22/20 Unknown Rx Folic Acid 1 mg PO DAILY #30 tablet 09/22/20 Unknown Rx Metoprolol [Lopressor TAB] 12.5 mg PO BID #60 tablet 09/22/20 Unknown Rx Ondansetron [Zofran ODT TAB] 4 mg PO Q8HR PRN #20 tab.rapdis 09/22/20 Unknown Rx Thiamine [Vitamin B-1] 100 mg PO QDAY #30 tablet 09/22/20 Unknown Rx levETIRAcetam [Keppra TAB] 500 mg PO BID #60 tablet 09/22/20 Unknown Rx Allergies Allergy/AdvReac Type Severity Reaction Status Date / Time ciprofloxacin [From Cipro] Allergy Dizziness Verified 08/06/20 08:56 ciprofloxacin HCl Allergy Dizziness Verified 08/06/20 08:56 [From Cipro] ED Review of Systems ROS: Stated complaint: ABD PAIN Other details as noted in HPI Comment: Unobtainable due to pts medical conditions ED Past Medical Hx - Past Medical History Previous Medical History?: Yes Hx Hypertension: Yes Hx Heart Attack/AMI: No Hx Congestive Heart Failure: Yes Hx Diabetes: Yes Hx Deep Vein Thrombosis: No Hx Pulmonary Embolism: No Hx Liver Disease: No Hx Renal Disease: No Hx Sickle Cell Disease: No Hx Arthritis: No Hx Seizures: No Hx Kidney Stones: No Hx Asthma: Yes Hx COPD: No Hx Tuberculosis: No Hx Dementia: No Hx HIV: No Additional medical history: hepatitis C. "bad circulation" chronic bilateral lower extremity wounds. unbillical hernia. inguinial hernia - Surgical History Past Surgical History?: Yes Hx Coronary Stent: No Hx Pacemaker: No Hx Internal Defibrillator: No Hx Cholecystectomy: Yes Additional Surgical History: tonsillectomy - Family History Family history: no significant - Social History Smoking Status: Never Smoker Substance Use Type: None - Medications Home Medications: Home Medications Medication Instructions Recorded Confirmed Last Taken Type Aspirin EC [Ecotrin] 325 mg PO QDAY #30 tablet 04/22/20 Unknown Rx Aspirin EC [Ecotrin] 325 mg PO QDAY #30 tablet 09/22/20 Unknown Rx AtorvaSTATin [Lipitor] 40 mg PO QHS #30 tablet 09/22/20 Unknown Rx Dicyclomine [Bentyl] 20 mg PO QID PRN #20 tablet 09/22/20 Unknown Rx Diphenoxylate/Atropine [Lomotil] 2 tab PO QID PRN #20 tablet 09/22/20 Unknown Rx Famotidine [Pepcid] 20 mg PO BID #30 tablet 09/22/20 Unknown Rx Folic Acid 1 mg PO DAILY #30 tablet 09/22/20 Unknown Rx Metoprolol [Lopressor TAB] 12.5 mg PO BID #60 tablet 09/22/20 Unknown Rx Ondansetron [Zofran ODT TAB] 4 mg PO Q8HR PRN #20 tab.rapdis 09/22/20 Unknown Rx Thiamine [Vitamin B-1] 100 mg PO QDAY #30 tablet 09/22/20 Unknown Rx levETIRAcetam [Keppra TAB] 500 mg PO BID #60 tablet 09/22/20 Unknown Rx ED Physical Exam - General Limitations: No Limitations General appearance: alert, in no apparent distress - Head Head exam: Present: atraumatic, normocephalic - Eye Eye exam: Present: normal appearance - ENT ENT exam: Present: mucous membranes moist - Neck Neck exam: Present: normal inspection - Respiratory Respiratory exam: Present: normal lung sounds bilaterally. Absent: respiratory distress, chest wall tenderness, accessory muscle use, decreased breath sounds - Cardiovascular Cardiovascular Exam: Present: regular rate, normal rhythm. Absent: systolic murmur, diastolic murmur, rubs, gallop - GI/Abdominal GI/Abdominal exam: Present: soft, normal bowel sounds. Absent: distended, tenderness, guarding - Rectal Rectal exam: Present: deferred - Extremities Exam Extremities exam: Present: normal inspection, full ROM, normal capillary refill. Absent: tenderness, pedal edema, joint swelling, calf tenderness - Back Exam Back exam: Present: normal inspection, full ROM - Neurological Exam Neurological exam: Present: alert, altered, CN II-XII intact, normal gait - Psychiatric Psychiatric exam: Present: agitated - Expanded Psychiatric Exam Expanded Focused psych exam: Present: pressured speech, internal stimuli, psychomotor agitation, restlessness - Skin Skin exam: Present: warm, dry, intact, normal color. Absent: rash ED Course Vital Signs 09/09/20 09/09/20 09/10/20 18:57 22:50 01:48 Temperature 98.8 F 97.6 F 98 F Pulse Rate 66 67 60 Respiratory 18 18 18 Rate Blood Pressure 125/49 Blood Pressure 123/63 119/60 [Right] O2 Sat by Pulse 97 99 97 Oximetry 09/10/20 09/10/20 09/11/20 07:28 19:47 07:51 Temperature 98.0 F 97.9 F 97.6 F Pulse Rate 74 78 60 Respiratory 20 18 18 Rate Blood Pressure Blood Pressure 114/53 134/70 109/70 [Right] O2 Sat by Pulse 100 97 100 Oximetry 09/11/20 09/12/20 09/12/20 20:00 01:55 20:00 Temperature 98.4 F 98.0 F Pulse Rate 114 H 93 H Respiratory 18 18 18 Rate Blood Pressure Blood Pressure 132/74 156/76 [Right] O2 Sat by Pulse 98 95 Oximetry 09/12/20 09/13/20 09/13/20 20:09 02:23 20:22 Temperature 98.0 F 97.9 F 97.8 F Pulse Rate 89 56 L 78 Respiratory 18 16 18 Rate Blood Pressure Blood Pressure 117/70 127/59 107/61 [Right] O2 Sat by Pulse 97 96 98 Oximetry 09/13/20 09/14/20 09/14/20 21:36 08:09 20:03 Temperature 98.0 F 98.5 F Pulse Rate 68 73 Respiratory 18 18 16 Rate Blood Pressure Blood Pressure 101/56 98/60 [Right] O2 Sat by Pulse 97 98 Oximetry 09/14/20 09/15/20 09/15/20 20:06 02:23 08:00 Temperature 98.0 F 96.9 F L Pulse Rate 85 83 Respiratory 18 18 20 Rate Blood Pressure Blood Pressure 143/92 132/83 [Right] O2 Sat by Pulse 98 97 96 Oximetry 09/15/20 09/15/20 09/16/20 20:00 22:02 01:00 Temperature 97.9 F 97.9 F Pulse Rate 90 88 Respiratory 20 18 16 Rate Blood Pressure Blood Pressure 127/79 129/70 [Right] O2 Sat by Pulse 95 95 96 Oximetry 09/16/20 09/16/20 09/17/20 11:26 19:53 02:00 Temperature 98.3 F 98 F 98.2 F Pulse Rate 74 96 H 92 H Respiratory 18 18 19 Rate Blood Pressure Blood Pressure 119/59 95/63 110/62 [Right] O2 Sat by Pulse 97 98 Oximetry 09/17/20 09/17/20 09/18/20 10:02 19:50 02:56 Temperature 98.8 F 98.5 F 98.2 F Pulse Rate 92 H 76 73 Respiratory 20 19 16 Rate Blood Pressure Blood Pressure 116/61 112/59 132/68 [Right] O2 Sat by Pulse 97 99 99 Oximetry 09/18/20 09/18/20 09/18/20 07:54 11:37 19:52 Temperature 97.9 F Pulse Rate 87 87 Respiratory 18 18 Rate Blood Pressure 106/61 Blood Pressure 106/61 [Right] O2 Sat by Pulse 100 100 Oximetry 09/18/20 09/19/20 09/19/20 20:18 02:00 09:06 Temperature 97.7 F 97.9 F 98.6 F Pulse Rate 74 72 68 Respiratory 18 18 18 Rate Blood Pressure Blood Pressure 127/58 118/60 140/58 [Right] O2 Sat by Pulse 99 98 98 Oximetry 09/19/20 09/19/20 09/19/20 09:59 20:13 21:47 Temperature 97.5 F L Pulse Rate 68 68 67 Respiratory 16 Rate Blood Pressure 140/58 113/45 Blood Pressure 125/62 [Right] O2 Sat by Pulse 97 Oximetry 09/20/20 09/20/20 09/20/20 02:00 08:24 19:29 Temperature 97.7 F 97.8 F Pulse Rate 68 70 Respiratory 16 18 18 Rate Blood Pressure Blood Pressure 138/63 128/64 [Right] O2 Sat by Pulse 97 100 98 Oximetry 09/20/20 09/20/20 09/20/20 20:00 22:00 22:09 Temperature 98.0 F Pulse Rate 70 83 83 Respiratory 20 16 Rate Blood Pressure 105/63 Blood Pressure 117/53 105/63 [Right] O2 Sat by Pulse 99 97 Oximetry 09/21/20 09/21/20 09/21/20 01:30 08:04 10:25 Temperature 98.2 F 97.6 F Pulse Rate 76 84 72 Respiratory 20 18 Rate Blood Pressure 148/70 128/72 Blood Pressure 130/60 [Right] O2 Sat by Pulse 96 100 Oximetry 09/21/20 09/21/20 09/22/20 19:55 22:20 01:50 Temperature 97.8 F 97.9 F Pulse Rate 69 74 71 Respiratory 18 16 Rate Blood Pressure 132/62 Blood Pressure 112/43 122/61 [Right] O2 Sat by Pulse 97 97 Oximetry 09/22/20 09/22/20 09/22/20 09:27 20:25 22:06 Temperature 97.7 F Pulse Rate 79 78 78 Respiratory 16 Rate Blood Pressure 100/60 Blood Pressure 124/69 101/60 [Right] O2 Sat by Pulse 97 97 Oximetry - Reevaluation(s) Reevaluation #1: Patient placed on a 1013. Patient placed in a seclusion room. Seclusion order placed. Patient will be given Geodon. 05/19/21 21:45 Reevaluation #2: Patient is medically cleared. Patient's final disposition will come from our psychiatry mental health team. Patient will remain in the ER as an ER hold and a 1013 until patient is cleared by psychiatry team. 09/10/20 01:17 ED Medical Decision Making - Lab Data Result diagrams: 09/09/20 22:40 09/09/20 22:40 - Radiology Data Radiology results: report reviewed, image reviewed interpreted by me: Chest x-ray: No pneumonia, no pneumothorax, no foreign body, no osseous findings, no acute findings CT HEAD WITHOUT CONTRAST INDICATION : Altered Mental Status. TECHNIQUE: Axial, coronal and sagittal CT imaging was performed from the skull apex through the skull base without contrast. All CT scans at this location are performed using CT dose reduction for ALARA by means of automated exposure control. COMPARISON: CT head without contrast from 04/20/2020. FINDINGS: PARENCHYMA: No mass, midline shift, hemorrhage, extraaxial collection or acute territorial infarction. There is similar age-appropriate generalized atrophy. Chronic microvascular ischemic changes along the periventricular white matter are unchanged. There is an unchanged chronic right basal ganglial lacunar infarct. VENTRICLES: Symmetric and normal in size. SOFT TISSUES: No significant abnormality of the included soft tissues/orbits. BONES: No acute osseous abnormality. SINUSES: No significant abnormality. ADDITIONAL FINDINGS: None. IMPRESSION: No acute intracranial abnormality. No significant interval changes. CHEST 1 VIEW 09/09/2020 8:30 PM INDICATION / CLINICAL INFORMATION: WEAKNESS. COMPARISON: 05/08/2020. FINDINGS: SUPPORT DEVICES: None. HEART / MEDIASTINUM: Stable. LUNGS / PLEURA: Chronic interstitial changes are again seen. No focal airspace opacification is identified. No pneumothorax. ADDITIONAL FINDINGS: No significant additional findings. IMPRESSION: No acute cardiopulmonary abnormality. Chronic interstitial changes. - Medical Decision Making Patient is a 70-year-old male presents emergency room with acute psychosis and multiple complaints. Patient exam was negative. Patient patient initially complained of abdominal pain. Patient denied abdominal pain to me. Patient complained of another state and seeing people in his room. Patient had hallucinations. Patient had symptoms of psychosis however a medical clearance was done. Patient had labs done which were essentially unremarkable. Patient had a CT done of the head which was negative for acute finding. Patient had a chest x-ray which was negative for acute finding. I personally reviewed the chest x-ray. Patient is medically cleared. Patient will remain in the ER as an ER hold and on 101 until patient is cleared by ER psychiatry team. - Differential Diagnosis Altered mental status, acute psychosis, hallucinations, Critical care attestation.: If time is entered above; I have spent that time in minutes in the direct care of this critically ill patient, excluding procedure time. ED Disposition Clinical Impression: Acute psychosis Altered mental status Qualifiers: Altered mental status type: unspecified Qualified Code(s): R41.82 - Altered mental status, unspecified Disposition: [id number]/TX-65 PSY HOSP/PSY UNIT Is pt being admited?: No Does the pt Need Aspirin: No Condition: Stable Prescriptions: AtorvaSTATin [Lipitor] 40 mg PO QHS #30 tablet Dicyclomine [Bentyl] 20 mg PO QID PRN #20 tablet PRN Reason: abdominal pain Aspirin EC [Ecotrin] 325 mg PO QDAY #30 tablet Folic Acid 1 mg PO DAILY #30 tablet levETIRAcetam [Keppra TAB] 500 mg PO BID #60 tablet Diphenoxylate/Atropine [Lomotil] 2 tab PO QID PRN #20 tablet PRN Reason: Diarrhea Metoprolol [Lopressor TAB] 12.5 mg PO BID #60 tablet Famotidine [Pepcid] 20 mg PO BID #30 tablet Thiamine [Vitamin B-1] 100 mg PO QDAY #30 tablet Ondansetron [Zofran ODT TAB] 4 mg PO Q8HR PRN #20 tab.rapdis PRN Reason: Vomiting Referrals: PRIMARY CARE,MD [Primary Care Provider] - 3-5 Days Time of Disposition: 01:22
[2020-09-09] MEDS ORDERED: ZIPRASIDONE MESYLATE 20 MG VIAL IM ONE (22:11)
[2020-09-09 23:03] LABS: Basophils % (Auto) 0.6 % (0.0-1.8); Eosinophils # (Auto) 0.2 K/mm3 (0.0-0.4); Eosinophils % (Auto) 6.1 % (0.0-4.3); Hematocrit 40.2 % (35.5-45.6); Hemoglobin 13.4 gm/dl (11.8-15.2); Lymphocytes # (Auto) 0.6 K/mm3 (1.2-5.4); Lymphocytes % (Auto) 18.4 % (13.4-35.0); Mean Corpuscular HGB Conc 33 % (32-34); Mean Corpuscular Volume 92 fl (84-94); Monocytes # (Auto) 0.2 K/mm3 (0.0-0.8); Monocytes % (Auto) 5.5 % (0.0-7.3); Red Blood Count 4.38 M/mm3 (3.65-5.03)
[2020-09-09 23:05] LABS: Platelet Count 57 K/mm3 (140-440)
[2020-09-09 23:10] LABS: Alanine Aminotransferase 16 units/L (7-56); Albumin 4.3 g/dL (3.9-5); BUN/Creatinine Ratio 20; Blood Urea Nitrogen 16 mg/dL (9-20); Calcium 9.9 mg/dL (8.4-10.2); Hemolysis Index 9
[2020-09-10 00:24] LABS: Bacteria,Urine 1+ /HPF (Negative); Bilirubin,Urine NEG (Negative); Blood,Urine NEG (Negative); Color,Urine Straw (Yellow); Protein,Urine <15 mg/dL mg/dL (Negative); Urobilinogen,Urine < 2.0 mg/dL (<2.0)
[2020-09-10 00:30] LABS: Amphetamine Screen,Urine PRESUMPTIVE NEGATIVE; Benzodiazepines Screen,Urine PRESUMPTIVE NEGATIVE; Cannabinoid Screen,Urine PRESUMPTIVE NEGATIVE; Cocaine Screen,Urine PRESUMPTIVE NEGATIVE; Methadone Screen,Urine PRESUMPTIVE NEGATIVE; Opiate Screen,Urine PRESUMPTIVE NEGATIVE
--- NOTE | 2020-09-10 00:54 | Cat Scan Report ---
CT HEAD WITHOUT CONTRAST INDICATION : Altered Mental Status. TECHNIQUE: Axial, coronal and sagittal CT imaging was performed from the skull apex through the skul l base without contrast. All CT scans at this location are performed using CT dose reduction for ALA RA by means of automated exposure control. COMPARISON: CT head without contrast from 04/20/2020. FINDINGS: PARENCHYMA: No mass, midline shift, hemorrhage, extraaxial collection or acute territorial infarctio n. There is similar age-appropriate generalized atrophy. Chronic microvascular ischemic changes maria eugenia g the periventricular white matter are unchanged. There is an unchanged chronic right basal ganglial lacunar infarct. VENTRICLES: Symmetric and normal in size. SOFT TISSUES: No significant abnormality of the included soft tissues/orbits. BONES: No acute osseous abnormality. SINUSES: No significant abnormality. ADDITIONAL FINDINGS: None. IMPRESSION: No acute intracranial abnormality. No significant interval changes. Signer Name: Kojo Naidu MD Signed: 09/10/2020 12:50 AM Workstation Name: [id number]
--- NOTE | 2020-09-10 11:43 | Consultation ---
History of Present Illness - Reason for Consult Consult date: 09/10/20 Reason for consult: MHE Requesting physician: KEVIN CARRILLO III - History of Present Psychiatric Illness Per ED Provider: Patient is a 70-year-old male who presents emergency room for abdominal pain and unable to walk. Patient ambulatory in the hallways in the fast track area. Patient states that he is chasing after a dog. Patient states that he would like to go to his apartment in [place]. Patient states that he is down the street from [place]. Patient moved from the close psychiatric area. Patient states that he is seeing people trying to shoot him. Patient states is not having any abdominal pain. Patient states that he cannot walk but the patient is walking down the hallway. Psych HPI Patient is a 70-year-old unemployed single male who has past medical history of liver cirrhosis status post hepatitis C, multiple visit for dehydration, AAA, bowel obstruction and metabolic encephalopathy diagnoses on prior multiple visits presented to the ED with complaints of abdominal pain, and unable to walk and subsequent mental evaluation placed for self reported hallucinations. Patient seen in room, lying down and resting comfortably, when asked where he currently is patient reported them in [facility] and is here because of his legs and stomach. Patient stated that he think is August and he knows that the current president is a Democratic but he is a Libertarian. When asked about depression, patient states not that he is aware of he is not crazy, suicidal or wants to hurt anyone. When asked if he is hearing voices other than myself speaking to him in his head, patient denies hearing voices, and states that he is not seeing anything that does not look unreal. Patient is familiar to me from prior evaluation, I have been found to have acute metabolic encephalopathy on prior visit presented to the ED with similar presentation of poor hygiene and self are. PAST PSYCHIATRIC HISTORY Diagnoses: none Suicide attempts or Self-harm behavior: none Prior psychiatric hospitalizations: None reported Substance Abuse history: Heroine most recent Previous psychiatric medications tried: none Outpatient treatment: PAST MEDICAL HISTORY: None reported Family Psychiatric History: None reported or documented SOCIAL HISTORY Marital Status: Single Living Arrangements: Lives in own home Employment Status: Retired Access to guns/weapons: Yes Education: High school History of Abuse:None reported Legal History: None reported REVIEW OF SYSTEMS Constitutional: Negative for weight loss ENT: Negative for stridor Respiratory: Negative for cough or hemoptysis All other systems reviewed and are negative Diagnoses: Assessment and Plan - Psychiatric problem (1) Impaired cognitive ability Current Visit: Yes Status: Acute R41.89 (2) Delirium due to another medical condition Current Visit: Yes Status: Acute F05 Treatment Plan Patient also have hx of liver cirrhosis, no laboratory report of Ammonia done however, Patient has been seen and evaluated by psych while inpatient, presenting symptoms of confusion not new, pt been found to be unable to make med ical decision capacity and appears unable to care for self. No documented history of dementia, but given multiple visits for confusion and unable to care for self, no acute inpatient benefit would improve his cognitive function. Defer to case management to discuss with family in considering skilled nursing care at this time, given prior evaluation pt has been deemed to be unable to care for self. MEDICATIONS: Risks, benefits and alternatives of medications discussed with the patient, questions answered and consent obtained from patient. PSYCHOTHERAPY: Supportive psychotherapy provided MEDICAL: Per primary team DELIRIUM PRECAUTIONS: Please re-orient patient frequently, keep lights on during the day, and minimize benzodiazepines and opiates as these medications could worsen patient's confusion. MANAGER AGRICULTURAL:Per medical team DISPOSITION: Do Not Recommend acute inpatient psychiatric hospitalization at this time LEGAL STATUS: Voluntary FOLLOW-UP: Will sign off Thank you for the consult. Please contact with any questions and/or concerns. Medications and Allergies Allergies Allergy/AdvReac Type Severity Reaction Status Date / Time ciprofloxacin [From Cipro] Allergy Dizziness Verified 08/06/20 08:56 ciprofloxacin HCl Allergy Dizziness Verified 08/06/20 08:56 [From Cipro] Home Medications Medication Instructions Recorded Confirmed Last Taken Type Aspirin EC [Ecotrin] 325 mg PO QDAY #30 tablet 04/22/20 Unknown Rx AtorvaSTATin [Lipitor] 40 mg PO QHS #30 tablet 04/22/20 Unknown Rx Folic Acid 1 mg PO DAILY #30 tablet 05/08/20 Unknown Rx Thiamine [Vitamin B-1] 100 mg PO QDAY #30 tablet 05/08/20 Unknown Rx Famotidine [Pepcid] 20 mg PO BID #30 tablet 05/15/20 Unknown Rx Metoprolol [Lopressor TAB] 12.5 mg PO BID #60 tablet 05/15/20 Unknown Rx levETIRAcetam [Keppra TAB] 500 mg PO BID #60 tablet 05/15/20 Unknown Rx Dicyclomine [Bentyl] 20 mg PO QID PRN #20 tablet 05/26/20 Unknown Rx Ondansetron [Zofran Odt] 4 mg PO Q8HR PRN #20 tab.rapdis 05/26/20 Unknown Rx Diphenoxylate/Atropine [Lomotil] 2 tab PO QID PRN #20 tablet 08/06/20 Unknown Rx HYDROcodone/APAP 5-325 [[place] 1 - 2 each PO Q6HR PRN #10 tablet 08/06/20 Unknown Rx 5/325] metroNIDAZOLE [Flagyl] 500 mg PO Q8HR #21 tablet 08/06/20 Unknown Rx Mental Status Exam - Vital signs Last Vital Signs Temp 98.0 F 09/10/20 07:28 Pulse 74 09/10/20 07:28 Resp 20 09/10/20 07:28 BP 114/53 09/10/20 07:28 Pulse Ox 100 09/10/20 07:28 Results Result Diagrams: 09/09/20 22:40 09/09/20 22:40 Abnormal lab results 09/09/20 09/09/20 09/09/20 Range/Units 22:40 22:40 22:40 WBC 3.4 L (4.5-11.0) K/mm3 Plt Count 57 L (140-440) K/mm3 Eos % (Auto) 6.1 H (0.0-4.3) % Lymph # (Auto) 0.6 L (1.2-5.4) K/mm3 TSH 4.300 H (0.270-4.200) mlU/mL Salicylates < 0.3 L (2.8-20.0) mg/dL Acetaminophen (10.0-30.0) ug/mL 09/09/20 Range/Units 22:40 WBC (4.5-11.0) K/mm3 Plt Count (140-440) K/mm3 Eos % (Auto) (0.0-4.3) % Lymph # (Auto) (1.2-5.4) K/mm3 TSH (0.270-4.200) mlU/mL Salicylates (2.8-20.0) mg/dL Acetaminophen 5.0 L (10.0-30.0) ug/mL All other labs normal.
--- NOTE | 2020-09-10 14:02 | Event Note ---
S: No complaints O: Stable vital signs, patient is ambulatory, he is alert to person and place A: dementia P: patient does not appear to have delirium. I do not feel that ammonia level would be helpful. He does not have a history of encephalopathy. Since 2015 all ammonia levels have been within normal limits as recently as March 2020. I agree with psychiatric assessment, inpatient hospitalization would not improve his cognitive dysfunction. According to electronic record, patient has had multiple hospitalizations due to falls and inability to care for himself. He is currently living at home alone. Awaiting case management for placement to appropriate environment with supervision. According to electronic record, in April patient was being evaluated for [facility] placement. Awaiting case management for placement.
[2020-09-10] MEDS ORDERED: ZIPRASIDONE MESYLATE 20 MG VIAL IM ONE (22:01)
[2020-09-10] MEDS ORDERED: WATER FOR INJ Sterile (PF) 10 ML ONE (22:03)
[2020-09-12] MEDS ORDERED: ALPRAZolam 0.5 MG TAB PO ONE (01:42)
--- NOTE | 2020-09-12 10:38 | Event Note ---
S: "My friend was at the top of the list. She ." Denies physical complaints O: Stable vital signs,sitting calmly, legs crossed, tearful, he is alert to person and place A: dementia P: patient has had multiple hospitalizations due to falls and inability to care for himself. He is currently living at home alone. Awaiting case management for placement to appropriate en ctrvironment with supervision. According to electronic record, in April patient was being evaluated for personal-jail placement. Awaiting case management for placement.
--- NOTE | 2020-09-13 10:01 | Event Note ---
S: Denies physical complaints O: Stable vital signs,sitting calmly, A: dementia P: patient has had multiple hospitalizations due to falls and inability to care for himself. He is currently living at home alone. Awaiting case management for placement to appropriate en ctrvironment with supervision. According to electronic record, in April patient was being evaluated for personal-fdc placement. Awaiting case management for placement. Patient is medically clear. No indication of acute medical condition which needs treatment or stabilization.
--- NOTE | 2020-09-14 10:20 | Event Note ---
Date: 09/14/20 Patient is walking in the hallway in no acute distress. Patient denied any complaint. No overnight issue. Vital signs stable. A/P, dementia waiting for placement.
--- NOTE | 2020-09-15 10:20 | Event Note ---
Date: 09/15/20 Patient is pacing around. In no acute distress. No issues overnight. Vital signs stable. Waiting for placement.
--- NOTE | 2020-09-16 10:27 | Event Note ---
Date: 09/16/20 No overnight issue. Vital signs reviewed and is unremarkable. Patient is still waiting for placement.
--- NOTE | 2020-09-17 10:07 | Electrocardiograph Report ---
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
[2020-09-17] MEDS ORDERED: LORazepam 1 MG TAB PO ONE (12:09)
[2020-09-18] MEDS ORDERED: ONDANSETRON 4 MG ODT TAB PO PRN (10:37)
[2020-09-18] MEDS ORDERED: DICYCLOMINE 20 MG TAB PO PRN (10:37)
[2020-09-18] MEDS ORDERED: DIPHENOXYLATE/ATROPINE TAB PO PRN (10:37)
--- NOTE | 2020-09-18 10:50 | Event Note ---
Date: 09/18/20 The patient was evaluated in the emergency department for symptoms described in the history of present illness. He/she was evaluated in the context of the global COVID-19 pandemic, which necessitated consideration that the patient might be at risk for infection with the virus that causes COVID-19. Institutional protocols and algorithms that pertain to the evaluation of patients at risk for COVID-19 are in a state of rapid change based on information released by regulatory bodies including the CDC and federal and state organizations. These policies and algorithms were followed during the patient's care in the emergency department. Please note that these policies, procedures and recommendations changed on a rapid basis. Patient resting comfortably in stretcher, and in no acute distress. He was medically cleared on his initial ER evaluation. His main issue at this time appears to be social/Case management in nature. Case management and social work notes are reviewed and appreciated. Have requested that case management/delinquency prevention social worker determine if patient has a family member or next of kin who can assume responsibility or care for him. Nursing team reports no issues overnight. Vital signs unremarkable. Have continued home medications. Does not appear to have an acute medical condition at this time which would require inpatient hospitalization. Vital Signs 09/09/20 09/09/20 09/10/20 18:57 22:50 01:48 Temperature 98.8 F 97.6 F 98 F Pulse Rate 66 67 60 Respiratory 18 18 18 Rate Blood Pressure 125/49 Blood Pressure 123/63 119/60 [Right] O2 Sat by Pulse 97 99 97 Oximetry 09/10/20 09/10/20 09/11/20 07:28 19:47 07:51 Temperature 98.0 F 97.9 F 97.6 F Pulse Rate 74 78 60 Respiratory 20 18 18 Rate Blood Pressure Blood Pressure 114/53 134/70 109/70 [Right] O2 Sat by Pulse 100 97 100 Oximetry 09/11/20 09/12/20 09/12/20 20:00 01:55 20:00 Temperature 98.4 F 98.0 F Pulse Rate 114 H 93 H Respiratory 18 18 18 Rate Blood Pressure Blood Pressure 132/74 156/76 [Right] O2 Sat by Pulse 98 95 Oximetry 09/12/20 09/13/20 09/13/20 20:09 02:23 20:22 Temperature 98.0 F 97.9 F 97.8 F Pulse Rate 89 56 L 78 Respiratory 18 16 18 Rate Blood Pressure Blood Pressure 117/70 127/59 107/61 [Right] O2 Sat by Pulse 97 96 98 Oximetry 09/13/20 09/14/20 09/14/20 21:36 08:09 20:03 Temperature 98.0 F 98.5 F Pulse Rate 68 73 Respiratory 18 18 16 Rate Blood Pressure Blood Pressure 101/56 98/60 [Right] O2 Sat by Pulse 97 98 Oximetry 09/14/20 09/15/20 09/15/20 20:06 02:23 08:00 Temperature 98.0 F 96.9 F L Pulse Rate 85 83 Respiratory 18 18 20 Rate Blood Pressure Blood Pressure 143/92 132/83 [Right] O2 Sat by Pulse 98 97 96 Oximetry 09/15/20 09/15/20 09/16/20 20:00 22:02 01:00 Temperature 97.9 F 97.9 F Pulse Rate 90 88 Respiratory 20 18 16 Rate Blood Pressure Blood Pressure 127/79 129/70 [Right] O2 Sat by Pulse 95 95 96 Oximetry 09/16/20 09/16/20 09/17/20 11:26 19:53 02:00 Temperature 98.3 F 98 F 98.2 F Pulse Rate 74 96 H 92 H Respiratory 18 18 19 Rate Blood Pressure Blood Pressure 119/59 95/63 110/62 [Right] O2 Sat by Pulse 97 98 Oximetry 09/17/20 09/17/20 09/18/20 10:02 19:50 02:56 Temperature 98.8 F 98.5 F 98.2 F Pulse Rate 92 H 76 73 Respiratory 20 19 16 Rate Blood Pressure Blood Pressure 116/61 112/59 132/68 [Right] O2 Sat by Pulse 97 99 99 Oximetry 09/18/20 07:54 Temperature 97.9 F Pulse Rate 87 Respiratory 18 Rate Blood Pressure Blood Pressure 106/61 [Right] O2 Sat by Pulse 100 Oximetry Lab Results 09/09/20 09/09/20 09/09/20 Range/Units 22:40 22:40 22:40 WBC 3.4 L (4.5-11.0) K/mm3 RBC 4.38 (3.65-5.03) M/mm3 Hgb 13.4 (11.8-15.2) gm/dl Hct 40.2 (35.5-45.6) % MCV 92 (84-94) fl MCH 31 (28-32) pg MCHC 33 (32-34) % RDW 15.0 (13.2-15.2) % Plt Count 57 L (140-440) K/mm3 Lymph % (Auto) 18.4 (13.4-35.0) % [place] % (Auto) 5.5 (0.0-7.3) % Eos % (Auto) 6.1 H (0.0-4.3) % Baso % (Auto) 0.6 (0.0-1.8) % Lymph # (Auto) 0.6 L (1.2-5.4) K/mm3 [place] # (Auto) 0.2 (0.0-0.8) K/mm3 Eos # (Auto) 0.2 (0.0-0.4) K/mm3 Baso # (Auto) 0.0 (0.0-0.1) K/mm3 Seg Neutrophils % 69.4 (40.0-70.0) % Seg Neutrophils # 2.4 (1.8-7.7) K/mm3 Sodium 140 (137-145) mmol/L Potassium 4.2 (3.6-5.0) mmol/L Chloride 103.6 (98-107) mmol/L Carbon Dioxide 27 (22-30) mmol/L Anion Gap 14 mmol/L BUN 16 (9-20) mg/dL Creatinine 0.8 (0.8-1.3) mg/dL Estimated GFR > 60 ml/min BUN/Creatinine Ratio 20 % Glucose 87 (75-100) mg/dL Calcium 9.9 (8.4-10.2) mg/dL Total Bilirubin 0.80 (0.1-1.2) mg/dL AST 29 (5-40) units/L ALT 16 (7-56) units/L Alkaline Phosphatase 63 (35-129) units/L Troponin T < 0.010 (0.00-0.029) ng/mL Total Protein 7.4 (6.3-8.2) g/dL Albumin 4.3 (3.9-5) g/dL Albumin/Globulin Ratio 1.4 % TSH (0.270-4.200) mlU/mL Urine Color (Yellow) Urine Turbidity (Clear) Urine pH (5.0-7.0) Ur Specific [place] (1.003-1.030) Urine Protein (Negative) mg/dL Urine Glucose (UA) (Negative) mg/dL Urine Ketones (Negative) mg/dL Urine Blood (Negative) Urine Nitrite (Negative) Urine Bilirubin (Negative) Urine Urobilinogen (<2.0) mg/dL Ur Leukocyte Esterase (Negative) Urine WBC (Auto) (0.0-6.0) /HPF Urine RBC (Auto) (0.0-6.0) /HPF Urine Bacteria (Auto) (Negative) /HPF Salicylates (2.8-20.0) mg/dL Urine Opiates Screen Urine Methadone Screen Acetaminophen (10.0-30.0) ug/mL Ur Barbiturates Screen Ur Phencyclidine Scrn Ur Amphetamines Screen U Benzodiazepines Scrn Urine Cocaine Screen U Marijuana (THC) Screen Drugs of Abuse Note Plasma/Serum Alcohol (0-0.07) % Coronavirus (PCR) (Negative) 09/09/20 09/09/20 09/09/20 Range/Units 22:40 22:40 22:40 WBC (4.5-11.0) K/mm3 RBC (3.65-5.03) M/mm3 Hgb (11.8-15.2) gm/dl Hct (35.5-45.6) % MCV (84-94) fl MCH (28-32) pg MCHC (32-34) % RDW (13.2-15.2) % Plt Count (140-440) K/mm3 Lymph % (Auto) (13.4-35.0) % [place] % (Auto) (0.0-7.3) % Eos % (Auto) (0.0-4.3) % Baso % (Auto) (0.0-1.8) % Lymph # (Auto) (1.2-5.4) K/mm3 [place] # (Auto) (0.0-0.8) K/mm3 Eos # (Auto) (0.0-0.4) K/mm3 Baso # (Auto) (0.0-0.1) K/mm3 Seg Neutrophils % (40.0-70.0) % Seg Neutrophils # (1.8-7.7) K/mm3 Sodium (137-145) mmol/L Potassium (3.6-5.0) mmol/L Chloride (98-107) mmol/L Carbon Dioxide (22-30) mmol/L Anion Gap mmol/L BUN (9-20) mg/dL Creatinine (0.8-1.3) mg/dL Estimated GFR ml/min BUN/Creatinine Ratio % Glucose (75-100) mg/dL Calcium (8.4-10.2) mg/dL Total Bilirubin (0.1-1.2) mg/dL AST (5-40) units/L ALT (7-56) units/L Alkaline Phosphatase (35-129) units/L Troponin T (0.00-0.029) ng/mL Total Protein (6.3-8.2) g/dL Albumin (3.9-5) g/dL Albumin/Globulin Ratio % TSH 4.300 H (0.270-4.200) mlU/mL Urine Color (Yellow) Urine Turbidity (Clear) Urine pH (5.0-7.0) Ur Specific [place] (1.003-1.030) Urine Protein (Negative) mg/dL Urine Glucose (UA) (Negative) mg/dL Urine Ketones (Negative) mg/dL Urine Blood (Negative) Urine Nitrite (Negative) Urine Bilirubin (Negative) Urine Urobilinogen (<2.0) mg/dL Ur Leukocyte Esterase (Negative) Urine WBC (Auto) (0.0-6.0) /HPF Urine RBC (Auto) (0.0-6.0) /HPF Urine Bacteria (Auto) (Negative) /HPF Salicylates < 0.3 L (2.8-20.0) mg/dL Urine Opiates Screen Urine Methadone Screen Acetaminophen 5.0 L (10.0-30.0) ug/mL Ur Barbiturates Screen Ur Phencyclidine Scrn Ur Amphetamines Screen U Benzodiazepines Scrn Urine Cocaine Screen U Marijuana (THC) Screen Drugs of Abuse Note Plasma/Serum Alcohol (0-0.07) % Coronavirus (PCR) (Negative) 09/09/20 09/10/20 09/10/20 Range/Units 22:40 00:12 00:12 WBC (4.5-11.0) K/mm3 RBC (3.65-5.03) M/mm3 Hgb (11.8-15.2) gm/dl Hct (35.5-45.6) % MCV (84-94) fl MCH (28-32) pg MCHC (32-34) % RDW (13.2-15.2) % Plt Count (140-440) K/mm3 Lymph % (Auto) (13.4-35.0) % [place] % (Auto) (0.0-7.3) % Eos % (Auto) (0.0-4.3) % Baso % (Auto) (0.0-1.8) % Lymph # (Auto) (1.2-5.4) K/mm3 [place] # (Auto) (0.0-0.8) K/mm3 Eos # (Auto) (0.0-0.4) K/mm3 Baso # (Auto) (0.0-0.1) K/mm3 Seg Neutrophils % (40.0-70.0) % Seg Neutrophils # (1.8-7.7) K/mm3 Sodium (137-145) mmol/L Potassium (3.6-5.0) mmol/L Chloride (98-107) mmol/L Carbon Dioxide (22-30) mmol/L Anion Gap mmol/L BUN (9-20) mg/dL Creatinine (0.8-1.3) mg/dL Estimated GFR ml/min BUN/Creatinine Ratio % Glucose (75-100) mg/dL Calcium (8.4-10.2) mg/dL Total Bilirubin (0.1-1.2) mg/dL AST (5-40) units/L ALT (7-56) units/L Alkaline Phosphatase (35-129) units/L Troponin T (0.00-0.029) ng/mL Total Protein (6.3-8.2) g/dL Albumin (3.9-5) g/dL Albumin/Globulin Ratio % TSH (0.270-4.200) mlU/mL Urine Color Straw (Yellow) Urine Turbidity Clear (Clear) Urine pH 6.0 (5.0-7.0) Ur Specific [place] 1.008 (1.003-1.030) Urine Protein <15 mg/dl (Negative) mg/dL Urine Glucose (UA) Neg (Negative) mg/dL Urine Ketones Neg (Negative) mg/dL Urine Blood Neg (Negative) Urine Nitrite Neg (Negative) Urine Bilirubin Neg (Negative) Urine Urobilinogen < 2.0 (<2.0) mg/dL Ur Leukocyte Esterase Neg (Negative) Urine WBC (Auto) 1.0 (0.0-6.0) /HPF Urine RBC (Auto) 1.0 (0.0-6.0) /HPF Urine Bacteria (Auto) 1+ (Negative) /HPF Salicylates (2.8-20.0) mg/dL Urine Opiates Screen Presumptive negative Urine Methadone Screen Presumptive negative Acetaminophen (10.0-30.0) ug/mL Ur Barbiturates Screen Presumptive negative Ur Phencyclidine Scrn Presumptive negative Ur Amphetamines Screen Presumptive negative U Benzodiazepines Scrn Presumptive negative Urine Cocaine Screen Presumptive negative U Marijuana (THC) Screen Presumptive negative Drugs of Abuse Note Disclamer Plasma/Serum Alcohol < 0.01 (0-0.07) % Coronavirus (PCR) (Negative) 09/10/20 Range/Units 09:51 WBC (4.5-11.0) K/mm3 RBC (3.65-5.03) M/mm3 Hgb (11.8-15.2) gm/dl Hct (35.5-45.6) % MCV (84-94) fl MCH (28-32) pg MCHC (32-34) % RDW (13.2-15.2) % Plt Count (140-440) K/mm3 Lymph % (Auto) (13.4-35.0) % [place] % (Auto) (0.0-7.3) % Eos % (Auto) (0.0-4.3) % Baso % (Auto) (0.0-1.8) % Lymph # (Auto) (1.2-5.4) K/mm3 [place] # (Auto) (0.0-0.8) K/mm3 Eos # (Auto) (0.0-0.4) K/mm3 Baso # (Auto) (0.0-0.1) K/mm3 Seg Neutrophils % (40.0-70.0) % Seg Neutrophils # (1.8-7.7) K/mm3 Sodium (137-145) mmol/L Potassium (3.6-5.0) mmol/L Chloride (98-107) mmol/L Carbon Dioxide (22-30) mmol/L Anion Gap mmol/L BUN (9-20) mg/dL Creatinine (0.8-1.3) mg/dL Estimated GFR ml/min BUN/Creatinine Ratio % Glucose (75-100) mg/dL Calcium (8.4-10.2) mg/dL Total Bilirubin (0.1-1.2) mg/dL AST (5-40) units/L ALT (7-56) units/L Alkaline Phosphatase (35-129) units/L Troponin T (0.00-0.029) ng/mL Total Protein (6.3-8.2) g/dL Albumin (3.9-5) g/dL Albumin/Globulin Ratio % TSH (0.270-4.200) mlU/mL Urine Color (Yellow) Urine Turbidity (Clear) Urine pH (5.0-7.0) Ur Specific [place] (1.003-1.030) Urine Protein (Negative) mg/dL Urine Glucose (UA) (Negative) mg/dL Urine Ketones (Negative) mg/dL Urine Blood (Negative) Urine Nitrite (Negative) Urine Bilirubin (Negative) Urine Urobilinogen (<2.0) mg/dL Ur Leukocyte Esterase (Negative) Urine WBC (Auto) (0.0-6.0) /HPF Urine RBC (Auto) (0.0-6.0) /HPF Urine Bacteria (Auto) (Negative) /HPF Salicylates (2.8-20.0) mg/dL Urine Opiates Screen Urine Methadone Screen Acetaminophen (10.0-30.0) ug/mL Ur Barbiturates Screen Ur Phencyclidine Scrn Ur Amphetamines Screen U Benzodiazepines Scrn Urine Cocaine Screen U Marijuana (THC) Screen Drugs of Abuse Note Plasma/Serum Alcohol (0-0.07) % Coronavirus (PCR) Negative (Negative)
[2020-09-18] MEDS: METOPROLOL TARTRATE 25 MG TAB PO SCH ×2 (11:37→22:30)
[2020-09-18] MEDS: levETIRAcetam 500 MG TAB PO SCH ×2 (11:37→22:30)
[2020-09-18] MEDS: FAMOTIDINE 20 MG TAB PO SCH ×2 (11:37→22:30)
[2020-09-18] MEDS: ASPIRIN EC 325 MG TAB PO SCH (11:37)
[2020-09-18] MEDS: FOLIC ACID 1 MG TAB PO SCH (11:37)
[2020-09-18] MEDS: THIAMINE 100 MG TAB PO SCH (11:37)
[2020-09-18] MEDS ORDERED: LORazepam 1 MG TAB PO ONE (22:16)
[2020-09-18] MEDS ORDERED: diphenhydrAMINE 25 MG CAP PO ONE (22:16)
[2020-09-19] MEDS: ASPIRIN EC 325 MG TAB PO SCH (09:58)
[2020-09-19] MEDS: FOLIC ACID 1 MG TAB PO SCH (09:58)
[2020-09-19] MEDS: METOPROLOL TARTRATE 25 MG TAB PO SCH ×2 (09:59→21:47)
[2020-09-19] MEDS: FAMOTIDINE 20 MG TAB PO SCH ×2 (09:59→21:46)
[2020-09-19] MEDS: levETIRAcetam 500 MG TAB PO SCH ×2 (09:59→21:46)
[2020-09-19] MEDS: THIAMINE 100 MG TAB PO SCH (10:10)
--- NOTE | 2020-09-19 10:53 | Event Note ---
Date: 09/19/20 Patient was seen on psych rounding this morning by me. Patient resting comfortably in bed no issues overnight. Patient still waiting for case ma nagement placement.
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
[2020-09-20] MEDS: METOPROLOL TARTRATE 25 MG TAB PO SCH ×2 (09:29→22:09)
[2020-09-20] MEDS: levETIRAcetam 500 MG TAB PO SCH ×2 (09:30→22:08)
[2020-09-20] MEDS: FAMOTIDINE 20 MG TAB PO SCH ×2 (09:30→22:08)
[2020-09-20] MEDS: ASPIRIN EC 325 MG TAB PO SCH (09:30)
[2020-09-20] MEDS: THIAMINE 100 MG TAB PO SCH (09:31)
[2020-09-20] MEDS: FOLIC ACID 1 MG TAB PO SCH (09:31)
[2020-09-21] MEDS: FOLIC ACID 1 MG TAB PO SCH (10:24)
[2020-09-21] MEDS: FAMOTIDINE 20 MG TAB PO SCH ×2 (10:24→21:45)
[2020-09-21] MEDS: ASPIRIN EC 325 MG TAB PO SCH (10:24)
[2020-09-21] MEDS: THIAMINE 100 MG TAB PO SCH (10:24)
[2020-09-21] MEDS: METOPROLOL TARTRATE 25 MG TAB PO SCH ×2 (10:25→22:20)
[2020-09-21] MEDS: levETIRAcetam 500 MG TAB PO SCH ×2 (10:26→21:55)
[2020-09-22] MEDS: METOPROLOL TARTRATE 25 MG TAB PO SCH ×2 (10:06→22:06)
[2020-09-22] MEDS: FAMOTIDINE 20 MG TAB PO SCH ×2 (10:06→21:50)
[2020-09-22] MEDS: FOLIC ACID 1 MG TAB PO SCH (10:06)
[2020-09-22] MEDS: levETIRAcetam 500 MG TAB PO SCH ×2 (10:06→22:02)
[2020-09-22] MEDS: ASPIRIN EC 325 MG TAB PO SCH (10:06)
[2020-09-22] MEDS: THIAMINE 100 MG TAB PO SCH (10:07)
[2020-09-22 22:06] VITALS: BP 100/60
== END 2020-09-23 02:04 ==
LOC: ED 17:09 → EEVIPCON 17:09 → ED 09-23 02:04
DX: F23 Brief psychotic disorder (principal); R41.82 Altered mental status, unspecified; I11.0 Hypertensive heart disease with heart failure; I50.9 Heart failure, unspecified; E11.9 Type 2 diabetes mellitus without complications; J45.909 Unspecified asthma, uncomplicated; Z20.822 Contact with and (suspected) exposure to COVID-19; Z90.49 Acquired absence of other specified parts of digestive tract; Z98.890 Other specified postprocedural states; Z79.899 Other long term (current) drug therapy; Z88.8 Allergy status to other drugs, medicaments and biological substances
CPT/HCPCS: 36415; 70450; 71045; 80053; 80307; 81001; 84443; 84484; 85025; 93005; 96372; 99285; A9270; J3486; U0003; 80320; G0480

== ENCOUNTER 2020-10-08 12:33 | Emergency (ER) | payer MEDICARE ==
[2020-10-08 14:25] LABS: Hematocrit 36.1 % (35.5-45.6); Mean Corpuscular HGB Conc 33 % (32-34); Mean Corpuscular Volume 92 fl (84-94); Red Blood Count 3.91 M/mm3 (3.65-5.03); Red Cell Distribution Width 14.4 % (13.2-15.2)
[2020-10-08 14:35] LABS: Platelet Count 44 K/mm3 (140-440)
[2020-10-08 14:45] LABS: Bilirubin,Urine NEG (Negative); Blood,Urine NEG (Negative); Color,Urine Yellow (Yellow); Mucus,Urine 1+ /HPF; Protein,Urine <15 mg/dL mg/dL (Negative)
[2020-10-08 14:56] LABS: Alanine Aminotransferase 12 units/L (7-56); Albumin 4.2 g/dL (3.9-5); Blood Urea Nitrogen 19 mg/dL (9-20); Hemolysis Index 3
[2020-10-08 15:34] LABS: BUN/Creatinine Ratio 27
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
[2020-10-08 17:22] LABS: Anisocytosis 1+; Total Cells Counted 50
[2020-10-08 17:23] LABS: Platelet Estimate Consistent w Auto
[2020-10-08 19:07] VITALS: BP 123/86
== END 2020-10-08 19:07 | disposition home or self-care (01) ==
LOC: ED 12:33
DX: D72.819 Decreased white blood cell count, unspecified (principal); D69.6 Thrombocytopenia, unspecified; I11.0 Hypertensive heart disease with heart failure; I50.9 Heart failure, unspecified; E11.9 Type 2 diabetes mellitus without complications; F20.9 Schizophrenia, unspecified; J45.909 Unspecified asthma, uncomplicated; Z90.49 Acquired absence of other specified parts of digestive tract; Z90.89 Acquired absence of other organs; Z79.899 Other long term (current) drug therapy; Z88.1 Allergy status to other antibiotic agents
CPT/HCPCS: 36415; 80053; 81001; 85007; 85025

== ENCOUNTER 2020-11-25 11:12 | Observation (INO) | payer MEDICARE ==
--- NOTE | 2020-11-25 14:34 | Event Note ---
ED Screening Note Date of service: 11/25/20 Time: 14:30 ED Screening Note: 70-year-old male presents to the ER today with complaints of diffuse abdominal pain. Patient states that he has had this pain off and on for couple months but in the past 3 days his got worse with associated nausea, vomiting, and diarrhea. He denies any blood in the stool or in the emesis. He denies any abdominal surgeries in the past. Patient past medical history shows that he has a history of hypertension, kaela betes, congestive heart failure, hepatitis C and asthma. Patient states that he has childhood asthma, he denies diabetes and congestive heart failure but he admits to the hypertension and hepatitis C. This initial assessment/diagnostic orders/clinical plan/treatment(s) is/are subject to change based on patients health status, clinical progression and re- assessment by fellow clinical providers in the ED. Further treatment and workup at subsequent clinical providers discretion. Patient/guardian urged not to elope from the ED as their condition may be serious if not clinically assessed and man aged. Initial orders include: Abdominal pain order set
[2020-11-25 15:01] LABS: Basophils % (Auto) 0.7 % (0.0-1.8); Eosinophils # (Auto) 0.1 K/mm3 (0.0-0.4); Eosinophils % (Auto) 2.7 % (0.0-4.3); Hematocrit 40.7 % (35.5-45.6); Hemoglobin 13.7 gm/dl (11.8-15.2); Lymphocytes # (Auto) 0.4 K/mm3 (1.2-5.4); Lymphocytes % (Auto) 10.2 % (13.4-35.0); Mean Corpuscular HGB Conc 34 % (32-34); Mean Corpuscular Volume 90 fl (84-94); Monocytes # (Auto) 0.3 K/mm3 (0.0-0.8); Monocytes % (Auto) 9.3 % (0.0-7.3); Red Blood Count 4.54 M/mm3 (3.65-5.03); Red Cell Distribution Width 14.3 % (13.2-15.2)
[2020-11-25 15:06] LABS: Platelet Count 53 K/mm3 (140-440)
[2020-11-25 15:21] LABS: Alanine Aminotransferase 17 units/L (7-56); Albumin 4.4 g/dL (3.9-5); Blood Urea Nitrogen 22 mg/dL (9-20); Calcium 9.4 mg/dL (8.4-10.2); Hemolysis Index 6
[2020-11-25 15:22] LABS: BUN/Creatinine Ratio 31
[2020-11-25] MEDS ORDERED: SODIUM CHLORIDE 0.9% 500 ML 500 ML IV ONE (16:44)
[2020-11-25] MEDS ORDERED: PANTOPRAZOLE 40 MG INJ IV ONE (17:12)
[2020-11-25] MEDS ORDERED: MORPHINE 4 MG/1 ML INJ IM ONE (17:19)
[2020-11-25] MEDS ORDERED: ONDANSETRON 4 MG/2 ML INJ IV ONE (17:22)
--- NOTE | 2020-11-25 17:28 | Emergency Department Report ---
HPI - General Chief Complaint: Abdominal Pain Time Seen by Provider: 11/25/20 16:35 - HPI HPI: 70-year-old male with very complex medical history including dementia, hx of chronic leukopenia and thrombocytopenia, hypertension, CHF, orthostatic hypotension, hepatitis C, cirrhosis, portal hypertension, seizure disorder, chronic Lyme disease, AAA, paroxysmal A. fib not on anticoagulation, umbilical hernia, and inguinal hernia as well as schizophrenia is brought in by his [place] [facility] for abdominal pain since yesterday. I was given report by the triage nurse that the patient was brought in by EMS and was waiting for an open bed and was having diarrhea in the waiting room. He got frustrated and tried to leave and when the nurse put her hand up to try to redirect him he got startled and tried to push her away. He became very agitated and was taken back to the room. The patient denies SI or HI. He also denies auditory or visual hallucinations. He says he has been experiencing constant epigastric abdominal pain since yesterday. He also has been having frequent loose stools. He does report that he has been experiencing some dysuria as well. When asked about testicular pain on review of systems, the patient says that he has no testicular pain but has pain in his large left inguinal hernia. The patient denies experiencing any fever/chills, headache, vision change, back pain, chest pain, shortness of breath, cough, bright red blood per rectum, melena, or any other symptoms. The patient is alert and oriented to self, place, and situation but not to time. He does appears to be slightly confused but per RN Lazara and Katya who have cared for him several times before, this is the patient's baseline mental state. Further details of the HPI are however limited due to the patient's clinical condition. ED Past Medical Hx - Past Medical History Hx Hypertension: Yes Hx Heart Attack/AMI: No Hx Congestive Heart Failure: Yes Hx Diabetes: Yes Hx Deep Vein Thrombosis: No Hx Pulmonary Embolism: No Hx Liver Disease: No Hx Renal Disease: No Hx Sickle Cell Disease: No Hx Arthritis: No Hx Seizures: No Hx Kidney Stones: No Hx Asthma: Yes Hx COPD: No Hx Tuberculosis: No Hx Dementia: No Hx HIV: No Additional medical history: hepatitis C. "bad circulation" chronic bilateral lower extremity wounds. unbillical hernia. inguinial hernia - Surgical History Hx Coronary Stent: No Hx Pacemaker: No Hx Internal Defibrillator: No Hx Cholecystectomy: Yes Additional Surgical History: tonsillectomy - Social History Smoking Status: Never Smoker Substance Use Type: None - Medications Home Medications: Home Medications Medication Instructions Recorded Confirmed Last Taken Type Aspirin EC [Ecotrin] 325 mg PO QDAY #30 tablet 04/22/20 Unknown Rx Aspirin EC [Ecotrin] 325 mg PO QDAY #30 tablet 09/22/20 Unknown Rx AtorvaSTATin [Lipitor] 40 mg PO QHS #30 tablet 09/22/20 Unknown Rx Dicyclomine [Bentyl] 20 mg PO QID PRN #20 tablet 09/22/20 Unknown Rx Diphenoxylate/Atropine [Lomotil] 2 tab PO QID PRN #20 tablet 09/22/20 Unknown Rx Famotidine [Pepcid] 20 mg PO BID #30 tablet 09/22/20 Unknown Rx Folic Acid 1 mg PO DAILY #30 tablet 09/22/20 Unknown Rx Metoprolol [Lopressor TAB] 12.5 mg PO BID #60 tablet 09/22/20 Unknown Rx Ondansetron [Zofran ODT TAB] 4 mg PO Q8HR PRN #20 tab.rapdis 09/22/20 Unknown Rx Thiamine [Vitamin B-1] 100 mg PO QDAY #30 tablet 09/22/20 Unknown Rx levETIRAcetam [Keppra TAB] 500 mg PO BID #60 tablet 09/22/20 Unknown Rx ED Review of Systems ROS: Stated complaint: ABD PAIN Other details as noted in HPI Limited due to patient's current medical condition Constitutional: denies: chills, fever Eyes: denies: vision change ENT: denies: throat pain, congestion Respiratory: denies: cough, shortness of breath Cardiovascular: denies: chest pain, palpitations, syncope Gastrointestinal: abdominal pain, diarrhea. denies: nausea, vomiting, melena, hematochezia Genitourinary: dysuria. denies: frequency Musculoskeletal: denies: back pain, arthralgia Skin: denies: rash, lesions Neurological: denies: headache, weakness, numbness, vertigo Hematological/Lymphatic: easy bleeding, easy bruising Physical Exam - Physical Exam Vital Signs: Vital Signs 11/25/20 13:08 Temperature 97.7 F Pulse Rate 85 Respiratory 20 Rate Blood Pressure 149/68 O2 Sat by Pulse 96 Oximetry Physical Exam: GENERAL: Frail appearing elderly male in no acute distress but appears agitated. HEAD: Normocephalic. No obvious signs of trauma. ENT: Slightly dry mucous membranes. EYES: Extraocular movements are intact. Pupils are equal round and reactive to light bilaterally NECK: Supple. Full ROM is intact. Trachea is midline. LUNGS: Nonlabored breathing. Equal chest rise bilaterally. Clear to auscultation bilaterally. CARDIOVASCULAR: Mildly tachycardic but with regular rhythm. No murmurs or rubs. VASCULAR: Cap refill < 2 seconds ABDOMEN: Abdomen is soft and nondistended. There is diffuse abdominal tenderness in all 4 quadrants of the abdomen as well as the epigastrium without guarding or rebound tenderness. There is a large left-sided inguinal hernia which is reducible but reappears shortly after reduction. There are no overlyi ng skin changes. SKIN: Skin is warm and dry. Appears pale NEURO: Patient is awake, alert, but appears slightly confused. He is oriented to self, situation, and place but not to time.. 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 No focal deficits. Normal motor and sensory exam throughout. Normal speech. MUSCULOSKELETAL: No obvious deformities. No significant tenderness. Normal ROM throughout. BACK/SPINE: No midline tenderness or step-offs of the C/T/L spine. No costovertebral angle tenderness. ED Course Vital Signs 11/25/20 13:08 Temperature 97.7 F Pulse Rate 85 Respiratory 20 Rate Blood Pressure 149/68 O2 Sat by Pulse 96 Oximetry ED Medical Decision Making - Lab Data Result diagrams: 11/26/20 05:23 11/26/20 05:23 Lab Results 11/25/20 11/25/20 11/25/20 Range/Units 14:35 14:35 14:35 WBC 3.5 L (4.5-11.0) K/mm3 RBC 4.54 (3.65-5.03) M/mm3 Hgb 13.7 (11.8-15.2) gm/dl Hct 40.7 (35.5-45.6) % MCV 90 (84-94) fl MCH 30 (28-32) pg MCHC 34 (32-34) % RDW 14.3 (13.2-15.2) % Plt Count 53 L (140-440) K/mm3 Lymph % (Auto) 10.2 L (13.4-35.0) % [place] % (Auto) 9.3 H (0.0-7.3) % Eos % (Auto) 2.7 (0.0-4.3) % Baso % (Auto) 0.7 (0.0-1.8) % Lymph # (Auto) 0.4 L (1.2-5.4) K/mm3 [place] # (Auto) 0.3 (0.0-0.8) K/mm3 Eos # (Auto) 0.1 (0.0-0.4) K/mm3 Baso # (Auto) 0.0 (0.0-0.1) K/mm3 Seg Neutrophils % 77.1 H (40.0-70.0) % Seg Neutrophils # 2.7 (1.8-7.7) K/mm3 Sodium 142 (137-145) mmol/L Potassium 4.6 (3.6-5.0) mmol/L Chloride 104.2 (98-107) mmol/L Carbon Dioxide 25 (22-30) mmol/L Anion Gap 17 mmol/L BUN 22 H (9-20) mg/dL Creatinine 0.7 L (0.8-1.3) mg/dL Estimated GFR > 60 ml/min BUN/Creatinine Ratio 31 % Glucose 95 (75-100) mg/dL Calcium 9.4 (8.4-10.2) mg/dL Magnesium 2.20 (1.7-2.3) mg/dL Total Bilirubin 0.70 (0.1-1.2) mg/dL AST 24 (5-40) units/L ALT 17 (7-56) units/L Alkaline Phosphatase 60 (35-129) units/L Ammonia (25-60) umol/L Total Protein 7.3 (6.3-8.2) g/dL Albumin 4.4 (3.9-5) g/dL Albumin/Globulin Ratio 1.5 % Lipase 16 (13-60) units/L Urine Color (Yellow) Urine Turbidity (Clear) Urine pH (5.0-7.0) Ur Specific [place] (1.003-1.030) Urine Protein (Negative) mg/dL Urine Glucose (UA) (Negative) mg/dL Urine Ketones (Negative) mg/dL Urine Blood (Negative) Urine Nitrite (Negative) Urine Bilirubin (Negative) Urine Urobilinogen (<2.0) mg/dL Ur Leukocyte Esterase (Negative) Urine WBC (Auto) (0.0-6.0) /HPF Urine RBC (Auto) (0.0-6.0) /HPF Urine Mucus /HPF Salicylates (2.8-20.0) mg/dL Urine Opiates Screen Urine Methadone Screen Acetaminophen (10.0-30.0) ug/mL Ur Barbiturates Screen Ur Phencyclidine Scrn Ur Amphetamines Screen U Benzodiazepines Scrn Urine Cocaine Screen U Marijuana (THC) Screen 11/25/20 11/25/20 11/25/20 Range/Units 17:49 17:49 17:49 WBC (4.5-11.0) K/mm3 RBC (3.65-5.03) M/mm3 Hgb (11.8-15.2) gm/dl Hct (35.5-45.6) % MCV (84-94) fl MCH (28-32) pg MCHC (32-34) % RDW (13.2-15.2) % Plt Count (140-440) K/mm3 Lymph % (Auto) (13.4-35.0) % [place] % (Auto) (0.0-7.3) % Eos % (Auto) (0.0-4.3) % Baso % (Auto) (0.0-1.8) % Lymph # (Auto) (1.2-5.4) K/mm3 [place] # (Auto) (0.0-0.8) K/mm3 Eos # (Auto) (0.0-0.4) K/mm3 Baso # (Auto) (0.0-0.1) K/mm3 Seg Neutrophils % (40.0-70.0) % Seg Neutrophils # (1.8-7.7) K/mm3 Sodium (137-145) mmol/L Potassium (3.6-5.0) mmol/L Chloride (98-107) mmol/L Carbon Dioxide (22-30) mmol/L Anion Gap mmol/L BUN (9-20) mg/dL Creatinine (0.8-1.3) mg/dL Estimated GFR ml/min BUN/Creatinine Ratio % Glucose (75-100) mg/dL Calcium (8.4-10.2) mg/dL Magnesium (1.7-2.3) mg/dL Total Bilirubin (0.1-1.2) mg/dL AST (5-40) units/L ALT (7-56) units/L Alkaline Phosphatase (35-129) units/L Ammonia 30.0 (25-60) umol/L Total Protein (6.3-8.2) g/dL Albumin (3.9-5) g/dL Albumin/Globulin Ratio % Lipase (13-60) units/L Urine Color (Yellow) Urine Turbidity (Clear) Urine pH (5.0-7.0) Ur Specific [place] (1.003-1.030) Urine Protein (Negative) mg/dL Urine Glucose (UA) (Negative) mg/dL Urine Ketones (Negative) mg/dL Urine Blood (Negative) Urine Nitrite (Negative) Urine Bilirubin (Negative) Urine Urobilinogen (<2.0) mg/dL Ur Leukocyte Esterase (Negative) Urine WBC (Auto) (0.0-6.0) /HPF Urine RBC (Auto) (0.0-6.0) /HPF Urine Mucus /HPF Salicylates < 0.3 L (2.8-20.0) mg/dL Urine Opiates Screen Urine Methadone Screen Acetaminophen 5.0 L (10.0-30.0) ug/mL Ur Barbiturates Screen Ur Phencyclidine Scrn Ur Amphetamines Screen U Benzodiazepines Scrn Urine Cocaine Screen U Marijuana (THC) Screen 11/25/20 11/25/20 11/25/20 Range/Units 18:54 18:54 19:29 WBC (4.5-11.0) K/mm3 RBC (3.65-5.03) M/mm3 Hgb 12.1 (11.8-15.2) gm/dl Hct 36.5 (35.5-45.6) % MCV (84-94) fl MCH (28-32) pg MCHC (32-34) % RDW (13.2-15.2) % Plt Count (140-440) K/mm3 Lymph % (Auto) (13.4-35.0) % [place] % (Auto) (0.0-7.3) % Eos % (Auto) (0.0-4.3) % Baso % (Auto) (0.0-1.8) % Lymph # (Auto) (1.2-5.4) K/mm3 [place] # (Auto) (0.0-0.8) K/mm3 Eos # (Auto) (0.0-0.4) K/mm3 Baso # (Auto) (0.0-0.1) K/mm3 Seg Neutrophils % (40.0-70.0) % Seg Neutrophils # (1.8-7.7) K/mm3 Sodium (137-145) mmol/L Potassium (3.6-5.0) mmol/L Chloride (98-107) mmol/L Carbon Dioxide (22-30) mmol/L Anion Gap mmol/L BUN (9-20) mg/dL Creatinine (0.8-1.3) mg/dL Estimated GFR ml/min BUN/Creatinine Ratio % Glucose (75-100) mg/dL Calcium (8.4-10.2) mg/dL Magnesium (1.7-2.3) mg/dL Total Bilirubin (0.1-1.2) mg/dL AST (5-40) units/L ALT (7-56) units/L Alkaline Phosphatase (35-129) units/L Ammonia (25-60) umol/L Total Protein (6.3-8.2) g/dL Albumin (3.9-5) g/dL Albumin/Globulin Ratio % Lipase (13-60) units/L Urine Color Yellow (Yellow) Urine Turbidity Clear (Clear) Urine pH 6.0 (5.0-7.0) Ur Specific [place] 1.019 (1.003-1.030) Urine Protein <15 mg/dl (Negative) mg/dL Urine Glucose (UA) Neg (Negative) mg/dL Urine Ketones Tr (Negative) mg/dL Urine Blood Neg (Negative) Urine Nitrite Neg (Negative) Urine Bilirubin Neg (Negative) Urine Urobilinogen < 2.0 (<2.0) mg/dL Ur Leukocyte Esterase Neg (Negative) Urine WBC (Auto) 1.0 (0.0-6.0) /HPF Urine RBC (Auto) 1.0 (0.0-6.0) /HPF Urine Mucus Few /HPF Salicylates (2.8-20.0) mg/dL Urine Opiates Screen Negative Urine Methadone Screen Negative Acetaminophen (10.0-30.0) ug/mL Ur Barbiturates Screen Negative Ur Phencyclidine Scrn Negative Ur Amphetamines Screen Negative U Benzodiazepines Scrn Negative Urine Cocaine Screen Negative U Marijuana (THC) Screen Negative - Radiology Data CT ABDOMEN AND PELVIS WITH CONTRAST HISTORY: Diffuse abdominal pain COMPARISON: Prior CT on 08/06/2020 TECHNIQUE: Routine abdominal and pelvic CT exam performed following intravenous contrast administration.. All CT scans at this location are performed using CT dose reduction for ALARA by means of automated exposure control. FINDINGS: CT ABDOMEN: Lung Bases: Lung bases are clear. Extensive esophageal varices again noted. Liver: There is a stable hepatic hemangioma in the mid left hepatic lobe. Biliary: Gallbladder is surgically absent. Spleen: Stable significant splenomegaly. Pancreas: No significant abnormality. Adrenals: No significant abnormality. Kidneys: No significant abnormality. Lymphatics: No lymphadenopathy. Vasculature: Stable aneurysm of the abdominal aorta measuring 3.1 cm. Bowel/Peritoneum: There is a left inguinal hernia containing a nondistended loop of colon. There is no obstruction or free air. Appendix not visualized. No pericecal inflammation. CT PELVIC: : No significant abnormality. Lymphatics: No lymphadenopathy. Osseous Structures: No aggressive appearing osseous lesions. Additional Findings: None IMPRESSION: 1. No acute findings. 2. Chronic findings including left inguinal hernia containing nondistended loop of colon and gastroesophageal varices as well as splenomegaly, unchanged from the prior exam. 3. Unchanged mild infrarenal abdominal aortic aneurysm. Signer Name: Jesse Harris MD Signed: 11/25/2020 6:22 PM Workstation Name: [id number] CHEST 1 VIEW 11/25/2020 4:27 PM INDICATION / CLINICAL INFORMATION: abd pain. COMPARISON: 09/09/2020 FINDINGS: SUPPORT DEVICES: None. HEART / MEDIASTINUM: No significant abnormality. LUNGS / PLEURA: No significant pulmonary or pleural abnormality. No pneumothorax. ADDITIONAL FINDINGS: No significant additional findings. IMPRESSION: 1. No acute findings. Signer Name: Jesse Harris MD Signed: 11/25/2020 4:30 PM Workstation Name: [id number] - Medical Decision Making 70-year-old male with extremely complex medical history including hep C with liver cirrhosis, CHF, history of chronic leukopenia and thrombocytopenia, seizure disorder brought in from his nursing facility due to 1 day of severe abdominal pain as well as diarrhea. The patient also has chronic altered mental status but unclear whether he has received the diagnosis of dementia. When I assessed the patient, he was slightly agitated but in no acute distress. He is afebrile and with normal vitals but when I examined the patient, he was ta chycardic in the 100s. His blood pressure and O2 sat are within normal limits. Physical examination reveals a pale elderly male with slightly dry mucous membranes. His abdomen is soft and nondistended but he has diffuse tenderness to palpation. He also has a large left inguinal hernia which is reducible but returns soon after reduction. There is no overlying skin changes. The patient has diarrhea which has filled his pants. Rectal exam was performed revealing minimal stool in the rectal vault but small amount of brown appearing stool is Hemoccult positive. The patient had labs drawn while he was in triage which reveal leukopenia with white blood cell count of 3.5 which is improved from 1.5 when he was seen 1 month ago. His hemoglobin is 13.7 but his platelets are 52. There are no significant electrolyte abnormalities and kidney function is normal. LFTs are not elevated. Nonetheless, we will perform broad work-up including additional labs to include ammonia level, coags, and repeat H&H., EKG, and CT of the abdomen pelvis with IV contrast to assess for evidence of obstruct ion, infection, or other intra-abdominal catastrophe. We will give small bolus of 500 cc fluid given that the patient has history of CHF. We will also give 80 mg of IV Protonix. We will give 4 mg of morphine and 4 mg of Zofran. Given the degree of the patient's tenderness on exam we will consult general surgery. We will also place a call to GI. At 5:40 PM I spoke with Dr. Leon of general surgery over the phone regarding the case. She agrees with current management and work-up and says she will follow up with a CT scan of the abdomen and pelvis. She has requested that I make the patient n.p.o. She does say that the patient appears to be a very poor surgical candidate but further recommendations depend on the results of the CT scan. At 5:54 PM I spoke with Dr. Hickman of gastroenterology regarding the case. He agrees with current management with 80 mg of IV Protonix. He states he does not feel that there is urgent need for octreotide or platelets at this time given that he does not have gautam blood per rectum. He states he will see the patient first thing in the morning. Review of paperwork from the patient's [place] [facility] reveals that the listed primary diagnosis is "sequela from nontraumatic subarachnoid hemorrhage." However, given that the patient has a nonfocal neurologic exam and appears to be at his baseline mental state, there is no need for CT imaging of the head at this time. On repeat assessment at 7:08 PM, the patient's tachycardia has now resolved. He is resting comfortably in the bed and reports no abdominal pain at this time. Repeat H&H are still pending. CT abd/pelvis is still pending. At 7:55 PM, CT of the abdomen pelvis has returned revealing no acute findings to suggest obstruction or other intra-abdominal catastrophe. At 8:05 PM, the patient's repeat hemoglobin has returned at 12.1 from 13.7 five hours ago. Given that the patient received only small amount of IV fluids this could be a significant drop in the context of the patient's thrombocytopenia and therefore we will place a call to the on-call hospitalist for admission. Critical Care Time: Yes Critical care time in (mins) excluding proc time.: 40 Critical care attestation.: If time is entered above; I have spent that time in minutes in the direct care of this critically ill patient, excluding procedure time. Critical care time was spent in the evaluation/assessment, work-up, and managem ent of abdominal pain with significant tenderness, diarrhea, and GI bleed requiring consultation and coordination of care with specialists as well as IV Protonix and IV fluids. ED Disposition Clinical Impression: Thrombocytopenia, Left inguinal hernia Diarrhea Qualifiers: Diarrhea type: unspecified type Qualified Code(s): R19.7 - Diarrhea, unspecified Abdominal pain Qualifiers: Abdominal location: generalized Qualified Code(s): R10.84 - Generalized abdominal pain Liver cirrhosis Qualifiers: Hepatic cirrhosis type: unspecified hepatic cirrhosis Ascites presence: unspecified Qualified Code(s): K74.60 - Unspecified cirrhosis of liver GI bleeding Qualifiers: GI bleed type/associated pathology: unspecified gastrointestinal hemorrhage type Qualified Code(s): K92.2 - Gastrointestinal hemorrhage, unspecified Disposition: 09 OP ADMIT IP TO THIS HOSP Is pt being admited?: Yes Condition: Stable
--- NOTE | 2020-11-25 17:35 | XRay Report ---
CHEST 1 VIEW 11/25/2020 4:27 PM INDICATION / CLINICAL INFORMATION: abd pain. COMPARISON: 09/09/2020 FINDINGS: SUPPORT DEVICES: None. HEART / MEDIASTINUM: No significant abnormality. LUNGS / PLEURA: No significant pulmonary or pleural abnormality. No pneumothorax. ADDITIONAL FINDINGS: No significant additional findings. IMPRESSION: 1. No acute findings. Signer Name: Jesse Harris MD Signed: 11/25/2020 5:30 PM Workstation Name: [id number]
--- NOTE | 2020-11-25 19:27 | Cat Scan Report ---
CT ABDOMEN AND PELVIS WITH CONTRAST HISTORY: Diffuse abdominal pain COMPARISON: Prior CT on 08/06/2020 TECHNIQUE: Routine abdominal and pelvic CT exam performed following intravenous contrast administrat ion.. All CT scans at this location are performed using CT dose reduction for ALARA by means of autom ated exposure control. FINDINGS: CT ABDOMEN: Lung Bases: Lung bases are clear. Extensive esophageal varices again noted. Liver: There is a stable hepatic hemangioma in the mid left hepatic lobe. Biliary: Gallbladder is surgically absent. Spleen: Stable significant splenomegaly. Pancreas: No significant abnormality. Adrenals: No significant abnormality. Kidneys: No significant abnormality. Lymphatics: No lymphadenopathy. Vasculature: Stable aneurysm of the abdominal aorta measuring 3.1 cm. Bowel/Peritoneum: There is a left inguinal hernia containing a nondistended loop of colon. There is n o obstruction or free air. Appendix not visualized. No pericecal inflammation. CT PELVIC: : No significant abnormality. Lymphatics: No lymphadenopathy. Osseous Structures: No aggressive appearing osseous lesions. Additional Findings: None IMPRESSION: 1. No acute findings. 2. Chronic findings including left inguinal hernia containing nondistended loop of colon and gastroes ophageal varices as well as splenomegaly, unchanged from the prior exam. 3. Unchanged mild infrarenal abdominal aortic aneurysm. Signer Name: Jesse Harris MD Signed: 11/25/2020 7:22 PM Workstation Name: [id number]
[2020-11-25 19:48] LABS: Hematocrit 36.5 % (35.5-45.6); Hemoglobin 12.1 gm/dl (11.8-15.2)
[2020-11-25 19:52] LABS: Amphetamine Screen,Urine Negative; Benzodiazepines Screen,Urine Negative; Cannabinoid Screen,Urine Negative; Cocaine Screen,Urine Negative; Methadone Screen,Urine Negative; Opiate Screen,Urine Negative
[2020-11-25 19:53] LABS: Bilirubin,Urine NEG (Negative); Blood,Urine NEG (Negative); Color,Urine Yellow (Yellow); Mucus,Urine FEW /HPF; Protein,Urine <15 mg/dL mg/dL (Negative); Urobilinogen,Urine < 2.0 mg/dL (<2.0)
[2020-11-25 19:56] LABS: INR 1.13 (0.87-1.13)
[2020-11-25 19:57] LABS: Partial Thromboplastin Time 34.6 Sec. (24.2-36.6)
[2020-11-25] MEDS ORDERED: levETIRAcetam 500 MG in DEXTROSE 5% IN WATER 100 ML IV ONE (20:00)
[2020-11-25] MEDS ORDERED: ONDANSETRON 4 MG/2 ML INJ IV PRN (21:53)
[2020-11-25] MEDS ORDERED: MORPHINE 4 MG/1 ML INJ IV PRN (21:53)
[2020-11-25] MEDS ORDERED: MAGNESIUM HYDROXIDE (MOM) ORAL LIQD UDC PO PRN (21:53)
[2020-11-25] MEDS ORDERED: ACETAMINOPHEN 325 MG TAB PO PRN (21:53)
[2020-11-25] MEDS ORDERED: DEXTROSE 50% IN WATER (25GM) 50 ML SYRINGE IV PRN (21:53)
[2020-11-25] MEDS ORDERED: MORPHINE 2 MG/1 ML INJ IV PRN (21:53)
--- NOTE | 2020-11-25 22:09 | History and Physical Report ---
History of Present Illness Date of examination: 11/25/20 Date of admission: 11/25/2020 Chief complaint: Abdominal Pain History of present illness: 70-year-old male with with multiple medical problems including dementia, chronic leukopenia and thrombocytopenia, hypertension, CHF, hepatitis C, liver cirrhosis and portal hypertension, seizure disorder, schizophrenia and paroxysmal atrial fibrillation on anticoagulation brought to the emergency room today from the [facility] with a complaint of abdominal pain which has been ongoing for the past 24 hours. Abdominal pain is said to be generalized. He denies any fever or chills, no chest pain or shortness of breath, no nausea vomiting. Upon arrival in the emergency room patient was said to have been having some diarrhea but denies any bright red blood per rectum. Denies any melena. No hematuria or dysuria. Denies any headache or dizziness and no diaphoresis. Patient denies any sick contacts and no recent travel. Denies any contact with anyone with COVID-19. Past History Past Medical History: heart failure, other ( hepatitis C. "bad circulation" chronic bilateral lower extremity wounds. unbillical hernia. inguinial hernia,H/O Asthma) Past Surgical History: cholecystectomy, Other (Tonsillectomy) Social history: no significant social history Family history: no significant family history Medications and Allergies Allergies Allergy/AdvReac Type Severity Reaction Status Date / Time ciprofloxacin [From Cipro] Allergy Dizziness Verified 11/25/20 13:04 ciprofloxacin HCl Allergy Dizziness Verified 11/25/20 13:04 [From Cipro] Home Medications Medication Instructions Recorded Confirmed Last Taken Type Aspirin EC [Ecotrin] 325 mg PO QDAY #30 tablet 04/22/20 Unknown Rx Aspirin EC [Ecotrin] 325 mg PO QDAY #30 tablet 09/22/20 Unknown Rx AtorvaSTATin [Lipitor] 40 mg PO QHS #30 tablet 09/22/20 Unknown Rx Dicyclomine [Bentyl] 20 mg PO QID PRN #20 tablet 09/22/20 Unknown Rx Diphenoxylate/Atropine [Lomotil] 2 tab PO QID PRN #20 tablet 09/22/20 Unknown Rx Famotidine [Pepcid] 20 mg PO BID #30 tablet 09/22/20 Unknown Rx Folic Acid 1 mg PO DAILY #30 tablet 09/22/20 Unknown Rx Metoprolol [Lopressor TAB] 12.5 mg PO BID #60 tablet 09/22/20 Unknown Rx Ondansetron [Zofran ODT TAB] 4 mg PO Q8HR PRN #20 tab.rapdis 09/22/20 Unknown Rx Thiamine [Vitamin B-1] 100 mg PO QDAY #30 tablet 09/22/20 Unknown Rx levETIRAcetam [Keppra TAB] 500 mg PO BID #60 tablet 09/22/20 Unknown Rx Active Meds: Active Medications Acetaminophen (Acetaminophen 325 Mg Tab) 650 mg PO Q4H PRN PRN Reason: Pain MILD(1-3)/Fever >100.5/SEAMAN Dextrose (Dextrose 50% In Water (25gm) 50 Ml Syringe) 50 ml IV Q30MIN PRN; Protocol PRN Reason: Hypoglycemia Sodium Chloride (Nacl 0.9% 1000 Ml) 1,000 mls @ 125 mls/hr IV DIRECT DANA Insulin Human Lispro (Insulin Lispro 100 Unit/Ml) 0 unit SUB-Q ACHS DANA; Protocol Magnesium Hydroxide (Magnesium Hydroxide (Mom) Oral Liqd Udc) 30 ml PO Q4H PRN PRN Reason: Constipation Morphine Sulfate (Morphine 2 Mg/1 Ml Inj) 2 mg IV Q4H PRN PRN Reason: Pain, Moderate (4-6) Morphine Sulfate (Morphine 4 Mg/1 Ml Inj) 4 mg IV Q4H PRN PRN Reason: Pain , Severe (7-10) Ondansetron HCl (Ondansetron 4 Mg/2 Ml Inj) 4 mg IV Q8H PRN PRN Reason: Nausea And Vomiting Pantoprazole Sodium (Pantoprazole 40 Mg Inj) 40 mg IV BID DANA Sodium Chloride (Sodium Chloride 0.9% 10 Ml Flush Syringe) 10 ml IV BID DANA Sodium Chloride (Sodium Chloride 0.9% 10 Ml Flush Syringe) 10 ml IV PRN PRN PRN Reason: LINE FLUSH Review of Systems Constitutional: no fever, no chills Ears, nose, mouth and throat: no nasal congestion, no sore throat Cardiovascular: no chest pain, no palpitations Respiratory: no cough, no shortness of breath Gastrointestinal: abdominal pain, no nausea, no vomiting Genitourinary Male: dysuria, no hematuria, no flank pain Musculoskeletal: no neck pain, no low back pain Integumentary: no rash, no pruritis Neurological: no headaches, no confusion Psychiatric: no anxiety, no depression Endocrine: no polyphagia, no polydipsia, no polyuria Exam - Constitutional Vitals: Temp Pulse Resp BP Pulse Ox 98.4 F 80 10 L 139/69 96 11/25/20 19:16 11/25/20 21:15 11/25/20 21:15 11/25/20 21:15 11/25/20 21:15 General appearance: Present: no acute distress, well-nourished - EENT Eyes: Present: PERRL, EOM intact. Absent: scleral icterus ENT: hearing intact, clear oral mucosa, dentition normal - Neck Neck: Present: supple, normal ROM - Respiratory Respiratory effort: normal Respiratory: bilateral: CTA - Cardiovascular Rhythm: regular Heart Sounds: Present: S1 & S2. Absent: gallop, systolic murmur, diastolic murmur, rub - Extremities Extremities: no ischemia, pulses intact, pulses symmetrical, No edema, normal temperature, normal color, Full ROM Peripheral Pulses: within normal limits - Abdominal General gastrointestinal: Present: soft, tender (Mild epigastric tenderness, no rebound tenderness and no guarding.), non-distended, normal bowel sounds, hernia ( large left-sided reducible inguinal hernia.). Absent: mass - Integumentary Integumentary: Present: clear, warm, dry. Absent: rash - Musculoskeletal Musculoskeletal: strength equal bilaterally - Psychiatric Psychiatric: appropriate mood/affect, intact judgment & insight, memory intact, cooperative - Neurologic Neurologic: CNII-XII intact, no focal deficits, moves all extremities Results - Labs CBC & Chem 7: 11/25/20 19:29 11/25/20 14:35 Labs: Abnormal lab results 11/25/20 11/25/20 11/25/20 Range/Units 14:35 14:35 17:49 WBC 3.5 L (4.5-11.0) K/mm3 Plt Count 53 L (140-440) K/mm3 Lymph % (Auto) 10.2 L (13.4-35.0) % Vernon % (Auto) 9.3 H (0.0-7.3) % Lymph # (Auto) 0.4 L (1.2-5.4) K/mm3 Seg Neutrophils % 77.1 H (40.0-70.0) % PT (12.2-14.9) Sec. BUN 22 H (9-20) mg/dL Creatinine 0.7 L (0.8-1.3) mg/dL Salicylates < 0.3 L (2.8-20.0) mg/dL Acetaminophen (10.0-30.0) ug/mL 11/25/20 11/25/20 Range/Units 17:49 19:29 WBC (4.5-11.0) K/mm3 Plt Count (140-440) K/mm3 Lymph % (Auto) (13.4-35.0) % Vernon % (Auto) (0.0-7.3) % Lymph # (Auto) (1.2-5.4) K/mm3 Seg Neutrophils % (40.0-70.0) % PT 15.0 H (12.2-14.9) Sec. BUN (9-20) mg/dL Creatinine (0.8-1.3) mg/dL Salicylates (2.8-20.0) mg/dL Acetaminophen 5.0 L (10.0-30.0) ug/mL Assessment and Plan - Patient Problems (1) Abdominal pain Current Visit: Yes Status: Acute Plan to address problem: Possibly secondary to gastritis. (2) GI bleeding Current Visit: Yes Status: Acute Plan to address problem: Patient placed on proton pump inhibitor. We will await evaluation by gastroenterology. Dr. Hickman already notified. (3) Thrombocytopenia Current Visit: Yes Status: Chronic Plan to address problem: We will monitor CBC closely. (4) Diabetes mellitus type 2 in nonobese Current Visit: No Status: Chronic Plan to address problem: We will monitor Accu-Cheks. Patient currently on sliding scale insulin. (5) Paroxysmal A-fib Onset Date: ~03/10/20 Current Visit: No Status: Acute Plan to address problem: Rate is currently controlled. (6) Seizure disorder Current Visit: No Status: Chronic Plan to address problem: We will continue patient on his routine home medications. We will place on seizure precautions. (7) DVT prophylaxis Current Visit: No Status: Acute Plan to address problem: We will place patient on sequential compression device in view of the GI bleed & thrombocytopenia. (8) Full code status Current Visit: No Status: Acute Plan to address problem: Patient is full code.
[2020-11-26] MEDS: SODIUM CHLORIDE 0.9% 1000 ML 1,000 ML IV SCH ×2 (00:14→13:20)
[2020-11-26] MEDS: INSULIN LISPRO 100 UNIT/ML SUB-Q SCH ×4 (01:34→17:16)
[2020-11-26 06:37] LABS: Hematocrit 34.5 % (35.5-45.6); Hemoglobin 11.7 gm/dl (11.8-15.2); Mean Corpuscular HGB Conc 34 % (32-34); Mean Corpuscular Volume 90 fl (84-94); Red Blood Count 3.83 M/mm3 (3.65-5.03); Red Cell Distribution Width 13.7 % (13.2-15.2)
[2020-11-26 06:40] LABS: Platelet Count 41 K/mm3 (140-440)
[2020-11-26 06:42] LABS: INR 1.18 (0.87-1.13)
[2020-11-26 06:58] LABS: Blood Urea Nitrogen 18 mg/dL (9-20); Calcium 8.9 mg/dL (8.4-10.2); Hemolysis Index 11
[2020-11-26 07:01] LABS: BUN/Creatinine Ratio 26
--- NOTE | 2020-11-26 08:10 | Gastroenterology Consultation ---
History of Present Illness - Reason for Consult Consult date: 11/26/20 abdominal pain Requesting physician: DOM CHAN - History of Present Illness Patient limited historian history obtained from patient and from chart 70-year-old male with with multiple medical problems including dementia, chronic leukopenia and thrombocytopenia, hypertension, CHF, hepatitis C, liver cirrhosis and portal hypertension, seizure disorder, schizophrenia and paroxysmal atrial fibrillation on anticoagulation brought to the [facility] room [facility] with a complaint of abdominal pain which has been ongoing for the past 1 to 2 days Gradually improving Diffuse Moderate severity Sharp/cramping No associated diarrhea nausea or vomiting currently, nursing staff confirm no diarrhea overnight Reportedly patient did have diarrhea yesterday Obtained/updated/reviewed patient's current medications Past History Past Medical History: heart failure, other ( hepatitis C. "bad circulation" chronic bilateral lower extremity wounds. unbillical hernia. inguinial hernia,H/O Asthma) Past Surgical History: cholecystectomy, Other (Tonsillectomy) Social history: no significant social history Family history: no significant family history Medications and Allergies Allergies Allergy/AdvReac Type Severity Reaction Status Date / Time ciprofloxacin [From Cipro] Allergy Dizziness Verified 11/25/20 13:04 ciprofloxacin HCl Allergy Dizziness Verified 11/25/20 13:04 [From Cipro] Home Medications Medication Instructions Recorded Confirmed Last Taken Type Aspirin EC [Ecotrin] 325 mg PO QDAY #30 tablet 04/22/20 Unknown Rx Aspirin EC [Ecotrin] 325 mg PO QDAY #30 tablet 09/22/20 Unknown Rx AtorvaSTATin [Lipitor] 40 mg PO QHS #30 tablet 09/22/20 Unknown Rx Dicyclomine [Bentyl] 20 mg PO QID PRN #20 tablet 09/22/20 Unknown Rx Diphenoxylate/Atropine [Lomotil] 2 tab PO QID PRN #20 tablet 09/22/20 Unknown Rx Famotidine [Pepcid] 20 mg PO BID #30 tablet 09/22/20 Unknown Rx Folic Acid 1 mg PO DAILY #30 tablet 09/22/20 Unknown Rx Metoprolol [Lopressor TAB] 12.5 mg PO BID #60 tablet 09/22/20 Unknown Rx Ondansetron [Zofran ODT TAB] 4 mg PO Q8HR PRN #20 tab.rapdis 09/22/20 Unknown Rx Thiamine [Vitamin B-1] 100 mg PO QDAY #30 tablet 09/22/20 Unknown Rx levETIRAcetam [Keppra TAB] 500 mg PO BID #60 tablet 09/22/20 Unknown Rx Active Meds: Active Medications Acetaminophen (Acetaminophen 325 Mg Tab) 650 mg PO Q4H PRN PRN Reason: Pain MILD(1-3)/Fever >100.5/SEAMAN Dextrose (Dextrose 50% In Water (25gm) 50 Ml Syringe) 50 ml IV Q30MIN PRN; Protocol PRN Reason: Hypoglycemia Dicyclomine HCl (Dicyclomine 10 Mg Cap) 10 mg PO QID DANA Sodium Chloride (Nacl 0.9% 1000 Ml) 1,000 mls @ 75 mls/hr IV DIRECT DANA Last Admin: 11/26/20 00:14 Dose: 75 mls/hr Documented by: Levetiracetam 500 mg/ Dextrose 105 mls @ 400 mls/hr IV Q12HR DANA Insulin Human Lispro (Insulin Lispro 100 Unit/Ml) 0 unit SUB-Q ACHS DANA; Protocol Last Admin: 11/26/20 01:34 Dose: Not Given Documented by: Magnesium Hydroxide (Magnesium Hydroxide (Mom) Oral Liqd Udc) 30 ml PO Q4H PRN PRN Reason: Constipation Morphine Sulfate (Morphine 2 Mg/1 Ml Inj) 2 mg IV Q4H PRN PRN Reason: Pain, Moderate (4-6) Last Admin: 11/26/20 00:24 Dose: 2 mg Documented by: Morphine Sulfate (Morphine 4 Mg/1 Ml Inj) 4 mg IV Q4H PRN PRN Reason: Pain , Severe (7-10) Ondansetron HCl (Ondansetron 4 Mg/2 Ml Inj) 4 mg IV Q8H PRN PRN Reason: Nausea And Vomiting Pantoprazole Sodium (Pantoprazole 40 Mg Inj) 40 mg IV BID [facility] Sodium Chloride (Sodium Chloride 0.9% 10 Ml Flush Syringe) 10 ml IV BID [facility] Last Admin: 11/26/20 01:37 Dose: Not Given Documented by: Sodium Chloride (Sodium Chloride 0.9% 10 Ml Flush Syringe) 10 ml IV PRN PRN PRN Reason: LINE FLUSH Review of Systems - Review of Systems ROS unobtainable: due to mental status Exam - Constitutional Vital Signs: Temp Pulse Resp BP Pulse Ox 98.9 F 73 20 98/62 93 11/26/20 04:44 11/26/20 04:44 11/26/20 04:44 11/26/20 04:44 11/26/20 04:44 General appearance: no acute distress - EENT Eyes: EOM intact ENT: hearing intact - Neck Neck: supple - Respiratory Respiratory effort: normal - Cardiovascular Heart Sounds: Present: S1 & S2 - Gastrointestinal General gastrointestinal: Present: soft, tender, normal bowel sounds - Integumentary Integumentary: Present: dry - Musculoskeletal Musculoskeletal: normal - Neurologic Neurological: strength equal bilaterally - Psychiatric Psychiatric: appropriate mood/affect - Labs CBC & Chem 7: 11/26/20 05:23 11/26/20 05:23 Lab Results: Laboratory Results - last 24 hr 11/25/20 11/25/20 11/25/20 14:35 14:35 14:35 WBC 3.5 L RBC 4.54 Hgb 13.7 Hct 40.7 MCV 90 MCH 30 MCHC 34 RDW 14.3 Plt Count 53 L Lymph % (Auto) 10.2 L Branch % (Auto) 9.3 H Eos % (Auto) 2.7 Baso % (Auto) 0.7 Lymph # (Auto) 0.4 L Branch # (Auto) 0.3 Eos # (Auto) 0.1 Baso # (Auto) 0.0 Seg Neutrophils % 77.1 H Seg Neutrophils # 2.7 PT INR APTT Sodium 142 Potassium 4.6 Chloride 104.2 Carbon Dioxide 25 Anion Gap 17 BUN 22 H Creatinine 0.7 L Estimated GFR > 60 BUN/Creatinine Ratio 31 Glucose 95 POC Glucose Calcium 9.4 Magnesium 2.20 Total Bilirubin 0.70 AST 24 ALT 17 Alkaline Phosphatase 60 Ammonia Total Protein 7.3 Albumin 4.4 Albumin/Globulin Ratio 1.5 Lipase 16 Urine Color Urine Turbidity Urine pH Ur Specific Foreman Urine Protein Urine Glucose (UA) Urine Ketones Urine Blood Urine Nitrite Urine Bilirubin Urine Urobilinogen Ur Leukocyte Esterase Urine WBC (Auto) Urine RBC (Auto) Urine Mucus Salicylates Urine Opiates Screen Urine Methadone Screen Acetaminophen Ur Barbiturates Screen Ur Phencyclidine Scrn Ur Amphetamines Screen U Benzodiazepines Scrn Urine Cocaine Screen U Marijuana (THC) Screen Drugs of Abuse Note Blood Type Antibody Screen 11/25/20 11/25/20 11/25/20 17:49 17:49 17:49 WBC RBC Hgb Hct MCV MCH MCHC RDW Plt Count Lymph % (Auto) Branch % (Auto) Eos % (Auto) Baso % (Auto) Lymph # (Auto) Branch # (Auto) Eos # (Auto) Baso # (Auto) Seg Neutrophils % Seg Neutrophils # PT INR APTT Sodium Potassium Chloride Carbon Dioxide Anion Gap BUN Creatinine Estimated GFR BUN/Creatinine Ratio Glucose POC Glucose Calcium Magnesium Total Bilirubin AST ALT Alkaline Phosphatase Ammonia 30.0 Total Protein Albumin Albumin/Globulin Ratio Lipase Urine Color Urine Turbidity Urine pH Ur Specific Foreman Urine Protein Urine Glucose (UA) Urine Ketones Urine Blood Urine Nitrite Urine Bilirubin Urine Urobilinogen Ur Leukocyte Esterase Urine WBC (Auto) Urine RBC (Auto) Urine Mucus Salicylates < 0.3 L Urine Opiates Screen Urine Methadone Screen Acetaminophen 5.0 L Ur Barbiturates Screen Ur Phencyclidine Scrn Ur Amphetamines Screen U Benzodiazepines Scrn Urine Cocaine Screen U Marijuana (THC) Screen Drugs of Abuse Note Blood Type Antibody Screen 11/25/20 11/25/20 11/25/20 18:54 18:54 19:29 WBC RBC Hgb 12.1 Hct 36.5 MCV MCH MCHC RDW Plt Count Lymph % (Auto) Branch % (Auto) Eos % (Auto) Baso % (Auto) Lymph # (Auto) Branch # (Auto) Eos # (Auto) Baso # (Auto) Seg Neutrophils % Seg Neutrophils # PT INR APTT Sodium Potassium Chloride Carbon Dioxide Anion Gap BUN Creatinine Estimated GFR BUN/Creatinine Ratio Glucose POC Glucose Calcium Magnesium Total Bilirubin AST ALT Alkaline Phosphatase Ammonia Total Protein Albumin Albumin/Globulin Ratio Lipase Urine Color Yellow Urine Turbidity Clear Urine pH 6.0 Ur Specific Foreman 1.019 Urine Protein <15 mg/dl Urine Glucose (UA) Neg Urine Ketones Tr Urine Blood Neg Urine Nitrite Neg Urine Bilirubin Neg Urine Urobilinogen < 2.0 Ur Leukocyte Esterase Neg Urine WBC (Auto) 1.0 Urine RBC (Auto) 1.0 Urine Mucus Few Salicylates Urine Opiates Screen Negative Urine Methadone Screen Negative Acetaminophen Ur Barbiturates Screen Negative Ur Phencyclidine Scrn Negative Ur Amphetamines Screen Negative U Benzodiazepines Scrn Negative Urine Cocaine Screen Negative U Marijuana (THC) Screen Negative Drugs of Abuse Note Disclamer Blood Type Antibody Screen 11/25/20 11/25/20 11/26/20 19:29 19:33 00:11 WBC RBC Hgb Hct MCV MCH MCHC RDW Plt Count Lymph % (Auto) Branch % (Auto) Eos % (Auto) Baso % (Auto) Lymph # (Auto) Branch # (Auto) Eos # (Auto) Baso # (Auto) Seg Neutrophils % Seg Neutrophils # PT 15.0 H INR 1.13 APTT 34.6 Sodium Potassium Chloride Carbon Dioxide Anion Gap BUN Creatinine Estimated GFR BUN/Creatinine Ratio Glucose POC Glucose 82 Calcium Magnesium Total Bilirubin AST ALT Alkaline Phosphatase Ammonia Total Protein Albumin Albumin/Globulin Ratio Lipase Urine Color Urine Turbidity Urine pH Ur Specific Foreman Urine Protein Urine Glucose (UA) Urine Ketones Urine Blood Urine Nitrite Urine Bilirubin Urine Urobilinogen Ur Leukocyte Esterase Urine WBC (Auto) Urine RBC (Auto) Urine Mucus Salicylates Urine Opiates Screen Urine Methadone Screen Acetaminophen Ur Barbiturates Screen Ur Phencyclidine Scrn Ur Amphetamines Screen U Benzodiazepines Scrn Urine Cocaine Screen U Marijuana (THC) Screen Drugs of Abuse Note Blood Type A POSITIVE Antibody Screen Negative 11/26/20 11/26/20 11/26/20 05:23 05:23 05:23 WBC 2.0 L RBC 3.83 Hgb 11.7 L Hct 34.5 L MCV 90 MCH 31 MCHC 34 RDW 13.7 Plt Count 41 L Lymph % (Auto) Branch % (Auto) Eos % (Auto) Baso % (Auto) Lymph # (Auto) Branch # (Auto) Eos # (Auto) Baso # (Auto) Seg Neutrophils % Seg Neutrophils # PT 15.5 H INR 1.18 H APTT Sodium 143 Potassium 3.8 Chloride 105.0 Carbon Dioxide 29 Anion Gap 13 BUN 18 Creatinine 0.7 L Estimated GFR > 60 BUN/Creatinine Ratio 26 Glucose 76 POC Glucose Calcium 8.9 Magnesium Total Bilirubin AST ALT Alkaline Phosphatase Ammonia Total Protein Albumin Albumin/Globulin Ratio Lipase Urine Color Urine Turbidity Urine pH Ur Specific Foreman Urine Protein Urine Glucose (UA) Urine Ketones Urine Blood Urine Nitrite Urine Bilirubin Urine Urobilinogen Ur Leukocyte Esterase Urine WBC (Auto) Urine RBC (Auto) Urine Mucus Salicylates Urine Opiates Screen Urine Methadone Screen Acetaminophen Ur Barbiturates Screen Ur Phencyclidine Scrn Ur Amphetamines Screen U Benzodiazepines Scrn Urine Cocaine Screen U Marijuana (THC) Screen Drugs of Abuse Note Blood Type Antibody Screen Assessment and Plan Regarding abdominal pain appears to be gradually improving highest on the differential diagnoses acute infectious etiology, lower on differential diagnosis is peptic ulcer disease mesenteric ischemia etc. Continue supportive care I am starting patient on dicyclomine and will reassess in the a.m. From GI standpoint start diet - Patient Problems (1) Abdominal pain Current Visit: Yes Status: Acute (2) Chronic hepatitis C Current Visit: No Status: Chronic (3) Chronic liver disease Current Visit: No Status: Chronic
[2020-11-26] MEDS: PANTOPRAZOLE 40 MG INJ IV SCH ×2 (09:48→21:28)
[2020-11-26] MEDS: DICYCLOMINE 10 MG CAP PO SCH ×3 (09:48→16:18)
[2020-11-26] MEDS ORDERED: levETIRAcetam 500 MG in DEXTROSE 5% IN WATER 100 ML IV SCH (10:00)
[2020-11-26 11:27] LABS: Total Cells Counted 100
[2020-11-26 11:33] LABS: Platelet Estimate Consistent w Auto; RBC Morphology Normal
--- NOTE | 2020-11-26 14:01 | Consultation ---
History of Present Illness Consult date: 11/26/20 Reason for consult: abdominal pain Chief complaint: Abdominal pain - History of present illness History of present illness: 70-year-old male with past medical history of dementia, hepatitis C, CHF, hypertension, liver cirrhosis with portal hypertension and varices, atrial fibrillation who presents to the emergency room with complaints of diffuse abdominal pain x1 day. The pain is crampy in nature and feels like bloating. Patient denies nausea, vomiting, diarrhea. He states he is unable to have a b owel movement at the current moment. Patient has made multiple trips to the emergency room in the past year for similar complaints with essentially negative abdominal work-up. He feels pain is better today. He tolerated a regular diet today without difficulty or exacerbation of his pain. Patient with long standing left inguinal hernia. He states it was fixed in the past at this hospital. Past History Past Medical History: heart failure, hypertension, other ( hepatitis C. "bad circulation" chronic bilateral lower extremity wounds. umbilical hernia. inguinial hernia, H/O Asthma) Past Surgical History: cholecystectomy, Other (Tonsillectomy, ?hernia repair) Social history: no significant social history, IV drug use (hx of heroin 50 years ago). denies: smoking, alcohol abuse Family history: no significant family history Medications and Allergies Allergies Allergy/AdvReac Type Severity Reaction Status Date / Time ciprofloxacin [From Cipro] Allergy Dizziness Verified 11/25/20 13:04 ciprofloxacin HCl Allergy Dizziness Verified 11/25/20 13:04 [From Cipro] Home Medications Medication Instructions Recorded Confirmed Last Taken Type Aspirin EC [Ecotrin] 325 mg PO QDAY #30 tablet 04/22/20 Unknown Rx Aspirin EC [Ecotrin] 325 mg PO QDAY #30 tablet 09/22/20 Unknown Rx AtorvaSTATin [Lipitor] 40 mg PO QHS #30 tablet 09/22/20 Unknown Rx Dicyclomine [Bentyl] 20 mg PO QID PRN #20 tablet 09/22/20 Unknown Rx Diphenoxylate/Atropine [Lomotil] 2 tab PO QID PRN #20 tablet 09/22/20 Unknown Rx Famotidine [Pepcid] 20 mg PO BID #30 tablet 09/22/20 Unknown Rx Folic Acid 1 mg PO DAILY #30 tablet 09/22/20 Unknown Rx Metoprolol [Lopressor TAB] 12.5 mg PO BID #60 tablet 09/22/20 Unknown Rx Ondansetron [Zofran ODT TAB] 4 mg PO Q8HR PRN #20 tab.rapdis 09/22/20 Unknown Rx Thiamine [Vitamin B-1] 100 mg PO QDAY #30 tablet 09/22/20 Unknown Rx levETIRAcetam [Keppra TAB] 500 mg PO BID #60 tablet 09/22/20 Unknown Rx Active Meds: Active Medications Acetaminophen (Acetaminophen 325 Mg Tab) 650 mg PO Q4H PRN PRN Reason: Pain MILD(1-3)/Fever >100.5/SEAMAN Dextrose (Dextrose 50% In Water (25gm) 50 Ml Syringe) 50 ml IV Q30MIN PRN; Prot ocol PRN Reason: Hypoglycemia Dicyclomine HCl (Dicyclomine 10 Mg Cap) 10 mg PO QID [facility] Last Admin: 11/26/20 13:13 Dose: 10 mg Documented by: Sodium Chloride (Nacl 0.9% 1000 Ml) 1,000 mls @ 75 mls/hr IV DIRECT [facility] Last Admin: 11/26/20 13:20 Dose: 75 mls/hr Documented by: Levetiracetam 500 mg/ Dextrose 105 mls @ 400 mls/hr IV Q12HR [facility] Last Infusion: 11/26/20 10:16 Dose: Infused Documented by: Insulin Human Lispro (Insulin Lispro 100 Unit/Ml) 0 unit SUB-Q ACHS [facility]; Protocol Last Admin: 11/26/20 13:13 Dose: Not Given Documented by: Magnesium Hydroxide (Magnesium Hydroxide (Mom) Oral Liqd Udc) 30 ml PO Q4H PRN PRN Reason: Constipation Morphine Sulfate (Morphine 2 Mg/1 Ml Inj) 2 mg IV Q4H PRN PRN Reason: Pain, Moderate (4-6) Last Admin: 11/26/20 00:24 Dose: 2 mg Documented by: Morphine Sulfate (Morphine 4 Mg/1 Ml Inj) 4 mg IV Q4H PRN PRN Reason: Pain , Severe (7-10) Last Admin: 11/26/20 09:48 Dose: 4 mg Documented by: Ondansetron HCl (Ondansetron 4 Mg/2 Ml Inj) 4 mg IV Q8H PRN PRN Reason: Nausea And Vomiting Pantoprazole Sodium (Pantoprazole 40 Mg Inj) 40 mg IV BID [facility] Last Admin: 11/26/20 09:48 Dose: 40 mg Documented by: Sodium Chloride (Sodium Chloride 0.9% 10 Ml Flush Syringe) 10 ml IV BID [facility] Last Admin: 11/26/20 09:49 Dose: 10 ml Documented by: Sodium Chloride (Sodium Chloride 0.9% 10 Ml Flush Syringe) 10 ml IV PRN PRN PRN Reason: LINE FLUSH Review of Systems All systems: negative (10 point ROS performed and negative except for that listed in HPI) Exam Vital Signs Temp Pulse Resp BP Pulse Ox 97.7 F 85 20 149/68 96 11/25/20 13:08 11/25/20 13:08 11/25/20 13:08 11/25/20 13:08 11/25/20 13:08 Narrative exam: Gen.: Awake, alert, oriented x3. No apparent distress ENT: Trachea midline. No lymphadenopathy. No scleral icterus or conjunctival pallor CV: S1, S2 present Respiratory: No audible wheezes Abdomen: Soft, nondistended, mild diffuse TTP. Moderate sized left inguinal hernia, soft without skin changes, fully reducible. No obvious surgical scars. No rebound, rigidity, guarding Extremities: + b/l LE edema Results - Labs 11/26/20 05:23 11/26/20 05:23 Abnormal lab results 11/25/20 11/25/20 11/25/20 Range/Units 14:35 14:35 17:49 WBC 3.5 L (4.5-11.0) K/mm3 Hgb (11.8-15.2) gm/dl Hct (35.5-45.6) % Plt Count 53 L (140-440) K/mm3 Lymph % (Auto) 10.2 L (13.4-35.0) % [place] % (Auto) 9.3 H (0.0-7.3) % Lymph # (Auto) 0.4 L (1.2-5.4) K/mm3 Seg Neutrophils % 77.1 H (40.0-70.0) % Seg Neutrophils # Man (1.8-7.7) K/mm3 Lymphocytes # (Manual) (1.2-5.4) K/mm3 PT (12.2-14.9) Sec. INR (0.87-1.13) BUN 22 H (9-20) mg/dL Creatinine 0.7 L (0.8-1.3) mg/dL Salicylates < 0.3 L (2.8-20.0) mg/dL Acetaminophen (10.0-30.0) ug/mL 11/25/20 11/25/20 11/26/20 Range/Units 17:49 19:29 05:23 WBC 2.0 L (4.5-11.0) K/mm3 Hgb 11.7 L (11.8-15.2) gm/dl Hct 34.5 L (35.5-45.6) % Plt Count 41 L (140-440) K/mm3 Lymph % (Auto) (13.4-35.0) % [place] % (Auto) (0.0-7.3) % Lymph # (Auto) (1.2-5.4) K/mm3 Seg Neutrophils % (40.0-70.0) % Seg Neutrophils # Man 1.4 L (1.8-7.7) K/mm3 Lymphocytes # (Manual) 0.5 L (1.2-5.4) K/mm3 PT 15.0 H (12.2-14.9) Sec. INR (0.87-1.13) BUN (9-20) mg/dL Creatinine (0.8-1.3) mg/dL Salicylates (2.8-20.0) mg/dL Acetaminophen 5.0 L (10.0-30.0) ug/mL 11/26/20 11/26/20 Range/Units 05:23 05:23 WBC (4.5-11.0) K/mm3 Hgb (11.8-15.2) gm/dl Hct (35.5-45.6) % Plt Count (140-440) K/mm3 Lymph % (Auto) (13.4-35.0) % [place] % (Auto) (0.0-7.3) % Lymph # (Auto) (1.2-5.4) K/mm3 Seg Neutrophils % (40.0-70.0) % Seg Neutrophils # Man (1.8-7.7) K/mm3 Lymphocytes # (Manual) (1.2-5.4) K/mm3 PT 15.5 H (12.2-14.9) Sec. INR 1.18 H (0.87-1.13) BUN (9-20) mg/dL Creatinine 0.7 L (0.8-1.3) mg/dL Salicylates (2.8-20.0) mg/dL Acetaminophen (10.0-30.0) ug/mL Diabetes panel 11/25/20 11/26/20 Range/Units 14:35 05:23 Sodium 142 143 (137-145) mmol/L Potassium 4.6 3.8 (3.6-5.0) mmol/L Chloride 104.2 105.0 (98-107) mmol/L Carbon Dioxide 25 29 (22-30) mmol/L BUN 22 H 18 (9-20) mg/dL Creatinine 0.7 L 0.7 L (0.8-1.3) mg/dL Glucose 95 76 (75-100) mg/dL Calcium 9.4 8.9 (8.4-10.2) mg/dL AST 24 (5-40) units/L ALT 17 (7-56) units/L Alkaline Phosphatase 60 (35-129) units/L Total Protein 7.3 (6.3-8.2) g/dL Albumin 4.4 (3.9-5) g/dL Calcium panel 11/25/20 11/26/20 Range/Units 14:35 05:23 Calcium 9.4 8.9 (8.4-10.2) mg/dL Albumin 4.4 (3.9-5) g/dL Pituitary panel 11/25/20 11/26/20 Range/Units 14:35 05:23 Sodium 142 143 (137-145) mmol/L Potassium 4.6 3.8 (3.6-5.0) mmol/L Chloride 104.2 105.0 (98-107) mmol/L Carbon Dioxide 25 29 (22-30) mmol/L BUN 22 H 18 (9-20) mg/dL Creatinine 0.7 L 0.7 L (0.8-1.3) mg/dL Glucose 95 76 (75-100) mg/dL Calcium 9.4 8.9 (8.4-10.2) mg/dL Adrenal panel 11/25/20 11/26/20 Range/Units 14:35 05:23 Sodium 142 143 (137-145) mmol/L Potassium 4.6 3.8 (3.6-5.0) mmol/L Chloride 104.2 105.0 (98-107) mmol/L Carbon Dioxide 25 29 (22-30) mmol/L BUN 22 H 18 (9-20) mg/dL Creatinine 0.7 L 0.7 L (0.8-1.3) mg/dL Glucose 95 76 (75-100) mg/dL Calcium 9.4 8.9 (8.4-10.2) mg/dL Total Bilirubin 0.70 (0.1-1.2) mg/dL AST 24 (5-40) units/L ALT 17 (7-56) units/L Alkaline Phosphatase 60 (35-129) units/L Total Protein 7.3 (6.3-8.2) g/dL Albumin 4.4 (3.9-5) g/dL - Imaging CT scan - abdomen: report reviewed, image reviewed CT scan - pelvis: report reviewed, image reviewed Assessment and Plan 70-year-old male with abdominal pain, chronic reducible left inguinal hernia Plan: 1. continue diet as mary 2. recs per GI 3. prn pain control 4. No acute surgical intervention for inguinal hernia. Reducible, nonobstructin g. Would recommend outpatient follow up with [facility] as patient has complex medical history and liver disease. Will s/o Thank you, please call with questions.
[2020-11-26] MEDS ORDERED: DIPHENOXYLATE/ATROPINE TAB PO PRN (14:34)
[2020-11-26] MEDS ORDERED: ASPIRIN EC 325 MG TAB PO SCH (15:00)
[2020-11-26 15:39] VITALS: BP 118/71
--- NOTE | 2020-11-26 15:48 | Discharge Summary ---
Providers - Providers Date of Admission: 11/25/20 21:44 Date of discharge: 11/26/20 Attending physician: LUISA SHELBY 11/25/20 19:08 Consult to Physician [CONS] Routine Comment: Consulting Provider: JINA RAMIREZ Physician Instructions: Reason For Exam: diffuse abdominal tenderness, L inguinal hernia 11/25/20 19:09 Consult to Physician [CONS] Routine Comment: Consulting Provider: CLAIRE COLES Physician Instructions: Reason For Exam: Abdominal pain/diarrhea, positive hemoccult 11/25/20 21:54 Consult to Dietitian/Nutrition [CONS] Routine Physician Instructions: Reason For Exam: Reason for Consult: Diet education Primary care physician: MAINTENANCE AIDE Hospitalization Condition: Stable Disposition: DC-01 TO HOME OR SELFCARE Time spent for discharge: 34 minutes Core Measure Documentation - Palliative Care Palliative Care/ Comfort Measures: Not Applicable - Core Measures Any of the following diagnoses?: none Exam - Constitutional Vitals: Temp Pulse Resp BP Pulse Ox 97.2 F L 85 20 118/71 92 11/26/20 15:00 11/26/20 15:00 11/26/20 15:00 11/26/20 15:00 11/26/20 15:00 Plan Activity: advance as tolerated Weight Bearing Status: Weight Bear as Tolerated Diet: low fat, low salt Additional Instructions: Follow-up with general surgeon at [facility] for possible elective inguinal hernia repair surgery Follow up with: PRIMARY MD JUMAAN [Primary Care Provider] - 3-5 Days
[2020-11-26] MEDS ORDERED: levETIRAcetam 500 MG TAB PO SCH (22:00)
[2020-11-27] MEDS ORDERED: THIAMINE 100 MG TAB PO SCH (10:00)
[2020-11-27] MEDS ORDERED: FOLIC ACID 1 MG TAB PO SCH (10:00)
== END 2020-11-26 22:00 ==
LOC: ED 11:12 → 3A 21:44 → 4A 22:17 → OBSVTOIN 11-26 16:31 → INTOOBSV 11-26 16:31
PROVIDERS: ADMIT Internal Medicine Geriatric Medicine; ATTEND Internal Medicine
DX: K92.2 Gastrointestinal hemorrhage, unspecified (principal); D69.6 Thrombocytopenia, unspecified; I48.0 Paroxysmal atrial fibrillation; G40.909 Epilepsy, unspecified, not intractable, without status epilepticus; R19.7 Diarrhea, unspecified; I11.0 Hypertensive heart disease with heart failure; I50.9 Heart failure, unspecified; K74.60 Unspecified cirrhosis of liver; F03.90 Unspecified dementia, unspecified severity, without behavioral disturbance, psychotic disturbance, mood disturbance, and anxiety; F20.9 Schizophrenia, unspecified; K40.90 Unilateral inguinal hernia, without obstruction or gangrene, not specified as recurrent; J45.909 Unspecified asthma, uncomplicated; D72.818 Other decreased white blood cell count; Z86.19 Personal history of other infectious and parasitic diseases; Z90.49 Acquired absence of other specified parts of digestive tract; Z79.899 Other long term (current) drug therapy; Z98.890 Other specified postprocedural states; Z79.82 Long term (current) use of aspirin
CPT/HCPCS: 36415; 71045; 74177; 80048; 80053; 80307; 81001; 82140; 82962; 83690; 83735; 85014; 85018; 85025; 85610; 85730; 86850; 86900; 86901; 96361; 96365; 96366; 96372; 96375; 96376; 99291; A9270; C9113; G0378; J1953; J2270; J2405; J7030; J7040; Q9967; 80320; 85007; G0480